=== PATIENT | male | born 1960 | race Hispanic/Latino ===

== ENCOUNTER 2016-06-22 10:35 | Inpatient (IN) | payer MEDICARE ==
[2016-06-22 11:33] LABS: Basophils % (Auto) 0.6 % (0.0-1.8); Eosinophils % (Auto) 0.4 % (0.0-4.3); Hematocrit 43.4 % (35.5-45.6); Hemoglobin 14.7 gm/dl (11.8-15.2); Mean Corpuscular HGB Conc 34 % (32-34); Mean Corpuscular Hemoglobin 31 pg (28-32); Mean Corpuscular Volume 92 fl (84-94); Platelet Count 139 K/mm3 (140-440); Red Blood Count 4.73 M/mm3 (3.65-5.03); Red Cell Distribution Width 15.2 % (13.2-15.2); White Blood Count 7.8 K/mm3 (4.5-11.0)
[2016-06-22 11:46] LABS: Anion Gap 23 mmol/L; Blood Urea Nitrogen 10 mg/dL (9-20); Calcium 8.4 mg/dL (8.4-10.2); Carbon Dioxide 18 mmol/L (22-30); Chloride 99.7 mmol/L (98-107); Glucose 215 mg/dL (75-100); Potassium 3.9 mmol/L (3.6-5.0); Sodium 137 mmol/L (137-145)
[2016-06-22] MEDS ORDERED: NITROSTAT SL PRN (21:14)
[2016-06-22] MEDS ORDERED: MORPHINE IV ONE (21:14)
[2016-06-22] MEDS ORDERED: ASPIRIN PO ONE (21:15)
--- NOTE | 2016-06-22 21:16 | Emergency Department Report ---
ED Chest Pain HPI - General Chief Complaint: Chest Pain Stated Complaint: SEIZURES Time Seen by Provider: 06/22/16 21:03 Source: patient Mode of arrival: Ambulatory Limitations: No Limitations - History of Present Illness Initial Comments: This is a pleasant 55-year-old gentleman with a 2 day history of chest pain. He described it as substernal in nature. There is some component of chest wall discomfort as well. He does indicate that it does radiate down his right arm as well. He felt the tightness has right arm throughout the day today. It does not change with exertion. He does report some back pain associated with this as well. Patient denies any specific trauma. He states that he had similar pains chronically 2 weeks ago. He was seen at a different facility at that time. He did have evaluation performed that demonstrated no specific pathology. He was given a diagnosis of alcoholic gastritis at that time period and discharged home. Patient denies ever having heart catheterization or stress testing. He states that he is an alcoholic. He does endorse history of COPD as well. He does feel subjectively improved with inhaler Severity scale (0 -10): 6 Worsens With: movement - Related Data Home Medications Medication Instructions Recorded Confirmed Last Taken Divalproex Dr [DepaKOTE DR] 500 mg PO TID 06/22/16 06/22/16 Unknown Allergies Allergy/AdvReac Type Severity Reaction Status Date / Time No Known Allergies Allergy Unverified 06/22/16 10:49 MARGIE score - Margie Score Age > 65: (0) No Aspirin use within the Past 7 Days: (0) No 3 or more CAD Risk Factors: (0) No 2 or more Angina events in past 24 hrs: (1) Yes Known CAD with more than 50% Stenosis: (0) No Elevated Cardiac Markers: (0) No ST Deviation Greater than 0.5mm: (0) No MARGIE Score: 1 ED Review of Systems ROS: Stated complaint: SEIZURES Other details as noted in HPI Comment: All other systems reviewed and negative Constitutional: denies: chills, fever Eyes: denies: eye pain, eye discharge, vision change ENT: denies: ear pain, throat pain Respiratory: denies: cough, shortness of breath, wheezing Cardiovascular: chest pain. denies: palpitations Endocrine: no symptoms reported Gastrointestinal: denies: abdominal pain, nausea, diarrhea Genitourinary: denies: urgency, dysuria Musculoskeletal: back pain. denies: joint swelling, arthralgia Skin: denies: rash, lesions Neurological: denies: headache, weakness, paresthesias Psychiatric: denies: anxiety, depression Hematological/Lymphatic: denies: easy bleeding, easy bruising ED Past Medical Hx - Past Medical History Hx Seizures: Yes Additional medical history: STOMACH - Surgical History Past Surgical History?: No Hx Coronary Stent: No Hx Open Heart Surgery: No Hx Pacemaker: No Hx Internal Defibrillator: No Hx Cholecystectomy: No Hx Appendectomy: No Hx Breast Surgery: No - Social History Smoking Status: Current Every Day Smoker Substance Use Type: Alcohol - Medications Home Medications: Home Medications Medication Instructions Recorded Confirmed Last Taken Type Divalproex Dr [DepaKOTE DR] 500 mg PO TID 06/22/16 06/22/16 Unknown History ED Physical Exam - General Limitations: No Limitations General appearance: alert, in no apparent distress, obese - Head Head exam: Present: atraumatic, normocephalic - Eye Eye exam: Present: normal appearance, EOMI. Absent: scleral icterus - ENT ENT exam: Present: normal exam, normal orophraynx, mucous membranes moist - Neck Neck exam: Present: normal inspection. Absent: meningismus, lymphadenopathy - Respiratory Respiratory exam: Present: decreased breath sounds (diffusely with scattered wheezes and occasional crackles.). Absent: respiratory distress - Cardiovascular Cardiovascular Exam: Present: regular rate, normal rhythm, normal heart sounds. Absent: systolic murmur, diastolic murmur, rubs, gallop - GI/Abdominal GI/Abdominal exam: Present: soft, tenderness (upper abdomen with area just to the right of midline with a small ventral hernia. Easily reducible.), normal bowel sounds, other (protuberant). Absent: guarding, rebound - Rectal Rectal exam: Present: deferred - Extremities Exam Extremities exam: Present: normal inspection, full ROM. Absent: tenderness, pedal edema, calf tenderness - Back Exam Back exam: Present: normal inspection, tenderness (mild in the right and left paralumbar region.). Absent: vertebral tenderness - Neurological Exam Neurological exam: Present: alert, oriented X3 - Psychiatric Psychiatric exam: Present: normal affect, normal mood - Skin Skin exam: Present: warm, dry, intact, normal color. Absent: rash ED Course Vital Signs 06/22/16 06/22/16 06/22/16 10:50 20:28 20:33 Temperature 97.9 F Pulse Rate 81 99 H 79 Respiratory 20 17 12 Rate Blood Pressure 106/77 O2 Sat by Pulse 97 Oximetry 06/22/16 06/22/16 06/22/16 20:40 20:50 21:00 Temperature Pulse Rate 79 74 71 Respiratory 19 18 25 H Rate Blood Pressure 146/90 143/91 O2 Sat by Pulse 97 94 95 Oximetry 06/22/16 06/22/16 06/22/16 21:10 21:20 21:30 Temperature Pulse Rate 82 73 71 Respiratory 19 21 21 Rate Blood Pressure 143/91 138/88 146/89 O2 Sat by Pulse 98 96 96 Oximetry 06/22/16 06/22/16 06/22/16 21:40 21:50 22:00 Temperature Pulse Rate 72 62 69 Respiratory 23 21 21 Rate Blood Pressure 146/89 143/91 143/91 O2 Sat by Pulse 96 97 94 Oximetry - Reevaluation(s) Reevaluation #1: 06/22/16 21:04 ECG at 1055 with normal sinus rhythm at 81 bpm. Left axis. Normal [place] QRS. Does have some Q waves anteriorly. Otherwise some nonspecific changes. No acute STEMI. Reevaluation #2: 06/22/16 23:20 Patient reports mild subjective relief with nitroglycerin and morphine and aspirin. There is some suspicion my mind whether this could be alcoholic gastritis. The pain is not reproducible with palpation or range of motion with the arm. I am concerned given his risk factors as well as not having had cardiac cath workup in the past. I did speak with Dr. Nunez regarding admission. She was agreeable with this. ED Medical Decision Making - Lab Data Result diagrams: 06/22/16 11:13 06/22/16 11:13 Critical care attestation.: If time is entered above; I have spent that time in minutes in the direct care of this critically ill patient, excluding procedure time. ED Disposition Clinical Impression: Chest pain Qualifiers: Chest pain type: precordial chest pain Qualified Code(s): R07.2 - Precordial pain Disposition: OP ADMITTED IP TO THIS HOSP Is pt being admited?: Yes Does the pt Need Aspirin: No Condition: Stable Instructions: Chest Pain (ED) Referrals: PRIMARY CARE, [Primary Care Provider] - 3-5 Days Time of Disposition: 23:19
[2016-06-22] MEDS ORDERED: TYLENOL PO PRN (23:56)
[2016-06-22] MEDS ORDERED: SODIUM CHLORIDE FLUSH SYRINGE 10 ML IV PRN (23:56)
[2016-06-22] MEDS ORDERED: ZOFRAN IV PRN (23:56)
[2016-06-22] MEDS ORDERED: DULCOLAX PR PRN (23:56)
[2016-06-22] MEDS ORDERED: MILK OF MAGNESIA PO PRN (23:56)
--- NOTE | 2016-06-22 23:58 | History and Physical Report ---
History of Present Illness Date of examination: 06/22/16 History of present illness: 55 -year-old man history of seizure comes emergency room, his of chest pain. Pain is in the epigastric area which he is unable to describe. Intensity 5/10, radiating to the jaw and associated with left arm tingling. The pain has been constant since friday, worse with activity, relieved with morphine. He has been drinking heavily since Friday to relieve the pain. He has not taking his Depakote since then. He admits to nausea, no vomiting, admits to shortness breath, diaphoresis Patient denies cough, abdominal pain, hematochezia, dysuria, frequency, focal weakness, dysarthria, fever chills, polydipsia polyuria, hot or cold intolerance , easy bruisability, or rash or bleeding from mucosal membrane, rhinorrhea, epistaxis, earache, tinnitus, blurry vision, eye discharge, anxiety, depression. Other review of systems negative PAST SURGICAL HISTORY: Hernia repair 7 SOCIAL HISTORY: Denies drugs, drinks heavily, smoke a pack a day FAMILY HISTORY: Hypertension Medications and Allergies Allergies Allergy/AdvReac Type Severity Reaction Status Date / Time No Known Allergies Allergy Unverified 06/22/16 10:49 Home Medications Medication Instructions Recorded Confirmed Last Taken Type Divalproex Dr [DepaKOTE ] 500 mg PO TID 06/22/16 06/22/16 Unknown History Active Meds: Active Medications Nitroglycerin (Nitrostat) 0.4 mg SL .Q5MIN PRN PRN Reason: Chest Pain Exam - Physical Exam Narrative exam: Gen. appearance: Patient lying in bed, no apparent distress HEENT: Normocephalic, atraumatic, pupils equally round and reactive to light, extraocular movement intact, and no sclericterus,. No JVD or thyromegaly or nodule,neck supple, no carotid bruit ,mucous membranes moist, no exudate or erythema Heart: S1, S2, regular rate and rhythm Lungs: Clear to auscultation bilaterally, breathing comfortable Abdomen: Positive bowel sounds, nontender, nondistended, no organomegaly Extremity: No edema, cyanosis, clubbing Skin: No rash, nodules, warm, dry Neuro: Oriented 3, cranial nerves II-12 intact, speech is fluent, motor and sensory intact - Constitutional Vitals: Temp Pulse Resp BP Pulse Ox 97.9 F 63 18 151/85 95 06/22/16 10:50 06/22/16 23:40 06/22/16 23:40 06/22/16 23:40 06/22/16 23:40 Results - Labs CBC & Chem 7: 06/22/16 11:13 06/22/16 11:13 Labs: Abnormal lab results 06/22/16 06/22/16 Range/Units 11:13 11:13 Plt Count 139 L (140-440) K/mm3 Lymph # 1.1 L (1.2-5.4) K/mm3 Seg Neutrophils % 81.2 H (40.0-70.0) % Carbon Dioxide 18 L (22-30) mmol/L Glucose 215 H (75-100) mg/dL - Imaging and Cardiology EKG: image reviewed Chest x-ray: image reviewed Assessment and Plan Chest pain, rule out ACS Seizure Admit to medicine Check cardiac enzymes, lipid profile, obtain stress test Restart Depakote, IV Ativan as needed for breakthrough seizure Start DVT prophylaxis
[2016-06-23] MEDS: MORPHINE IV PRN ×4 (00:10→19:45)
[2016-06-23] MEDS ORDERED: ATIVAN IV PRN ×3 (00:37→13:45)
[2016-06-23 04:32] LABS: Creatine Kinase MB 2.7 ng/mL (0.0-4.0)
[2016-06-23 05:34] LABS: Basophils % (Auto) 1.2 % (0.0-1.8); Hematocrit 39.4 % (35.5-45.6); Hemoglobin 13.4 gm/dl (11.8-15.2); Mean Corpuscular HGB Conc 34 % (32-34); Mean Corpuscular Hemoglobin 31 pg (28-32); Mean Corpuscular Volume 92 fl (84-94); Platelet Count 116 K/mm3 (140-440); Red Cell Distribution Width 14.5 % (13.2-15.2); White Blood Count 6.2 K/mm3 (4.5-11.0)
[2016-06-23 05:49] LABS: Blood Urea Nitrogen 14 mg/dL (9-20); Calcium 8.7 mg/dL (8.4-10.2); Carbon Dioxide 26 mmol/L (22-30); Glucose 120 mg/dL (75-100); Potassium 3.4 mmol/L (3.6-5.0); Sodium 143 mmol/L (137-145)
[2016-06-23 06:18] LABS: Anion Gap 17 mmol/L
[2016-06-23] MEDS ORDERED: LEXISCAN IV ONE ×2 (08:11→08:56)
[2016-06-23] MEDS ORDERED: K-DUR PO ONE (08:41)
--- NOTE | 2016-06-23 09:49 | XRay Report ---
ROUTINE CHEST, TWO VIEWS: HISTORY: chest pain. The trachea, heart, mediastinal contour, lung benedict and bony thorax are unremarkable. IMPRESSION: Unremarkable chest x-ray.
[2016-06-23] MEDS ORDERED: LOVENOX SUB-Q SCH (10:00)
--- NOTE | 2016-06-23 10:23 | Progress Note ---
Assessment and Plan Assessment and plan: 1. Chest pain. Continue chest pain pathway. Follow-up EKG and cardiac isoenzymes. Follow-up stress thallium. 2. Epigastric pain. Check lipase/amylase. CT scan of the abdomen and pelvis. 3. Hypokalemia. Replete potassium. 4. Seizure disorder. Continue medications. 5. ETOH abuse. [facility] protocol History Interval history: Patient still complains of epigastric pain. No nausea, vomiting or diarrhea. Patient denies any chest pain or shortness of breath currently. Hospitalist Physical - Constitutional Vitals: Temp Pulse Resp BP Pulse Ox 98.5 F 69 20 153/82 96 06/23/16 08:00 06/23/16 08:00 06/23/16 08:00 06/23/16 08:00 06/23/16 08:00 General appearance: Present: no acute distress, well-nourished - EENT Eyes: Present: PERRL, EOM intact ENT: hearing intact, clear oral mucosa, dentition normal - Neck Neck: Present: supple, normal ROM - Respiratory Respiratory effort: normal Respiratory: bilateral: CTA - Cardiovascular Rhythm: regular Heart Sounds: Present: S1 & S2. Absent: gallop, rub - Extremities Extremities: no ischemia, No edema, Full ROM - Abdominal General gastrointestinal: soft, tender, non-distended, normal bowel sounds Localized gastrointestinal: tender: epigastric periumbilical (mild) - Integumentary Integumentary: Present: clear, warm, dry - Neurologic Neurologic: CNII-XII intact, moves all extremities Results - Labs CBC & Chem 7: 06/23/16 04:48 06/23/16 04:48 Labs: Laboratory Last Values WBC 6.2 K/mm3 (4.5-11.0) 06/23/16 04:48 RBC 4.30 M/mm3 (3.65-5.03) 06/23/16 04:48 Hgb 13.4 gm/dl (11.8-15.2) 06/23/16 04:48 Hct 39.4 % (35.5-45.6) 06/23/16 04:48 MCV 92 fl (84-94) 06/23/16 04:48 MCH 31 pg (28-32) 06/23/16 04:48 MCHC 34 % (32-34) 06/23/16 04:48 RDW 14.5 % (13.2-15.2) 06/23/16 04:48 Plt Count 116 K/mm3 (140-440) L 06/23/16 04:48 Lymph % (Auto) 33.3 % (13.4-35.0) 06/23/16 04:48 [place] % (Auto) 7.7 % (0.0-7.3) H 06/23/16 04:48 Eos % (Auto) 2.0 % (0.0-4.3) 06/23/16 04:48 Baso % (Auto) 1.2 % (0.0-1.8) 06/23/16 04:48 Lymph # 2.1 K/mm3 (1.2-5.4) 06/23/16 04:48 [place] # 0.5 K/mm3 (0.0-0.8) 06/23/16 04:48 Eos # 0.1 K/mm3 (0.0-0.4) 06/23/16 04:48 Baso # 0.1 K/mm3 (0.0-0.1) 06/23/16 04:48 Seg Neutrophils % 55.8 % (40.0-70.0) 06/23/16 04:48 Seg Neutrophils # 3.5 K/mm3 (1.8-7.7) 06/23/16 04:48 Sodium 143 mmol/L (137-145) 06/23/16 04:48 Potassium 3.4 mmol/L (3.6-5.0) L 06/23/16 04:48 Chloride 103.0 mmol/L (98-107) 06/23/16 04:48 Carbon Dioxide 26 mmol/L (22-30) D 06/23/16 04:48 Anion Gap 17 mmol/L 06/23/16 04:48 BUN 14 mg/dL (9-20) 06/23/16 04:48 Creatinine 0.8 mg/dL (0.8-1.5) 06/23/16 04:48 Estimated GFR > 60 ml/min 06/23/16 04:48 BUN/Creatinine Ratio 17.50 % 06/23/16 04:48 Glucose 120 mg/dL (75-100) H 06/23/16 04:48 Calcium 8.7 mg/dL (8.4-10.2) 06/23/16 04:48 Total Creatine Kinase 270 units/L (55-170) H 06/23/16 03:20 CK-MB (CK-2) 2.7 ng/mL (0.0-4.0) 06/23/16 03:20 CK-MB (CK-2) Rel Index 1.0 (0-4) 06/23/16 03:20 Troponin T < 0.010 ng/mL (0.00-0.029) 06/23/16 Unknown Triglycerides 201 mg/dL (2-149) H 06/23/16 00:24 Cholesterol 256 mg/dL (50-199) H 06/23/16 00:24 LDL Cholesterol Direct 147 mg/dL (50-130) H 06/23/16 00:24 HDL Cholesterol 69 mg/dL (40-59) H 06/23/16 00:24 Cholesterol/HDL Ratio 3.71 % 06/23/16 00:24
[2016-06-23] MEDS ORDERED: PNEUMOVAX 23 IM ONE (12:00)
[2016-06-23] MEDS: K-DUR PO ONE ×2 (12:46→13:01)
[2016-06-23 12:56] LABS: Alanine Aminotransferase 14 units/L (7-56); Albumin 3.7 g/dL (3.9-5); Albumin/Globulin Ratio 1.2 %; Alkaline Phosphatase 97 units/L (35-129); Amylase 37 units/L (27-131); Bilirubin,Total 0.5 mg/dL (0.1-1.2); Creatine Kinase MB 2.5 ng/mL (0.0-4.0); Lipase 28 units/L (13-60); Total Protein 6.7 g/dL (6.3-8.2)
[2016-06-23 13:00] LABS: Bilirubin,Direct < 0.2 mg/dL (0-0.2); Bilirubin,Indirect 0.3 mg/dL
--- NOTE | 2016-06-23 14:35 | Treadmill Report ---
THALLIUM STRESS TEST LEFT VENTRICLE: Left ventricular chamber size is within normal. Perfusion study demonstrates homogeneous uptake of the tracer in all segments, no significant perfusion defects identified. Gated analysis demonstrates normal left ventricular systolic function, ejection fraction 69%. CONCLUSION: Normal myocardial perfusion study. JOB# [id number] CA/NTS
[2016-06-23] MEDS: ATIVAN IV PRN ×3 (14:37→21:16)
--- NOTE | 2016-06-23 16:06 | Cat Scan Report ---
FINAL REPORT EXAM: CT ABDOMEN PELVIS WO CON HISTORY: epigastric pain TECHNIQUE: CT of the abdomen and pelvis was performed without intravenous contrast. Reconstructions were included in the coronal and sagittal planes. PRIORS: None. FINDINGS: Lower thorax: The lung bases are clear. The visualized portions of the heart are normal. Liver: The liver is normal in attenuation. No intrahepatic biliary duct dilation. No focal hepatic lesions. Gallbladder/ biliary system: No cholelithiasis. The common bile duct appears nondilated. Spleen: No splenic lesions are seen. Pancreas: No pancreatic lesions are seen. No pancreatic duct dilation. Kidneys: There is a simple left parapelvic renal cyst. No hydronephrosis. No renal or ureteral calcifications. Adrenal glands: No adrenal masses. Vasculature: The abdominal aorta is nondilated. Lymph nodes: No enlarged lymph nodes are seen in the abdomen or pelvis. Bowel, mesentery, peritoneum: No bowel obstruction. No free fluid or free air. The appendix is not seen. No pericecal inflammatory change. No colonic diverticulosis. No bowel wall thickening. Urinary bladder: No filling defects are seen. Pelvis: There is a hyper attenuating area in the right aspect of the prostate gland measuring 1.3 centimeters. Abdominal wall: Small bilateral fat containing inguinal hernias are seen. Bones: Degenerative changes are seen in the spine. IMPRESSION: 1. Focal 1.3 centimeter hyper attenuating right prostatic nodule. Cannot exclude prostatic neoplasm. Correlate with PSA. 2. Simple left renal cyst. 3. Fat containing inguinal hernias.
[2016-06-24] MEDS: MORPHINE IV PRN ×2 (02:34→05:50)
[2016-06-24] MEDS: ATIVAN IV PRN ×2 (02:34→05:50)
[2016-06-24 07:01] LABS: Anion Gap 16 mmol/L; BUN/Creatinine Ratio 11.42; Blood Urea Nitrogen 8 mg/dL (9-20); Calcium 8.4 mg/dL (8.4-10.2); Carbon Dioxide 26 mmol/L (22-30); Chloride 98.5 mmol/L (98-107); Glucose 124 mg/dL (75-100); Sodium 136 mmol/L (137-145)
[2016-06-24 07:06] LABS: Basophils % (Auto) 0.7 % (0.0-1.8); Eosinophils % (Auto) 2.6 % (0.0-4.3); Hematocrit 41.1 % (35.5-45.6); Hemoglobin 13.8 gm/dl (11.8-15.2); Mean Corpuscular HGB Conc 34 % (32-34); Mean Corpuscular Hemoglobin 31 pg (28-32); Mean Corpuscular Volume 92 fl (84-94); Platelet Count 106 K/mm3 (140-440); Red Blood Count 4.49 M/mm3 (3.65-5.03); Red Cell Distribution Width 14.5 % (13.2-15.2); White Blood Count 6.4 K/mm3 (4.5-11.0)
--- NOTE | 2016-06-24 08:32 | Discharge Summary ---
Providers - Providers Date of Admission: 06/22/16 23:56 Date of discharge: 06/24/16 Attending physician: JOSH LEVI Hospitalization Reason for admission: cp, epigastric pain Condition: Stable Hospital course: 55-year-old male with past medical history of seizure disorder presented through the emergency room with complaints of chest and epigastric pain. Patient stated that the chest pain radiated to the jaw and was associated with left arm tingling. Patient states that the pain began on Friday prior to admission and has been constant and worsening with exertional activity. Patient reports drinking heavily to relieve the pain. Patient underwent evaluation with a myocardial perfusion scan which was found to be negative. With regards to the epigastric pain, patient underwent CT scan of the abdomen and pelvis which was found to be negative with the exception of a 1.3 cm prostate nodule. The epigastric pain most likely was related to gastritis/GERD associated with EtOH/binge drinking. Patient was also noted to have hypokalemia which was repleted. Patient is felt to have received maximal hospital benefit for discharge. Dedicated discharge time 32 minutes. Disposition: DISCHARGED TO HOME OR SELFCARE Time spent for discharge: 32 - Discharge Diagnoses (1) GERD (gastroesophageal reflux disease) Status: Acute Qualifiers: Esophagitis presence: E (2) Gastritis Status: Acute Qualifiers: Gastritis type: G Chronicity: C Gastritis bleeding: G (3) Chest pain Status: Acute Qualifiers: Chest pain type: precordial chest pain Qualified Code(s): R07.2 - Precordial pain Core Measure Documentation - Palliative Care Palliative Care/ Comfort Measures: Not Applicable - Core Measures Any of the following diagnoses?: none Exam - Constitutional Vitals: Temp Pulse Resp BP Pulse Ox 97.9 F 84 20 129/68 97 06/24/16 04:25 06/24/16 04:25 06/24/16 04:25 06/24/16 04:25 06/24/16 08:27 General appearance: Present: no acute distress, well-nourished - EENT Eyes: Present: PERRL ENT: hearing intact, clear oral mucosa - Neck Neck: Present: supple, normal ROM - Respiratory Respiratory effort: normal Respiratory: bilateral: CTA - Cardiovascular Heart Sounds: Present: S1 & S2. Absent: rub, click - Extremities Extremities: pulses symmetrical, No edema Peripheral Pulses: within normal limits - Abdominal General gastrointestinal: Present: soft, non-tender, non-distended, normal bowel sounds Male genitourinary: Present: normal - Integumentary Integumentary: Present: clear, warm, dry - Musculoskeletal Musculoskeletal: gait normal, strength equal bilaterally - Psychiatric Psychiatric: appropriate mood/affect, intact judgment & insight - Neurologic Neurologic: CNII-XII intact, moves all extremities Plan Activity: no restrictions Weight Bearing Status: Full Weight Bearing Diet: regular Additional Instructions: F/U with urology for prostate nodule seen on imaging Follow up with: [facility] [Provider Group] - 7 Days PRIMARY CAREMD [Referring] - 3-5 Days LAVERN HEARD MD [Staff Physician] - 7 Days Prescriptions: Divalproex [Willy Vazquez] 500 mg PO TID #90 tablet oxyCODONE /ACETAMINOPHEN [Percocet 5/325] 1 tab PO Q4HR #15 tab Pantoprazole [Protonix] 40 mg PO QDAY #30 tablet
--- NOTE | 2016-06-24 08:34 | Admit Criteria Form ---
Admission Criteria Documentation: CARDIOLOGY GRG Clinical Indications for Admission to Inpatient Care ( Place 'X' for any and all applicable criteria): Hospital admission is needed for appropriate care of the patient because of ANY ONE of the following (1): [ ] I. Hemodynamic instability as indicated by ALL of the following (1)(2)(3) (4)(5) [ ]a) Vital signs or other findings not as expected for chronic patient condition or baseline [ ]b) Instability indicated by ANY ONE of the following: [ ]i) Hypotension [ ]ii) Symptomatic Tachycardia unresponsive to treatment ( e.g., analgesia, fluids, sedation as indicated) [ ]iii) Inadequate perfusion indicated by ANY ONE of the following: [ ] 1) Lactic acidosis (> 2 mmol/L) [ ] 2) New abnormal capillary refill (> 3 seconds) [ ] 3) Reduced urine output [ ] 4) New altered mental status [ ]iv) Orthostatic vital sign changes unresponsive to treatment (e.g., fluids) [ ]v) IV inotropic or vasopressor medication required to maintain adequate blood pressure or perfusion [ ] II. Severe heart failure as indicated by ANY ONE of the following(17)(18) [ ]a) Respiratory distress [ ]b) Hypotension [ ]c) Anasarca (refractory to outpatient therapy) [ ]d) Cardiac arrhythmias of immediate concern [ ]e) Myocardial ischemia [ ] III. Cardiac arrhythmias or findings of immediate concern indicated by ANY ONE of the following (19)(20): [ ] a) Heart rhythms that are inherently dangerous or unstable indicated by ANY ONE of the following (21)(22)(23): [ ] i) Resuscitated ventricular fibrillation or cardiac arrest [ ] ii) Ventricular escape rhythm [ ] iii) Sustained ventricular tachycardia (30 seconds or more of ventricular rhythm at greater than 100 beats per minute) [ ] iv) Nonsustained ventricular tachycardia and ANY ONE of the following: [ ] 1) Suspected cardiac ischemia as cause or consequence of ventricular tachycardia [ ] 2) In setting of acute myocarditis [ ] b) Unstable cardiac conduction defects indicated by ANY ONE of the following(23)(24)(25) [ ] i) Type II second-degree atrioventricular block [ ]ii) Third-degree atrioventricular block [ ]iii) New-onset left bundle branch block with suspected myocardial ischemia [ ]c) Any heart rhythm and ANY ONE of the following (21)(22)(26)(27) (28) [ ] i) Continuous long-term ECG monitoring needed (e.g., initiation of drug requiring monitoring for more than 24 hours) [ ] ii) Patient has automatic implanted cardioverter defibrillator that is repeatedly firing, malfunctioning, or in need of immediate adjustment of settings beyond the scope of ambulatory or observation care [ ]d) Heart rhythms of concern due to ANY ONE of the following: [ ] i) Hypotension [ ] ii) Respiratory distress [ ] iii) Association with other significant symptoms (e.g., bradycardia with syncope or ongoing dizziness, supraventricular tachycardia with chest pain (14)(15)(17) [ ] IV. Monitoring for cardiac contusion beyond the scope of observation care needed [A](30)(31)(32) [ ] V. Surgical or device complication (e.g., valve replacement complication , pacemaker dysfunction) (35)(41)(44)(45)(46) [ ] . Inpatient palliative care needed. [B](49) Also use Inpatient Palliative Care Criteria [ ] VII. Nonbacterial thrombotic (marantic) endocarditis (36)(43)(47)(48) [X] VIII. Cardiology condition, symptom, or finding for which emergency and observation care has failed or are not considered appropriate. [ ] IX. Acute valvular disease requiring inpatient as indicated by ANY ONE of the following (41) [ ]a) Acute valvular regurgitation (42) [ ]b) Noninfectious valvulitis (43) [ ]c) Obstructive valve thrombosis [ ]d) Paravalvular leak [ ]e) Other significant valvular disorder remaining after emergency or observation level of care (as appropriate) [ ]X. Pericardial disease requiring inpatient treatment as indicated by ANY ONE of the following (33)(34)(35)(36)(37) [ ]a) Suspected tamponade (38)(39)(40) [ ]b) Hemopericardium [ ]c) Other significant pericardial disorder remaining after emergency or observation level of care (as appropriate) [ ] XI. Cardiac ischemia beyond scope of emergency and observation care. [ ] XII. Hypertension requiring inpatient treatment as indicated by ANY ONE of the following (6)(7)(8) [ ]a) SBP greater than 220 mm Hg or DBP greater than 120 mmHg despite treatment [ ]b) SBP greater than 140 mm Hg or DBP greater than 100 mm Hg with evidence of acute end organ damage as indicated by ANY ONE of the following [ ] i) Altered mental status [ ] ii) Acute renal failure as indicated by new onset of ANY ONE of the following (9)(10)(11)(12)(13) [ ]1) 3-fold rise in serum creatinine from baseline [ ]2) Serum creatinine greater than 4 mg/dL ( 354 micromoles/L) with acute rise greater than 0.5 mg/dL (44.2 micromoles/L) [ ]3) Reduction of more than 75% in estimated glomerular filtration rate from baseline [ ]4) Estimated glomerular filtration rate less than 35 mL/min/1.73m2 (0.59 mL/sec/1.73m2) in child up to 18 years of age [ ]5) Cessation of urine output indicated by ALL of the following [ ]A. Adequate volume status [ ]B. Inadequate urine output as indicated by ANY ONE of the following [ ]a. Urine output less than 0.3 mL/kg/hr for 24 hours [ ]b. Anuria (urine output less than 0.1 mL/kg/hr) for 12 hours [ ] iii) Aortic dissection [ ] iv) Myocardial Ischemia [ ] v) Left ventricular heart failure [ ]vi) Retinal Hemorrhage [ ]vii) Other significant finding [ ]c) Hypertension in child requiring inpatient treatment as indicated by ALL of the following(14)(15)(16) [ ] i) Outpatient treatment not effective, not available, or not appropriate [ ]ii) SBP or DBP greater than 95th percentile for age [ ]iii) Evidence of acute end organ damage as indicated by ANY ONE of the following [ ]1) Altered mental status [ ]2) Acute renal failure as indicated by new onset of ANY ONE of the following(9)(10)(11)(12)(13) [ ]A. 3-fold rise in serum creatinine from baseline [ ]B. Serum creatinine greater than 4 mg/dL (354 micromoles/L) with acute rise greater than 0.5 mg/dL (44.2 micromoles/L) [ ]C. Reduction of more than 75% in estimated glomerular filtration rate from baseline [ ]D. Estimated glomerular filtration rate less than 35 mL/min/1.73m2 (0.59 mL/sec/1.73m2) in child up to 18 years of age [ ]E. Cessation of urine output indicated by ALL of the following [ ]a. Adequate volume status [ ]b. Inadequate urine output as indicated by ANY ONE of the following [ ]i) Urine output less than 0.3 mL/kg/hr for 24 hours [ ]ii) Anuria ( urine output less than 0.1 mL/kg/hr) for 12 hours [ ]3) Severe headache [ ]4) Visual disturbance [ ]5) Retinal hemorrhage [ ]6) Other significant finding [ ]XIII. Complications of transplanted heart indicated by ANY ONE of the following(61): [ ]a) Acute graft rejection requiring inpatient management (eg, intravenous immunosuppression)(62)(63) [ ]b) Acute graft heart failure indicated by ANY ONE of the following(64): [ ]i) Hemodynamic instability [ ]ii) Cardiac arrhythmias of immediate concern [ ]iii) Pulmonary edema that is very severe (eg, mechanical ventilation needed, imminent or likely, need for 100% oxygen to keep oxygen saturation above 90%) [ ]iv) Pulmonary edema that is persistent as indicated by ALL of the following: [ ]1) New need for oxygen therapy to keep oxygen saturation above 90% (or increased FiO2 need from baseline) [ ]2) Has not improved sufficiently with emergency department or observation care IV diuretics or other heart failure treatments[E] [ ]v) Altered mental status that is severe or persistent [ ]vi) Increased creatinine (new on laboratory test) with reduction of more than 50% in estimated glomerular filtration rate from baseline [ ]vii) Progressively (ongoing) rising creatinine (known from past laboratory test) with reduction of more than 25% in estimated glomerular filtration rate from baseline [ ]viii) Acute renal failure [ ]ix) Acute peripheral ischemia (eg, examination shows pulseless, cool, mottled, or cyanotic extremity) [ ]x) Pulmonary artery catheter monitoring needed [ ]xi) Other sign or symptom of heart failure requiring inpatient treatment (ie, too severe or not responsive to outpatient and observation care treatment) [ ]c) Infection requiring inpatient management (eg, Hemodynamic instability, need for intravenous antimicrobial treatment)(66)(67)(68)(69)(70) [ ]d) Cardiac allograft vasculopathy requiring inpatient management ( eg evidence of cardiac ischemia)(71) [ ]e) Other complication of transplanted heart (eg, stroke, severe pulmonary hypertension, severe valvular dysfunction) requiring inpatient management(72) The original [facility] [employer] content created by [facility] has been revised. The portions of the content which have been revised are identified through the use of italic text or in bold, and [facility] has neither reviewed nor approved the modified material. All other unmodified content is copyright [facility]. Please see references footnoted in the original [facility] edition 2016 Admission Criteria Met: Yes
[2016-06-24 10:38] VITALS: BP 118/87
== END 2016-06-24 12:45 | disposition home or self-care (01) | DRG 392 ==
LOC: ED 10:35 → 4A 23:56
PROVIDERS: ADMIT Internal Medicine; ATTEND Hospitalist
DX: K21.9 Gastro-esophageal reflux disease without esophagitis (principal); K29.70 Gastritis, unspecified, without bleeding; F17.200 Nicotine dependence, unspecified, uncomplicated; E87.6 Hypokalemia; G40.909 Epilepsy, unspecified, not intractable, without status epilepticus; F10.10 Alcohol abuse, uncomplicated; R07.2 Precordial pain; Z82.49 Family history of ischemic heart disease and other diseases of the circulatory system
CPT/HCPCS: 36415; 71020; 74176; 78452; 80048; 80061; 80074; 82150; 82550; 82553; 83690; 84154; 84484; 85025; 90732; 93005; 93010; 93017; 94760; 96374; 99406; A9502; J2060; J2270; J2405; J2785

== ENCOUNTER 2016-09-27 13:18 | Inpatient (IN) | payer MEDICARE ==
[2016-09-27 14:44] LABS: Basophils % (Auto) 1.1 % (0.0-1.8); Eosinophils % (Auto) 3.5 % (0.0-4.3); Hematocrit 41.2 % (35.5-45.6); Mean Corpuscular HGB Conc 34 % (32-34); Mean Corpuscular Hemoglobin 33 pg (28-32); Mean Corpuscular Volume 96 fl (84-94); Platelet Count 143 K/mm3 (140-440); Red Blood Count 4.29 M/mm3 (3.65-5.03); Red Cell Distribution Width 15.2 % (13.2-15.2); White Blood Count 5.6 K/mm3 (4.5-11.0)
[2016-09-27 15:14] LABS: Alanine Aminotransferase 8 units/L (7-56); Albumin/Globulin Ratio 1.2 %; Alkaline Phosphatase 106 units/L (35-129); Anion Gap 15 mmol/L; BUN/Creatinine Ratio 11.42; Blood Urea Nitrogen 8 mg/dL (9-20); Calcium 8.5 mg/dL (8.4-10.2); Carbon Dioxide 28 mmol/L (22-30); Chloride 103.1 mmol/L (98-107); Glucose 86 mg/dL (75-100); Potassium 3.7 mmol/L (3.6-5.0); Sodium 142 mmol/L (137-145); Total Protein 7.4 g/dL (6.3-8.2)
[2016-09-27 16:20] LABS: Creatine Kinase 74 units/L (55-170)
[2016-09-27 16:38] LABS: Creatine Kinase MB < 1.0 ng/mL (0.0-4.0)
[2016-09-27] MEDS ORDERED: PEPCID IV ONE ×2 (17:50→20:27)
[2016-09-27] MEDS ORDERED: ZOFRAN IV ONE (17:50)
[2016-09-27] MEDS ORDERED: NACL 0.9% 500 ML 500 ML IV ONE (17:51)
[2016-09-27] MEDS ORDERED: CARAFATE PO ONE (17:51)
--- NOTE | 2016-09-27 17:52 | Emergency Department Report ---
<SAMI ELLISON - Last Filed: 09/27/16 20:27> ED General Adult HPI - General Chief complaint: Weakness Stated complaint: SEVERE PAIN HEAD,ARMS,BACK,LEGS Time Seen by Provider: 09/27/16 17:37 Source: patient, RN notes reviewed, old records reviewed Mode of arrival: Ambulatory Limitations: No Limitations - History of Present Illness Initial comments: This is a 55-year-old male. He is previously unknown to me. He has a past medical history of seizure. The patient presents to the ER complaining of multiple episodes of syncope, epigastric pain, chest pain, multiple episodes of hematemesis. The chest pain is central and does not radiate to the back, arms or neck. His mild frontal headache. The headache is not sudden or thunderclap in nature. It started after he fell and hit his head. There is no lower abdominal pain. There is no hematemesis. He is complaining of diffuse myalgias. There is no midline back pain. There is no midline neck pain. There is no weakness or numbness. There is no homicidality or suicidality. -: Gradual Location: chest Severity scale (0 -10): 10 Quality: aching Consistency: intermittent Improves with: none Worsens with: none Associated Symptoms: chest pain, loss of appetite, nausea/vomiting, syncope, weakness - Related Data Previous Rx's Medication Instructions Recorded Last Taken Type Divalproex Dr [Depakote Dr] 500 mg PO TID #90 tablet 06/24/16 Unknown Rx Pantoprazole [Protonix] 40 mg PO QDAY #30 tablet 06/24/16 Unknown Rx oxyCODONE /ACETAMINOPHEN [Percocet 1 tab PO Q4HR #15 tab 06/24/16 Unknown Rx 5/325] Allergies Allergy/AdvReac Type Severity Reaction Status Date / Time No Known Allergies Allergy Unverified 06/22/16 10:49 ED Review of Systems ROS: Stated complaint: SEVERE PAIN HEAD,ARMS,BACK,LEGS Other details as noted in HPI Constitutional: malaise. denies: fever Eyes: denies: vision change ENT: denies: epistaxis Cardiovascular: chest pain, syncope Gastrointestinal: abdominal pain, hematemesis. denies: hematochezia Musculoskeletal: arthralgia, myalgia Skin: denies: lesions Neurological: weakness Psychiatric: anxiety ED Past Medical Hx - Past Medical History Previous Medical History?: Yes Hx Hypertension: Yes Hx Heart Attack/AMI: No Hx Congestive Heart Failure: No Hx Diabetes: No Hx Deep Vein Thrombosis: No Hx Pulmonary Embolism: No Hx GERD: Yes Hx Sickle Cell Disease: No Hx Seizures: Yes Hx Asthma: No Hx COPD: Yes Hx Tuberculosis: No Hx Dementia: No Hx HIV: No Additional medical history: STOMACH - Surgical History Hx Coronary Stent: No Hx Open Heart Surgery: No Hx Pacemaker: No Hx Internal Defibrillator: No Hx Cholecystectomy: No Hx Appendectomy: No Hx Breast Surgery: No - Social History Smoking Status: Never Smoker Substance Use Type: None - Medications Home Medications: Home Medications Medication Instructions Recorded Confirmed Last Taken Type Divalproex Dr [Depakote Dr] 500 mg PO TID #90 tablet 06/24/16 Unknown Rx Pantoprazole [Protonix] 40 mg PO QDAY #30 tablet 06/24/16 Unknown Rx oxyCODONE /ACETAMINOPHEN [Percocet 1 tab PO Q4HR #15 tab 06/24/16 Unknown Rx 5/325] ED Physical Exam - General Limitations: No Limitations General appearance: alert, in no apparent distress - Head Head exam: Present: atraumatic, normocephalic - Eye Eye exam: Present: normal appearance, EOMI. Absent: nystagmus - ENT ENT exam: Present: normal exam, normal orophraynx, mucous membranes moist, normal external ear exam - Neck Neck exam: Present: normal inspection, full ROM. Absent: tenderness, meningismus - Respiratory Respiratory exam: Present: normal lung sounds bilaterally. Absent: respiratory distress, wheezes, rales, rhonchi, stridor, chest wall tenderness, accessory muscle use, decreased breath sounds, prolonged expiratory - Cardiovascular Cardiovascular Exam: Present: regular rate, normal rhythm, normal heart sounds. Absent: systolic murmur, diastolic murmur, rubs, gallop - GI/Abdominal GI/Abdominal exam: Present: soft, normal bowel sounds. Absent: distended, tenderness, guarding, rebound, rigid, pulsatile mass - Rectal Rectal exam: Present: normal inspection, normal rectal tone, heme (-) stool, other (during rectal examination, I am escorted by nurse Tres Chapman) - Extremities Exam Extremities exam: Present: normal inspection, full ROM, normal capillary refill. Absent: pedal edema, joint swelling, calf tenderness - Back Exam Back exam: Present: normal inspection, full ROM. Absent: tenderness, CVA tenderness (R), CVA tenderness (L), muscle spasm, paraspinal tenderness, vertebral tenderness - Neurological Exam Neurological exam: Present: alert, oriented X3, other (Extraocular movements intact. Tongue midline. No facial droop. Facial sensation intact to light touch in the V1, V2, V3 distribution bilaterally. 5 and 5 strength in 4 extremities.. Sensation is intact to light touch in 4 extremities.). Absent: motor sensory deficit - Psychiatric Psychiatric exam: Present: normal affect, normal mood - Skin Skin exam: Present: warm, dry, intact, normal color. Absent: rash ED Course Vital Signs 09/27/16 09/27/16 09/27/16 14:06 15:55 16:00 Temperature 98.5 F Pulse Rate 64 Respiratory 16 Rate Blood Pressure 123/83 117/70 122/69 Blood Pressure [Left] O2 Sat by Pulse 98 96 96 Oximetry 09/27/16 09/27/16 09/27/16 16:05 16:11 16:21 Temperature 97.9 F Pulse Rate 66 Respiratory 16 Rate Blood Pressure 122/69 127/64 Blood Pressure 117/70 [Left] O2 Sat by Pulse 95 96 97 Oximetry - Reevaluation(s) Reevaluation #1: 09/27/16 19:41 differential diagnosis: Intracranial injury, structural cardiac disease, pulmonary embolus, acute coronary syndrome, GERD, gastritis, upper GI bleed, pneumonia Assessment and plan: 55-year-old male with epigastric abdominal pain, hematemesis, chest pain, syncope, and head abrasions. He is afebrile, with reassuring vital signs, and is clinically sober at this time. Recently had a negative nuclear stress test. Guaiac negative. Hemoglobin and hematocrit stable. Patient low risk by well's criteria, therefore d-dimer has been ordered. CT scan of the head is ordered, along with nausea medicine, and Pepcid. Please note that there is a national shortage on Protonix, and given the patient's current clinical presentation, I am unable to administer this medication to him. He may have a component of Brittani-Mckeon tear or upper gastritis, I don't believe he requires an active Protonix drip at this time. Abdomen is soft and benign, with no rebound, guarding or peritoneal signs, I don 't believe he requires emergent imaging of the abdomen and pelvis, the patient also had an essentially negative CT scan of the abdomen and pelvis for acute findings June 2016. CT scan of the head is pending, d-dimer is pending, x-ray of the chest is pending, however, the patient will require admission for syncope, and reported hematemesis, and further inpatient evaluation and management. Reevaluation #2: 09/27/16 20:[address] Fernandez, who will follow up on the CT of the head, and d dimer and will contact the hospitalist to arrange admission once alll initial diagnostics have resulted ED Medical Decision Making - Lab Data Result diagrams: 09/27/16 14:22 09/27/16 14:22 Vital Signs 09/27/16 09/27/16 09/27/16 14:06 15:55 16:00 Temperature 98.5 F Pulse Rate 64 Respiratory 16 Rate Blood Pressure 123/83 117/70 122/69 Blood Pressure [Left] O2 Sat by Pulse 98 96 96 Oximetry 09/27/16 09/27/16 09/27/16 16:05 16:11 16:21 Temperature 97.9 F Pulse Rate 66 Respiratory 16 Rate Blood Pressure 122/69 127/64 Blood Pressure 117/70 [Left] O2 Sat by Pulse 95 96 97 Oximetry Lab Results 09/27/16 09/27/16 09/27/16 Range/Units 14:22 14:22 14:22 WBC 5.6 (4.5-11.0) K/mm3 RBC 4.29 (3.65-5.03) M/mm3 Hgb 14.0 (11.8-15.2) gm/dl Hct 41.2 (35.5-45.6) % MCV 96 H (84-94) fl MCH 33 H (28-32) pg MCHC 34 (32-34) % RDW 15.2 (13.2-15.2) % Plt Count 143 (140-440) K/mm3 Lymph % (Auto) 25.5 (13.4-35.0) % Real % (Auto) 5.6 (0.0-7.3) % Eos % (Auto) 3.5 (0.0-4.3) % Baso % (Auto) 1.1 (0.0-1.8) % Lymph # 1.4 (1.2-5.4) K/mm3 Real # 0.3 (0.0-0.8) K/mm3 Eos # 0.2 (0.0-0.4) K/mm3 Baso # 0.1 (0.0-0.1) K/mm3 Seg Neutrophils % 64.3 (40.0-70.0) % Seg Neutrophils # 3.6 (1.8-7.7) K/mm3 Sodium 142 (137-145) mmol/L Potassium 3.7 (3.6-5.0) mmol/L Chloride 103.1 (98-107) mmol/L Carbon Dioxide 28 (22-30) mmol/L Anion Gap 15 mmol/L BUN 8 L (9-20) mg/dL Creatinine 0.7 L (0.8-1.5) mg/dL Estimated GFR > 60 ml/min BUN/Creatinine Ratio 11.42 % Glucose 86 (75-100) mg/dL Calcium 8.5 (8.4-10.2) mg/dL Magnesium 2.10 (1.7-2.3) mg/dL Total Bilirubin 0.20 (0.1-1.2) mg/dL AST 8 (5-40) units/L ALT 8 (7-56) units/L Alkaline Phosphatase 106 (35-129) units/L Total Creatine Kinase (55-170) units/L CK-MB (CK-2) (0.0-4.0) ng/mL CK-MB (CK-2) Rel Index (0-4) Total Protein 7.4 (6.3-8.2) g/dL Albumin 4.0 (3.9-5) g/dL Albumin/Globulin Ratio 1.2 % TSH 1.020 (0.270-4.200) mlU/mL Urine Color (Yellow) Urine Turbidity (Clear) Urine pH (5.0-7.0) Ur Specific [place] (1.003-1.030) Urine Protein (Negative) mg/dL Urine Glucose (UA) (Negative) mg/dL Urine Ketones (Negative) mg/dL Urine Blood (Negative) Urine Nitrite (Negative) Urine Bilirubin (Negative) Urine Urobilinogen (<2.0) mg/dL Ur Leukocyte Esterase (Negative) Urine WBC (Auto) (0.0-6.0) /HPF Urine RBC (Auto) (0.0-6.0) /HPF U Epithel Cells (Auto) (0-13.0) /HPF Urine Mucus /HPF 09/27/16 09/27/16 09/27/16 Range/Units 14:22 17:00 18:19 WBC (4.5-11.0) K/mm3 RBC (3.65-5.03) M/mm3 Hgb (11.8-15.2) gm/dl Hct (35.5-45.6) % MCV (84-94) fl MCH (28-32) pg MCHC (32-34) % RDW (13.2-15.2) % Plt Count (140-440) K/mm3 Lymph % (Auto) (13.4-35.0) % Real % (Auto) (0.0-7.3) % Eos % (Auto) (0.0-4.3) % Baso % (Auto) (0.0-1.8) % Lymph # (1.2-5.4) K/mm3 Real # (0.0-0.8) K/mm3 Eos # (0.0-0.4) K/mm3 Baso # (0.0-0.1) K/mm3 Seg Neutrophils % (40.0-70.0) % Seg Neutrophils # (1.8-7.7) K/mm3 Sodium (137-145) mmol/L Potassium (3.6-5.0) mmol/L Chloride (98-107) mmol/L Carbon Dioxide (22-30) mmol/L Anion Gap mmol/L BUN (9-20) mg/dL Creatinine (0.8-1.5) mg/dL Estimated GFR ml/min BUN/Creatinine Ratio % Glucose (75-100) mg/dL Calcium (8.4-10.2) mg/dL Magnesium 2.00 (1.7-2.3) mg/dL Total Bilirubin (0.1-1.2) mg/dL AST (5-40) units/L ALT (7-56) units/L Alkaline Phosphatase (35-129) units/L Total Creatine Kinase 74 69 (55-170) units/L CK-MB (CK-2) < 1.0 (0.0-4.0) ng/mL CK-MB (CK-2) Rel Index 1.3 (0-4) Total Protein (6.3-8.2) g/dL Albumin (3.9-5) g/dL Albumin/Globulin Ratio % TSH (0.270-4.200) mlU/mL Urine Color Yellow (Yellow) Urine Turbidity Clear (Clear) Urine pH 7.0 (5.0-7.0) Ur Specific [place] 1.014 (1.003-1.030) Urine Protein <15 mg/dl (Negative) mg/dL Urine Glucose (UA) Neg (Negative) mg/dL Urine Ketones Neg (Negative) mg/dL Urine Blood Neg (Negative) Urine Nitrite Neg (Negative) Urine Bilirubin Neg (Negative) Urine Urobilinogen < 2.0 (<2.0) mg/dL Ur Leukocyte Esterase Neg (Negative) Urine WBC (Auto) 2.0 (0.0-6.0) /HPF Urine RBC (Auto) 1.0 (0.0-6.0) /HPF U Epithel Cells (Auto) 2.0 (0-13.0) /HPF Urine Mucus Few /HPF - EKG Data -: EKG Interpreted by Me EKG shows normal: sinus rhythm, axis, intervals, QRS complexes, ST-T waves - Radiology Data Radiology results: pending, image reviewed interpreted by me: X-ray the chest is negative for acute disease Critical care attestation.: If time is entered above; I have spent that time in minutes in the direct care of this critically ill patient, excluding procedure time. ED Disposition Clinical Impression: Chest pain, GERD (gastroesophageal reflux disease), Syncope, History of hematemesis, Gastritis Disposition: -09 OP ADMIT IP TO THIS HOSP Is pt being admited?: Yes Condition: Good Instructions: Chest Pain (ED), Syncope (ED) <YARY FERNANDEZ - Last Filed: 09/27/16 22:06> ED Medical Decision Making - Lab Data Result diagrams: 09/27/16 14:22 09/27/16 14:22 ED Disposition Is pt being admited?: Yes Time of Disposition: 22:06 (Dr. Nunez/hosp)
[2016-09-27 18:06] LABS: Bilirubin,Urine NEG (Negative); Blood,Urine NEG (Negative); Ketones,Urine NEG (Negative); Leukocyte Esterase,Urine NEG (Negative); Mucus,Urine FEW /HPF; Nitrite,Urine NEG (Negative); Protein,Urine <15 mg/dL mg/dL (Negative); Urobilinogen,Urine < 2.0 mg/dL (<2.0)
[2016-09-27] MEDS ORDERED: NACL ONE (18:53)
[2016-09-27] MEDS ORDERED: ZOFRAN ONE (20:27)
--- NOTE | 2016-09-27 21:23 | Cat Scan Report ---
FINAL REPORT EXAM: CT HEAD/BRAIN WO CON HISTORY: forte syncope TECHNIQUE: Noncontrast serial axial images from skull base to vertex. PRIORS: None. FINDINGS: There is no mass effect or midline shift. There are no abnormal intra or extra-axial fluid collections. Cortical sulci and lateral ventricles are within normal limits for size and configuration. Basilar cisterns are patent. No acute intracranial hemorrhage is identified. There is a hypodense focus in the left subinsular region. Visualized paranasal sinuses and mastoid air cells are well aerated. No acute osseous abnormality is identified. IMPRESSION: 1. No abnormal mass or acute intracranial hemorrhage is identified. 2. Asymmetric hypodense focus is noted in the left subinsular region. This is a nonspecific finding. It may be related to chronic ischemic change from small vessel disease.
[2016-09-27 21:45] LABS: INR 1.1 (0.87-1.13)
[2016-09-27] MEDS ORDERED: DULCOLAX PR PRN (23:34)
[2016-09-27] MEDS ORDERED: ZOFRAN IV PRN (23:34)
[2016-09-27] MEDS ORDERED: MILK OF MAGNESIA PO PRN (23:34)
--- NOTE | 2016-09-27 23:43 | History and Physical Report ---
History of Present Illness Date of examination: 09/27/16 History of present illness: 56-year-old man with a history of seizure comes emergency room with disease at 3 -4 episodes of syncope this week. Patient does not know how long each episode lasted for. Yesterday he had an episode of hematemesis, denies insights, aspirin use Also complaining of headache in the frontal area, intermittent in nature, unable to say how long it lasted, intensity,6/10, no radiation any cannot identify exacerbating or relieving factors complaining of hematemesis yesterday Patient denies chest pain, palpitation, shortness of breath, cough, abdominal pain, hematochezia, dysuria, frequency, focal weakness, dysarthria, fever chills , polydipsia polyuria, hot or cold intolerance, easy bruisability, or rash or bleeding from mucosal membrane, rhinorrhea, epistaxis, earache, tinnitus, b lurry vision, eye discharge, anxiety, depression. Other review of systems negative. PAST SURGICAL HISTORY: Hiatal hernia SOCIAL HISTORY: Smoked one and a half pack a day, quit alcohol, no drugs FAMILY HISTORY: Hypertension Medications and Allergies Allergies Allergy/AdvReac Type Severity Reaction Status Date / Time No Known Allergies Allergy Unverified 06/22/16 10:49 Home Medications Medication Instructions Recorded Confirmed Last Taken Type Divalproex [Willy Vazquez] 500 mg PO TID #90 tablet 06/24/16 Unknown Rx oxyCODONE /ACETAMINOPHEN [Percocet 1 tab PO Q4HR #15 tab 06/24/16 09/28/16 Unknown Rx 5/325] Phenytoin Sodium Extended 30 mg PO Q8H 09/28/16 09/28/16 Unknown History [Dilantin] Active Meds: Active Medications Acetaminophen (Tylenol) 650 mg PO Q4H PRN PRN Reason: Pain MILD(1-3)/Fever >100.5/METZ Bisacodyl (Dulcolax) 10 mg [place] QDAY PRN PRN Reason: Constipation unrelieved by MOM Famotidine (Pepcid) 10 mg IV BID ELVIA Magnesium Hydroxide (Milk Of Magnesia) 30 ml PO Q4H PRN PRN Reason: Constipation Ondansetron HCl (Zofran) 4 mg IV Q8H PRN PRN Reason: N/V unrelieved by Reglan Exam - Physical Exam Narrative exam: Gen. appearance: Patient lying in bed, no apparent distress HEENT: Normocephalic, atraumatic, pupils equally round and reactive to light, extraocular movement intact, and no sclericterus,. No JVD or thyromegaly or nodule,neck supple, no carotid bruit ,mucous membranes moist, no exudate or erythema Heart: S1, S2, regular rate and rhythm Lungs: Clear to auscultation bilaterally, breathing comfortable Abdomen: Positive bowel sounds, nontender, nondistended, no organomegaly Extremity: No edema, cyanosis, clubbing Skin: No rash, nodules, warm, dry Neuro: Oriented 3, cranial nerves II-12 intact, speech is fluent, motor and sensory intact - Constitutional Vitals: Temp Pulse Resp BP Pulse Ox 97.9 F 66 16 127/64 97 09/27/16 16:05 09/27/16 16:05 09/27/16 16:05 09/27/16 16:21 09/27/16 16:21 Results - Labs CBC & Chem 7: 09/28/16 13:12 09/28/16 13:12 Labs: Abnormal lab results 09/27/16 09/27/16 09/27/16 Range/Units 14:22 14:22 18:19 MCV 96 H (84-94) fl MCH 33 H (28-32) pg BUN 8 L (9-20) mg/dL Creatinine 0.7 L (0.8-1.5) mg/dL Valproic Acid < 2.8 L (50-100) ug/mL - Imaging and Cardiology EKG: image reviewed Chest x-ray: image reviewed CT Scan - head: report reviewed Assessment and Plan Hematemesis Chest pain Syncope Seizure Admits medicine Consult GI, check serial hemoglobin Check cardiac enzymes, d-dimer Consult cardiology, start DVT prophylaxis Stress test done recently
[2016-09-28] MEDS: TYLENOL PO PRN ×4 (02:05→22:42)
--- NOTE | 2016-09-28 09:04 | XRay Report ---
Single view chest: History: Chest pain, syncope. Findings: Normal cardiomediastinal silhouette. Trachea is midline. No consolidation, pneumothorax or pleural effusion. Impression: No acute cardiopulmonary findings.
[2016-09-28] MEDS ORDERED: PNEUMOVAX 23 IM ONE (12:00)
[2016-09-28] MEDS: PEPCID IV SCH ×2 (12:06→22:28)
[2016-09-28] MEDS: NORCO 5/325 PO PRN ×2 (12:06→18:27)
--- NOTE | 2016-09-28 12:19 | Consultation ---
History of Present Illness Consult date: 09/28/16 Consult reason: syncope History of present illness: 56 YO man with prior h/o CVA and seizure disorder who presented to hospital after multiple episodes of syncope over the last week and persistent headache. He has not had any significant chest pain or palpitations. He recalls being light headed prior to syncopal events but does not recall any other warning symptoms. He was previously hospitalized in 06/2016 and underwent MPI on 06/23/16 which revealed normal perfusion. ECG today reveals NSR and is otherwise unremarkable. Past History Past Medical History: seizures, stroke Social history: smoking Family history: denies: CAD Medications and Allergies Allergies Allergy/AdvReac Type Severity Reaction Status Date / Time No Known Allergies Allergy Unverified 06/22/16 10:49 Home Medications Medication Instructions Recorded Confirmed Last Taken Type Divalproex Dr [Depakote Dr] 500 mg PO TID #90 tablet 06/24/16 Unknown Rx oxyCODONE /ACETAMINOPHEN [Percocet 1 tab PO Q4HR #15 tab 06/24/16 09/28/16 Unknown Rx 5/325] Phenytoin Sodium Extended 30 mg PO Q8H 09/28/16 09/28/16 Unknown History [Dilantin] Active Meds: Active Medications Acetaminophen (Tylenol) 650 mg PO Q4H PRN PRN Reason: Pain MILD(1-3)/Fever >100.5/METZ Last Admin: 09/28/16 08:34 Dose: 650 mg Acetaminophen/Hydrocodone Bitart ([place] 5/325) 1 each PO Q6H PRN PRN Reason: Pain, Moderate (4-6) Last Admin: 09/28/16 12:06 Dose: 1 each Bisacodyl (Dulcolax) 10 mg [place] QDAY PRN PRN Reason: Constipation unrelieved by [facility] Famotidine (Pepcid) 10 mg IV BID ELVIA Last Admin: 09/28/16 12:06 Dose: 10 mg Magnesium Hydroxide (Milk Of Magnesia) 30 ml PO Q4H PRN PRN Reason: Constipation Ondansetron HCl (Zofran) 4 mg IV Q8H PRN PRN Reason: N/V unrelieved by Reglan Review of Systems All systems: negative (per hpi) Physical Examination Vital Signs Temp Pulse Resp BP Pulse Ox 98.5 F 64 16 123/83 98 09/27/16 14:06 09/27/16 14:06 09/27/16 14:06 09/27/16 14:06 09/27/16 14:06 General appearance: no acute distress Neck: Positive: neck supple Cardiac: Positive: Reg Rate and Rhythm. Negative: Audible Murmur Lungs: Positive: clear to auscultation Abdomen: Positive: Soft, Active Bowel Sounds Extremities: Absent: edema Results 09/27/16 14:22 09/27/16 14:22 Assessment and Plan Syncope Negative MPI in 06/2016 and ECG unremarkable. Doubt cardiac etiology. S/P CVA Seizure disorder Recommend: Check Echocardiogram Consider neurology evaluation.
--- NOTE | 2016-09-28 12:39 | Progress Note ---
Assessment and Plan Assessment and plan: Syncope. Etiology unclear. Echocardiogram ordered. Cardiology evaluation. Seizure disorder. Resume Dilantin and Depakote he was taking at home.. Implement seizure precautions. May obtain Neuroconsult depending on hospital course Hematemesis. H&H is stable. Hemoglobin 13.8 today. I discussed with Dr. Alba ASENCIO. May do EGD as outpatient or inpatient if he stays longer DVT prophylaxis with SCDs only. No anticoagulation because of hematemesis Full CODE STATUS History Interval history: Syncope episodes, hematemesis Hospitalist Physical - Physical exam Narrative exam: Gen Appearance: Not in acute distress, obese HEENT: normocephalic, atraumatic Neck: no JVD, supple Lungs: clear to auscultation bilaterally, no crackles or wheezes Heart: S1 and S2 regular, no murmurs or gallop Abdomen: Soft, non tender, non distended normal bowel sounds, Extremity: No edema, no clubbing or cyanosis Neuro : Awake,alert,oriented x 3, moves all ext Psych :normal mood - Constitutional Vitals: Temp Pulse Resp BP Pulse Ox 98.1 F 64 18 113/73 96 09/28/16 07:00 09/28/16 07:00 09/28/16 07:00 09/28/16 07:00 09/28/16 07:00 General appearance: Present: no acute distress Results - Labs CBC & Chem 7: 09/28/16 13:12 09/28/16 13:12 Labs: Laboratory Last Values WBC 5.6 K/mm3 (4.5-11.0) 09/27/16 14:22 RBC 4.29 M/mm3 (3.65-5.03) 09/27/16 14:22 Hgb 14.0 gm/dl (11.8-15.2) 09/27/16 14:22 Hct 41.2 % (35.5-45.6) 09/27/16 14:22 MCV 96 fl (84-94) H 09/27/16 14:22 MCH 33 pg (28-32) H 09/27/16 14:22 MCHC 34 % (32-34) 09/27/16 14:22 RDW 15.2 % (13.2-15.2) 09/27/16 14:22 Plt Count 143 K/mm3 (140-440) 09/27/16 14:22 Lymph % (Auto) 25.5 % (13.4-35.0) 09/27/16 14:22 [place] % (Auto) 5.6 % (0.0-7.3) 09/27/16 14:22 Eos % (Auto) 3.5 % (0.0-4.3) 09/27/16 14:22 Baso % (Auto) 1.1 % (0.0-1.8) 09/27/16 14:22 Lymph # 1.4 K/mm3 (1.2-5.4) 09/27/16 14:22 [place] # 0.3 K/mm3 (0.0-0.8) 09/27/16 14:22 Eos # 0.2 K/mm3 (0.0-0.4) 09/27/16 14:22 Baso # 0.1 K/mm3 (0.0-0.1) 09/27/16 14:22 Seg Neutrophils % 64.3 % (40.0-70.0) 09/27/16 14:22 Seg Neutrophils # 3.6 K/mm3 (1.8-7.7) 09/27/16 14:22 PT 14.1 Sec. (12.2-14.9) 09/27/16 21:18 INR 1.10 (0.87-1.13) 09/27/16 21:18 D-Dimer 142.86 ng/mlDDU (0-234) 09/27/16 21:18 Sodium 142 mmol/L (137-145) 09/27/16 14:22 Potassium 3.7 mmol/L (3.6-5.0) 09/27/16 14:22 Chloride 103.1 mmol/L (98-107) 09/27/16 14:22 Carbon Dioxide 28 mmol/L (22-30) 09/27/16 14:22 Anion Gap 15 mmol/L 09/27/16 14:22 BUN 8 mg/dL (9-20) L 09/27/16 14:22 Creatinine 0.7 mg/dL (0.8-1.5) L 09/27/16 14:22 Estimated GFR > 60 ml/min 09/27/16 14:22 BUN/Creatinine Ratio 11.42 % 09/27/16 14:22 Glucose 86 mg/dL (75-100) 09/27/16 14:22 Calcium 8.5 mg/dL (8.4-10.2) 09/27/16 14:22 Magnesium 2.00 mg/dL (1.7-2.3) 09/27/16 18:19 Total Bilirubin 0.20 mg/dL (0.1-1.2) 09/27/16 14:22 AST 8 units/L (5-40) 09/27/16 14:22 ALT 8 units/L (7-56) 09/27/16 14:22 Alkaline Phosphatase 106 units/L (35-129) 09/27/16 14:22 Total Creatine Kinase 69 units/L (55-170) 09/27/16 18:19 CK-MB (CK-2) < 1.0 ng/mL (0.0-4.0) 09/27/16 14: CK-MB (CK-2) Rel Index 1.3 (0-4) 09/27/16 14: Total Protein 7.4 g/dL (6.3-8.2) 09/27/16 14: Albumin 4.0 g/dL (3.9-5) 09/27/16 14: Albumin/Globulin Ratio 1.2 % 09/27/16 14: TSH 1.020 mlU/mL (0.270-4.200) 09/27/16 14: Urine Color Yellow (Yellow) 09/27/16 17:00 Urine Turbidity Clear (Clear) 09/27/16 17:00 Urine pH 7.0 (5.0-7.0) 09/27/16 17:00 Ur Specific [place] 1.014 (1.003-1.030) 09/27/16 17:00 Urine Protein <15 mg/dl mg/dL (Negative) 09/27/16 17:00 Urine Glucose (UA) Neg mg/dL (Negative) 09/27/16 17:00 Urine Ketones Neg mg/dL (Negative) 09/27/16 17:00 Urine Blood Neg (Negative) 09/27/16 17:00 Urine Nitrite Neg (Negative) 09/27/16 17:00 Urine Bilirubin Neg (Negative) 09/27/16 17:00 Urine Urobilinogen < 2.0 mg/dL (<2.0) 09/27/16 17:00 Ur Leukocyte Esterase Neg (Negative) 09/27/16 17:00 Urine WBC (Auto) 2.0 /HPF (0.0-6.0) 09/27/16 17:00 Urine RBC (Auto) 1.0 /HPF (0.0-6.0) 09/27/16 17:00 U Epithel Cells (Auto) 2.0 /HPF (0-13.0) 09/27/16 17:00 Urine Mucus Few /HPF 09/27/16 17:00 Valproic Acid < 2.8 ug/mL (50-100) L 09/27/16 18:19 Plasma/Serum Alcohol < 0.01 gm% (0-0.07) 09/27/16 18:19
--- NOTE | 2016-09-28 12:58 | Gastroenterology Consultation ---
History of Present Illness - Reason for Consult Consult date: 09/28/16 Minor hematemesis Requesting physician: MARTHA MELARA - History of Present Illness The patient is a 56 year old man admitted after apparent syncopal event from which he fell and hit is head. He also reported some recent and remote history of upper abdominal discomfort and has vomited coffee colored material. Stools have been normal and Hgb was 14. Bun/Cr were also normal. He gives a history of heavy ETOH use of 1.5 gallons of vodka daily until 5 months ago. He reduced his smoking from 5 packs daily to 1/3 pack daily in recent months. No known history of cirrhosis. The patient has been tolerating a regular diet today. Past History Past Medical History: seizures, stroke Past Surgical History: Other (Multiple ventral hernia repairs) Social history: smoking, alcohol abuse Family history: denies: CAD Medications and Allergies Allergies Allergy/AdvReac Type Severity Reaction Status Date / Time No Known Allergies Allergy Unverified 06/22/16 10:49 Home Medications Medication Instructions Recorded Confirmed Last Taken Type Divalproex Dr [Willy Vazquez] 500 mg PO TID #90 tablet 06/24/16 Unknown Rx oxyCODONE /ACETAMINOPHEN [Percocet 1 tab PO Q4HR #15 tab 06/24/16 09/28/16 Unknown Rx 5/325] Phenytoin Sodium Extended 30 mg PO Q8H 09/28/16 09/28/16 Unknown History [Dilantin] Active Meds: Active Medications Acetaminophen (Tylenol) 650 mg PO Q4H PRN PRN Reason: Pain MILD(1-3)/Fever >100.5/METZ Last Admin: 09/28/16 08:34 Dose: 650 mg Acetaminophen/Hydrocodone Bitart ([place] 5/325) 1 each PO Q6H PRN PRN Reason: Pain, Moderate (4-6) Last Admin: 09/28/16 12:06 Dose: 1 each Bisacodyl (Dulcolax) 10 mg [place] QDAY PRN PRN Reason: Constipation unrelieved by MOM Divalproex Sodium (Willy Vazquez) 500 mg PO TID ELVIA Famotidine (Pepcid) 10 mg IV BID ELVIA Last Admin: 09/28/16 12:06 Dose: 10 mg Magnesium Hydroxide (Milk Of Magnesia) 30 ml PO Q4H PRN PRN Reason: Constipation Ondansetron HCl (Zofran) 4 mg IV Q8H PRN PRN Reason: N/V unrelieved by Reglan Phenytoin Sodium (Dilantin) 30 mg PO Q8HR [facility] Review of Systems - Review of Systems Constitutional: no weight loss, no weight gain, no fever, no chills Ears, Nose, Throat: deferred Breasts: deferred Cardiovascular: syncope, no chest pain, no edema, no shortness of breath Respiratory: cough, shortness of breath, wheezing Gastrointestinal: abdominal pain, nausea Male Genitourinary: deferred Musculoskeletal: no gait dysfunction, no joint pain, no muscle pain Integumentary: no rash, no pruritis, no jaundice Neurological: no head injury, no paralysis, no weakness Psychiatric: no anxiety Endocrine: no cold intolerance, no heat intolerance Hematologic/Lymphatic: no easy bruising, no easy bleeding Allergic/Immunologic: no wheezing Exam - Constitutional Vital Signs: Temp Pulse Resp BP Pulse Ox 98.1 F 64 18 113/73 96 09/28/16 07:00 09/28/16 07:00 09/28/16 07:00 09/28/16 07:00 09/28/16 07:00 General appearance: no acute distress, well-nourished - EENT Eyes: PERRL ENT: hearing intact, clear oral mucosa, dentition normal - Neck Neck: supple, normal ROM, no masses or JVD - Respiratory Respiratory effort: normal Respiratory: bilateral: CTA - Breasts Breasts: deferred - Cardiovascular Rhythm: regular Heart Sounds: Present: S1 & S2. Absent: gallop, rub Extremities: pulses intact, No edema, normal color, Full ROM - Gastrointestinal General gastrointestinal: Present: soft, non-tender, non-distended, normal bowel sounds, other (Long midline scar). Absent: hepatomegaly, splenomegaly, mass Rectal Exam: deferred - Genitourinary Male Genitourinary: deferred - Integumentary Integumentary: Present: clear, warm, dry - Neurologic Neurological: alert and oriented x3 - Psychiatric Psychiatric: appropriate mood/affect, intact judgment & insight, memory intact - Labs CBC & Chem 7: 09/27/16 14:22 09/27/16 14:22 Assessment and Plan - Patient Problems (1) Chest pain Current Visit: Yes Status: Acute Qualifiers: Chest pain type: C Ischemic chest pain type: I (2) GERD (gastroesophageal reflux disease) Current Visit: Yes Status: Acute Qualifiers: Esophagitis presence: E (3) History of hematemesis Current Visit: Yes Status: Acute Plan to address problem: Minor hematemesis. Stable for outpatient work up given normal H&H, hemodynamic stability and no secondary signs of blood loss such as renal insufficiency. If he needs to stay in the hospital, will scope Friday, otherwise outpatient EGD. Thank you for asking me to see him in consultation. (4) Syncope Current Visit: Yes Status: Acute Qualifiers: Syncope type: S Encounter type: E
[2016-09-28 13:41] LABS: Basophils % (Auto) 1.1 % (0.0-1.8); Eosinophils % (Auto) 4.1 % (0.0-4.3); Hematocrit 40.8 % (35.5-45.6); Hemoglobin 13.8 gm/dl (11.8-15.2); Mean Corpuscular HGB Conc 34 % (32-34); Mean Corpuscular Hemoglobin 33 pg (28-32); Mean Corpuscular Volume 96 fl (84-94); Platelet Count 138 K/mm3 (140-440); Red Blood Count 4.24 M/mm3 (3.65-5.03); Red Cell Distribution Width 15.1 % (13.2-15.2); White Blood Count 4.9 K/mm3 (4.5-11.0)
[2016-09-28 13:54] LABS: Anion Gap 16 mmol/L; BUN/Creatinine Ratio 11.42; Blood Urea Nitrogen 8 mg/dL (9-20); Calcium 8.4 mg/dL (8.4-10.2); Carbon Dioxide 24 mmol/L (22-30); Chloride 103.5 mmol/L (98-107); Glucose 120 mg/dL (75-100); Potassium 4.2 mmol/L (3.6-5.0); Sodium 139 mmol/L (137-145)
[2016-09-28 13:56] LABS: Creatine Kinase 62 units/L (55-170)
[2016-09-28 14:11] LABS: Creatine Kinase MB < 1.0 ng/mL (0.0-4.0)
[2016-09-28] MEDS: DILANTIN PO SCH ×2 (16:28→21:42)
[2016-09-28] MEDS ORDERED: HEPARIN SUB-Q SCH (17:00)
[2016-09-29] MEDS: NORCO 5/325 PO PRN ×3 (02:22→22:03)
--- NOTE | 2016-09-29 04:03 | Admit Criteria Form ---
Admission Criteria Documentation: CHEST PAIN Clinical Indications for Admission to Inpatient Care (Place 'X' for any and all applicable criteria): Admission is indicated for chest pain and ANY ONE of the following(1)(2)(3)(4)(5 ): [ ]I. Angina with acute coronary syndrome (Also use Myocardial Infarction or Angina guideline) [ ]II. Hemodynamic instability [ ]III. Angina needing acute intervention as indicated by ALL of the following( 11)(12): [ ]a) Unstable angina is present as indicated by angina that is ANY ONE of the following: [ ]i) New onset [ ]ii) Nocturnal [ ]iii) Prolonged at rest [ ]iv) Progressive [ ]b) Angina warrants acute intervention as indicated by ANY ONE of the following: [ ]i) Recurrent angina (e.g, not responding as previously to treatment) [ ]ii) Angina at rest or with low-level activities despite initial medical therapy [ ]iii) New or presumably new ST-segment depression on ECG [ ]iv) Signs or symptoms of heart failure (eg, dyspnea, pulmonary edema) [ ]v) New or worsening mitral regurgitation [ ]vi) Hemodynamic instability [ ]vii) Dangerous arrhythmia (eg, sustained ventricular tachycardia) [ ]viii) History of percutaneous coronary intervention within 6 months [ ]ix) History of coronary artery bypass graft surgery [ ]x) MARGIE risk score of 2 or greater[A] [ ]xi) History of Diabetes(14) [ ]xii) High-risk cardiac ischemia findings on noninvasive testing (e.g, echocardiogram, treadmill testing, nuclear scan) [ ]xiii) Chronic renal insufficiency (ie, estimated GFR less than 60 mL/min/1.732m) [ ]xiv) Left ventricular ejection fraction less than 40% [ ]IV. Evidence of WI (eg, cardiac biomarkers positive, ST-segment elevation on ECG) also use Myocardial Infarction Criteria Form. [ ]V. Pulmonary edema [ ]. Respiratory distress [ ]VII. Chest pain indicative of serious diagnosis other than coronary artery disease (eg, aortic dissection) [ ]VIII. Contraindications and/or Inappropriate clinical situations for Observational Care in patients with Chest Pain, when ANY ONE of the following is required: [ ]a) Patient with risk factor for pulmonary embolism, acute coronary syndrome and myocardial infarction (18) [ ]b) Patient with Pulmonary embolism require an average LOS of 4.3 days, therefore emergency department observation management is inappropriate 18,23 [ ]c) Painful condition/s in the elderly, have the highest rate of recidivism after emergency department observation management (10.8%) 20,21,22 [ ]d) Elevated cardiac biomarker requires intensive and exhaustive care (19) [X ]IX. General contraindications and/or Inappropriate clinical situations for Observational Care in patients with Chest Pain, when ANY ONE of the following is required: [ X]a) Prediction of prolongation of LOS based on ANY ONE of the following may be considered as a contraindication for observational care 2, 3, 4, 5, 6, 7, 8, 9, 10, 11 [ ]i) Age > 65 yrs. [ ]ii) Patient arriving by ambulance [ ]iii) Patient with high acuity [ ]iv) Patient requiring vital sign monitoring [ X]v) Patient on IV medication [ ]b) Systolic blood pressures 180mmHg 3,12 [ ]c) Patient with altered mental status including delirium and other alteration of consciousness, (3) [ ]d) Patient whose discharge disposition will be to a intermediate home or rehabilitation home should not be managed in Emergency Department Observation Unit. CMS rule requires 3 days hospital stay before such placement. 3,13 [ ]e) Patient with failure to thrive due to broad array of etiologies 3,16,17 [ ]f) Inability to ambulate 3,14 Extended stay beyond goal length of stay may be needed for (1)(28): [ ]a) Specific condition diagnosed after evaluation (eg, pulmonary embolism, aortic dissection) [ ]b) Unstable angina [ ]c) Continued suspicion of acute coronary syndrome with inability to complete needed cardiac evaluation (eg, patient clinically unable to undergo stress testing) [ ]d) Myocardial infarction (Contents from ANGINA and CHEST PAIN clinical indications for admission to inpatient care have been integrated in this form) The original [employer] content created by [employer] has been revised. The portions of the content which have been revised are identified through the use of italic text or in bold, and [facility] [employer] has neither reviewed nor approved the modified material. All other unmodified content is copyright [facility]. Please see references footnoted in the original [facility] edition 2016 Admission Criteria Met: Yes
[2016-09-29] MEDS: DILANTIN PO SCH ×3 (05:50→22:02)
[2016-09-29] MEDS: PEPCID IV SCH ×2 (09:43→22:02)
--- NOTE | 2016-09-29 09:55 | Gastroenterology Progress Note ---
Assessment and Plan - Patient Problems (1) Chest pain Current Visit: Yes Status: Acute Qualifiers: Chest pain type: C Ischemic chest pain type: I (2) GERD (gastroesophageal reflux disease) Current Visit: Yes Status: Acute Qualifiers: Esophagitis presence: E (3) History of hematemesis Current Visit: Yes Status: Acute (4) Syncope Current Visit: Yes Status: Acute Qualifiers: Syncope type: S Encounter type: E (5) Abdominal pain Current Visit: Yes Status: Acute Qualifiers: Abdominal location: A Plan to address problem: Rule out PUD, pancreatitis. Recent hematemesis. Not improving. Will plan EGD tomorrow AM. Check lipase level today. Subjective Date of service: 09/29/16 Principal diagnosis: abdominal pain, history of hematemesis Interval history: The patient reports worsened epigastric pain and vomiting today. Denies hematemesis. No BMs. Unable to tolerate diet. Objective - Constitutional Vitals: Temp Pulse Resp BP Pulse Ox 98.7 F 65 20 118/72 97 09/29/16 09:14 09/29/16 09:14 09/29/16 09:14 09/29/16 09:14 09/29/16 09:14 General appearance: no acute distress - EENT ENT: hearing intact, clear oral mucosa, dentition normal - Neck Neck: supple, normal ROM - Respiratory Respiratory effort: normal Respiratory: bilateral: CTA - Cardiovascular Rhythm: regular - Gastrointestinal General gastrointestinal: Present: soft, non-tender, non-distended, normal bowel sounds, other (Long midline scar) - Neurologic Neurological: alert and oriented x3 - Labs CBC & Chem 7: 09/28/16 13:12 09/28/16 13:12 Labs: Laboratory Results - last 24 hr 09/28/16 09/28/16 09/28/16 13:12 13:12 13:12 WBC 4.9 RBC 4.24 Hgb 13.8 Hct 40.8 MCV 96 H MCH 33 H MCHC 34 RDW 15.1 Plt Count 138 L Lymph % (Auto) 26.8 [place] % (Auto) 7.1 Eos % (Auto) 4.1 Baso % (Auto) 1.1 Lymph # 1.3 [place] # 0.3 Eos # 0.2 Baso # 0.1 Seg Neutrophils % 60.9 Seg Neutrophils # 3.0 Sodium 139 Potassium 4.2 Chloride 103.5 Carbon Dioxide 24 Anion Gap 16 BUN 8 L Creatinine 0.7 L Estimated GFR > 60 BUN/Creatinine Ratio 11.42 Glucose 120 H Calcium 8.4 Total Creatine Kinase 62 CK-MB (CK-2) < 1.0 CK-MB (CK-2) Rel Index 1.6 Troponin T < 0.010
[2016-09-29] MEDS ORDERED: VALIUM PO ONE (12:09)
--- NOTE | 2016-09-29 12:27 | Progress Note ---
Assessment and Plan Syncope Negative MPI in 06/2016 and ECG unremarkable. Doubt cardiac etiology. Echocardiogram preliminarily reveals Normal LV systolic function. No significant valvular lesions. S/P CVA Seizure disorder Abdominal pain/hematemesis Recommend: GI evaluation ongoing. Consider neurology evaluation. Subjective Date of service: 09/29/16 Principal diagnosis: abdominal pain, history of hematemesis Interval history: No cardiac complaints. Continues to c/o headache. Objective Vital Signs Temp Pulse Pulse Pulse Resp BP BP 09/29/16 09:14 98.7 F 65 20 118/72 09/29/16 06:12 68 103/59 09/29/16 04:40 98.2 F 63 20 103/56 09/29/16 00:00 98.1 F 70 20 110/52 09/28/16 21:20 54 L 122/74 09/28/16 20:44 09/28/16 20:20 97.6 F 57 L 20 123/72 09/28/16 18:05 98.2 F 89 18 118/71 09/28/16 17:36 58 L 09/28/16 13:36 98.1 F 55 L 18 118/72 Pulse Ox 09/29/16 09:14 97 09/29/16 06:12 09/29/16 04:40 97 09/29/16 00:00 100 09/28/16 21:20 09/28/16 20:44 96 09/28/16 20:20 98 09/28/16 18:05 95 09/28/16 17:36 09/28/16 13:36 98 - Physical Examination Neck: Positive: neck supple Cardiac: Positive: Reg Rate and Rhythm Lungs: Positive: clear to auscultation. Negative: Rales, Wheezes Neuro: Positive: Grossly Intact Abdomen: Positive: Soft, Active Bowel Sounds Extremities: Absent: edema - Labs and Meds Cardiac Enzymes 09/28/16 Range/Units 13:12 CK-MB (CK-2) < 1.0 (0.0-4.0) ng/mL CBC 09/28/16 Range/Units 13:12 WBC 4.9 (4.5-11.0) K/mm3 RBC 4.24 (3.65-5.03) M/mm3 Hgb 13.8 (11.8-15.2) gm/dl Hct 40.8 (35.5-45.6) % Plt Count 138 L (140-440) K/mm3 Lymph # 1.3 (1.2-5.4) K/mm3 [place] # 0.3 (0.0-0.8) K/mm3 Eos # 0.2 (0.0-0.4) K/mm3 Baso # 0.1 (0.0-0.1) K/mm3 Comprehensive Metabolic Panel 09/28/16 Range/Units 13:12 Sodium 139 (137-145) mmol/L Potassium 4.2 (3.6-5.0) mmol/L Chloride 103.5 (98-107) mmol/L Carbon Dioxide 24 (22-30) mmol/L BUN 8 L (9-20) mg/dL Creatinine 0.7 L (0.8-1.5) mg/dL Glucose 120 H (75-100) mg/dL Calcium 8.4 (8.4-10.2) mg/dL - Imaging and Cardiology EKG: image reviewed
--- NOTE | 2016-09-29 13:20 | Magnetic Resonance Report ---
MRI OF THE BRAIN WITHOUT CONTRAST: HISTORY: Dizziness PROCEDURE: Multiplanar, multisequence MR imaging of the brain without IV contrast was performed. FINDINGS: The brain parenchyma signal intensity and its mckeon white interface are within normal limits on all sequences. No evidence for acute ischemia, hemorrhage or mass. No chronic infarct or extra-axial fluid collection. The midline structures are central. The basal cisterns are patent. Normal ventricular size. The orbital cavities and sella turcica demonstrate no abnormality. The visualized paranasal sinuses and mastoid air cells are well aerated. IMPRESSION: Unremarkable non-enhanced MRI of the brain. No acute intracranial process.
--- NOTE | 2016-09-29 15:49 | Consultation ---
History of Present Illness - Reason for Consult Consult date: 09/29/16 ataxia - History of Present Illness hx is of 56 yo WM that lived in personal are home and describes multipel falls a/w minor head trauma presently c/o diffuse headaches denies seizure prior w/u at [facility] " does not remember the results of w/u but was ataxic then exam is unremarkable he is oriented and appropriate CII - CXII intact Impression Cerebellar ataxia etiology to be determinded will check testing and imaging studies Thanks Past History Past Medical History: seizures, stroke Past Surgical History: Other (Multiple ventral hernia repairs) Social history: smoking, alcohol abuse Family history: denies: CAD Medications and Allergies Allergies Allergy/AdvReac Type Severity Reaction Status Date / Time No Known Allergies Allergy Unverified 06/22/16 10:49 Home Medications Medication Instructions Recorded Confirmed Last Taken Type Divalproex Dr [Willy Vazquez] 500 mg PO TID #90 tablet 06/24/16 Unknown Rx oxyCODONE /ACETAMINOPHEN [Percocet 1 tab PO Q4HR #15 tab 06/24/16 09/28/16 Unknown Rx 5/325] Phenytoin Sodium Extended 30 mg PO Q8H 09/28/16 09/28/16 Unknown History [Dilantin] Active Meds: Active Medications Acetaminophen (Tylenol) 650 mg PO Q4H PRN PRN Reason: Pain MILD(1-3)/Fever >100.5/METZ Last Admin: 09/28/16 22:42 Dose: 650 mg Acetaminophen/Hydrocodone Bitart (Patterson 5/325) 1 each PO Q4H PRN PRN Reason: Pain, Moderate (4-6) Bisacodyl (Dulcolax) 10 mg MD QDAY PRN PRN Reason: Constipation unrelieved by MOM Divalproex Sodium (Willy Vazquez) 500 mg PO TID [facility] Last Admin: 09/29/16 09:42 Dose: 500 mg Famotidine (Pepcid) 10 mg IV BID [facility] Last Admin: 09/29/16 09:43 Dose: 10 mg Magnesium Hydroxide (Milk Of Magnesia) 30 ml PO Q4H PRN PRN Reason: Constipation Ondansetron HCl (Zofran) 4 mg IV Q8H PRN PRN Reason: N/V unrelieved by Reglan Phenytoin Sodium (Dilantin) 30 mg PO Q8HR [facility] Last Admin: 09/29/16 05:50 Dose: 30 mg Exam - Constitutional Vitals: Temp Pulse Resp BP Pulse Ox 98.7 F 65 20 118/72 97 09/29/16 09:14 09/29/16 09:14 09/29/16 09:14 09/29/16 09:14 09/29/16 09:14 Results - Labs CBC & Chem 7: 09/28/16 13:12 09/28/16 13:12
--- NOTE | 2016-09-29 15:55 | Progress Note ---
Assessment and Plan Assessment and plan: 56-year-old man with a history of seizure comes emergency room with disease at 3 -4 episodes of syncope this week. Patient does not know how long each episode lasted for. Yesterday he had an episode of hematemesis, denies insights, aspirin use Also complaining of headache in the frontal area, intermittent in nature, unable to say how long it lasted, intensity,6/10, no radiation any cannot identify exacerbating or relieving factors complaining of hematemesis yesterday Patient denies chest pain, palpitation, shortness of breath, cough, abdominal pain, hematochezia, dysuria, frequency, focal weakness, dysarthria, fever chills , polydipsia polyuria, hot or cold intolerance, easy bruisability, or rash or bleeding from mucosal membrane, rhinorrhea, epistaxis, earache, tinnitus, blurry vision, eye discharge, anxiety, depression. Other review of systems negative. Diagnosis. 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 Seizure disorder Abdominal pain with Hematemsis Headache Personal group home resident- Due to inability to care for himself and his finances (Need further information about this) Plan: * supportive care, I consulted Neurology, input noted, await final review * MRI brain is unremarkable * Patient for EGD in am * Continue AED medication * Adjust pain control. * PT/OT * Monitor H/H * Discharge in am if remains stable. History Interval history: Patient seen and examined, in no acute distress. still reporting headache from the fall, also ataxic gait. He reports sensation of near syncope twice yesterday when he was trying to transfer from bed to have echocardiogram done. He states that the pain medication is being given is not working. Denies any nausea, vomiting or diarrhea but reports sensation of "room spinning." No other adverse event reported. Hospitalist Physical - Physical exam Narrative exam: VITAL SIGNS: Reviewed. GENERAL: The patient appeared well nourished and normally developed. Vital signs as documented. HEAD: No signs of head trauma. EYES: Pupils are equal. Extraocular motions intact. No nystagmus noted EARS: Hearing grossly intact. MOUTH: Oropharynx is normal. NECK: No adenopathy, no JVD. CHEST: Chest with clear breath sounds bilaterally. No wheezes, rales, or rhonchi. CARDIAC: Regular rate and rhythm. S1 and S2, without murmurs, gallops, or rubs. VASCULAR: No Edema. Peripheral pulses normal and equal in all extremities. ABDOMEN: Soft, without detectable tenderness. No sign of distention. No rebound or guarding, and no masses palpated. Bowel Sounds normal. MUSCULOSKELETAL: Good range of motion of all major joints. Extremities without clubbing, cyanosis or edema. NEUROLOGIC EXAM: Alert and oriented x 3. No focal sensory or strength deficits. Speech normal. Follows commands. PSYCHIATRIC: Mood normal. SKIN: No rash or lesions. - Constitutional Vitals: Temp Pulse Resp BP Pulse Ox 98.7 F 65 20 118/72 97 09/29/16 09:14 09/29/16 09:14 09/29/16 09:14 09/29/16 09:14 09/29/16 09:14 General appearance: Present: no acute distress Results - Labs CBC & Chem 7: 09/28/16 13:12 09/28/16 13:12 Labs: Laboratory Last Values WBC 4.9 K/mm3 (4.5-11.0) 09/28/16 13:12 RBC 4.24 M/mm3 (3.65-5.03) 09/28/16 13:12 Hgb 13.8 gm/dl (11.8-15.2) 09/28/16 13:12 Hct 40.8 % (35.5-45.6) 09/28/16 13:12 MCV 96 fl (84-94) H 09/28/16 13:12 MCH 33 pg (28-32) H 09/28/16 13:12 MCHC 34 % (32-34) 09/28/16 13:12 RDW 15.1 % (13.2-15.2) 09/28/16 13:12 Plt Count 138 K/mm3 (140-440) L 09/28/16 13:12 Lymph % (Auto) 26.8 % (13.4-35.0) 09/28/16 13:12 Seneca % (Auto) 7.1 % (0.0-7.3) 09/28/16 13:12 Eos % (Auto) 4.1 % (0.0-4.3) 09/28/16 13:12 Baso % (Auto) 1.1 % (0.0-1.8) 09/28/16 13:12 Lymph # 1.3 K/mm3 (1.2-5.4) 09/28/16 13:12 Seneca # 0.3 K/mm3 (0.0-0.8) 09/28/16 13:12 Eos # 0.2 K/mm3 (0.0-0.4) 09/28/16 13:12 Baso # 0.1 K/mm3 (0.0-0.1) 09/28/16 13:12 Seg Neutrophils % 60.9 % (40.0-70.0) 09/28/16 13:12 Seg Neutrophils # 3.0 K/mm3 (1.8-7.7) 09/28/16 13:12 PT 14.1 Sec. (12.2-14.9) 09/27/16 21:18 INR 1.10 (0.87-1.13) 09/27/16 21:18 D-Dimer 142.86 ng/mlDDU (0-234) 09/27/16 21:18 Sodium 139 mmol/L (137-145) 09/28/16 13:12 Potassium 4.2 mmol/L (3.6-5.0) 09/28/16 13:12 Chloride 103.5 mmol/L (98-107) 09/28/16 13:12 Carbon Dioxide 24 mmol/L (22-30) 09/28/16 13:12 Anion Gap 16 mmol/L 09/28/16 13:12 BUN 8 mg/dL (9-20) L 09/28/16 13:12 Creatinine 0.7 mg/dL (0.8-1.5) L 09/28/16 13:12 Estimated GFR > 60 ml/min 09/28/16 13:12 BUN/Creatinine Ratio 11.42 % 09/28/16 13:12 Glucose 120 mg/dL (75-100) H 09/28/16 13:12 Calcium 8.4 mg/dL (8.4-10.2) 09/28/16 13:12 Magnesium 2.00 mg/dL (1.7-2.3) 09/27/16 18:19 Total Bilirubin 0.20 mg/dL (0.1-1.2) 09/27/16 14:22 AST 8 units/L (5-40) 09/27/16 14:22 ALT 8 units/L (7-56) 09/27/16 14:22 Alkaline Phosphatase 106 units/L (35-129) 09/27/16 14:22 Total Creatine Kinase 62 units/L (55-170) 09/28/16 13:12 CK-MB (CK-2) < 1.0 ng/mL (0.0-4.0) 09/28/16 13:12 CK-MB (CK-2) Rel Index 1.6 (0-4) 09/28/16 13:12 Troponin T < 0.010 ng/mL (0.00-0.029) 09/28/16 13:12 Total Protein 7.4 g/dL (6.3-8.2) 09/27/16 14:22 Albumin 4.0 g/dL (3.9-5) 09/27/16 14:22 Albumin/Globulin Ratio 1.2 % 09/27/16 14:22 Lipase 24 units/L (13-60) 09/29/16 11:26 TSH 1.020 mlU/mL (0.270-4.200) 09/27/16 14:22 Urine Color Yellow (Yellow) 09/27/16 17:00 Urine Turbidity Clear (Clear) 09/27/16 17:00 Urine pH 7.0 (5.0-7.0) 09/27/16 17:00 Ur Specific Holladay 1.014 (1.003-1.030) 09/27/16 17:00 Urine Protein <15 mg/dl mg/dL (Negative) 09/27/16 17:00 Urine Glucose (UA) Neg mg/dL (Negative) 09/27/16 17:00 Urine Ketones Neg mg/dL (Negative) 09/27/16 17:00 Urine Blood Neg (Negative) 09/27/16 17:00 Urine Nitrite Neg (Negative) 09/27/16 17:00 Urine Bilirubin Neg (Negative) 09/27/16 17:00 Urine Urobilinogen < 2.0 mg/dL (<2.0) 09/27/16 17:00 Ur Leukocyte Esterase Neg (Negative) 09/27/16 17:00 Urine WBC (Auto) 2.0 /HPF (0.0-6.0) 09/27/16 17:00 Urine RBC (Auto) 1.0 /HPF (0.0-6.0) 09/27/16 17:00 U Epithel Cells (Auto) 2.0 /HPF (0-13.0) 09/27/16 17:00 Urine Mucus Few /HPF 09/27/16 17:00 Valproic Acid < 2.8 ug/mL (50-100) L 09/27/16 18:19 Plasma/Serum Alcohol < 0.01 gm% (0-0.07) 09/27/16 18:19 - Imaging and Cardiology MRI - head: image reviewed (unremarkable)
[2016-09-30] MEDS: DILANTIN PO SCH ×3 (06:28→13:02)
[2016-09-30] MEDS: NORCO 5/325 PO PRN ×2 (06:46→12:12)
[2016-09-30] MEDS ORDERED: DIPRIVAN 10 MG/ML IV ONE (09:55)
--- NOTE | 2016-09-30 09:56 | Anesthesia Consultation ---
Anesthesia Consult and Med Hx Date of service: 09/30/16 - Airway Anesthetic Teeth Evaluation: Poor ROM Head & Neck: Adequate Mental/Hyoid Distance: Adequate Mallampati Class: Class III Intubation Access Assessment: Possibly Difficult - Pulmonary Exam CTA: Yes - Cardiac Exam Cardiac Exam: RRR - Pre-Operative Health Status ASA Pre-Surgery Classification: ASA3 Proposed Anesthetic Plan: MAC - Pulmonary Hx Smoking: Yes (1/2 ppd x 10yrs) Hx Asthma: No COPD: Yes Hx Pneumonia: No Hx Sleep Apnea: No - Cardiovascular System Hx Hypertension: Yes Hx Coronary Artery Disease: No Hx Heart Attack/AMI: No Hx Angina: Yes (Echo EF 55-60 on 09/28/16) - Central Nervous System Hx Seizures: Yes CVA: Yes (1 yrs ago, rt side weakness) Hx Psychiatric Problems: Yes - Gastrointestinal Hx Ulcer: No - Endocrine Hx End Stage Renal Disease: No Hx Cirrhosis: No Hx Non-Insulin Dependent Diabetes: No - Hematic Hx Anemia: No Hx Sickle Cell Disease: No - Other Systems Hx Alcohol Use: Yes (vodka 1 gallon/day for 10 years, quit 5 month ago) Hx Cancer: No Hx Obesity: No - Additional Comments Anesthesia Medical History Comments: NAC
--- NOTE | 2016-09-30 09:56 | Anesthesia Day of Surgery ---
Anesthesia Day of Surgery - Day of Surgery Patient Examined: Yes Patient H&P Reviewed: Yes Patient is NPO: Yes
[2016-09-30] MEDS ORDERED: NACL 0.9% 1000 ML 1,000 ML IV SCH (10:00)
--- NOTE | 2016-09-30 10:07 | Discharge Summary ---
Providers - Providers Date of Admission: 09/27/16 23:34 Date of discharge: 09/30/16 Attending physician: PREM VILLANUEVA MD 09/29/16 11:05 Consult to Physician [CONS] Routine Consulting Provider: ALEXANDER BENNETT Reason For Exam: HEADACHE WITH DIZZINESS Place consult to:: Dr. 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 Patient does not know how long each episode lasted for. Yesterday he had an episode of hematemesis, denies insights, aspirin use Also complaining of headache in the frontal area, intermittent in nature, unable to say how long it lasted, intensity,6/10, no radiation any cannot identify exacerbating or relieving factors complaining of hematemesis yesterday Patient denies chest pain, palpitation, shortness of breath, cough, abdominal pain, hematochezia, dysuria, frequency, focal weakness, dysarthria, fever chills , polydipsia polyuria, hot or cold intolerance, easy bruisability, or rash or bleeding from mucosal membrane, rhinorrhea, epistaxis, earache, tinnitus, blurry vision, eye discharge, anxiety, depression. Other review of systems negative. 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 Neurology on examination of the patient's did not find any new active pathology. Patient has cerebellar ataxia for some time now currently reside in a [facility] has had workup at [facility] and does not remember the results. His symptoms did improve while in the hospital. He did have an episode of hematemesis and proceeded to have an endoscopy which showed still esophagitis. The patient was started on H2 blockers. Pulses are pending and the patient will follow outpatient for those biopsy results. MRI was unremarkable. The patient was continued on his anti-AED medications. He is clinically stable to return to the personal penitentiary although he refuses to go there and would like to go home Diagnosis. 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 GENERAL: The patient appeared well nourished and normally developed. Vital signs as documented. HEAD: No signs of head trauma. EYES: Pupils are equal. Extraocular motions intact. No nystagmus noted EARS: Hearing grossly intact. MOUTH: Oropharynx is normal. NECK: No adenopathy, no JVD. CHEST: Chest with clear breath sounds bilaterally. No wheezes, rales, or rhonchi. CARDIAC: Regular rate and rhythm. S1 and S2, without murmurs, gallops, or rubs. VASCULAR: No Edema. Peripheral pulses normal and equal in all extremities. ABDOMEN: Soft, without detectable tenderness. No sign of distention. No rebound or guarding, and no masses palpated. Bowel Sounds normal. MUSCULOSKELETAL: Good range of motion of all major joints. Extremities without clubbing, cyanosis or edema. NEUROLOGIC EXAM: Alert and oriented x 3. No focal sensory or strength deficits. Speech normal. Follows commands. PSYCHIATRIC: Mood normal. SKIN: No rash or lesions. - Constitutional Vitals: Temp Pulse Resp BP Pulse Ox 97.8 F 60 15 119/79 98 09/30/16 09:35 09/30/16 09:35 09/30/16 09:35 09/30/16 09:35 09/30/16 09:35 Plan Activity: advance as tolerated, fall precautions Diet: low fat Special Instructions: record daily BP diary, physical therapy, occupational therapy Follow up with: RIVERA DAMON MD [Primary Care Provider] - 7 Days ALEXANDER BENNETT MD [Staff Physician] - 7 Days GERBER SAHA MD [Staff Physician] - 7 Days Prescriptions: Famotidine [Pepcid] 20 mg PO BID #30 tablet oxyCODONE /ACETAMINOPHEN [Percocet 5/325 mg] 1 tab PO Q4HR #12 tab
--- NOTE | 2016-09-30 10:49 | Operative Report ---
Operative Report Operative Report: Date of procedure: 09/20/2016 Procedure: Esophagogastroduodenoscopy with biopsies of the distal esophagus at the EG junction. Preprocedure diagnosis: Severe abdominal pain, gastroesophageal reflux Post procedure diagnosis: Normal-appearing stomach except for suspected fundoplication deformity. Normal duodenum. Mild distal esophagitis with an irregular Z line. Endoscopist: Dr. Willis Anesthesia: Monitored anesthesia care per anesthesia department Medications: Propofol per anesthesia Estimated blood loss: [0] After careful discussion of the nature and purpose of the procedure as well as details the technique risks benefits and alternatives consent was obtained. The patient was placed in the left lateral decubitus position and medicated per anesthesia. The tip of the [email or web address] EQ 570 video scope was passed per orum under direct vision into the esophagus and advanced into the stomach and descending duodenum. The descending duodenum the duodenal bulb and pylorus were symmetrical and normal. The scope was withdrawn into the stomach and the stomach then gently insufflated with air. The antrum was normal. The stomach was further insufflated and the scope was then retroflexed and partially withdrawn. The cardia revealed changes suggestive of a fundoplication on the retroflex view. The fundus, and body of the stomach were within normal limits and easily distensible otherwise.The scope was then withdrawn in the forward position. The esophagogastric junction was at [37 cm]. Z line was somewhat irregular and there was erythematous suggesting gastroesophageal reflux and possibly short segment Haas's. Biopsies of the distal esophagus near the EG junction were taken. The esophageal body was normal throughout with no varices. The procedure was was well tolerated and the patient was observed in recovery. Impressions: [Distal esophagitis with an irregular Z line suggestive of possible short segment Haas's. Suspected fundoplication changes in the cardia. Normal stomach otherwise. Normal duodenum.] Plan: A new acid suppression therapy. Await biopsies. Office follow-up. Advance diet. Stable to go home GI myao. Electronically signed: Omid Willis MD
[2016-09-30 11:13] VITALS: BP 109/70
--- NOTE | 2016-09-30 11:23 | Post Anesthesia Evaluation ---
- Post Anesthesia Evaluation Patient Participated: Yes Airway Patent: Yes Stable Respiratory Function: Yes Temp > 96.8F: Yes Pain Manageable: Yes Adequeate Hydration: Yes Anesthesia Complications: No Block Receding Appropriately: Not Applicable
[2016-09-30] MEDS: PEPCID IV SCH (13:04)
--- NOTE | 2016-09-30 14:00 | Progress Note ---
Assessment and Plan - Patient Problems (1) Syncope Current Visit: Yes Status: Acute Qualifiers: Syncope type: S Encounter type: E Plan to address problem: Cardiac workup of near syncope is negative. Serial ECGs and cardiac enzymes are negative. A myocardial perfusion scan done June 2016 was normal, and current echocardiogram shows normal left ventricular systolic function, ejection fraction 55-60%. Cardiac status is stable, no further cardiac workup indicated. Because of his current history of seizure disorder and old CVA, we have recommended neurological assessment for neurosyncope. Subjective Date of service: 09/30/16 Principal diagnosis: abdominal pain, history of hematemesis Interval history: Patient looks and feels better, comfortable, no cardiac complaints. Objective Vital Signs Temp Pulse Pulse Resp Resp BP BP 09/30/16 11:08 58 L 14 109/70 09/30/16 10:53 56 L 16 99/61 09/30/16 10:37 68 14 95/50 09/30/16 09:35 97.8 F 60 15 119/79 09/30/16 09:31 97.8 F 60 15 119/79 09/30/16 07:00 97.6 F 51 L 19 106/67 09/30/16 06:46 18 09/29/16 23:03 18 09/29/16 23:00 97.8 F 54 L 18 94/51 09/29/16 22:03 18 09/29/16 22:00 18 09/29/16 17:35 98.4 F 62 20 125/83 Pulse Ox 09/30/16 11:08 97 09/30/16 10:53 96 09/30/16 10:37 96 09/30/16 09:35 98 09/30/16 09:31 98 09/30/16 07:00 98 09/30/16 06:46 09/29/16 23:03 09/29/16 23:00 97 09/29/16 22:03 09/29/16 22:00 09/29/16 17:35 98 - Physical Examination General: Appears Well, No Apparent Distress HEENT: Positive: PERRL Neck: Positive: neck supple Cardiac: Positive: Reg Rate and Rhythm Lungs: Positive: Decreased Breath Sounds Neuro: Positive: Grossly Intact Abdomen: Positive: Soft, Active Bowel Sounds Skin: Positive: Clear Extremities: Absent: edema - Imaging and Cardiology EKG: image reviewed
== END 2016-09-30 17:33 | disposition home health service (06) | DRG 381 ==
LOC: ED 13:18 → 4A 23:34 → 3A 09-29 21:10
PROVIDERS: ADMIT Internal Medicine; ATTEND Internal Medicine
PROC: 3E0234Z Introduction of Serum, Toxoid and Vaccine into Muscle, Percutaneous Approach (ICD-10-PCS; 2016-09-28)
PROC: 0DB38ZX Excision of Lower Esophagus, Via Natural or Artificial Opening Endoscopic, Diagnostic (ICD-10-PCS; principal; 2016-09-30)
DX: K22.70 Barrett's esophagus without dysplasia (principal); G11.9 Hereditary ataxia, unspecified; K21.0 Gastro-esophageal reflux disease with esophagitis; K92.0 Hematemesis; R55 Syncope and collapse; G40.909 Epilepsy, unspecified, not intractable, without status epilepticus; F41.9 Anxiety disorder, unspecified; I10 Essential (primary) hypertension; J44.9 Chronic obstructive pulmonary disease, unspecified; K29.70 Gastritis, unspecified, without bleeding; F17.200 Nicotine dependence, unspecified, uncomplicated; Z23 Encounter for immunization; Z82.49 Family history of ischemic heart disease and other diseases of the circulatory system; Z86.73 Personal history of transient ischemic attack (TIA), and cerebral infarction without residual deficits
CPT/HCPCS: 36415; 70450; 70551; 71010; 80048; 80053; 80164; 80320; 81001; 82271; 82550; 82553; 83690; 83735; 84443; 84484; 85025; 85379; 85610; 88305; 88342; 90732; 93005; 93010; 93306; 96374; 96375; 99406; G0480; G8978-GP; G8979-GP; G8980-GP; J2405; J2704; J7040

== ENCOUNTER 2017-05-07 10:48 | Emergency (ER) | payer MEDICARE ==
[2017-05-07 11:23] LABS: Eosinophils # (Auto) 0.1 K/mm3 (0.0-0.4); Eosinophils % (Auto) 2.1 % (0.0-4.3); Hematocrit 42.6 % (35.5-45.6); Hemoglobin 14.2 gm/dl (11.8-15.2); Lymphocytes # (Auto) 1.2 K/mm3 (1.2-5.4); Lymphocytes % (Auto) 25.7 % (13.4-35.0); Mean Corpuscular HGB Conc 33 % (32-34); Mean Corpuscular Hemoglobin 31 pg (28-32); Mean Corpuscular Volume 93 fl (84-94); Monocytes # (Auto) 0.3 K/mm3 (0.0-0.8); Monocytes % (Auto) 6.2 % (0.0-7.3); Platelet Count 140 K/mm3 (140-440); Red Blood Count 4.56 M/mm3 (3.65-5.03); Red Cell Distribution Width 15.9 % (13.2-15.2)
[2017-05-07 11:42] LABS: BUN/Creatinine Ratio 11; Blood Urea Nitrogen 9 mg/dL (9-20); Calcium 8.8 mg/dL (8.4-10.2); Hemolysis Index 5
[2017-05-07 11:57] LABS: Bilirubin,Urine NEG (Negative); Blood,Urine NEG (Negative); Color,Urine Yellow (Yellow); Mucus,Urine FEW /HPF; Nitrite,Urine NEG (Negative); Protein,Urine <15 mg/dL mg/dL (Negative); WBC,Urine < 1.0 /HPF (0.0-6.0)
[2017-05-07 12:13] LABS: Amphetamine Screen,Urine PRESUMPTIVE NEGATIVE; Cannabinoid Screen,Urine PRESUMPTIVE NEGATIVE; Cocaine Screen,Urine PRESUMPTIVE NEGATIVE; Methadone Screen,Urine PRESUMPTIVE NEGATIVE
[2017-05-07 12:37] LABS: Benzodiazepines Screen,Urine PRESUMPTIVE POSITIVE; Opiate Screen,Urine PRESUMPTIVE POSITIVE
--- NOTE | 2017-05-07 15:18 | Emergency Department Report ---
ED Psych HPI - General Chief Complaint: Psych Stated Complaint: MENTAL HEALTH EVAL, BACK, STOMACH, C/P Time Seen by Provider: 05/07/17 14:49 Source: patient Mode of arrival: Ambulatory - History of Present Illness Initial Comments: Patient is 56 years old male history of schizophrenia presented to the ER stating that he is being hearing voices commanding him to kill himself. Patient does not have a specific plan. Patient stated he is being having visual hallucinations too. Patient denied any homicidal ideation. Patient has similar episode 4 years ago. MD Complaint: suicidal ideation, feels depressed Associated Psychiatric Symptoms: depression, suicidal ideation, racing thoughts , auditory hallucinations, visual hallucinations History of same: Yes Context: recent alcohol abuse Treatments Prior to Arrival: none If Self Harm: admits thoughts of - Related Data Home Medications Medication Instructions Recorded Confirmed Last Taken Phenytoin Sodium Extended 30 mg PO Q8H 09/28/16 09/28/16 Unknown [Dilantin] Previous Rx's Medication Instructions Recorded Last Taken Type Divalproex Dr [Depakote Dr] 500 mg PO TID #90 tablet 06/24/16 Unknown Rx Famotidine [Pepcid] 20 mg PO BID #30 tablet 09/30/16 Unknown Rx oxyCODONE /ACETAMINOPHEN [Percocet 1 tab PO Q4HR #12 tab 09/30/16 Unknown Rx 5/325 mg] Allergies Allergy/AdvReac Type Severity Reaction Status Date / Time No Known Allergies Allergy Unverified 06/22/16 10:49 ED Review of Systems ROS: Stated complaint: MENTAL HEALTH EVAL, BACK, STOMACH, C/P Other details as noted in HPI Comment: All other systems reviewed and negative Constitutional: denies: chills, fever Respiratory: wheezing. denies: cough, orthopnea, shortness of breath, SOB with exertion, SOB at rest Cardiovascular: denies: chest pain, palpitations, dyspnea on exertion Gastrointestinal: denies: abdominal pain, nausea, vomiting, diarrhea, constipation, hematemesis Genitourinary: denies: urgency, frequency, hematuria Neurological: denies: headache ED Past Medical Hx - Past Medical History Previous Medical History?: Yes Hx Hypertension: Yes Hx Heart Attack/AMI: No Hx Congestive Heart Failure: No Hx Diabetes: No Hx Deep Vein Thrombosis: No Hx Pulmonary Embolism: No Hx GERD: Yes Hx Sickle Cell Disease: No Hx Seizures: Yes Hx Psychiatric Treatment: Yes Hx Asthma: Yes Hx COPD: Yes Hx Tuberculosis: No Hx Dementia: No Hx HIV: No Additional medical history: STOMACH - Surgical History Past Surgical History?: Yes Hx Coronary Stent: No Hx Open Heart Surgery: No Hx Pacemaker: No Hx Internal Defibrillator: No Hx Cholecystectomy: No Hx Appendectomy: No Hx Breast Surgery: No - Social History Smoking Status: Never Smoker Substance Use Type: Alcohol, Prescribed - Medications Home Medications: Home Medications Medication Instructions Recorded Confirmed Last Taken Type Divalproex Dr [Depakote Dr] 500 mg PO TID #90 tablet 06/24/16 Unknown Rx Phenytoin Sodium Extended 30 mg PO Q8H 09/28/16 09/28/16 Unknown History [Dilantin] Famotidine [Pepcid] 20 mg PO BID #30 tablet 09/30/16 Unknown Rx oxyCODONE /ACETAMINOPHEN [Percocet 1 tab PO Q4HR #12 tab 09/30/16 Unknown Rx 5/325 mg] ED Physical Exam - General Limitations: No Limitations General appearance: alert, in no apparent distress - Head Head exam: Present: atraumatic, normocephalic - Eye Eye exam: Present: normal appearance, PERRL - ENT ENT exam: Present: normal exam, normal orophraynx, mucous membranes moist, TM's normal bilaterally - Neck Neck exam: Present: normal inspection, full ROM. Absent: tenderness, meningismus, lymphadenopathy - Respiratory Respiratory exam: Present: wheezes. Absent: respiratory distress, rales, rhonchi, stridor, chest wall tenderness, accessory muscle use, decreased breath sounds, prolonged expiratory - Cardiovascular Cardiovascular Exam: Present: regular rate, normal rhythm, normal heart sounds - GI/Abdominal GI/Abdominal exam: Present: soft, normal bowel sounds. Absent: distended, tenderness, guarding, rebound, rigid, organomegaly, mass, bruit, pulsatile mass , hernia - Extremities Exam Extremities exam: Present: normal inspection, full ROM, normal capillary refill - Back Exam Back exam: Present: normal inspection. Absent: tenderness, CVA tenderness (R), CVA tenderness (L), muscle spasm, paraspinal tenderness - Neurological Exam Neurological exam: Present: alert, oriented X3, CN II-XII intact, normal gait - Psychiatric Psychiatric exam: Present: depressed, suicidal ideation. Absent: flat affect, manic, homicidal ideation - Skin Skin exam: Present: warm, intact, normal color. Absent: cyanosis, diaphoretic, erythema ED Course Vital Signs 05/07/17 05/07/17 05/07/17 11:02 15:37 16:13 Temperature 97.9 F Pulse Rate 73 Pulse Rate [ 59 L Anterior Bilateral Throughout] Respiratory 20 16 Rate Respiratory 20 Rate [Anterior Bilateral Throughout] Blood Pressure 141/78 Blood Pressure [Right] O2 Sat by Pulse 96 98 Oximetry 05/07/17 05/07/17 16:19 17:44 Temperature 98.0 F Pulse Rate 83 Pulse Rate [ 69 Anterior Bilateral Throughout] Respiratory 16 Rate Respiratory 24 Rate [Anterior Bilateral Throughout] Blood Pressure Blood Pressure 127/72 [Right] O2 Sat by Pulse 98 Oximetry ED Medical Decision Making - Lab Data Result diagrams: 05/07/17 11:09 05/07/17 11:09 Critical care attestation.: If time is entered above; I have spent that time in minutes in the direct care of this critically ill patient, excluding procedure time. ED Disposition Clinical Impression: Acute psychosis, Suicidal ideation Disposition: DC/TX-65 PSY HOSP/PSY UNIT Is pt being admited?: No Condition: Stable Referrals: PRIMARY CARE, [Primary Care Provider] - 3-5 Days
[2017-05-07] MEDS ORDERED: ATROVENT IH ONE (15:33)
[2017-05-07] MEDS ORDERED: PROVENTIL IH ONE (15:33)
[2017-05-07] MEDS ORDERED: PROVENTIL IH PRN (16:15)
[2017-05-07 20:19] VITALS: BP 132/77
== END 2017-05-07 20:48 ==
LOC: ED 10:48
DX: F23 Brief psychotic disorder (principal); R45.851 Suicidal ideations; R06.2 Wheezing; I10 Essential (primary) hypertension; J45.909 Unspecified asthma, uncomplicated; J44.9 Chronic obstructive pulmonary disease, unspecified; K21.9 Gastro-esophageal reflux disease without esophagitis; R56.9 Unspecified convulsions
CPT/HCPCS: 36415; 80048; 80307; 81001; 85025; 94640; 99285; G0480; 80320

== ENCOUNTER 2017-05-08 07:00 | Emergency (ER) | payer MEDICARE ==
[2017-05-08 08:03] LABS: Eosinophils # (Auto) 0.1 K/mm3 (0.0-0.4); Eosinophils % (Auto) 2.6 % (0.0-4.3); Hematocrit 39.6 % (35.5-45.6); Hemoglobin 13.6 gm/dl (11.8-15.2); Lymphocytes # (Auto) 1.1 K/mm3 (1.2-5.4); Lymphocytes % (Auto) 23.3 % (13.4-35.0); Mean Corpuscular HGB Conc 34 % (32-34); Mean Corpuscular Hemoglobin 32 pg (28-32); Mean Corpuscular Volume 93 fl (84-94); Monocytes # (Auto) 0.3 K/mm3 (0.0-0.8); Monocytes % (Auto) 7.2 % (0.0-7.3); Platelet Count 112 K/mm3 (140-440); Red Blood Count 4.24 M/mm3 (3.65-5.03); Red Cell Distribution Width 16.4 % (13.2-15.2)
[2017-05-08 08:06] LABS: Bilirubin,Urine NEG (Negative); Blood,Urine NEG (Negative); Color,Urine Yellow (Yellow); Mucus,Urine 3+ /HPF; Protein,Urine <15 mg/dL mg/dL (Negative)
[2017-05-08 08:12] LABS: Alanine Aminotransferase 11 units/L (7-56); BUN/Creatinine Ratio 13; Blood Urea Nitrogen 10 mg/dL (9-20); Calcium 8.3 mg/dL (8.4-10.2); Hemolysis Index 10
--- NOTE | 2017-05-08 12:52 | Emergency Department Report ---
HPI - General Chief Complaint: Medical Clearance Time Seen by Provider: 05/08/17 12:49 - HPI HPI: Patient is here for medical clearance from psychiatric facility. He has a history of seizure and has been without his Dilantin. No recent seizures. Patient denies any nausea, vomiting, shortness of breath, chest pain. ED Past Medical Hx - Past Medical History Previous Medical History?: Yes Hx Hypertension: Yes Hx Heart Attack/AMI: No Hx Congestive Heart Failure: No Hx Diabetes: No Hx Deep Vein Thrombosis: No Hx Pulmonary Embolism: No Hx GERD: Yes Hx of Cancer: Yes Hx Sickle Cell Disease: No Hx Seizures: Yes Hx Psychiatric Treatment: Yes Hx Asthma: Yes Hx COPD: Yes Hx Tuberculosis: No Hx Dementia: No Hx HIV: No Additional medical history: STOMACH - Surgical History Past Surgical History?: Yes Hx Coronary Stent: No Hx Open Heart Surgery: No Hx Pacemaker: No Hx Internal Defibrillator: No Hx Cholecystectomy: No Hx Appendectomy: No Hx Breast Surgery: No Additional Surgical History: cancerous hital hernia removed - Social History Smoking Status: Current Every Day Smoker Substance Use Type: Alcohol - Medications Home Medications: Home Medications Medication Instructions Recorded Confirmed Last Taken Type Divalproex Dr [Depakote Dr] 500 mg PO TID #90 tablet 06/24/16 Unknown Rx Famotidine [Pepcid] 20 mg PO BID #30 tablet 09/30/16 Unknown Rx oxyCODONE /ACETAMINOPHEN [Percocet 1 tab PO Q4HR #12 tab 09/30/16 Unknown Rx 5/325 mg] Phenytoin Sodium Extended 30 mg PO Q8H #90 capsule 05/08/17 Unknown Rx [Dilantin] ED Review of Systems ROS: Stated complaint: EVAL Other details as noted in HPI Comment: All other systems reviewed and negative Endocrine: no symptoms reported Gastrointestinal: denies: diarrhea, constipation Genitourinary: as per HPI Skin: as per HPI Neurological: as per HPI Physical Exam - Physical Exam Vital Signs: Vital Signs 05/08/17 07:28 Temperature 98.0 F Pulse Rate 62 Respiratory 16 Rate Blood Pressure 112/76 O2 Sat by Pulse 95 Oximetry Physical Exam: Gen. alert and oriented 3 in no distress Head atraumatic normocephalic Eyes PERR LA EOMI Chest regular rate and rhythm normal S1-S2 lungs clear bilaterally Abdomen soft nondistended Back no point tenderness paravertebral tenderness Neuro no focal deficit. Psych normal mood. ED Course Vital Signs 05/08/17 07:28 Temperature 98.0 F Pulse Rate 62 Respiratory 16 Rate Blood Pressure 112/76 O2 Sat by Pulse 95 Oximetry ED Medical Decision Making - Lab Data Result diagrams: 05/08/17 07:43 05/08/17 07:38 Critical care attestation.: If time is entered above; I have spent that time in minutes in the direct care of this critically ill patient, excluding procedure time. ED Disposition Clinical Impression: Seizure disorder Disposition: DC-01 TO HOME OR SELFCARE Is pt being admited?: No Does the pt Need Aspirin: No Condition: Stable Instructions: Recurrent Seizures Adult (ED) Prescriptions: Phenytoin Sodium Extended [Dilantin] 30 mg PO Q8H #90 capsule Referrals: PRIMARY CARE, [Primary Care Provider] - 3-5 Days
[2017-05-08] MEDS ORDERED: DILANTIN 1,000 MG in NACL 0.9% 250ML 250 ML IV ONE (14:00)
[2017-05-08 19:41] VITALS: BP 110/63
== END 2017-05-08 19:41 | disposition home or self-care (01) ==
LOC: ED 07:00
DX: G40.909 Epilepsy, unspecified, not intractable, without status epilepticus (principal); I10 Essential (primary) hypertension; J44.9 Chronic obstructive pulmonary disease, unspecified; K21.9 Gastro-esophageal reflux disease without esophagitis; F17.200 Nicotine dependence, unspecified, uncomplicated
CPT/HCPCS: 36415; 80053; 80185; 81001; 85025; 96365; 99284; J1165; J7050

== ENCOUNTER 2017-06-24 19:59 | Emergency (ER) | payer MEDICARE ==
[2017-06-24 21:07] LABS: Basophils % (Auto) 0.8 % (0.0-1.8); Eosinophils # (Auto) 0.1 K/mm3 (0.0-0.4); Eosinophils % (Auto) 1.1 % (0.0-4.3); Hematocrit 38.6 % (35.5-45.6); Hemoglobin 13.5 gm/dl (11.8-15.2); Lymphocytes # (Auto) 1.3 K/mm3 (1.2-5.4); Lymphocytes % (Auto) 22.5 % (13.4-35.0); Mean Corpuscular HGB Conc 35 % (32-34); Mean Corpuscular Hemoglobin 31 pg (28-32); Mean Corpuscular Volume 90 fl (84-94); Monocytes # (Auto) 0.3 K/mm3 (0.0-0.8); Monocytes % (Auto) 5.6 % (0.0-7.3); Platelet Count 183 K/mm3 (140-440); Red Blood Count 4.31 M/mm3 (3.65-5.03)
[2017-06-24 21:17] LABS: BUN/Creatinine Ratio 15; Blood Urea Nitrogen 9 mg/dL (9-20); Calcium 8.5 mg/dL (8.4-10.2); Hemolysis Index 28
[2017-06-24 21:19] LABS: Bilirubin,Urine NEG (Negative); Blood,Urine NEG (Negative); Color,Urine Yellow (Yellow); Mucus,Urine FEW /HPF; Protein,Urine <15 mg/dL mg/dL (Negative); Urobilinogen,Urine < 2.0 mg/dL (<2.0); WBC,Urine < 1.0 /HPF (0.0-6.0)
[2017-06-24 21:31] LABS: Amphetamine Screen,Urine PRESUMPTIVE NEGATIVE; Cannabinoid Screen,Urine PRESUMPTIVE NEGATIVE; Cocaine Screen,Urine PRESUMPTIVE NEGATIVE; Methadone Screen,Urine PRESUMPTIVE NEGATIVE; Opiate Screen,Urine PRESUMPTIVE NEGATIVE
[2017-06-24 21:43] LABS: Benzodiazepines Screen,Urine PRESUMPTIVE POSITIVE
[2017-06-24] MEDS ORDERED: PROVENTIL IH PRN (22:56)
[2017-06-24] MEDS ORDERED: ATIVAN PO ONE (22:56)
[2017-06-24] MEDS ORDERED: DUONEB *Not for PRN Use IH ONE (22:57)
[2017-06-24] MEDS ORDERED: ZANAFLEX PO PRN (23:00)
[2017-06-24] MEDS ORDERED: TYLENOL PO PRN (23:00)
--- NOTE | 2017-06-24 23:03 | Emergency Department Report ---
ED Psych HPI - General Chief Complaint: Psych Stated Complaint: MH Time Seen by Provider: 06/24/17 21:23 Source: patient Mode of arrival: Ambulatory Limitations: No Limitations - History of Present Illness Initial Comments: 56-year-old male with past medical history of asthma, COPD, diabetes, GERD, dementia, psychosis, alcohol abuse, and major depressive disorder presents to the hospital complaints of suicidal ideation. Patient states he was recently admitted to [facility] and then discharged into halfway. He was discharged from the halfway one week ago and since then has not been able to take his medications. He has been drinking alcohol daily since his release and now is here voices telling him to kill himself. Initially stated to triage that he didn't have a plan but then patient states he cut his wrists with a razor. History of suicidal ideation with attempt in the past. Patient complains a chronic ongoing knee pain (moderate) and chronic shortness of breath with wheezing. Patient has been recommended for knee replacement. - Related Data Home Medications Medication Instructions Recorded Confirmed Last Taken ALPRAZolam [Xanax] 2 mg PO BID 06/24/17 06/24/17 Unknown Acetaminophen 325 mg PO Q6H 06/24/17 06/24/17 Unknown Calcium Carbonate [[id number]] 500 mg PO DAILY 06/24/17 06/24/17 Unknown Divalproex ER [DepaKOTE ER] 500 mg PO QDAY 06/24/17 06/24/17 Unknown Docusate Sodium [Stool Softener] 100 mg PO DAILY 06/24/17 06/24/17 Unknown Finasteride [Proscar] 5 mg PO DAILY 06/24/17 06/24/17 Unknown Insulin Aspart [NovoLOG Flexpen] 4 units SQ TID 06/24/17 06/24/17 Unknown Ipratropium [Atrovent] 0.5 mg IH Q4HR 06/24/17 06/24/17 Unknown Lisinopril [Zestril TAB] 2.5 mg PO QDAY 06/24/17 06/24/17 Unknown Mirtazapine [Remeron] 45 mg PO QHS 06/24/17 06/24/17 Unknown Nicotine [Nicoderm Cq] 21 mg TD DAILY 06/24/17 06/24/17 Unknown Polyethylene Glycol 3350 [Miralax 17 gm PO QDAY 06/24/17 06/24/17 Unknown 3350] Sennosides/Docusate Sodium [Dok 1 each PO DAILY 06/24/17 06/24/17 Unknown Plus Tablet] Tamsulosin [Flomax] 0.4 mg PO QDAY 06/24/17 06/24/17 Unknown oxyCODONE ER [OxyCONTIN ER TAB] 20 mg PO Q4H 06/24/17 06/24/17 Unknown tiZANidine [Zanaflex] 4 mg PO Q6H 06/24/17 06/24/17 Unknown Previous Rx's Medication Instructions Recorded Last Taken Type Divalproex Dr [Willy Vazquez] 500 mg PO TID #90 tablet 06/24/16 Unknown Rx Famotidine [Pepcid] 20 mg PO BID #30 tablet 09/30/16 Unknown Rx oxyCODONE /ACETAMINOPHEN [Percocet 1 tab PO Q4HR #12 tab 09/30/16 Unknown Rx 5/325 mg] Phenytoin Sodium Extended 30 mg PO Q8H #90 capsule 05/08/17 Unknown Rx [Dilantin] Allergies Allergy/AdvReac Type Severity Reaction Status Date / Time No Known Allergies Allergy Unverified 06/22/16 10:49 ED Review of Systems ROS: Stated complaint: MH Other details as noted in HPI Comment: All other systems reviewed and negative ED Past Medical Hx - Past Medical History Hx Hypertension: Yes Hx Heart Attack/AMI: No Hx Congestive Heart Failure: No Hx Diabetes: Yes Hx Deep Vein Thrombosis: No Hx Pulmonary Embolism: No Hx GERD: Yes Hx Sickle Cell Disease: No Hx Seizures: Yes Hx Psychiatric Treatment: Yes (SI recurrent/psychosis,major depression,alcohol abuse) Hx Asthma: Yes Hx COPD: Yes Hx Tuberculosis: No Hx Dementia: No Hx HIV: No Additional medical history: STOMACH, poor coping skills - Surgical History Hx Coronary Stent: No Hx Open Heart Surgery: No Hx Pacemaker: No Hx Internal Defibrillator: No Hx Cholecystectomy: No Hx Appendectomy: No Hx Breast Surgery: No Additional Surgical History: cancerous hital hernia removed of abd-multiple times - Social History Smoking Status: Current Every Day Smoker Substance Use Type: Alcohol - Medications Home Medications: Home Medications Medication Instructions Recorded Confirmed Last Taken Type Divalproex Dr [Willy Vazquez] 500 mg PO TID #90 tablet 06/24/16 06/24/17 Unknown Rx Famotidine [Pepcid] 20 mg PO BID #30 tablet 09/30/16 06/24/17 Unknown Rx oxyCODONE /ACETAMINOPHEN [Percocet 1 tab PO Q4HR #12 tab 09/30/16 06/24/17 Unknown Rx 5/325 mg] Phenytoin Sodium Extended 30 mg PO Q8H #90 capsule 05/08/17 06/24/17 Unknown Rx [Dilantin] ALPRAZolam [Xanax] 2 mg PO BID 06/24/17 06/24/17 Unknown History Acetaminophen 325 mg PO Q6H 06/24/17 06/24/17 Unknown History Calcium Carbonate [[id number]] 500 mg PO DAILY 06/24/17 06/24/17 Unknown History Divalproex ER [DepaKOTE ER] 500 mg PO QDAY 06/24/17 06/24/17 Unknown History Docusate Sodium [Stool Softener] 100 mg PO DAILY 06/24/17 06/24/17 Unknown History Finasteride [Proscar] 5 mg PO DAILY 06/24/17 06/24/17 Unknown History Insulin Aspart [NovoLOG Flexpen] 4 units SQ TID 06/24/17 06/24/17 Unknown History Ipratropium [Atrovent] 0.5 mg IH Q4HR 06/24/17 06/24/17 Unknown History Lisinopril [Zestril TAB] 2.5 mg PO QDAY 06/24/17 06/24/17 Unknown History Mirtazapine [Remeron] 45 mg PO QHS 06/24/17 06/24/17 Unknown History Nicotine [Nicoderm Cq] 21 mg TD DAILY 06/24/17 06/24/17 Unknown History Polyethylene Glycol 3350 [Miralax 17 gm PO QDAY 06/24/17 06/24/17 Unknown History 3350] Sennosides/Docusate Sodium [Dok 1 each PO DAILY 06/24/17 06/24/17 Unknown History Plus Tablet] Tamsulosin [Flomax] 0.4 mg PO QDAY 06/24/17 06/24/17 Unknown History oxyCODONE ER [OxyCONTIN ER TAB] 20 mg PO Q4H 06/24/17 06/24/17 Unknown History tiZANidine [Zanaflex] 4 mg PO Q6H 06/24/17 06/24/17 Unknown History ED Physical Exam - General Limitations: No Limitations - Other Other exam information: General: No limitations, patient is alert in no acute distress Head exam: Atraumatic, normocephalic Eyes exam: Normal appearance ENT: Moist mucous membrane, normal oropharynx Neck exam: Normal inspection, full range of motion, no meningismus nontender Respiratory exam: Bilateral wheezing, no accessory muscle use or tachypnea Cardiovascular: Normal rate and rhythm, normal heart sounds Abdomen: Soft, nondistended, and nontender, with normal bowel sounds, no rebound, or guarding Extremity: Full range of motion Back: Normal Inspection, full range of motion, no tenderness Neurologic: Alert, oriented x3, cranial nerves intact, no motor or sensory deficit Psychiatric: normal affect, normal mood Skin: Warm, dry, intact ED Course Vital Signs 06/24/17 06/24/17 20:28 23:26 Temperature 98.6 F Pulse Rate 85 Pulse Rate [ 86 Right Lower Lobe] Respiratory 20 Rate Respiratory 18 Rate [Right Lower Lobe] Blood Pressure 136/83 O2 Sat by Pulse 97 Oximetry - Reevaluation(s) Reevaluation #1: 06/24/17 23:02 Nebulized treatment ordered for wheezing. Patient's current medications will be continued with the exception of the 2 mg of Xanax twice a day (1 mg 3 times a day ordered) and his listed narcotics were not continued 06/25/17 01:05 wheezing improved with banner ED Medical Decision Making - Lab Data Result diagrams: 06/24/17 20:43 06/24/17 20:43 Lab Results 06/24/17 06/24/17 06/24/17 Range/Units 20:43 20:43 20:43 WBC (4.5-11.0) K/mm3 RBC (3.65-5.03) M/mm3 Hgb (11.8-15.2) gm/dl Hct (35.5-45.6) % MCV (84-94) fl MCH (28-32) pg MCHC (32-34) % RDW (13.2-15.2) % Plt Count (140-440) K/mm3 Lymph % (Auto) (13.4-35.0) % [place] % (Auto) (0.0-7.3) % Eos % (Auto) (0.0-4.3) % Baso % (Auto) (0.0-1.8) % Lymph # (1.2-5.4) K/mm3 [place] # (0.0-0.8) K/mm3 Eos # (0.0-0.4) K/mm3 Baso # (0.0-0.1) K/mm3 Seg Neutrophils % (40.0-70.0) % Seg Neutrophils # (1.8-7.7) K/mm3 Sodium 140 (137-145) mmol/L Potassium 3.8 (3.6-5.0) mmol/L Chloride 100.5 (98-107) mmol/L Carbon Dioxide 19 L (22-30) mmol/L Anion Gap 24 mmol/L BUN 9 (9-20) mg/dL Creatinine 0.6 L (0.8-1.5) mg/dL Estimated GFR > 60 ml/min BUN/Creatinine Ratio 15 % Glucose 129 H (75-100) mg/dL Calcium 8.5 (8.4-10.2) mg/dL Urine Color (Yellow) Urine Turbidity (Clear) Urine pH (5.0-7.0) Ur Specific [place] (1.003-1.030) Urine Protein (Negative) mg/dL Urine Glucose (UA) (Negative) mg/dL Urine Ketones (Negative) mg/dL Urine Blood (Negative) Urine Nitrite (Negative) Urine Bilirubin (Negative) Urine Urobilinogen (<2.0) mg/dL Ur Leukocyte Esterase (Negative) Urine WBC (Auto) (0.0-6.0) /HPF Urine RBC (Auto) (0.0-6.0) /HPF U Epithel Cells (Auto) (0-13.0) /HPF Urine Mucus /HPF Salicylates < 0.3 L (2.8-20.0) mg/dL Urine Opiates Screen Urine Methadone Screen Acetaminophen < 5.0 L (10.0-30.0) ug/mL Ur Barbiturates Screen Phenytoin (10.0-20.0) ug/mL Valproic Acid (50-100) ug/mL Ur Phencyclidine Scrn Ur Amphetamines Screen U Benzodiazepines Scrn Urine Cocaine Screen U Marijuana (THC) Screen Drugs of Abuse Note Plasma/Serum Alcohol (0-0.07) % 06/24/17 06/24/17 06/24/17 Range/Units 20:43 20:43 21:01 WBC 5.7 (4.5-11.0) K/mm3 RBC 4.31 (3.65-5.03) M/mm3 Hgb 13.5 (11.8-15.2) gm/dl Hct 38.6 (35.5-45.6) % MCV 90 (84-94) fl MCH 31 (28-32) pg MCHC 35 H (32-34) % RDW 14.0 (13.2-15.2) % Plt Count 183 (140-440) K/mm3 Lymph % (Auto) 22.5 (13.4-35.0) % [place] % (Auto) 5.6 (0.0-7.3) % Eos % (Auto) 1.1 (0.0-4.3) % Baso % (Auto) 0.8 (0.0-1.8) % Lymph # 1.3 (1.2-5.4) K/mm3 [place] # 0.3 (0.0-0.8) K/mm3 Eos # 0.1 (0.0-0.4) K/mm3 Baso # 0.0 (0.0-0.1) K/mm3 Seg Neutrophils % 70.0 (40.0-70.0) % Seg Neutrophils # 4.0 (1.8-7.7) K/mm3 Sodium (137-145) mmol/L Potassium (3.6-5.0) mmol/L Chloride (98-107) mmol/L Carbon Dioxide (22-30) mmol/L Anion Gap mmol/L BUN (9-20) mg/dL Creatinine (0.8-1.5) mg/dL Estimated GFR ml/min BUN/Creatinine Ratio % Glucose (75-100) mg/dL Calcium (8.4-10.2) mg/dL Urine Color Yellow (Yellow) Urine Turbidity Clear (Clear) Urine pH 6.0 (5.0-7.0) Ur Specific [place] 1.013 (1.003-1.030) Urine Protein <15 mg/dl (Negative) mg/dL Urine Glucose (UA) Neg (Negative) mg/dL Urine Ketones Tr (Negative) mg/dL Urine Blood Neg (Negative) Urine Nitrite Neg (Negative) Urine Bilirubin Neg (Negative) Urine Urobilinogen < 2.0 (<2.0) mg/dL Ur Leukocyte Esterase Neg (Negative) Urine WBC (Auto) < 1.0 (0.0-6.0) /HPF Urine RBC (Auto) 1.0 (0.0-6.0) /HPF U Epithel Cells (Auto) < 1.0 (0-13.0) /HPF Urine Mucus Few /HPF Salicylates (2.8-20.0) mg/dL Urine Opiates Screen Urine Methadone Screen Acetaminophen (10.0-30.0) ug/mL Ur Barbiturates Screen Phenytoin (10.0-20.0) ug/mL Valproic Acid (50-100) ug/mL Ur Phencyclidine Scrn Ur Amphetamines Screen U Benzodiazepines Scrn Urine Cocaine Screen U Marijuana (THC) Screen Drugs of Abuse Note Plasma/Serum Alcohol 0.05 (0-0.07) % 06/24/17 06/24/17 06/24/17 Range/Units 21:01 22:40 22:40 WBC (4.5-11.0) K/mm3 RBC (3.65-5.03) M/mm3 Hgb (11.8-15.2) gm/dl Hct (35.5-45.6) % MCV (84-94) fl MCH (28-32) pg MCHC (32-34) % RDW (13.2-15.2) % Plt Count (140-440) K/mm3 Lymph % (Auto) (13.4-35.0) % [place] % (Auto) (0.0-7.3) % Eos % (Auto) (0.0-4.3) % Baso % (Auto) (0.0-1.8) % Lymph # (1.2-5.4) K/mm3 [place] # (0.0-0.8) K/mm3 Eos # (0.0-0.4) K/mm3 Baso # (0.0-0.1) K/mm3 Seg Neutrophils % (40.0-70.0) % Seg Neutrophils # (1.8-7.7) K/mm3 Sodium (137-145) mmol/L Potassium (3.6-5.0) mmol/L Chloride (98-107) mmol/L Carbon Dioxide (22-30) mmol/L Anion Gap mmol/L BUN (9-20) mg/dL Creatinine (0.8-1.5) mg/dL Estimated GFR ml/min BUN/Creatinine Ratio % Glucose (75-100) mg/dL Calcium (8.4-10.2) mg/dL Urine Color (Yellow) Urine Turbidity (Clear) Urine pH (5.0-7.0) Ur Specific [place] (1.003-1.030) Urine Protein (Negative) mg/dL Urine Glucose (UA) (Negative) mg/dL Urine Ketones (Negative) mg/dL Urine Blood (Negative) Urine Nitrite (Negative) Urine Bilirubin (Negative) Urine Urobilinogen (<2.0) mg/dL Ur Leukocyte Esterase (Negative) Urine WBC (Auto) (0.0-6.0) /HPF Urine RBC (Auto) (0.0-6.0) /HPF U Epithel Cells (Auto) (0-13.0) /HPF Urine Mucus /HPF Salicylates (2.8-20.0) mg/dL Urine Opiates Screen Presumptive negative Urine Methadone Screen Presumptive negative Acetaminophen (10.0-30.0) ug/mL Ur Barbiturates Screen Presumptive negative Phenytoin 1.1 L (10.0-20.0) ug/mL Valproic Acid < 2.8 L (50-100) ug/mL Ur Phencyclidine Scrn Presumptive negative Ur Amphetamines Screen Presumptive negative U Benzodiazepines Scrn Presumptive positive Urine Cocaine Screen Presumptive negative U Marijuana (THC) Screen Presumptive negative Drugs of Abuse Note Disclamer Plasma/Serum Alcohol (0-0.07) % - Medical Decision Making pt current med will be continued 1010 and transfer form signed pt is medically cleared for psych admission - Differential Diagnosis suicidal, alcohol abuse, psychosis Critical Care Time: No Critical care attestation.: If time is entered above; I have spent that time in minutes in the direct care of this critically ill patient, excluding procedure time. ED Disposition Clinical Impression: Suicidal ideation, Alcohol abuse, HTN (hypertension), Diabetes, Seizure disorder, COPD (chronic obstructive pulmonary disease), Medical clearance for psychiatric admission Disposition: DC/TX-65 PSY HOSP/PSY UNIT Is pt being admited?: No Does the pt Need Aspirin: No Condition: Stable Time of Disposition: 01:04 (awaiting acceptance)
[2017-06-25] MEDS: ATROVENT IH SCH ×2 (00:42→04:03)
[2017-06-25] MEDS ORDERED: DILANTIN ONE (01:05)
[2017-06-25] MEDS: DILANTIN PO SCH ×2 (01:19→09:45)
[2017-06-25] MEDS ORDERED: HumaLOG SUB-Q SCH (07:30)
[2017-06-25] MEDS ORDERED: NON-FORMULARY (Insulin Aspart [Novolog Flexpen] 4 UNITS) SQ SCH (08:00)
[2017-06-25] MEDS ORDERED: HABITROL TD SCH (10:00)
[2017-06-25] MEDS ORDERED: PROSCAR PO SCH (10:00)
[2017-06-25] MEDS ORDERED: FLOMAX PO SCH (10:00)
[2017-06-25] MEDS ORDERED: MIRALAX 3350 PO SCH (10:00)
[2017-06-25] MEDS ORDERED: PEPCID PO SCH (10:00)
[2017-06-25] MEDS ORDERED: ZESTRIL PO SCH (10:00)
[2017-06-25] MEDS ORDERED: COLACE PO SCH (10:00)
[2017-06-25] MEDS ORDERED: OSCAL PO SCH (10:00)
[2017-06-25 13:09] VITALS: BP 108/65
[2017-06-25] MEDS ORDERED: REMERON PO SCH (22:00)
== END 2017-06-25 11:30 ==
LOC: EEVIPCON 19:59 → ED 19:59
DX: F32.9 Major depressive disorder, single episode, unspecified (principal); F10.10 Alcohol abuse, uncomplicated; E11.9 Type 2 diabetes mellitus without complications; G40.909 Epilepsy, unspecified, not intractable, without status epilepticus; J44.9 Chronic obstructive pulmonary disease, unspecified; F17.200 Nicotine dependence, unspecified, uncomplicated; K21.9 Gastro-esophageal reflux disease without esophagitis
CPT/HCPCS: 36415; 80048; 80164; 80185; 80307; 81001; 82962; 85025; 99285; G0480; 80320

== ENCOUNTER 2017-08-19 14:27 | Emergency (ER) | payer MEDICARE ==
[2017-08-19 15:17] LABS: BUN/Creatinine Ratio 15; Blood Urea Nitrogen 12 mg/dL (9-20); Hemolysis Index 35
[2017-08-19 15:18] LABS: Hematocrit 47.4 % (35.5-45.6); Hemoglobin 16.2 gm/dl (11.8-15.2); Mean Corpuscular HGB Conc 34 % (32-34); Mean Corpuscular Hemoglobin 31 pg (28-32); Mean Corpuscular Volume 91 fl (84-94); Platelet Count 167 K/mm3 (140-440); Red Blood Count 5.19 M/mm3 (3.65-5.03); Red Cell Distribution Width 14.3 % (13.2-15.2)
[2017-08-19 15:31] LABS: Bacteria,Urine 1+ /HPF (Negative); Bilirubin,Urine NEG (Negative); Blood,Urine NEG (Negative); Color,Urine Yellow (Yellow); Mucus,Urine FEW /HPF; Urobilinogen,Urine < 2.0 mg/dL (<2.0)
[2017-08-19 15:37] LABS: Amphetamine Screen,Urine PRESUMPTIVE NEGATIVE; Benzodiazepines Screen,Urine PRESUMPTIVE NEGATIVE; Cannabinoid Screen,Urine PRESUMPTIVE NEGATIVE; Cocaine Screen,Urine PRESUMPTIVE NEGATIVE; Methadone Screen,Urine PRESUMPTIVE NEGATIVE; Opiate Screen,Urine PRESUMPTIVE NEGATIVE
--- NOTE | 2017-08-19 22:27 | Emergency Department Report ---
ED Psych HPI - General Chief Complaint: Psych Stated Complaint: SUICIDAL THOUGHTS Time Seen by Provider: 08/19/17 22:12 Source: patient Mode of arrival: Ambulatory - History of Present Illness Initial Comments: Patient is 56 years old male history of bipolar disorder, diabetes and seizure. Patient presented to the ER complaining of hearing voices commanding him to kill himself by hanging himself. Patient denied any homicidal ideation. Patient is also complaining off rash mainly around the neck area and sun exposed area of the skin. He has stated that he is out of his Dilantin for the last 2-3 days. But no seizure activity. Patient denied any fever, nausea or vomiting. MD Complaint: suicidal ideation - Related Data Home Medications Medication Instructions Recorded Confirmed Last Taken ALPRAZolam [Xanax] 2 mg PO BID 06/24/17 06/24/17 Unknown Acetaminophen 325 mg PO Q6H 06/24/17 06/24/17 Unknown Calcium Carbonate [[id number]] 500 mg PO DAILY 06/24/17 06/24/17 Unknown Divalproex ER [DepaKOTE ER] 500 mg PO QDAY 06/24/17 06/24/17 Unknown Docusate Sodium [Stool Softener] 100 mg PO DAILY 06/24/17 06/24/17 Unknown Finasteride [Proscar] 5 mg PO DAILY 06/24/17 06/24/17 Unknown Insulin Aspart [NovoLOG Flexpen] 4 units SQ TID 06/24/17 06/24/17 Unknown Ipratropium [Atrovent] 0.5 mg IH Q4HR 06/24/17 06/24/17 Unknown Lisinopril [Zestril TAB] 2.5 mg PO QDAY 06/24/17 06/24/17 Unknown Mirtazapine [Remeron] 45 mg PO QHS 06/24/17 06/24/17 Unknown Nicotine [Nicoderm Cq] 21 mg TD DAILY 06/24/17 06/24/17 Unknown Polyethylene Glycol 3350 [Miralax 17 gm PO QDAY 06/24/17 06/24/17 Unknown 3350] Sennosides/Docusate Sodium [Dok 1 each PO DAILY 06/24/17 06/24/17 Unknown Plus Tablet] Tamsulosin [Flomax] 0.4 mg PO QDAY 06/24/17 06/24/17 Unknown oxyCODONE ER [OxyCONTIN ER TAB] 20 mg PO Q4H 06/24/17 06/24/17 Unknown tiZANidine [Zanaflex] 4 mg PO Q6H 06/24/17 06/24/17 Unknown Previous Rx's Medication Instructions Recorded Last Taken Type Divalproex Dr [Depakote Dr] 500 mg PO TID #90 tablet 06/24/16 Unknown Rx Famotidine [Pepcid] 20 mg PO BID #30 tablet 09/30/16 Unknown Rx oxyCODONE /ACETAMINOPHEN [Percocet 1 tab PO Q4HR #12 tab 09/30/16 Unknown Rx 5/325 mg] Phenytoin Sodium Extended 30 mg PO Q8H #90 capsule 05/08/17 Unknown Rx [Dilantin] Allergies Allergy/AdvReac Type Severity Reaction Status Date / Time No Known Allergies Allergy Unverified 06/22/16 10:49 ED Review of Systems ROS: Stated complaint: SUICIDAL THOUGHTS Other details as noted in HPI Comment: All other systems reviewed and negative Constitutional: denies: chills, fever Respiratory: denies: shortness of breath, SOB with exertion Cardiovascular: denies: chest pain, palpitations, dyspnea on exertion Gastrointestinal: denies: abdominal pain, nausea, vomiting, diarrhea, constipation, hematemesis, melena, hematochezia Genitourinary: denies: urgency, dysuria, frequency, hematuria, discharge Skin: rash Neurological: denies: headache, weakness, numbness, paresthesias, confusion, abnormal gait ED Past Medical Hx - Past Medical History Hx Hypertension: Yes Hx Heart Attack/AMI: No Hx Congestive Heart Failure: No Hx Diabetes: Yes Hx Deep Vein Thrombosis: No Hx Pulmonary Embolism: No Hx GERD: Yes Hx Sickle Cell Disease: No Hx Seizures: Yes Hx Psychiatric Treatment: Yes (SI recurrent/psychosis,major depression,alcohol abuse) Hx Asthma: Yes Hx COPD: Yes Hx Tuberculosis: No Hx Dementia: No Hx HIV: No Additional medical history: STOMACH, poor coping skills - Surgical History Hx Coronary Stent: No Hx Open Heart Surgery: No Hx Pacemaker: No Hx Internal Defibrillator: No Hx Cholecystectomy: No Hx Appendectomy: No Hx Breast Surgery: No Additional Surgical History: cancerous hital hernia removed of abd-multiple times - Social History Smoking Status: Current Every Day Smoker Substance Use Type: None - Medications Home Medications: Home Medications Medication Instructions Recorded Confirmed Last Taken Type Divalproex Dr [Depakote Dr] 500 mg PO TID #90 tablet 06/24/16 06/24/17 Unknown Rx Famotidine [Pepcid] 20 mg PO BID #30 tablet 09/30/16 06/24/17 Unknown Rx oxyCODONE /ACETAMINOPHEN [Percocet 1 tab PO Q4HR #12 tab 09/30/16 06/24/17 Unknown Rx 5/325 mg] Phenytoin Sodium Extended 30 mg PO Q8H #90 capsule 05/08/17 06/24/17 Unknown Rx [Dilantin] ALPRAZolam [Xanax] 2 mg PO BID 06/24/17 06/24/17 Unknown History Acetaminophen 325 mg PO Q6H 06/24/17 06/24/17 Unknown History Calcium Carbonate [[id number]] 500 mg PO DAILY 06/24/17 06/24/17 Unknown History Divalproex ER [DepaKOTE ER] 500 mg PO QDAY 06/24/17 06/24/17 Unknown History Docusate Sodium [Stool Softener] 100 mg PO DAILY 06/24/17 06/24/17 Unknown History Finasteride [Proscar] 5 mg PO DAILY 06/24/17 06/24/17 Unknown History Insulin Aspart [NovoLOG Flexpen] 4 units SQ TID 06/24/17 06/24/17 Unknown History Ipratropium [Atrovent] 0.5 mg IH Q4HR 06/24/17 06/24/17 Unknown History Lisinopril [Zestril TAB] 2.5 mg PO QDAY 06/24/17 06/24/17 Unknown History Mirtazapine [Remeron] 45 mg PO QHS 06/24/17 06/24/17 Unknown History Nicotine [Nicoderm Cq] 21 mg TD DAILY 06/24/17 06/24/17 Unknown History Polyethylene Glycol 3350 [Miralax 17 gm PO QDAY 06/24/17 06/24/17 Unknown History 3350] Sennosides/Docusate Sodium [Dok 1 each PO DAILY 06/24/17 06/24/17 Unknown History Plus Tablet] Tamsulosin [Flomax] 0.4 mg PO QDAY 06/24/17 06/24/17 Unknown History oxyCODONE ER [OxyCONTIN ER TAB] 20 mg PO Q4H 06/24/17 06/24/17 Unknown History tiZANidine [Zanaflex] 4 mg PO Q6H 06/24/17 06/24/17 Unknown History ED Physical Exam - General Limitations: No Limitations General appearance: alert, in no apparent distress - Head Head exam: Present: atraumatic, normocephalic, normal inspection - Eye Eye exam: Present: normal appearance, PERRL - ENT ENT exam: Present: normal exam, normal orophraynx, mucous membranes moist - Neck Neck exam: Present: normal inspection, full ROM. Absent: tenderness, meningismus, lymphadenopathy, thyromegaly - Respiratory Respiratory exam: Present: normal lung sounds bilaterally. Absent: respiratory distress, wheezes, rales, rhonchi, stridor, accessory muscle use, decreased breath sounds, prolonged expiratory - Cardiovascular Cardiovascular Exam: Present: regular rate, normal rhythm, normal heart sounds - GI/Abdominal GI/Abdominal exam: Present: soft, normal bowel sounds. Absent: distended, tenderness, guarding, rebound, rigid, organomegaly, mass, bruit, pulsatile mass - Extremities Exam Extremities exam: Present: normal inspection, full ROM, normal capillary refill - Back Exam Back exam: Present: normal inspection, full ROM. Absent: tenderness, CVA tenderness (R), CVA tenderness (L), muscle spasm, paraspinal tenderness, vertebral tenderness - Neurological Exam Neurological exam: Present: alert, oriented X3, CN II-XII intact, normal gait, reflexes normal. Absent: abnormal gait, motor sensory deficit - Psychiatric Psychiatric exam: Present: normal mood, suicidal ideation. Absent: depressed, agitated, manic, homicidal ideation - Skin Skin exam: Present: warm, rash (rashes in sun exposed area consistent with first degree sun burn.) ED Course Vital Signs 08/19/17 14:35 Temperature 98.4 F Pulse Rate 85 Respiratory 18 Rate Blood Pressure 159/96 O2 Sat by Pulse 96 Oximetry ED Medical Decision Making - Lab Data Result diagrams: 08/19/17 14:52 08/19/17 14:52 Critical care attestation.: If time is entered above; I have spent that time in minutes in the direct care of this critically ill patient, excluding procedure time. ED Disposition Clinical Impression: Acute psychosis, Suicidal ideation, Burn from the sun Disposition: [id number]/TX-65 PSY HOSP/PSY UNIT Is pt being admited?: No Condition: Stable Referrals: YOLANDA CADENA NP [Primary Care Provider] - 3-5 Days
[2017-08-19] MEDS ORDERED: DILANTIN PO SCH (23:00)
[2017-08-20 09:56] VITALS: BP 109/57
== END 2017-08-20 12:25 ==
LOC: ED 14:27
DX: F23 Brief psychotic disorder (principal); R45.851 Suicidal ideations; L55.9 Sunburn, unspecified; I10 Essential (primary) hypertension; E11.9 Type 2 diabetes mellitus without complications; K21.9 Gastro-esophageal reflux disease without esophagitis; J45.909 Unspecified asthma, uncomplicated; F32.9 Major depressive disorder, single episode, unspecified; F17.200 Nicotine dependence, unspecified, uncomplicated; Z79.4 Long term (current) use of insulin
CPT/HCPCS: 36415; 80048; 80307; 81001; 82962; 85025; 99285; G0480; 80320

== ENCOUNTER 2018-04-30 06:57 | Emergency (ER) | payer MEDICARE ==
--- NOTE | 2018-04-30 08:09 | Emergency Department Report ---
ED Male HPI - General Chief complaint: Abdominal Pain Stated complaint: CATHETER BLEEDING Time Seen by Provider: 04/30/18 07:21 Source: patient, old records reviewed Mode of arrival: Ambulatory Limitations: No Limitations - History of Present Illness Initial comments: 57-year-old male with a past medical history of prostate cancer with urinary retention, chronic thrombocytopenia, seizure disorder, type 2 diabetes, hypertension, GERD, bleeding secondary to internal hemorrhoids presents to the hospital with complaints of suprapubic pain and decreased Patel output. Patient has noticed decreased urine output was yesterday and worsening suprapubic abdominal pain. Patient has visited to multiple hospitals including [facility], [facility], and [place] with urinary complaints. Apparently he was diagnosed with prostate cancer at [facility] when Patel was placed and is to follow- up with a urologist. He expresses frustration because hospitals keep sending him home, he is not initiated outpatient follow-up any urologist. Patient denies fever or vomiting. Previous medical records are reviewed and patient was just admitted here April 08 to the 2018 for rectal bleeding and hematuria. Colonoscopy revealed internal hemorrhoids, Patel catheter placed and outpatient follow-up advised. - Related Data Home Medications Medication Instructions Recorded Confirmed Last Taken RX: Acetaminophen 325 mg PO Q6H 06/24/17 04/08/18 Unknown RX: Calcium Carbonate 500 mg PO DAILY 06/24/17 04/08/18 Unknown [[id number]] RX: Docusate Sodium [Stool 100 mg PO DAILY 06/24/17 04/08/18 Unknown Softener] RX: Finasteride [Proscar] 5 mg PO DAILY 06/24/17 04/08/18 Unknown RX: Insulin Aspart [NovoLOG 4 units SQ TID 06/24/17 04/08/18 Unknown Flexpen] RX: Ipratropium [Atrovent NEB] 0.5 mg IH Q4HR 06/24/17 04/08/18 Unknown RX: Lisinopril [Zestril TAB] 2.5 mg PO QDAY 06/24/17 04/08/18 Unknown RX: Nicotine [Nicoderm Cq] 21 mg TD DAILY 06/24/17 04/08/18 Unknown RX: Polyethylene Glycol 3350 17 gm PO QDAY 06/24/17 04/08/18 Unknown [Miralax 3350] RX: Sennosides/Docusate Sodium 1 each PO DAILY 06/24/17 04/08/18 Unknown [Dok Plus Tablet] RX: Tamsulosin [Flomax] 0.4 mg PO QDAY 06/24/17 04/08/18 Unknown Previous Rx's Medication Instructions Recorded Last Taken Type RX: Divalproex Dr [Depakote Dr] 500 mg PO TID #90 tablet 06/24/16 Unknown Rx RX: Famotidine [Pepcid] 20 mg PO BID #30 tablet 09/30/16 Unknown Rx RX: Phenytoin Sodium Extended (Nf) 30 mg PO Q8H #90 capsule 05/08/17 Unknown Rx [Dilantin (Nf)] RX: ALPRAZolam [Xanax] 1 mg PO BID PRN #20 tablet 04/10/18 Unknown Rx RX: Nicotine [Habitrol] 14 mg TD QDAY #30 patch 04/10/18 Unknown Rx RX: oxyCODONE /ACETAMINOPHEN 1 tab PO Q6H PRN #20 tablet 04/10/18 Unknown Rx [Percocet 5/325 mg] RX: tiZANidine [Zanaflex] 4 mg PO Q6H #20 tablet 04/10/18 Unknown Rx Ibuprofen [Motrin] 800 mg PO Q8HR PRN #30 tablet 04/30/18 Unknown Rx cephALEXin [Keflex] 500 mg PO Q6HR 10 Days capsule 04/30/18 Unknown Rx Allergies Allergy/AdvReac Type Severity Reaction Status Date / Time No Known Allergies Allergy Verified 04/09/18 11:23 ED Review of Systems ROS: Stated complaint: CATHETER BLEEDING Other details as noted in HPI Comment: All other systems reviewed and negative ED Past Medical Hx - Past Medical History Hx Hypertension: Yes Hx Heart Attack/AMI: No Hx Congestive Heart Failure: No Hx Diabetes: Yes Hx Deep Vein Thrombosis: No Hx Pulmonary Embolism: No Hx GERD: Yes Hx of Cancer: Yes (prostate) Hx Sickle Cell Disease: No Hx Seizures: Yes Hx Psychiatric Treatment: Yes (SI recurrent/psychosis,major depression,alcohol abuse) Hx Asthma: Yes Hx COPD: Yes Hx Tuberculosis: No Hx Dementia: No Hx HIV: No Additional medical history: STOMACH, poor coping skills. Rectal bleeding due to internal hemorrhoid. Chronic thrombocytopenia - Surgical History Hx Coronary Stent: No Hx Open Heart Surgery: No Hx Pacemaker: No Hx Internal Defibrillator: No Hx Cholecystectomy: No Hx Appendectomy: No Hx Breast Surgery: No Additional Surgical History: cancerous hital hernia removed of abd-multiple t imes - Social History Smoking Status: Current Every Day Smoker Substance Use Type: None - Medications Home Medications: Home Medications Medication Instructions Recorded Confirmed Last Taken Type RX: Divalproex Dr [Depakote Dr] 500 mg PO TID #90 tablet 06/24/16 04/08/18 Unknown Rx RX: Famotidine [Pepcid] 20 mg PO BID #30 tablet 09/30/16 04/08/18 Unknown Rx RX: Phenytoin Sodium Extended (Nf) 30 mg PO Q8H #90 capsule 05/08/17 04/08/18 Unknown Rx [Dilantin (Nf)] RX: Acetaminophen 325 mg PO Q6H 06/24/17 04/08/18 Unknown History RX: Calcium Carbonate 500 mg PO DAILY 06/24/17 04/08/18 Unknown History [[id number]] RX: Docusate Sodium [Stool 100 mg PO DAILY 06/24/17 04/08/18 Unknown History Softener] RX: Finasteride [Proscar] 5 mg PO DAILY 06/24/17 04/08/18 Unknown History RX: Insulin Aspart [NovoLOG 4 units SQ TID 06/24/17 04/08/18 Unknown History Flexpen] RX: Ipratropium [Atrovent NEB] 0.5 mg IH Q4HR 06/24/17 04/08/18 Unknown History RX: Lisinopril [Zestril TAB] 2.5 mg PO QDAY 06/24/17 04/08/18 Unknown History RX: Nicotine [Nicoderm Cq] 21 mg TD DAILY 06/24/17 04/08/18 Unknown History RX: Polyethylene Glycol 3350 17 gm PO QDAY 06/24/17 04/08/18 Unknown History [Miralax 3350] RX: Sennosides/Docusate Sodium 1 each PO DAILY 06/24/17 04/08/18 Unknown History [Dok Plus Tablet] RX: Tamsulosin [Flomax] 0.4 mg PO QDAY 06/24/17 04/08/18 Unknown History RX: ALPRAZolam [Xanax] 1 mg PO BID PRN #20 tablet 04/10/18 Unknown Rx RX: Nicotine [Habitrol] 14 mg TD QDAY #30 patch 04/10/18 Unknown Rx RX: oxyCODONE /ACETAMINOPHEN 1 tab PO Q6H PRN #20 tablet 04/10/18 Unknown Rx [Percocet 5/325 mg] RX: tiZANidine [Zanaflex] 4 mg PO Q6H #20 tablet 04/10/18 Unknown Rx Ibuprofen [Motrin] 800 mg PO Q8HR PRN #30 tablet 04/30/18 Unknown Rx cephALEXin [Keflex] 500 mg PO Q6HR 10 Days capsule 04/30/18 Unknown Rx ED Physical Exam - General Limitations: No Limitations - Other Other exam information: General: No limitations, patient is alert in no acute distress Head exam: Atraumatic, normocephalic Eyes exam: Normal appearance ENT: Moist mucous membrane, normal oropharynx Neck exam: Normal inspection, full range of motion, no meningismus nontender Respiratory exam: Clear to auscultation bilateral, no wheezes, rales, crackles Cardiovascular: Normal rate and rhythm, normal heart sounds Abdomen: Soft, nondistended, suprapubic tenderness, with normal bowel sounds, no rebound, or guarding : Patel in place with drainage noted in the tube Extremity: Full range of motion normal inspection no deformity Back: Normal Inspection, full range of motion, no tenderness Neurologic: Alert, oriented x3, cranial nerves intact, no motor or sensory deficit Psychiatric: normal affect, normal mood Skin: Warm, dry, intact ED Course Vital Signs 04/30/18 04/30/18 04/30/18 07:08 11:49 13:41 Temperature 97.8 F Pulse Rate 92 H 68 Respiratory 20 16 16 Rate Blood Pressure 144/97 Blood Pressure 145/86 [Right] O2 Sat by Pulse 98 98 Oximetry ED Medical Decision Making - Lab Data Result diagrams: 04/30/18 08:00 04/30/18 08:00 - Radiology Data Radiology results: report reviewed CT ABDOMEN PELVIS WITHOUT CONTRAST: HISTORY: Suprapubic abdominal pain. COMPARISON: 04/08/18. TECHNIQUE: Helical CT in 1.25mm intervals without IV contrast. Sagittal and coronal reconstructions. FINDINGS: Lung bases: Normal. Liver: Normal. Biliary system: Within normal limits. There is vicarious excretion of contrast agent to the gallbladder consistent with recent contrast administration. Pancreas: Normal. Spleen: Normal. Kidneys/ureters/bladder: Within normal limits. There is residual IV contrast within the renal collecting systems and bladder. Adrenal glands: Normal. Aorta: Normal. Intestines: Normal. Appendix: Not identified. Pelvic viscera: Normal. Ascites: None. Adenopathy: None. Musculoskeletal: Intact. Mild lumbar spondylosis is noted. IMPRESSION: Unremarkable CT scan of the abdomen and pelvis without contrast. - Medical Decision Making Contrast noticed on CT and and pelvis today. Today a noncontrast CT abdomen and pelvis were performed. Patient apparently had a contrast CT performed last week at another hospital. Patel catheter was removed by RN since it was not actively draining and appeared obstructed. The patient refused to allow for Patel to be replaced. Normal saline initiated and noted to have patient uri maynor. Patient was able to urinate in the ED and UA reveals an infection. IV Rocephin provided in the ED. Patient also received by mouth potassium. Mild hypokalemia. Patient does not have any signs of sepsis at this time and will be treated as an outpatient for UTI. Culture has been sent and pending given patient's multiple hospital visits and recent antibiotic treatments for UTI. - Differential Diagnosis urinary retention, UTI Critical Care Time: No Critical care attestation.: If time is entered above; I have spent that time in minutes in the direct care of this critically ill patient, excluding procedure time. ED Disposition Clinical Impression: UTI (urinary tract infection), History of urinary retention, History of prostate cancer, Hypokalemia Disposition: DC- TO HOME OR SELFCARE Is pt being admited?: No Does the pt Need Aspirin: No Condition: Stable Instructions: Urinary Tract Infection in Men (ED), Hypokalemia (ED) Additional Instructions: Take the medication as prescribed. Follow up with your doctor or the clinic/doctor provided. Return if symptoms worsen as indicated by your discharge instructions Prescriptions: cephALEXin [Keflex] 500 mg PO Q6HR 10 Days capsule Ibuprofen [Motrin] 800 mg PO Q8HR PRN #30 tablet PRN Reason: Pain , Severe (7-10) Referrals: PRIMARY CARE, [Primary Care Provider] - 3-5 Days LAVERN HEARD MD [Staff Physician] - 3-5 Days Time of Disposition: 12:43
[2018-04-30 08:16] LABS: Basophils % (Auto) 0.6 % (0.0-1.8); Eosinophils % (Auto) 0.5 % (0.0-4.3); Hematocrit 35.9 % (35.5-45.6); Hemoglobin 12.2 gm/dl (11.8-15.2); Lymphocytes # (Auto) 1.3 K/mm3 (1.2-5.4); Lymphocytes % (Auto) 19.2 % (13.4-35.0); Mean Corpuscular HGB Conc 34 % (32-34); Mean Corpuscular Volume 91 fl (84-94); Monocytes # (Auto) 0.3 K/mm3 (0.0-0.8); Monocytes % (Auto) 4.1 % (0.0-7.3); Platelet Count 158 K/mm3 (140-440); Red Blood Count 3.95 M/mm3 (3.65-5.03); Red Cell Distribution Width 14.5 % (13.2-15.2)
[2018-04-30 08:28] LABS: BUN/Creatinine Ratio 14; Blood Urea Nitrogen 10 mg/dL (9-20); Calcium 8.4 mg/dL (8.4-10.2); Hemolysis Index 11
[2018-04-30] MEDS ORDERED: K-DUR PO ONE (08:35)
--- NOTE | 2018-04-30 08:52 | Cat Scan Report ---
CT ABDOMEN PELVIS WITHOUT CONTRAST: HISTORY: Suprapubic abdominal pain. COMPARISON: 04/08/18. TECHNIQUE: Helical CT in 1.25mm intervals without IV contrast. Sagittal and coronal reconstructions. FINDINGS: Lung bases: Normal. Liver: Normal. Biliary system: Within normal limits. There is vicarious excretion of contrast agent to the gallbladder consistent with recent contrast administration. Pancreas: Normal. Spleen: Normal. Kidneys/ureters/bladder: Within normal limits. There is residual IV contrast within the renal collecting systems and bladder. Adrenal glands: Normal. Aorta: Normal. Intestines: Normal. Appendix: Not identified. Pelvic viscera: Normal. Ascites: None. Adenopathy: None. Musculoskeletal: Intact. Mild lumbar spondylosis is noted. IMPRESSION: Unremarkable CT scan of the abdomen and pelvis without contrast.
[2018-04-30] MEDS ORDERED: NACL 0.9% 1000 ML 1,000 ML IV ONE (08:57)
[2018-04-30] MEDS ORDERED: POTASSIUM CHLORIDE PO ONE (09:30)
[2018-04-30 11:40] LABS: Bilirubin,Urine NEG (Negative); Blood,Urine LG (Negative); Color,Urine Yellow (Yellow); Mucus,Urine FEW /HPF; Urobilinogen,Urine < 2.0 mg/dL (<2.0)
[2018-04-30 11:58] LABS: WBC,Urine > 182.0 /HPF (0.0-6.0)
[2018-04-30] MEDS ORDERED: ROCEPHIN/NS 1 GM/50 ML 1 GM/50 ML BAG IV ONE (12:02)
[2018-04-30 13:41] VITALS: BP 145/86
== END 2018-04-30 13:42 | disposition home or self-care (01) ==
LOC: ED 06:57
DX: N39.0 Urinary tract infection, site not specified (principal); E87.6 Hypokalemia; I10 Essential (primary) hypertension; E11.9 Type 2 diabetes mellitus without complications; K21.9 Gastro-esophageal reflux disease without esophagitis; J44.9 Chronic obstructive pulmonary disease, unspecified; F17.200 Nicotine dependence, unspecified, uncomplicated; G40.909 Epilepsy, unspecified, not intractable, without status epilepticus; Z79.4 Long term (current) use of insulin; Z85.46 Personal history of malignant neoplasm of prostate
CPT/HCPCS: 36415; 74176; 80048; 81001; 85025; 87086; 96365; 99284; J0696; J7030; 96361

== ENCOUNTER 2018-07-24 20:31 | Emergency (ER) | payer MEDICARE ==
--- NOTE | 2018-07-24 22:23 | Emergency Department Report ---
Blank Doc - Documentation Documentation: 57 y/o male comes in for abd pain times 3 days N/V last vomited 6 hours ago. Hx/o sz, prostate CA, liver DZ and DM. Alcohol dependences.
[2018-07-24 23:10] LABS: Basophils # (Auto) 0.1 K/mm3 (0.0-0.1); Basophils % (Auto) 1.4 % (0.0-1.8); Eosinophils # (Auto) 0.7 K/mm3 (0.0-0.4); Hemoglobin 15.5 gm/dl (11.8-15.2); Lymphocytes % (Auto) 29.9 % (13.4-35.0); Mean Corpuscular HGB Conc 35 % (32-34); Mean Corpuscular Volume 90 fl (84-94); Monocytes # (Auto) 0.4 K/mm3 (0.0-0.8); Monocytes % (Auto) 5.9 % (0.0-7.3); Platelet Count 185 K/mm3 (140-440); Red Blood Count 4.88 M/mm3 (3.65-5.03); Red Cell Distribution Width 15.7 % (13.2-15.2)
[2018-07-24 23:25] LABS: Alanine Aminotransferase 30 units/L (7-56); Albumin 4.1 g/dL (3.9-5); BUN/Creatinine Ratio 19; Blood Urea Nitrogen 15 mg/dL (9-20); Calcium 9.4 mg/dL (8.4-10.2); Hemolysis Index 9
[2018-07-25 00:45] LABS: Bilirubin,Urine NEG (Negative); Blood,Urine NEG (Negative); Color,Urine Yellow (Yellow); Mucus,Urine FEW /HPF; Protein,Urine <15 mg/dL mg/dL (Negative); Urobilinogen,Urine < 2.0 mg/dL (<2.0)
[2018-07-25] MEDS ORDERED: SOLU-Medrol IV ONE (00:47)
[2018-07-25] MEDS ORDERED: PROVENTIL IH ONE (00:47)
[2018-07-25] MEDS ORDERED: PEPCID IV ONE (00:47)
[2018-07-25] MEDS ORDERED: ATROVENT IH ONE (00:47)
[2018-07-25] MEDS ORDERED: NACL 0.9% 250ML 250 ML IV ONE (00:48)
[2018-07-25 01:04] LABS: Amphetamine Screen,Urine PRESUMPTIVE NEGATIVE; Benzodiazepines Screen,Urine PRESUMPTIVE NEGATIVE; Cannabinoid Screen,Urine PRESUMPTIVE NEGATIVE; Cocaine Screen,Urine PRESUMPTIVE NEGATIVE; Methadone Screen,Urine PRESUMPTIVE NEGATIVE; Opiate Screen,Urine PRESUMPTIVE NEGATIVE
--- NOTE | 2018-07-25 01:36 | XRay Report ---
PROCEDURE: XR CHEST ROUTINE 2V TECHNIQUE: PA and lateral chest radiographs were obtained. HISTORY: cp sob COMPARISONS: None. FINDINGS: Heart: Normal. Mediastinum/Vessels: Normal. Lungs/Pleural space: Normal. Bony thorax: No acute osseous abnormality. IMPRESSION: Normal examination. This document is electronically signed by Sonia Arndt DO., Jul 25 2018 01:34:04 AM ET
[2018-07-25 01:42] LABS: INR 0.82 (0.87-1.13)
--- NOTE | 2018-07-25 01:42 | Emergency Department Report ---
ED General Adult HPI - General Chief complaint: Psych Stated complaint: MEDICAL CLEARANCE Time Seen by Provider: 07/25/18 00:35 Source: patient, EMS (ems notes not available at time of chart dictation), RN notes reviewed, old records reviewed Mode of arrival: Ambulatory Limitations: No Limitations - History of Present Illness Initial comments: This is a 57-year-old gentleman. The patient has a past history of alcohol abuse, dependency, question possible cirrhosis, COPD, diabetes, hypertension, prostate cancer, seizure disorder The patient presents to the emergency room today with multiple complaints. The patient reports that yesterday, he developed left-sided burning chest pain, which radiates to the middle of his stomach and down to his stable. He also describes shortness of breath, cough, wheezing, abdominal pain, abdominal distention, discomfort with urination. He also feels like his belly is full of fluid. Apparently, he recently came off of an alcohol binge, and family brought him to a local psychiatric facility for evaluation for detox. At the detox facility, he was sent to this emergency room for medical clearance. The patient is evasive regarding questions of feeling suicidal. Being closed in documentation from the psychiatric facility indicates that the patient is suicidal and hearing voices, and has considered hanging himself with a belt around his neck. The patient is a very poor historian. He states that he is nauseous and hungry, but he is simultaneously drinking apple juice, and eating crackers. The patient is not able to describe exacerbating or relieving factors. The patient is unaccompanied by any friends or family. -: Gradual, hour(s) Location: chest, abdomen Severity scale (0 -10): 10 Quality: other Consistency: other Improves with: other Worsens with: other - Related Data Home Medications Medication Instructions Recorded Confirmed Last Taken Calcium Carbonate [[id number]] 500 mg PO DAILY 06/24/17 07/25/18 07/24/18 Docusate Sodium [Stool Softener] 100 mg PO DAILY 06/24/17 07/25/18 07/24/18 Finasteride [Proscar] 5 mg PO DAILY 06/24/17 07/25/18 07/24/18 Insulin Aspart [NovoLOG Flexpen] 4 units SQ TID 06/24/17 07/25/18 07/24/18 Ipratropium [Atrovent NEB] 0.5 mg IH Q4HR 06/24/17 07/25/18 07/24/18 Lisinopril [Zestril TAB] 2.5 mg PO QDAY 06/24/17 07/25/18 07/24/18 Nicotine [Nicoderm Cq] 21 mg TD DAILY 06/24/17 07/25/18 07/24/18 Polyethylene Glycol 3350 [Miralax 17 gm PO QDAY 06/24/17 07/25/18 07/24/18 3350] Sennosides/Docusate Sodium [Dok 1 each PO DAILY 06/24/17 07/25/18 07/24/18 Plus Tablet] Tamsulosin [Flomax] 0.4 mg PO QDAY 06/24/17 07/25/18 07/24/18 ALPRAZolam [Xanax] 2 mg PO BID PRN 07/25/18 07/25/18 07/24/18 Omeprazole Magnesium [PriLOSEC Otc] 20 mg PO BID 07/25/18 07/25/18 07/24/18 QUEtiapine [SEROquel] 100 mg PO DAILY 07/25/18 07/25/18 07/24/18 Quetiapine Fumarate [SEROquel] 400 mg PO QHS 07/25/18 07/25/18 07/24/18 hydrOXYzine PAMOATE [Vistaril] 50 mg PO BID 07/25/18 07/25/18 07/24/18 Previous Rx's Medication Instructions Recorded Last Taken Type Divalproex [Willy Vazquez] 500 mg PO TID #90 tablet 06/24/16 07/24/18 Rx Phenytoin Sodium Extended (Nf) 30 mg PO Q8H #90 capsule 05/08/17 07/24/18 Rx [Dilantin (Nf)] oxyCODONE /ACETAMINOPHEN [Percocet 1 tab PO Q6H PRN #20 tablet 04/10/18 07/24/18 Rx 5/325 mg] tiZANidine [Zanaflex] 4 mg PO Q6H #20 tablet 04/10/18 07/24/18 Rx Ibuprofen [Motrin] 800 mg PO Q8HR PRN #30 tablet 04/30/18 07/24/18 Rx cephALEXin [Keflex] 500 mg PO Q6HR 10 Days capsule 04/30/18 07/24/18 Rx Allergies Allergy/AdvReac Type Severity Reaction Status Date / Time No Known Allergies Allergy Verified 04/09/18 11:23 ED Review of Systems ROS: Stated complaint: MEDICAL CLEARANCE Other details as noted in HPI Comment: Unobtainable due to pts medical conditions Constitutional: malaise, weakness ENT: congestion Respiratory: cough, shortness of breath, SOB with exertion, wheezing Cardiovascular: chest pain Gastrointestinal: abdominal pain, nausea Genitourinary: urgency. denies: testicular pain Musculoskeletal: arthralgia, myalgia Skin: denies: lesions Neurological: weakness Psychiatric: suicidal thoughts ED Past Medical Hx - Past Medical History Previous Medical History?: Yes Hx Hypertension: Yes Hx Heart Attack/AMI: No Hx Congestive Heart Failure: No Hx Diabetes: Yes Hx Deep Vein Thrombosis: No Hx Pulmonary Embolism: No Hx GERD: Yes Hx of Cancer: Yes (prostate) Hx Sickle Cell Disease: No Hx Seizures: Yes Hx Psychiatric Treatment: Yes (SI recurrent/psychosis,major depression,alcohol abuse) Hx Asthma: Yes Hx COPD: Yes Hx Tuberculosis: No Hx Dementia: No Hx HIV: No Additional medical history: STOMACH, poor coping skills. Rectal bleeding due to internal hemorrhoid. Chronic thrombocytopenia - Surgical History Past Surgical History?: Yes Hx Coronary Stent: No Hx Open Heart Surgery: No Hx Pacemaker: No Hx Internal Defibrillator: No Hx Cholecystectomy: No Hx Appendectomy: No Hx Breast Surgery: No Additional Surgical History: cancerous hital hernia removed of abd-multiple times - Social History Smoking Status: Current Every Day Smoker Substance Use Type: Alcohol - Medications Home Medications: Home Medications Medication Instructions Recorded Confirmed Last Taken Type Divalproex Dr [Depakote Dr] 500 mg PO TID #90 tablet 06/24/16 07/25/18 07/24/18 Rx Phenytoin Sodium Extended (Nf) 30 mg PO Q8H #90 capsule 05/08/17 07/25/18 07/24/18 Rx [Dilantin (Nf)] Calcium Carbonate [[id number]] 500 mg PO DAILY 06/24/17 07/25/18 07/24/18 History Docusate Sodium [Stool Softener] 100 mg PO DAILY 06/24/17 07/25/18 07/24/18 History Finasteride [Proscar] 5 mg PO DAILY 06/24/17 07/25/18 07/24/18 History Insulin Aspart [NovoLOG Flexpen] 4 units SQ TID 06/24/17 07/25/18 07/24/18 History Ipratropium [Atrovent NEB] 0.5 mg IH Q4HR 06/24/17 07/25/18 07/24/18 History Lisinopril [Zestril TAB] 2.5 mg PO QDAY 06/24/17 07/25/18 07/24/18 History Nicotine [Nicoderm Cq] 21 mg TD DAILY 06/24/17 07/25/18 07/24/18 History Polyethylene Glycol 3350 [Miralax 17 gm PO QDAY 06/24/17 07/25/18 07/24/18 History 3350] Sennosides/Docusate Sodium [Dok 1 each PO DAILY 06/24/17 07/25/18 07/24/18 History Plus Tablet] Tamsulosin [Flomax] 0.4 mg PO QDAY 06/24/17 07/25/18 07/24/18 History oxyCODONE /ACETAMINOPHEN [Percocet 1 tab PO Q6H PRN #20 tablet 04/10/18 07/25/18 07/24/18 Rx 5/325 mg] tiZANidine [Zanaflex] 4 mg PO Q6H #20 tablet 04/10/18 07/25/18 07/24/18 Rx Ibuprofen [Motrin] 800 mg PO Q8HR PRN #30 tablet 04/30/18 07/25/18 07/24/18 Rx cephALEXin [Keflex] 500 mg PO Q6HR 10 Days capsule 04/30/18 07/25/18 07/24/18 Rx ALPRAZolam [Xanax] 2 mg PO BID PRN 07/25/18 07/25/18 07/24/18 History Omeprazole Magnesium [PriLOSEC Otc] 20 mg PO BID 07/25/18 07/25/18 07/24/18 History QUEtiapine [SEROquel] 100 mg PO DAILY 07/25/18 07/25/18 07/24/18 History Quetiapine Fumarate [SEROquel] 400 mg PO QHS 07/25/18 07/25/18 07/24/18 History hydrOXYzine PAMOATE [Vistaril] 50 mg PO BID 07/25/18 07/25/18 07/24/18 History ED Physical Exam - General Limitations: Other (the patient is a poor historian) General appearance: alert, in no apparent distress - Head Head exam: Present: atraumatic, normocephalic - Eye Eye exam: Present: normal appearance, PERRL, EOMI, other (visual acuity intact to finger counting, color perception, reading at a close distance). Absent: nystagmus - ENT ENT exam: Present: normal exam, normal orophraynx, mucous membranes moist, normal external ear exam - Neck Neck exam: Present: normal inspection, full ROM. Absent: tenderness, meningismus - Respiratory Respiratory exam: Present: wheezes, rhonchi. Absent: respiratory distress - Cardiovascular Cardiovascular Exam: Present: regular rate, normal rhythm, normal heart sounds. Absent: bradycardia, tachycardia, irregular rhythm, systolic murmur, diastolic murmur, rubs, gallop - GI/Abdominal GI/Abdominal exam: Present: soft, distended, tenderness. Absent: guarding, rebound, rigid, pulsatile mass - Rectal Rectal exam: Present: deferred - Extremities Exam Extremities exam: Present: normal inspection, full ROM, pedal edema, other (2+ pulses noted in the bilateral upper, lower extremities. Compartments soft. No long bony tenderness. The pelvis is stable.). Absent: calf tenderness - Back Exam Back exam: Present: normal inspection, full ROM. Absent: tenderness, CVA tenderness (R), paraspinal tenderness, vertebral tenderness - Neurological Exam Neurological exam: Present: alert, oriented X3, normal gait, other (Extraocular movements intact. Tongue midline. No facial droop. Facial sensation intact to light touch in the V1, V2, V3 distribution bilaterally. 5 and 5 strength in 4 extremities.. Sensation is intact to light touch in 4 extremities.). Absent: motor sensory deficit - Psychiatric Psychiatric exam: Present: anxious - Skin Skin exam: Present: warm, dry, intact, normal color. Absent: rash ED Course Vital Signs 07/24/18 07/25/18 07/25/18 21:38 00:54 02:18 Temperature 98.4 F 97.9 F Pulse Rate 85 87 Pulse Rate [ 80 Anterior Bilateral] Respiratory 18 18 Rate Respiratory 20 Rate [Anterior Bilateral] Blood Pressure 137/103 Blood Pressure 153/101 [Left] O2 Sat by Pulse 95 97 Oximetry 07/25/18 03:00 Temperature Pulse Rate 80 Pulse Rate [ Anterior Bilateral] Respiratory 22 Rate Respiratory Rate [Anterior Bilateral] Blood Pressure 129/78 Blood Pressure [Left] O2 Sat by Pulse 96 Oximetry - Reevaluation(s) Reevaluation #1: 07/25/18 02:14 Differential diagnosis, including but not limited to: COPD exacerbation, acute coronary syndrome, pneumonia, pulmonary embolus, cirrhosis, ascites, suicidality, urinary tract infection Alcohol dependence, medical clearance Assessment and plan: 57-year-old gentleman sent to the emergency room for medical clearance. On my initial assessment the patient is afebrile, somewhat disorganized, but alert and oriented 3, walking with a steady gait, and sober clinically. The patient is a poor historian and difficult to redirect. He is initially drinking apple juice and eating crackers without difficulty. On review of systems, he endorses multiple complaints, including abdominal pain, Stensen, urinary discomfort, cough, wheezing, chest pain, and discomfort. The patient's EKG is morphologically abnormal, but unchanged from prior. He will be treated for presumed COPD exacerbation. CT scan of the abdomen and pelvis is pending at this time. Has evidence of mild to moderate ascites, but without a fever. He is afebrile with otherwise reassuring vital signs. Clinically doubt bacterial peritonitis at this time. D-dimer elevated, nuclear medicine study is ordered. 07/25/18 05:03 Reevaluation #2: 07/25/18 05:03 Troponin is negative 2. EKG is unchanged 2. CT scan of the abdomen and pelvis is negative for acute significant disease. No evidence of large volume ascites noted. Wheezing improved. Patient sleeping comfortable, and in no acute distress. The patient's medical history, including diabetes and hypertension are reviewed and appreciated. However, given his multiple complaints, clinical improvement, the fact that he is sleeping comfortably without any acute distress, the fact that he is able to eat and drink without difficulty, and the fact that his main medical complaint is request for medical clearance for alcohol detox and suicidality, I do not believe the patient requires admission to the hospital for a cardiac risk stratification. I think it is unlikely the patient will exp erience a major adverse cardiac event. The patient at this point in time appears to be medically stable for psychiatric placement, evaluation, and consultation. - EJ/Peripheral Line Other Time Out Performed: Yes Indications: nurses unable to establis Skin Cleansed in Sterile Fashion: Yes Size: 20 Dressing Placed: Tegaderm Patient Tolerated Procedure: well Additional Comments: The left anterior abdominal wall is prepped with chlorhexidine with a typical aseptic technique. A 20-gauge IV catheter is inserted by myself with 1 attempt, with no difficulty. The patient tolerated this procedure well. ED Medical Decision Making - Lab Data Result diagrams: 07/24/18 22:57 07/24/18 22:57 Vital Signs 07/24/18 07/25/18 21:38 00:54 Temperature 98.4 F 97.9 F Pulse Rate 85 87 Respiratory 18 18 Rate Blood Pressure 137/103 Blood Pressure 153/101 [Left] O2 Sat by Pulse 95 97 Oximetry Lab Results 07/24/18 07/24/18 07/24/18 Range/Units 00:00 00:00 00:00 WBC (4.5-11.0) K/mm3 RBC (3.65-5.03) M/mm3 Hgb (11.8-15.2) gm/dl Hct (35.5-45.6) % MCV (84-94) fl MCH (28-32) pg MCHC (32-34) % RDW (13.2-15.2) % Plt Count (140-440) K/mm3 Lymph % (Auto) (13.4-35.0) % [place] % (Auto) (0.0-7.3) % Eos % (Auto) (0.0-4.3) % Baso % (Auto) (0.0-1.8) % Lymph # (1.2-5.4) K/mm3 [place] # (0.0-0.8) K/mm3 Eos # (0.0-0.4) K/mm3 Baso # (0.0-0.1) K/mm3 Seg Neutrophils % (40.0-70.0) % Seg Neutrophils # (1.8-7.7) K/mm3 PT (12.2-14.9) Sec. INR (0.87-1.13) D-Dimer (0-234) ng/mlDDU Sodium (137-145) mmol/L Potassium (3.6-5.0) mmol/L Chloride (98-107) mmol/L Carbon Dioxide (22-30) mmol/L Anion Gap mmol/L BUN (9-20) mg/dL Creatinine (0.8-1.5) mg/dL Estimated GFR ml/min BUN/Creatinine Ratio % Glucose (75-100) mg/dL Calcium (8.4-10.2) mg/dL Magnesium 1.80 (1.7-2.3) mg/dL Total Bilirubin (0.1-1.2) mg/dL AST (5-40) units/L ALT (7-56) units/L Alkaline Phosphatase (35-129) units/L Total Creatine Kinase 78 (55-170) units/L Troponin T (0.00-0.029) ng/mL Total Protein (6.3-8.2) g/dL Albumin (3.9-5) g/dL Albumin/Globulin Ratio % Lipase (13-60) units/L Urine Color (Yellow) Urine Turbidity (Clear) Urine pH (5.0-7.0) Ur Specific [place] (1.003-1.030) Urine Protein (Negative) mg/dL Urine Glucose (UA) (Negative) mg/dL Urine Ketones (Negative) mg/dL Urine Blood (Negative) Urine Nitrite (Negative) Urine Bilirubin (Negative) Urine Urobilinogen (<2.0) mg/dL Ur Leukocyte Esterase (Negative) Urine WBC (Auto) (0.0-6.0) /HPF Urine RBC (Auto) (0.0-6.0) /HPF U Epithel Cells (Auto) (0-13.0) /HPF Urine Mucus /HPF Salicylates < 0.3 L (2.8-20.0) mg/dL Urine Opiates Screen Urine Methadone Screen Acetaminophen < 5.0 L (10.0-30.0) ug/mL Ur Barbiturates Screen Phenytoin 1.3 L (10.0-20.0) ug/mL Valproic Acid (50-100) ug/mL Ur Phencyclidine Scrn Ur Amphetamines Screen U Benzodiazepines Scrn Urine Cocaine Screen U Marijuana (THC) Screen Drugs of Abuse Note Plasma/Serum Alcohol (0-0.07) % 07/24/18 07/24/18 07/24/18 Range/Units 22:57 22:57 22:57 WBC 6.8 (4.5-11.0) K/mm3 RBC 4.88 (3.65-5.03) M/mm3 Hgb 15.5 H (11.8-15.2) gm/dl Hct 44.0 (35.5-45.6) % MCV 90 (84-94) fl MCH 32 (28-32) pg MCHC 35 H (32-34) % RDW 15.7 H (13.2-15.2) % Plt Count 185 (140-440) K/mm3 Lymph % (Auto) 29.9 (13.4-35.0) % [place] % (Auto) 5.9 (0.0-7.3) % Eos % (Auto) 10.0 H (0.0-4.3) % Baso % (Auto) 1.4 (0.0-1.8) % Lymph # 2.0 (1.2-5.4) K/mm3 [place] # 0.4 (0.0-0.8) K/mm3 Eos # 0.7 H (0.0-0.4) K/mm3 Baso # 0.1 (0.0-0.1) K/mm3 Seg Neutrophils % 52.8 (40.0-70.0) % Seg Neutrophils # 3.6 (1.8-7.7) K/mm3 PT (12.2-14.9) Sec. INR (0.87-1.13) D-Dimer (0-234) ng/mlDDU Sodium 138 (137-145) mmol/L Potassium 3.9 (3.6-5.0) mmol/L Chloride 101.2 (98-107) mmol/L Carbon Dioxide 23 (22-30) mmol/L Anion Gap 18 mmol/L BUN 15 (9-20) mg/dL Creatinine 0.8 (0.8-1.5) mg/dL Estimated GFR > 60 ml/min BUN/Creatinine Ratio 19 % Glucose 146 H (75-100) mg/dL Calcium 9.4 (8.4-10.2) mg/dL Magnesium (1.7-2.3) mg/dL Total Bilirubin 0.40 (0.1-1.2) mg/dL AST 24 (5-40) units/L ALT 30 (7-56) units/L Alkaline Phosphatase 144 H (35-129) units/L Total Creatine Kinase (55-170) units/L Troponin T (0.00-0.029) ng/mL Total Protein 7.6 (6.3-8.2) g/dL Albumin 4.1 (3.9-5) g/dL Albumin/Globulin Ratio 1.2 % Lipase (13-60) units/L Urine Color (Yellow) Urine Turbidity (Clear) Urine pH (5.0-7.0) Ur Specific [place] (1.003-1.030) Urine Protein (Negative) mg/dL Urine Glucose (UA) (Negative) mg/dL Urine Ketones (Negative) mg/dL Urine Blood (Negative) Urine Nitrite (Negative) Urine Bilirubin (Negative) Urine Urobilinogen (<2.0) mg/dL Ur Leukocyte Esterase (Negative) Urine WBC (Auto) (0.0-6.0) /HPF Urine RBC (Auto) (0.0-6.0) /HPF U Epithel Cells (Auto) (0-13.0) /HPF Urine Mucus /HPF Salicylates (2.8-20.0) mg/dL Urine Opiates Screen Urine Methadone Screen Acetaminophen (10.0-30.0) ug/mL Ur Barbiturates Screen Phenytoin (10.0-20.0) ug/mL Valproic Acid (50-100) ug/mL Ur Phencyclidine Scrn Ur Amphetamines Screen U Benzodiazepines Scrn Urine Cocaine Screen U Marijuana (THC) Screen Drugs of Abuse Note Plasma/Serum Alcohol < 0.01 (0-0.07) % 07/24/18 07/24/18 07/24/18 Range/Units 22:57 Unknown Unknown WBC (4.5-11.0) K/mm3 RBC (3.65-5.03) M/mm3 Hgb (11.8-15.2) gm/dl Hct (35.5-45.6) % MCV (84-94) fl MCH (28-32) pg MCHC (32-34) % RDW (13.2-15.2) % Plt Count (140-440) K/mm3 Lymph % (Auto) (13.4-35.0) % [place] % (Auto) (0.0-7.3) % Eos % (Auto) (0.0-4.3) % Baso % (Auto) (0.0-1.8) % Lymph # (1.2-5.4) K/mm3 [place] # (0.0-0.8) K/mm3 Eos # (0.0-0.4) K/mm3 Baso # (0.0-0.1) K/mm3 Seg Neutrophils % (40.0-70.0) % Seg Neutrophils # (1.8-7.7) K/mm3 PT (12.2-14.9) Sec. INR (0.87-1.13) D-Dimer (0-234) ng/mlDDU Sodium (137-145) mmol/L Potassium (3.6-5.0) mmol/L Chloride (98-107) mmol/L Carbon Dioxide (22-30) mmol/L Anion Gap mmol/L BUN (9-20) mg/dL Creatinine (0.8-1.5) mg/dL Estimated GFR ml/min BUN/Creatinine Ratio % Glucose (75-100) mg/dL Calcium (8.4-10.2) mg/dL Magnesium (1.7-2.3) mg/dL Total Bilirubin (0.1-1.2) mg/dL AST (5-40) units/L ALT (7-56) units/L Alkaline Phosphatase (35-129) units/L Total Creatine Kinase (55-170) units/L Troponin T (0.00-0.029) ng/mL Total Protein (6.3-8.2) g/dL Albumin (3.9-5) g/dL Albumin/Globulin Ratio % Lipase 27 (13-60) units/L Urine Color Yellow (Yellow) Urine Turbidity Clear (Clear) Urine pH 5.0 (5.0-7.0) Ur Specific [place] 1.018 (1.003-1.030) Urine Protein <15 mg/dl (Negative) mg/dL Urine Glucose (UA) Neg (Negative) mg/dL Urine Ketones Neg (Negative) mg/dL Urine Blood Neg (Negative) Urine Nitrite Neg (Negative) Urine Bilirubin Neg (Negative) Urine Urobilinogen < 2.0 (<2.0) mg/dL Ur Leukocyte Esterase Neg (Negative) Urine WBC (Auto) 2.0 (0.0-6.0) /HPF Urine RBC (Auto) 2.0 (0.0-6.0) /HPF U Epithel Cells (Auto) < 1.0 (0-13.0) /HPF Urine Mucus Few /HPF Salicylates (2.8-20.0) mg/dL Urine Opiates Screen Presumptive negative Urine Methadone Screen Presumptive negative Acetaminophen (10.0-30.0) ug/mL Ur Barbiturates Screen Presumptive negative Phenytoin (10.0-20.0) ug/mL Valproic Acid (50-100) ug/mL Ur Phencyclidine Scrn Presumptive negative Ur Amphetamines Screen Presumptive negative U Benzodiazepines Scrn Presumptive negative Urine Cocaine Screen Presumptive negative U Marijuana (THC) Screen Presumptive negative Drugs of Abuse Note Disclamer Plasma/Serum Alcohol (0-0.07) % 07/25/18 07/25/18 07/25/18 Range/Units 00:52 00:52 00:59 WBC (4.5-11.0) K/mm3 RBC (3.65-5.03) M/mm3 Hgb (11.8-15.2) gm/dl Hct (35.5-45.6) % MCV (84-94) fl MCH (28-32) pg MCHC (32-34) % RDW (13.2-15.2) % Plt Count (140-440) K/mm3 Lymph % (Auto) (13.4-35.0) % [place] % (Auto) (0.0-7.3) % Eos % (Auto) (0.0-4.3) % Baso % (Auto) (0.0-1.8) % Lymph # (1.2-5.4) K/mm3 [place] # (0.0-0.8) K/mm3 Eos # (0.0-0.4) K/mm3 Baso # (0.0-0.1) K/mm3 Seg Neutrophils % (40.0-70.0) % Seg Neutrophils # (1.8-7.7) K/mm3 PT 11.8 L (12.2-14.9) Sec. INR 0.82 L (0.87-1.13) D-Dimer 245.81 H (0-234) ng/mlDDU Sodium (137-145) mmol/L Potassium (3.6-5.0) mmol/L Chloride (98-107) mmol/L Carbon Dioxide (22-30) mmol/L Anion Gap mmol/L BUN (9-20) mg/dL Creatinine (0.8-1.5) mg/dL Estimated GFR ml/min BUN/Creatinine Ratio % Glucose (75-100) mg/dL Calcium (8.4-10.2) mg/dL Magnesium (1.7-2.3) mg/dL Total Bilirubin (0.1-1.2) mg/dL AST (5-40) units/L ALT (7-56) units/L Alkaline Phosphatase (35-129) units/L Total Creatine Kinase (55-170) units/L Troponin T < 0.010 (0.00-0.029) ng/mL Total Protein (6.3-8.2) g/dL Albumin (3.9-5) g/dL Albumin/Globulin Ratio % Lipase (13-60) units/L Urine Color (Yellow) Urine Turbidity (Clear) Urine pH (5.0-7.0) Ur Specific [place] (1.003-1.030) Urine Protein (Negative) mg/dL Urine Glucose (UA) (Negative) mg/dL Urine Ketones (Negative) mg/dL Urine Blood (Negative) Urine Nitrite (Negative) Urine Bilirubin (Negative) Urine Urobilinogen (<2.0) mg/dL Ur Leukocyte Esterase (Negative) Urine WBC (Auto) (0.0-6.0) /HPF Urine RBC (Auto) (0.0-6.0) /HPF U Epithel Cells (Auto) (0-13.0) /HPF Urine Mucus /HPF Salicylates (2.8-20.0) mg/dL Urine Opiates Screen Urine Methadone Screen Acetaminophen (10.0-30.0) ug/mL Ur Barbiturates Screen Phenytoin (10.0-20.0) ug/mL Valproic Acid < 2.8 L (50-100) ug/mL Ur Phencyclidine Scrn Ur Amphetamines Screen U Benzodiazepines Scrn Urine Cocaine Screen U Marijuana (THC) Screen Drugs of Abuse Note Plasma/Serum Alcohol (0-0.07) % - EKG Data -: EKG Interpreted by Co EKG shows normal: sinus rhythm Rate: normal - EKG Data When compared to previous EKG there are: previous EKG unavailable 07/25/18 02:18 This is a normal sinus rhythm, 83 bpm, left axis deviation, borderline left anterior fascicular block, QTC within normal limits, abnormal EKG, not consistent with ST elevation myocardial infarction, unchanged from prior EKG from 06/23/2016. - Radiology Data Radiology results: report reviewed, image reviewed X-ray of the chest is negative for acute disease. Print Report Referring Physician: SAMI ELLISON Patient Name: FRANCOISE FELIX Date of : 1960 Sex: Male Report Date: 2018-07-25 Report Status: Finalized Findings [facility] [address] [place] [address] Cat Scan Report Signed Patient: FRANCOISE FELIX MR#: [id number] : 1960 Acct:[id number] Age/Sex: 57 / M ADM Date: 07/24/18 Loc: ED Attending Dr: Ordering Physician: SAMI ELLISON MD Date of Service: 07/25/18 Procedure(s): CT abdomen pelvis wo con Accession Number(s): [id number] cc: SAMI ELLISON MD PROCEDURE: CT ABDOMEN PELVIS WO CON TECHNIQUE: Computerized axial tomography of the abdomen and pelvis was performed without intravenous contrast. This study is performed without intravascular contrast material and its sensitivity for abdominal and pelvic pathology, including neoplasms, inflammation, abscess, free fluid, thrombosis, arterial dissection and infarction, is reduced compared with a contrast enhanced study. CT DOSE LENGTH PRODUCT: 1498.8 mGycm HISTORY: abd pain cirrhosis COMPARISONS: None . FINDINGS: Visualized lower thorax: No significant abnormality. Liver: Normal size and attenuation. Spleen: Normal size and attenuation. Gallbladder and biliary system: Normal. Pancreas: Normal. Adrenals: Normal. Kidneys: Normal. GI tract: No obstruction. No ileus or enteritis. The cecum, appendix and colon are normal. . Lymph nodes and mesentery: Normal. Vasculature: Normal.. Bladder: Normal. Reproductive organs: Normal. Peritoneum: No free fluid. Musculoskeletal structures: No significant abnormality. Other: None. IMPRESSION: There is no evidence of intestinal or urinary tract obstruction. No ileus or enteritis. . This document is electronically signed by Sonia Arndt DO., Jul 25 2018 02:45:37 AM ET Transcribed By: [facility] Dictated By: SONIA ARNDT MD Electronically Authenticated By: SONIA ARNDT MD Signed Date/Time: 07/25/18 3921 Critical care attestation.: If time is entered above; I have spent that time in minutes in the direct care of this critically ill patient, excluding procedure time. ED Disposition Clinical Impression: Medical clearance for psychiatric admission, Chest pain, Abdominal pain, COPD (chronic obstructive pulmonary disease) Disposition: [id number]/TX-65 PSY HOSP/PSY UNIT Is pt being admited?: No Does the pt Need Aspirin: No Condition: Stable Instructions: Chest Pain (ED), Chronic Obstructive Pulmonary Disease (ED) Referrals: GARCÍA KESSLER MD [Primary Care Provider] - 3-5 Days
--- NOTE | 2018-07-25 02:47 | Cat Scan Report ---
PROCEDURE: CT ABDOMEN PELVIS WO CON TECHNIQUE: Computerized axial tomography of the abdomen and pelvis was performed without intravenous contrast. This study is performed without intravascular contrast material and its sensitivity for ab dominal and pelvic pathology, including neoplasms, inflammation, abscess, free fluid, thrombosis, art erial dissection and infarction, is reduced compared with a contrast enhanced study. CT DOSE LENGTH PRODUCT: 1498.8 mGycm HISTORY: abd pain cirrhosis COMPARISONS: None . FINDINGS: Visualized lower thorax: No significant abnormality. Liver: Normal size and attenuation. Spleen: Normal size and attenuation. Gallbladder and biliary system: Normal. Pancreas: Normal. Adrenals: Normal. Kidneys: Normal. GI tract: No obstruction. No ileus or enteritis. The cecum, appendix and colon are normal. . Lymph nodes and mesentery: Normal. Vasculature: Normal.. Bladder: Normal. Reproductive organs: Normal. Peritoneum: No free fluid. Musculoskeletal structures: No significant abnormality. Other: None. IMPRESSION: There is no evidence of intestinal or urinary tract obstruction. No ileus or enteritis. . This document is electronically signed by Sonia Arndt DO., Jul 25 2018 02:45:37 AM ET
--- NOTE | 2018-07-25 04:10 | Nuclear Medicine Report ---
PROCEDURE: NM LUNG SCAN PERF/VENT TECHNIQUE: 3.9 mCi Tc-99m MAA was injected IV for pulmonary perfusion imaging in multiple projection s. 13.4 mCi xenon-133 was inhaled for pulmonary ventilation imaging in multiple projections. Injectio n site: RIGHT antecubital fossa. HISTORY: cp dyspnea COMPARISONS: None . FINDINGS: Perfusion: No defects . Ventilation: No defects . IMPRESSION: Normal Examination . This document is electronically signed by Sonia Arndt DO., Jul 25 2018 04:08:33 AM ET
[2018-07-25] MEDS ORDERED: XANAX PO PRN (05:05)
[2018-07-25] MEDS ORDERED: PHENYTOIN SODIUM 30 MG PO SCH (05:15)
[2018-07-25] MEDS: DILANTIN PO SCH ×3 (06:12→22:05)
[2018-07-25] MEDS ORDERED: NON-FORMULARY (Insulin Aspart [Novolog Flexpen] 4 UNITS) SQ SCH (08:00)
[2018-07-25] MEDS: HumaLOG SUB-Q SCH ×3 (09:23→18:15)
[2018-07-25] MEDS ORDERED: PROSCAR PO SCH (10:00)
[2018-07-25] MEDS ORDERED: OSCAL PO SCH (10:00)
[2018-07-25] MEDS ORDERED: DELTASONE PO SCH (10:00)
[2018-07-25] MEDS ORDERED: COLACE PO SCH (10:00)
[2018-07-25] MEDS ORDERED: HABITROL TD SCH (10:00)
[2018-07-25] MEDS ORDERED: NON-FORMULARY (Omeprazole Magnesium [Prilosec Otc] 20 MG) PO SCH (10:00)
[2018-07-25] MEDS ORDERED: ZESTRIL PO SCH (10:00)
[2018-07-25] MEDS ORDERED: NON-FORMULARY (Lisinopril [Zestril Tab] 2.5 MG) PO SCH (10:00)
[2018-07-25] MEDS ORDERED: FLOMAX PO SCH (10:00)
--- NOTE | 2018-07-25 12:35 | Consultation ---
History of Present Illness - Reason for Consult Consult date: 07/25/18 Reason for consult: psychiatric evaluation - Chief Complaint Chief complaint: "got caught up" - History of Present Psychiatric Illness 57yo SWM who presents to [facility] ED via EMS from [facility] for medical clearance. He was discharged from [facility] a couple of weeks ago and was at [place] inpatient for 27 days immediately prior the lodge. Pt reports SI with plan to hang or drink self to . 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 [He reports hx of attempts via OD x3 months ago and recent gesture 3-4 days ago by putting belt around his neck. He reports feeling hopeless, helpless, and worthless. He is unable to identify reasons for living. Pt reports experiencing command AH that are derogatory in nature telling him to kill himself. He reports an increase in frequency, duration, and severity x2 weeks. Pt states he has hx of acting on commands. Pt also reports to VH in the form of "flashes, smoky shadows, and silhouettes" x2 weeks. He endorses severe paranoia. He denies HI/hx of HI. There is no evidence of delusional thinking. Pt admits to ETOH abuse. He first used ETOH at age 15. He consumes 12pk of beer or fifth of liquor daily x10 years with last drink being 1.5 day ago. He reports current withdrawals consisting of tremors and diaphoresis. He reports hx of DT's, seizures, tremors, diaphoresis, and N/V. Pt does not appear to be exhibiting any s/s of withdrawal at time of assessment. ] Medications and Allergies Allergies Allergy/AdvReac Type Severity Reaction Status Date / Time No Known Allergies Allergy Verified 04/09/18 11:23 Home Medications Medication Instructions Recorded Confirmed Last Taken Type Divalproex Dr [Depakote Dr] 500 mg PO TID #90 tablet 06/24/16 07/25/18 07/24/18 Rx Phenytoin Sodium Extended (Nf) 30 mg PO Q8H #90 capsule 05/08/17 07/25/18 07/24/18 Rx [Dilantin (Nf)] Calcium Carbonate [[id number]] 500 mg PO DAILY 06/24/17 07/25/18 07/24/18 History Docusate Sodium [Stool Softener] 100 mg PO DAILY 06/24/17 07/25/18 07/24/18 History Finasteride [Proscar] 5 mg PO DAILY 06/24/17 07/25/18 07/24/18 History Insulin Aspart [NovoLOG Flexpen] 4 units SQ TID 06/24/17 07/25/18 07/24/18 History Ipratropium [Atrovent NEB] 0.5 mg IH Q4HR 06/24/17 07/25/18 07/24/18 History Lisinopril [Zestril TAB] 2.5 mg PO QDAY 06/24/17 07/25/18 07/24/18 History Nicotine [Nicoderm Cq] 21 mg TD DAILY 06/24/17 07/25/18 07/24/18 History Polyethylene Glycol 3350 [Miralax 17 gm PO QDAY 06/24/17 07/25/18 07/24/18 History 3350] Sennosides/Docusate Sodium [Dok 1 each PO DAILY 06/24/17 07/25/18 07/24/18 History Plus Tablet] Tamsulosin [Flomax] 0.4 mg PO QDAY 06/24/17 07/25/18 07/24/18 History oxyCODONE /ACETAMINOPHEN [Percocet 1 tab PO Q6H PRN #20 tablet 04/10/18 07/25/18 07/24/18 Rx 5/325 mg] tiZANidine [Zanaflex] 4 mg PO Q6H #20 tablet 04/10/18 07/25/18 07/24/18 Rx Ibuprofen [Motrin] 800 mg PO Q8HR PRN #30 tablet 04/30/18 07/25/18 07/24/18 Rx cephALEXin [Keflex] 500 mg PO Q6HR 10 Days capsule 04/30/18 07/25/18 07/24/18 Rx ALPRAZolam [Xanax] 2 mg PO BID PRN 07/25/18 07/25/18 07/24/18 History Omeprazole Magnesium [PriLOSEC Otc] 20 mg PO BID 07/25/18 07/25/18 07/24/18 History QUEtiapine [SEROquel] 100 mg PO DAILY 07/25/18 07/25/18 07/24/18 History Quetiapine Fumarate [SEROquel] 400 mg PO QHS 07/25/18 07/25/18 07/24/18 History hydrOXYzine PAMOATE [Vistaril] 50 mg PO BID 07/25/18 07/25/18 07/24/18 History Active Meds: Active Medications Alprazolam (Xanax) 2 mg PO BID PRN PRN Reason: Anxiety Calcium Carbonate/Glycine (Oscal) 500 mg PO DAILY [facility] Divalproex Sodium (Depakote Dr) 500 mg PO TID [facility] Last Admin: 07/25/18 09:23 Dose: 500 mg Documented by: Docusate Sodium (Colace) 100 mg PO DAILY [facility] Finasteride (Proscar) 5 mg PO DAILY [facility] Hydroxyzine Pamoate (Vistaril) 50 mg PO BID [facility] Insulin Human Lispro (Humalog) 4 unit SUB-Q TIDAC [facility] Last Admin: 07/25/18 09:23 Dose: 4 unit Documented by: Ipratropium Verbena (Atrovent) 0.5 mg IH Q4HRT [facility] Lisinopril (Zestril) 2.5 mg PO QDAY [facility] Nicotine (Habitrol) 21 mg TD DAILY [facility] Pantoprazole Sodium (Protonix) 20 mg PO BID [facility] Phenytoin (Dilantin) 30 mg PO Q8HR [facility] Last Admin: 07/25/18 06:12 Dose: 30 mg Documented by: Prednisone (Deltasone) 40 mg PO QDAY [facility] Stop: 07/28/18 10:01 Tamsulosin HCl (Flomax) 0.4 mg PO QDAY [facility] Past psychiatric history - Past Medical History Past Medical History: other (prostate cancer) - past Psychiatric treatment and history Psych: Anxiety, Addictions, Depression - Social History Social history: alcohol abuse, other (homeless) Mental Status Exam - Vital signs Last Vital Signs Temp 97.9 F 07/25/18 00:54 Pulse 78 07/25/18 05:00 Resp 18 07/25/18 05:00 BP 125/83 07/25/18 05:00 Pulse Ox 97 07/25/18 05:00 - Exam Orientation: time, place, person Affect: depressed Mood: congruent with affect Thought content: other (SI with plan) Thought Process: Intact Perceptions: auditory, command, hallucinations Speech: normal rate and pattern Concentration: focused Motor activity: normal Level of consciousness: alert Memory: Intact Sleep Symptoms: Difficulty Falling Asleep Appetite: decreased Interaction: cooperative Mini mental status exam(if necessary): 24-30 Results Result Diagrams: 07/24/18 22:57 07/24/18 22:57 Abnormal lab results 07/24/18 07/24/18 07/24/18 Range/Units 00:00 00:00 22:57 Hgb 15.5 H (11.8-15.2) gm/dl MCHC 35 H (32-34) % RDW 15.7 H (13.2-15.2) % Eos % (Auto) 10.0 H (0.0-4.3) % Eos # 0.7 H (0.0-0.4) K/mm3 PT (12.2-14.9) Sec. INR (0.87-1.13) D-Dimer (0-234) ng/mlDDU Glucose (75-100) mg/dL POC Glucose (70-105) Alkaline Phosphatase (35-129) units/L Salicylates < 0.3 L (2.8-20.0) mg/dL Acetaminophen < 5.0 L (10.0-30.0) ug/mL Phenytoin 1.3 L (10.0-20.0) ug/mL Valproic Acid (50-100) ug/mL 07/24/18 07/25/18 07/25/18 Range/Units 22:57 00:52 00:59 Hgb (11.8-15.2) gm/dl MCHC (32-34) % RDW (13.2-15.2) % Eos % (Auto) (0.0-4.3) % Eos # (0.0-0.4) K/mm3 PT 11.8 L (12.2-14.9) Sec. INR 0.82 L (0.87-1.13) D-Dimer 245.81 H (0-234) ng/mlDDU Glucose 146 H (75-100) mg/dL POC Glucose (70-105) Alkaline Phosphatase 144 H (35-129) units/L Salicylates (2.8-20.0) mg/dL Acetaminophen (10.0-30.0) ug/mL Phenytoin (10.0-20.0) ug/mL Valproic Acid < 2.8 L (50-100) ug/mL 07/25/18 Range/Units 06:59 Hgb (11.8-15.2) gm/dl MCHC (32-34) % RDW (13.2-15.2) % Eos % (Auto) (0.0-4.3) % Eos # (0.0-0.4) K/mm3 PT (12.2-14.9) Sec. INR (0.87-1.13) D-Dimer (0-234) ng/mlDDU Glucose (75-100) mg/dL POC Glucose 239 H (70-105) Alkaline Phosphatase (35-129) units/L Salicylates (2.8-20.0) mg/dL Acetaminophen (10.0-30.0) ug/mL Phenytoin (10.0-20.0) ug/mL Valproic Acid (50-100) ug/mL All other labs normal. Assessment and Plan Assessment and plan: Impression: alcohol use disorder, no current withdrawal bipolar disorder, current episode depressed with psychotic features Suicidal ideation with a plan Recommendation: restart home med of seroquel 100mg bid and 400mg hs. risks/benefits discussed, including risk of eps/nms/metabolic effects dispo: 1013 continued and transfer to inpatient psychiatric facility will staff with Dr. Angulo.
[2018-07-25] MEDS: VISTARIL PO SCH ×2 (12:43→22:05)
[2018-07-25] MEDS ORDERED: PROTONIX PO ONE (12:50)
[2018-07-25] MEDS: ATROVENT IH SCH ×3 (12:53→17:46)
[2018-07-25] MEDS: PROTONIX PO SCH ×2 (12:53→22:05)
[2018-07-25] MEDS ORDERED: TYLENOL PO ONE (18:07)
[2018-07-25 22:09] VITALS: BP 144/72
== END 2018-07-25 22:18 ==
LOC: ED 20:31
DX: J44.9 Chronic obstructive pulmonary disease, unspecified (principal); R07.89 Other chest pain; E11.9 Type 2 diabetes mellitus without complications; I10 Essential (primary) hypertension; G40.909 Epilepsy, unspecified, not intractable, without status epilepticus; D69.6 Thrombocytopenia, unspecified; F17.200 Nicotine dependence, unspecified, uncomplicated; K21.9 Gastro-esophageal reflux disease without esophagitis; Z79.4 Long term (current) use of insulin
CPT/HCPCS: 36415; 36569; 71046; 74176; 78582; 80053; 80164; 80185; 80307; 81001; 82550; 82962; 83690; 83735; 84484; 85025; 85379; 85610; 93005; 93010; 94640; 96372; 96374; 96375; 99285; A9540; A9558; G0480; J2930; J7050; J7512; 80320; J1815; Q0177

== ENCOUNTER 2018-09-11 10:29 | Inpatient (IN) | payer MEDICARE ==
[2018-09-11] MEDS ORDERED: SUBLIMAZE IV ONE (12:13)
[2018-09-11] MEDS ORDERED: ASPIRIN PO ONE (12:13)
[2018-09-11] MEDS ORDERED: ZOFRAN IV ONE (12:13)
[2018-09-11 12:16] LABS: Basophils # (Auto) 0.1 K/mm3 (0.0-0.1); Eosinophils % (Auto) 0.1 % (0.0-4.3); Monocytes # (Auto) 0.6 K/mm3 (0.0-0.8); Monocytes % (Auto) 8.4 % (0.0-7.3)
--- NOTE | 2018-09-11 12:19 | Emergency Department Report ---
HPI - General Chief Complaint: Psych Time Seen by Provider: 09/11/18 12:06 - HPI HPI: Room 8 \\ The patient is a 57-year-old male presenting with a chief complaint of suicidal ideation. The patient states he felt suicidal for "a couple of days." The pat ient states he attempted to kill himself last night by drinking 2.5 gallons of vodka. The patient states today he developed left-sided chest pain described as a constant dull pressure associated with shortness of breath nausea vomiting and numbness of the left upper extremity. The patient states his last cardiac catheterization occurred over 5 years ago. Location: [See above] Duration: [See above] Quality: [See above] Severity: [See above] Modifying factors: [see above] Context: [see above] Mode of transportation: [not driving] ED Past Medical Hx - Past Medical History Hx Hypertension: Yes Hx Diabetes: Yes Hx GERD: Yes Hx Seizures: Yes Hx Psychiatric Treatment: Yes (SI recurrent/psychosis,major depression,alcohol abuse) Hx Asthma: Yes Hx COPD: Yes Additional medical history: STOMACH, poor coping skills. Rectal bleeding due to internal hemorrhoid. Chronic thrombocytopenia - Surgical History Past Surgical History?: Yes Additional Surgical History: cancerous hital hernia removed of abd-multiple times - Family History Family history: no significant - Social History Smoking Status: Heavy Tobacco Smoker (2 packs per day) Substance Use Type: None (denies illicit drug use), Alcohol - Medications Home Medications: Home Medications Medication Instructions Recorded Confirmed Last Taken Type Divalproex Dr [Depakote Dr] 500 mg PO TID #90 tablet 06/24/16 07/25/18 07/24/18 Rx Phenytoin Sodium Extended (Nf) 30 mg PO Q8H #90 capsule 05/08/17 07/25/18 07/24/18 Rx [Dilantin (Nf)] Calcium Carbonate [[id number]-198] 500 mg PO DAILY 06/24/17 07/25/18 07/24/18 History Docusate Sodium [Stool Softener] 100 mg PO DAILY 06/24/17 07/25/18 07/24/18 History Finasteride [Proscar] 5 mg PO DAILY 06/24/17 07/25/18 07/24/18 History Insulin Aspart [NovoLOG Flexpen] 4 units SQ TID 04/01/0107/25/18 07/24/18 History Ipratropium [Atrovent NEB] 0.5 mg IH Q4HR 06/24/17 07/25/18 07/24/18 History Lisinopril [Zestril TAB] 2.5 mg PO QDAY 06/24/17 07/25/18 07/24/18 History Nicotine [Nicoderm Cq] 21 mg TD DAILY 06/24/17 07/25/18 07/24/18 History Polyethylene Glycol 3350 [Miralax 17 gm PO QDAY 06/24/17 07/25/18 07/24/18 History 3350] Sennosides/Docusate Sodium [Dok 1 each PO DAILY 06/24/17 07/25/18 07/24/18 History Plus Tablet] Tamsulosin [Flomax] 0.4 mg PO QDAY 06/24/17 07/25/18 07/24/18 History oxyCODONE /ACETAMINOPHEN [Percocet 1 tab PO Q6H PRN #20 tablet 04/10/18 07/25/18 07/24/18 Rx 5/325 mg] tiZANidine [Zanaflex 4mg TAB] 4 mg PO Q6H #20 tablet 04/10/18 07/25/18 07/24/18 Rx Ibuprofen [Motrin] 800 mg PO Q8HR PRN #30 tablet 04/30/18 07/25/18 07/24/18 Rx cephALEXin [Keflex] 500 mg PO Q6HR 10 Days capsule 04/30/18 07/25/18 07/24/18 Rx ALPRAZolam [Xanax] 2 mg PO BID PRN 07/25/18 07/25/18 07/24/18 History Omeprazole Magnesium [PriLOSEC Otc] 20 mg PO BID 07/25/18 07/25/18 07/24/18 History QUEtiapine [SEROquel] 100 mg PO DAILY 07/25/18 07/25/18 07/24/18 History Quetiapine Fumarate [SEROquel] 400 mg PO QHS 07/25/18 07/25/18 07/24/18 History hydrOXYzine PAMOATE [Vistaril] 50 mg PO BID 07/25/18 07/25/18 07/24/18 History ED Review of Systems ROS: Stated complaint: SI Other details as noted in HPI Constitutional: no symptoms reported Eyes: denies: eye pain ENT: denies: throat pain Respiratory: shortness of breath Cardiovascular: chest pain Endocrine: no symptoms reported Gastrointestinal: nausea, vomiting Genitourinary: denies: dysuria Musculoskeletal: denies: back pain Neurological: denies: headache Psychiatric: suicidal thoughts Physical Exam - Physical Exam Vital Signs: Vital Signs 09/11/18 11:07 Temperature 98.1 F Pulse Rate 101 H Respiratory 20 Rate Blood Pressure 137/69 O2 Sat by Pulse 98 Oximetry Physical Exam: GENERAL: The patient is well-developed well-nourished male lying on stretcher and appearing to be in acute distress. [] HEENT: Normocephalic. Atraumatic. Extraocular motions are intact. Patient has moist mucous membranes. NECK: Supple. Trachea midline CHEST/LUNGS: Clear to auscultation. There is no respiratory distress noted. HEART/CARDIOVASCULAR: Regular. There is no tachycardia. There is no gallop rub or murmur. ABDOMEN: Abdomen is soft, nontender. Patient has normal bowel sounds. There is no abdominal distention. SKIN: There is no rash. There is no edema. There is no diaphoresis. NEURO: The patient is awake, alert, and oriented. The patient is cooperative. The patient has no focal neurologic deficits. The patient has normal speech MUSCULOSKELETAL: There is no evidence of acute injury. ED Course Vital Signs 09/11/18 11:07 Temperature 98.1 F Pulse Rate 101 H Respiratory 20 Rate Blood Pressure 137/69 O2 Sat by Pulse 98 Oximetry ED Medical Decision Making - Lab Data Result diagrams: 09/11/18 11:51 09/11/18 11:51 Laboratory Tests 09/11/18 09/11/18 09/11/18 11:43 11:43 11:51 WBC RBC Hgb Hct MCV MCH MCHC RDW Plt Count Lymph % (Auto) [place] % (Auto) Eos % (Auto) Baso % (Auto) Lymph # [place] # Eos # Baso # Seg Neutrophils % Seg Neutrophils # Sodium Potassium Chloride Carbon Dioxide Anion Gap BUN Creatinine Estimated GFR BUN/Creatinine Ratio Glucose Calcium Magnesium Total Bilirubin Direct Bilirubin Indirect Bilirubin AST ALT Alkaline Phosphatase Troponin T Total Protein Albumin Albumin/Globulin Ratio Lipase Urine Color Yellow Urine Turbidity Clear Urine pH 6.0 Ur Specific [place] 1.023 Urine Protein 100 mg/dl Urine Glucose (UA) Neg Urine Ketones 80 Urine Blood Sm Urine Nitrite Neg Urine Bilirubin Neg Urine Urobilinogen < 2.0 Ur Leukocyte Esterase Neg Urine WBC (Auto) < 1.0 Urine RBC (Auto) < 1.0 U Epithel Cells (Auto) 1.0 Urine Mucus Few Salicylates < 0.3 L Urine Opiates Screen Presumptive negative Urine Methadone Screen Presumptive negative Acetaminophen Ur Barbiturates Screen Presumptive negative Phenytoin 2.6 L Valproic Acid < 2.8 L Ur Phencyclidine Scrn Presumptive negative Ur Amphetamines Screen Presumptive negative U Benzodiazepines Scrn Presumptive negative Urine Cocaine Screen Presumptive negative U Marijuana (THC) Screen Presumptive negative Drugs of Abuse Note Disclamer Plasma/Serum Alcohol 09/11/18 09/11/18 09/11/18 11:51 11:51 11:51 WBC RBC Hgb Hct MCV MCH MCHC RDW Plt Count Lymph % (Auto) [place] % (Auto) Eos % (Auto) Baso % (Auto) Lymph # [place] # Eos # Baso # Seg Neutrophils % Seg Neutrophils # Sodium 133 L Potassium 4.3 Chloride 92.1 L Carbon Dioxide 11 L Anion Gap 34 BUN 22 H Creatinine 0.7 L Estimated GFR > 60 BUN/Creatinine Ratio 31 Glucose 129 H Calcium 7.9 L Magnesium Total Bilirubin Direct Bilirubin Indirect Bilirubin AST ALT Alkaline Phosphatase Troponin T Total Protein Albumin Albumin/Globulin Ratio Lipase Urine Color Urine Turbidity Urine pH Ur Specific [place] Urine Protein Urine Glucose (UA) Urine Ketones Urine Blood Urine Nitrite Urine Bilirubin Urine Urobilinogen Ur Leukocyte Esterase Urine WBC (Auto) Urine RBC (Auto) U Epithel Cells (Auto) Urine Mucus Salicylates Urine Opiates Screen Urine Methadone Screen Acetaminophen < 5.0 L Ur Barbiturates Screen Phenytoin Valproic Acid Ur Phencyclidine Scrn Ur Amphetamines Screen U Benzodiazepines Scrn Urine Cocaine Screen U Marijuana (THC) Screen Drugs of Abuse Note Plasma/Serum Alcohol 0.06 09/11/18 09/11/18 11:51 11:51 WBC 7.2 RBC 4.40 Hgb 13.9 Hct 38.9 MCV 88 MCH 32 MCHC 36 H RDW 13.8 Plt Count 221 Lymph % (Auto) 30.3 [place] % (Auto) 8.4 H Eos % (Auto) 0.1 Baso % (Auto) 2.2 H Lymph # 2.2 [place] # 0.6 Eos # 0.0 Baso # 0.1 Seg Neutrophils % 59.1 Seg Neutrophils # 4.3 Sodium Potassium Chloride Carbon Dioxide Anion Gap BUN Creatinine Estimated GFR BUN/Creatinine Ratio Glucose Calcium Magnesium 1.90 Total Bilirubin 0.20 Direct Bilirubin 0.4 H Indirect Bilirubin -0.2 AST 23 ALT 31 Alkaline Phosphatase 177 H Troponin T < 0.010 Total Protein 7.1 Albumin 3.9 Albumin/Globulin Ratio 1.2 Lipase 22 Urine Color Urine Turbidity Urine pH Ur Specific [place] Urine Protein Urine Glucose (UA) Urine Ketones Urine Blood Urine Nitrite Urine Bilirubin Urine Urobilinogen Ur Leukocyte Esterase Urine WBC (Auto) Urine RBC (Auto) U Epithel Cells (Auto) Urine Mucus Salicylates Urine Opiates Screen Urine Methadone Screen Acetaminophen Ur Barbiturates Screen Phenytoin Valproic Acid Ur Phencyclidine Scrn Ur Amphetamines Screen U Benzodiazepines Scrn Urine Cocaine Screen U Marijuana (THC) Screen Drugs of Abuse Note Plasma/Serum Alcohol - Differential Diagnosis ACS, pericarditis, suicidal ideation Critical care attestation.: If time is entered above; I have spent that time in minutes in the direct care of this critically ill patient, excluding procedure time. ED Disposition Clinical Impression: Chest pain, Suicidal ideation Disposition: OP ADMIT IP TO THIS HOSP Is pt being admited?: Yes Does the pt Need Aspirin: Yes Condition: Fair Instructions: Chest Pain (ED) Referrals: ZORAIDA LION MD [Primary Care Provider] - 3-5 Days Time of Disposition: 13:21 (hospitalist notified ( Dr. Stark))
[2018-09-11 12:28] LABS: Basophils % (Auto) 2.2 % (0.0-1.8); Hematocrit 38.9 % (35.5-45.6); Hemoglobin 13.9 gm/dl (11.8-15.2); Lymphocytes # (Auto) 2.2 K/mm3 (1.2-5.4); Lymphocytes % (Auto) 30.3 % (13.4-35.0); Mean Corpuscular HGB Conc 36 % (32-34); Mean Corpuscular Volume 88 fl (84-94); Platelet Count 221 K/mm3 (140-440); Red Cell Distribution Width 13.8 % (13.2-15.2)
[2018-09-11 12:30] LABS: Bilirubin,Urine NEG (Negative); Blood,Urine SM (Negative); Color,Urine Yellow (Yellow); Mucus,Urine FEW /HPF; RBC,Urine < 1.0 /HPF (0.0-6.0); Urobilinogen,Urine < 2.0 mg/dL (<2.0); WBC,Urine < 1.0 /HPF (0.0-6.0)
[2018-09-11 12:43] LABS: Amphetamine Screen,Urine PRESUMPTIVE NEGATIVE; Benzodiazepines Screen,Urine PRESUMPTIVE NEGATIVE; Cannabinoid Screen,Urine PRESUMPTIVE NEGATIVE; Cocaine Screen,Urine PRESUMPTIVE NEGATIVE; Methadone Screen,Urine PRESUMPTIVE NEGATIVE; Opiate Screen,Urine PRESUMPTIVE NEGATIVE
[2018-09-11 12:54] LABS: Alanine Aminotransferase 31 units/L (7-56); Albumin 3.9 g/dL (3.9-5); BUN/Creatinine Ratio 31; Bilirubin,Direct 0.4 mg/dL (0-0.2); Blood Urea Nitrogen 22 mg/dL (9-20); Calcium 7.9 mg/dL (8.4-10.2); Hemolysis Index 31
--- NOTE | 2018-09-11 13:06 | XRay Report ---
CHEST ONE VIEW INDICATION: Chest pain. COMPARISON: 07/25/2018. FINDINGS: Portable, single, frontal chest radiograph again demonstrates normal cardiomediastinal silhouette. Clear lungs. Unremarkable bones. Extrinsic EKG leads. CONCLUSION: No acute disease in the chest, stable. Thank you for the opportunity to participate in this patient's care.
--- NOTE | 2018-09-11 13:27 | History and Physical Report ---
History of Present Illness Chief complaint: My chest hurts, and I tried to kill myself, I aint gonna lie History of present illness: 57 YO Male with HTN, DM, ETOH Dependence, Depression, Psychosis, CaP, Asthma, COPD, Nicotine Dependence presents to ED for evaluation. Pt states that he has experienced pain in his chest over the past 1 day with worsening symptoms over the same time frame. EMS notified, and upon arrival the patient found to be in distress and transported to [facility]. Pt seen and evaluated in ED. Pt states that pain is 7/10, Substernal, nonradiating, not worsened with exertion, not relieved with rest. Pt acknowledges decreased exercise tolerance, shortness of breath, and diaphoresis. Pt also reports abdominal discomfort, as well as a lump on his skin in the right epigastric region. Pt also reports drinking 2.5 gallons of vodka over the past 2 days in an effort to end his life. Pt acknowledges feeling helpless, and hopeless, and feel like he cannot go on living. Pt seen and evaluated in ED and found to have symptoms consistent with Angina as well as Diastolic CHF, and ETOH Withdrawl. Pt admitted to telemetry and treated with supportive care. Pt initiated on CIWA protocol for ETOH Dependence with ETOH withdrawl. Mental health consulted and patient placed on 1013 and placed on 1:1 sitter. Pt denies fever, chills, palpitations, NVD, Trauma, BRBPR, Productive cough, skin rash, recent ill contacts. Past History Past Medical History: cancer, COPD, diabetes, hypertension, other (etoh dependence) Past Surgical History: hernia repair, Other (prostate surgery) Social history: single, smoking Family history: hypertension Medications and Allergies Allergies Allergy/AdvReac Type Severity Reaction Status Date / Time No Known Allergies Allergy Verified 04/09/18 11:23 Home Medications Medication Instructions Recorded Confirmed Last Taken Type Divalproex Dr [Willy Vazquez] 500 mg PO TID #90 tablet 06/24/16 09/11/18 07/24/18 Rx Phenytoin Sodium Extended (Nf) 30 mg PO Q8H #90 capsule 05/08/17 09/11/18 07/24/18 Rx [Dilantin (Nf)] Calcium Carbonate [[id number]] 500 mg PO DAILY 06/24/17 09/11/18 07/24/18 History Ipratropium [Atrovent NEB] 0.5 mg IH Q4HR 06/24/17 09/11/18 07/24/18 History Lisinopril [Zestril TAB] 2.5 mg PO QDAY 06/24/17 09/11/18 07/24/18 History Polyethylene Glycol 3350 [Miralax 17 gm PO QDAY 06/24/17 09/11/18 07/24/18 History 3350] Sennosides/Docusate Sodium [Dok 1 each PO DAILY 06/24/17 09/11/18 07/24/18 History Plus Tablet] Tamsulosin [Flomax] 0.4 mg PO QDAY 06/24/17 09/11/18 07/24/18 History oxyCODONE /ACETAMINOPHEN [Percocet 1 tab PO Q6H PRN #20 tablet 04/10/18 09/11/18 07/24/18 Rx 5/325 mg] tiZANidine [Zanaflex 4mg TAB] 4 mg PO Q6H #20 tablet 04/10/18 09/11/18 07/24/18 Rx ALPRAZolam [Xanax] 2 mg PO BID PRN 07/25/18 09/11/18 07/24/18 History Omeprazole Magnesium [PriLOSEC Otc] 20 mg PO BID 07/25/18 09/11/18 07/24/18 History QUEtiapine [SEROquel] 100 mg PO DAILY 07/25/18 09/11/18 07/24/18 History Quetiapine Fumarate [SEROquel] 400 mg PO QHS 07/25/18 09/11/18 07/24/18 History hydrOXYzine PAMOATE [Vistaril] 50 mg PO BID 07/25/18 09/11/18 07/24/18 History Review of Systems Constitutional: no weight loss, no weight gain, no fever, no chills Ears, nose, mouth and throat: no ear pain, no ear discharge, no tinnitis, no nose pain, no nasal congestion, no nasal discharge Cardiovascular: chest pain, shortness of breath, high blood pressure, decreased exercise tolerance, no palpitations, no rapid/irregular heart beat Respiratory: no cough, no cough with sputum, no excessive sputum, no hemoptysis Gastrointestinal: abdominal pain, no nausea, no diarrhea, no constipation, no hematemesis, no BRBPR, no melena, no hematochezia Genitourinary Male: no hematuria, no flank pain, no urinary frequency, no urinary hesitancy, no nocturia, no incontinence Rectal: no pain, no incontinence, no bleeding Musculoskeletal: no neck stiffness, no neck pain, no arm numbness/tingling, no low back pain, no shooting leg pain Integumentary: no rash, no pruritis, no redness, no sores, no jaundice Neurological: no transient paralysis, no paralysis, no weakness, no parathesias, no numbness, no tingling Psychiatric: no anxiety, no memory loss, no change in sleep habits, no sleep disturbances, no insomnia, no hypersomnia Endocrine: no cold intolerance, no heat intolerance, no polyphagia, no polydipsia, no polyuria Hematologic/Lymphatic: no easy bruising, no easy bleeding, no lymphadenopathy, no lymphedema Allergic/Immunologic: no wheezing, no persistent infections, no angioedema Exam - Constitutional Vitals: Temp Pulse Resp BP Pulse Ox 98.1 F 99 H 21 137/68 96 09/11/18 11:07 09/11/18 13:15 09/11/18 13:15 09/11/18 13:15 09/11/18 13:15 General appearance: Present: mild distress, obese - EENT Eyes: Present: PERRL ENT: hearing intact, clear oral mucosa - Neck Neck: Present: supple, normal ROM - Respiratory Respiratory effort: normal Respiratory: bilateral: CTA - Cardiovascular Heart Sounds: Present: S1 & S2. Absent: rub, click - Extremities Extremities: pulses symmetrical, No edema Peripheral Pulses: within normal limits - Abdominal General gastrointestinal: Present: soft, non-tender, non-distended, normal bowel sounds Male genitourinary: Present: normal - Integumentary Integumentary: Present: clear, warm, dry - Musculoskeletal Musculoskeletal: gait normal, strength equal bilaterally - Psychiatric Psychiatric: appropriate mood/affect, intact judgment & insight - Neurologic Neurologic: CNII-XII intact, moves all extremities Results - Labs CBC & Chem 7: 09/11/18 11:51 09/11/18 11:51 Labs: Abnormal lab results 09/11/18 09/11/18 09/11/18 Range/Units 11:51 11:51 11:51 MCHC (32-34) % [place] % (Auto) (0.0-7.3) % Baso % (Auto) (0.0-1.8) % Sodium 133 L (137-145) mmol/L Chloride 92.1 L (98-107) mmol/L Carbon Dioxide 11 L (22-30) mmol/L BUN 22 H (9-20) mg/dL Creatinine 0.7 L (0.8-1.5) mg/dL Glucose 129 H (75-100) mg/dL Calcium 7.9 L (8.4-10.2) mg/dL Direct Bilirubin (0-0.2) mg/dL Alkaline Phosphatase (35-129) units/L Salicylates < 0.3 L (2.8-20.0) mg/dL Acetaminophen < 5.0 L (10.0-30.0) ug/mL Phenytoin 2.6 L (10.0-20.0) ug/mL Valproic Acid < 2.8 L (50-100) ug/mL 09/11/18 09/11/18 Range/Units 11:51 11:51 MCHC 36 H (32-34) % [place] % (Auto) 8.4 H (0.0-7.3) % Baso % (Auto) 2.2 H (0.0-1.8) % Sodium (137-145) mmol/L Chloride (98-107) mmol/L Carbon Dioxide (22-30) mmol/L BUN (9-20) mg/dL Creatinine (0.8-1.5) mg/dL Glucose (75-100) mg/dL Calcium (8.4-10.2) mg/dL Direct Bilirubin 0.4 H (0-0.2) mg/dL Alkaline Phosphatase 177 H (35-129) units/L Salicylates (2.8-20.0) mg/dL Acetaminophen (10.0-30.0) ug/mL Phenytoin (10.0-20.0) ug/mL Valproic Acid (50-100) ug/mL Assessment and Plan - Patient Problems (1) Diastolic CHF Current Visit: Yes Status: Suspected Qualifiers: Heart failure chronicity: acute Qualified Code(s): I50.31 - Acute diastolic (congestive) heart failure Plan to address problem: Admit to telemetry, echo, cardiology consulted, strict I/O, daily weight, bnp, supplemental oxygen, afterload reduction, supplemental oxygen, chest x ray. (2) HTN (hypertension) Current Visit: Yes Status: Acute Qualifiers: Hypertension type: essential hypertension Qualified Code(s): I10 - Essential (primary) hypertension Plan to address problem: monitor bp q shift, continue medical management (3) Suicidal ideation Current Visit: Yes Status: Acute Plan to address problem: Mental health consult, 1:1 sitter. (4) Angina at rest Current Visit: Yes Status: Acute Plan to address problem: Admit to telemetry, serial cardiac enzymes, ekg, stress test, morphine, sup plemental oxygen,nitro, aspirin, (5) Nicotine dependence unspecified, with withdrawal Current Visit: Yes Status: Acute Qualifiers: Nicotine product type: cigarettes Qualified Code(s): F17.213 - Nicotine dependence, cigarettes, with withdrawal Plan to address problem: Smoking cessation counselinminutes, supportive care (6) Obesity (BMI 30-39.9) Current Visit: Yes Status: Acute Plan to address problem: Balanced diet, increased physical activity at discharge, dietary counselinminutes (7) Diabetes Current Visit: Yes Status: Acute Plan to address problem: ADA diet, insulin, accu check, hypoglycemia protocol. (8) Prostate cancer Current Visit: Yes Status: Acute Plan to address problem: Present on Admission. S/P surgical intervention. (9) COPD (chronic obstructive pulmonary disease) Current Visit: Yes Status: Acute Qualifiers: Chronic bronchitis type: mixed simple and mucopurulent Plan to address problem: Supplemental oxygen, nebulizer therapy, NIPPV as clinically indicated, smoking cessation, chest x ray (10) Acidosis Current Visit: Yes Status: Acute Plan to address problem: IVF resuscitation therapy, repeat bmp, (11) Alcohol withdrawal Current Visit: Yes Status: Acute Qualifiers: Complication of substance-induced condition: with unspecified complication Qualified Code(s): F10.239 - Alcohol dependence with withdrawal, unspecified Plan to address problem: CIWA protocol, Thiamine, folic acid, multivitamin, supportive are, ETOH cessation counseling 15min (12) DVT prophylaxis Current Visit: Yes Status: Acute Plan to address problem: SCD to BLE while in bed, prophylactic lovenox
[2018-09-11] MEDS ORDERED: TYLENOL PO PRN (13:31)
[2018-09-11] MEDS ORDERED: NITROSTAT SL PRN (13:31)
[2018-09-11] MEDS ORDERED: SODIUM CHLORIDE FLUSH SYRINGE 10 ML IV PRN (13:31)
[2018-09-11] MEDS ORDERED: PERCOCET 5/325 PO PRN (13:31)
[2018-09-11] MEDS ORDERED: IBUPROFEN PO PRN (13:36)
[2018-09-11] MEDS ORDERED: XANAX PO PRN (13:36)
[2018-09-11] MEDS ORDERED: BABY ASPIRIN PO STA (13:39)
[2018-09-11] MEDS ORDERED: PHENYTOIN SODIUM 30 MG PO SCH (13:45)
[2018-09-11] MEDS ORDERED: NON-FORMULARY (Insulin Aspart [Novolog Flexpen] 4 UNITS) SQ SCH (14:00)
[2018-09-11] MEDS ORDERED: CARAFATE PO ONE (14:12)
[2018-09-11] MEDS ORDERED: THERAGRAN Tab PO ONE ×2 (14:13→17:00)
[2018-09-11] MEDS ORDERED: VITAMIN B-1 100 MG, FOLVITE 1 MG, INFUVITE 10 ML in NACL 0.9% 1000 ML 1,000 ML IV ONE (14:13)
[2018-09-11] MEDS ORDERED: VITAMIN B-1 PO ONE (14:13)
[2018-09-11 15:01] LABS: Chol/HDL Ratio 16.58 %
[2018-09-11] MEDS ORDERED: D50W (25GM) Syringe IV PRN (15:01)
--- NOTE | 2018-09-11 16:03 | Consultation ---
History of Present Illness - Reason for Consult Consult date: 09/11/18 Reason for consult: Mental Health Evaluation Requesting physician: BISI MINAYA - Chief Complaint Chief complaint: "I have no reason to live at this time" - History of Present Psychiatric Illness 57 y.o. white female who presented to the ER for suicide attempt by consuming a large quantity of Vodka per the patient. Today the patient was calm during the assessment. He stated that he is "tired" of his l fay because of life stressors (unemployments and medical issues). He stated that he does not have a reason to live and want it to all be over. He stated that he has a hx of depression and took Zoloft in the past that was effective. He stated that he haven't been complaint with medications in months. He stated that his alcohol consumption (etoh) has increased recently. He rate his depression 6/10, with 10 being the worse. He denies HI's and AVH's. He denies erratic sleep and a poor appetite. He denies recreational drug use. Medications and Allergies Allergies Allergy/AdvReac Type Severity Reaction Status Date / Time No Known Allergies Allergy Verified 04/09/18 11:23 Home Medications Medication Instructions Recorded Confirmed Last Taken Type Divalproex [Willy Vazquez] 500 mg PO TID #90 tablet 06/24/16 09/11/18 07/24/18 Rx Phenytoin Sodium Extended (Nf) 30 mg PO Q8H #90 capsule 05/08/17 09/11/18 07/24/18 Rx [Dilantin (Nf)] Calcium Carbonate [[id number]] 500 mg PO DAILY 06/24/17 09/11/18 07/24/18 History Ipratropium [Atrovent NEB] 0.5 mg IH Q4HR 06/24/17 09/11/18 07/24/18 History Lisinopril [Zestril TAB] 2.5 mg PO QDAY 06/24/17 09/11/18 07/24/18 History Polyethylene Glycol 3350 [Miralax 17 gm PO QDAY 06/24/17 09/11/18 07/24/18 History 3350] Sennosides/Docusate Sodium [Dok 1 each PO DAILY 06/24/17 09/11/18 07/24/18 History Plus Tablet] Tamsulosin [Flomax] 0.4 mg PO QDAY 06/24/17 09/11/18 07/24/18 History oxyCODONE /ACETAMINOPHEN [Percocet 1 tab PO Q6H PRN #20 tablet 04/10/18 09/11/18 07/24/18 Rx 5/325 mg] tiZANidine [Zanaflex 4mg TAB] 4 mg PO Q6H #20 tablet 04/10/18 09/11/18 07/24/18 Rx ALPRAZolam [Xanax] 2 mg PO BID PRN 07/25/18 09/11/18 07/24/18 History Omeprazole Magnesium [PriLOSEC Otc] 20 mg PO BID 07/25/18 09/11/18 07/24/18 History QUEtiapine [SEROquel] 100 mg PO DAILY 07/25/18 09/11/18 07/24/18 History Quetiapine Fumarate [SEROquel] 400 mg PO QHS 07/25/18 09/11/18 07/24/18 History hydrOXYzine PAMOATE [Vistaril] 50 mg PO BID 07/25/18 09/11/18 07/24/18 History Active Meds: Active Medications Acetaminophen (Tylenol) 650 mg PO Q4H PRN PRN Reason: Pain MILD(1-3)/Fever >100.5/METZ Atorvastatin Calcium (Lipitor) 40 mg PO QHS [facility] Calcium Carbonate/Glycine (Oscal) 1,250 mg PO DAILY [facility] Dextrose (D50w (25gm) Syringe) 50 ml IV PRN PRN PRN Reason: Hypoglycemia Divalproex Sodium (Depakote Dr) 500 mg PO TID [facility] Docusate Sodium (Colace) 100 mg PO DAILY [facility] Enoxaparin Sodium (Lovenox) 40 mg SUB-Q QDAY@2200 [facility] Famotidine (Pepcid) 10 mg PO BID [facility] Finasteride (Proscar) 5 mg PO DAILY [facility] Folic Acid (Folvite) 1 mg PO QDAY [facility] Sodium Chloride (Nacl 0.9% 1000 Ml) 1,000 mls @ 75 mls/hr IV DIRECT [facility] Thiamine HCl 100 mg/ Folic Acid 1 mg/ Multivitamins/Minerals 10 ml/ Sodium Chloride 1,011.2 mls @ 250 mls/hr IV ONCE ONE Stop: 09/11/18 18:15 Last Admin: 09/11/18 15:45 Dose: 250 mls/hr Documented by: Ibuprofen (Ibuprofen) 800 mg PO Q8HR PRN PRN Reason: Pain , Severe (7-10) Insulin Human Lispro (Humalog) 0 unit SUB-Q ACHS [facility]; Protocol Ipratropium [place] (Atrovent) 0.5 mg IH Q4HR [facility] Lisinopril (Zestril) 2.5 mg PO QDAY [facility] Nicotine (Habitrol) 21 mg TD DAILY [facility] Nitroglycerin (Nitrostat) 0.4 mg SL Q5M PRN PRN Reason: Chest Pain Ondansetron HCl (Zofran) 4 mg IV Q8H PRN PRN Reason: Nausea And Vomiting Oxycodone/Acetaminophen (Percocet 5/325) 1 tab PO Q6H PRN PRN Reason: Pain, Moderate (4-6) Oxycodone/Acetaminophen (Percocet 5/325) 1 tab PO Q6H PRN PRN Reason: Pain, Moderate (4-6) Pantoprazole Sodium (Protonix) 20 mg PO BID [facility] Polyethylene Glycol (Miralax 3350) 17 gm PO QDAY [facility] Senna/Docusate Sodium (Senokot S) 1 tab PO DAILY [facility] Sodium Chloride (Sodium Chloride Flush Syringe 10 Ml) 10 ml IV BID [facility] Sodium Chloride (Sodium Chloride Flush Syringe 10 Ml) 10 ml IV PRN PRN PRN Reason: LINE FLUSH Sodium Chloride (Sodium Chloride Flush Syringe 10 Ml) 10 ml IV PRN PRN PRN Reason: LINE FLUSH Tamsulosin HCl (Flomax) 0.4 mg PO QDAY [facility] Tizanidine HCl (Zanaflex) 4 mg PO Q6HR [facility] Past psychiatric history - Past Medical History Past Medical History: diabetes, hypertension, seizures Past Surgical History: Other (Yes) - past Psychiatric treatment and history psychiatric treatment history: Hx of depression and alcoholism. Fam hx of mood do's and alcoholism> - Social History Social history: lives with family Mental Status Exam - Vital signs Last Vital Signs Temp 98.1 F 09/11/18 11:07 Pulse 96 H 09/11/18 15:31 Resp 26 H 09/11/18 15:31 BP 131/79 09/11/18 15:31 Pulse Ox 98 09/11/18 15:31 - Exam Narrative exam: MSE: Appearance: calm Behavior: regular eye contact Speech: regular rate and tone Mood: "depressed" Affect: flat Thought Process: circumstantial Thought Content: denies HI's and AVH's Motor Activity: ambulatory Cognition: A/O x3 Insight: variable Judgment: poor Results Result Diagrams: 09/11/18 11:51 09/11/18 11:51 Abnormal lab results 09/11/18 09/11/18 09/11/18 Range/Units 11:51 11:51 11:51 MCHC (32-34) % [place] % (Auto) (0.0-7.3) % Baso % (Auto) (0.0-1.8) % Sodium 133 L (137-145) mmol/L Chloride 92.1 L (98-107) mmol/L Carbon Dioxide 11 L (22-30) mmol/L BUN 22 H (9-20) mg/dL Creatinine 0.7 L (0.8-1.5) mg/dL Glucose 129 H (75-100) mg/dL Calcium 7.9 L (8.4-10.2) mg/dL Direct Bilirubin (0-0.2) mg/dL Alkaline Phosphatase (35-129) units/L Triglycerides (2-149) mg/dL Cholesterol (50-199) mg/dL HDL Cholesterol (40-59) mg/dL Salicylates < 0.3 L (2.8-20.0) mg/dL Acetaminophen < 5.0 L (10.0-30.0) ug/mL Phenytoin 2.6 L (10.0-20.0) ug/mL Valproic Acid < 2.8 L (50-100) ug/mL 09/11/18 09/11/18 09/11/18 Range/Units 11:51 11:51 11:51 MCHC 36 H (32-34) % [place] % (Auto) 8.4 H (0.0-7.3) % Baso % (Auto) 2.2 H (0.0-1.8) % Sodium (137-145) mmol/L Chloride (98-107) mmol/L Carbon Dioxide (22-30) mmol/L BUN (9-20) mg/dL Creatinine (0.8-1.5) mg/dL Glucose (75-100) mg/dL Calcium (8.4-10.2) mg/dL Direct Bilirubin 0.4 H (0-0.2) mg/dL Alkaline Phosphatase 177 H (35-129) units/L Triglycerides 1018 H (2-149) mg/dL Cholesterol 398 H (50-199) mg/dL HDL Cholesterol 24 L (40-59) mg/dL Salicylates (2.8-20.0) mg/dL Acetaminophen (10.0-30.0) ug/mL Phenytoin (10.0-20.0) ug/mL Valproic Acid (50-100) ug/mL All other labs normal. Assessment and Plan Assessment and plan: Impression: MDD, Severe type. Alcohol Use DO. Today the patient was calm during the assessment. The patient endorsed SI's. DDx: Alcohol Induced Mood DO Recommendation/Plan: Continue 1013 and start Zoloft 50 mg PO daily for depression. Discussed possible suicidality/medication induced pravin with the patient reference Zoloft, he verbalized understanding. Monitor patient for alcohol withdrawals. Dispo: Proper dispo will be determined once the patient is medically clear. Staffed with Dr. Babatunde Angulo.
[2018-09-11] MEDS: HumaLOG SUB-Q SCH ×2 (16:30→21:42)
[2018-09-11] MEDS ORDERED: CARAFATE ONE (17:00)
[2018-09-11] MEDS ORDERED: BABY ASPIRIN ONE (17:00)
[2018-09-11] MEDS ORDERED: ZANAFLEX ONE (17:01)
[2018-09-11] MEDS: ZANAFLEX PO SCH ×2 (17:03→19:36)
[2018-09-11] MEDS ORDERED: VITAMIN B-1 ONE (17:08)
--- NOTE | 2018-09-11 18:46 | Cat Scan Report ---
PROCEDURE: CT abdomen and pelvis without contrast. TECHNIQUE: Computerized axial tomography of the abdomen and pelvis was performed without intravenous contrast. This study is performed without intravascular contrast material and its sensitivity for ab dominal and pelvic pathology, including neoplasms, inflammation, abscess, free fluid, thrombosis, art erial dissection and infarction, is reduced compared with a contrast enhanced study. CT DOSE LENGTH PRODUCT: 1695.4 mGycm HISTORY: Abdominal pain. COMPARISONS: CT abdomen and pelvis 07/24/2018. FINDINGS: The lung bases are clear. There are no pleural effusions. The heart size is normal. The liver, pancre as and spleen are grossly normal. The gallbladder is present. There is no biliary dilatation. The adr enal glands are not enlarged. Both kidneys appear normal in size and configuration. There are no garrett l calcifications. There is no hydronephrosis. The abdominal aorta has a normal caliber. There is no r etroperitoneal adenopathy. The gastrointestinal tract is unremarkable. The appendix is not visualized . The bladder, seminal vesicles and prostate appear normal. There are small bilateral inguinal canal hernias containing fat. There is a subacute fracture involving the posterior portion of the left eigh th rib. There is callus formation, but this fracture is not completely healed. IMPRESSION: Subacute fracture of the left eighth rib. No evidence of acute disease in the abdomen or pelvis. This document is electronically signed by Jarvis Rodríguez MD., September 11 2018 06:44:13 PM ET
[2018-09-11] MEDS: ZOLOFT PO SCH (19:10)
[2018-09-11] MEDS: PERCOCET 5/325 PO PRN (19:10)
[2018-09-11] MEDS: ZOFRAN IV PRN (19:11)
[2018-09-11] MEDS: ATROVENT IH SCH (19:55)
[2018-09-11] MEDS ORDERED: HumaLOG SUB-Q SCH (20:00)
[2018-09-11] MEDS: PROTONIX PO SCH (21:07)
[2018-09-11] MEDS: LOVENOX SUB-Q SCH (21:07)
[2018-09-11] MEDS: SODIUM CHLORIDE FLUSH SYRINGE 10 ML IV SCH (21:12)
[2018-09-11] MEDS ORDERED: ATIVAN IV PRN (21:26)
[2018-09-11] MEDS: NACL 0.9% 1000 ML 1,000 ML IV SCH (21:28)
[2018-09-11] MEDS: ATIVAN IV PRN (21:41)
[2018-09-11] MEDS ORDERED: NON-FORMULARY (Omeprazole Magnesium [Prilosec Otc] 20 MG) PO SCH (22:00)
[2018-09-11] MEDS ORDERED: VISTARIL PO SCH (22:00)
[2018-09-11] MEDS ORDERED: NON-FORMULARY (Quetiapine Fumarate [Seroquel] 400 MG) PO SCH (22:00)
[2018-09-11] MEDS ORDERED: PEPCID PO SCH (22:00)
[2018-09-12] MEDS: ATROVENT IH SCH ×7 (01:31→20:37)
[2018-09-12 05:34] LABS: Eosinophils # (Auto) 0.1 K/mm3 (0.0-0.4); Eosinophils % (Auto) 1.3 % (0.0-4.3); Hematocrit 33.3 % (35.5-45.6); Lymphocytes # (Auto) 1.1 K/mm3 (1.2-5.4); Lymphocytes % (Auto) 26.2 % (13.4-35.0); Mean Corpuscular HGB Conc 36 % (32-34); Mean Corpuscular Volume 89 fl (84-94); Monocytes # (Auto) 0.5 K/mm3 (0.0-0.8); Monocytes % (Auto) 10.5 % (0.0-7.3); Platelet Count 130 K/mm3 (140-440); Red Blood Count 3.75 M/mm3 (3.65-5.03); Red Cell Distribution Width 13.8 % (13.2-15.2)
[2018-09-12 05:59] LABS: Alanine Aminotransferase 34 units/L (7-56); Albumin 3.4 g/dL (3.9-5); BUN/Creatinine Ratio 23; Blood Urea Nitrogen 14 mg/dL (9-20); Calcium 7.3 mg/dL (8.4-10.2); Hemolysis Index 26
[2018-09-12] MEDS: ZANAFLEX PO SCH ×4 (06:00→17:28)
[2018-09-12] MEDS: ATIVAN IV PRN ×2 (06:11→21:02)
[2018-09-12] MEDS ORDERED: LEXISCAN IV ONE (08:22)
--- NOTE | 2018-09-12 09:24 | Consultation ---
History of Present Illness Consult reason: chest pain History of present illness: Patient is presenting with atypical chest pain and chest wall tenderness of the left. A CT chets is pertinent for subacute left rib fracture. A stress test was ordered for further evaluation. Past History Past Medical History: diabetes, hypertension, seizures Past Surgical History: Other (Yes) Social history: lives with family Family history: hypertension Medications and Allergies Allergies Allergy/AdvReac Type Severity Reaction Status Date / Time No Known Allergies Allergy Verified 04/09/18 11:23 Home Medications Medication Instructions Recorded Confirmed Last Taken Type Divalproex Dr [Depakote Dr] 500 mg PO TID #90 tablet 06/24/16 09/11/18 07/24/18 Rx Phenytoin Sodium Extended (Nf) 30 mg PO Q8H #90 capsule 05/08/17 09/11/18 07/24/18 Rx [Dilantin (Nf)] Calcium Carbonate [[id number]] 500 mg PO DAILY 06/24/17 09/11/18 07/24/18 History Ipratropium [Atrovent NEB] 0.5 mg IH Q4HR 06/24/17 09/11/18 07/24/18 History Lisinopril [Zestril TAB] 2.5 mg PO QDAY 06/24/17 09/11/18 07/24/18 History Polyethylene Glycol 3350 [Miralax 17 gm PO QDAY 06/24/17 09/11/18 07/24/18 History 3350] Sennosides/Docusate Sodium [Dok 1 each PO DAILY 06/24/17 09/11/18 07/24/18 History Plus Tablet] Tamsulosin [Flomax] 0.4 mg PO QDAY 06/24/17 09/11/18 07/24/18 History oxyCODONE /ACETAMINOPHEN [Percocet 1 tab PO Q6H PRN #20 tablet 04/10/18 09/11/18 07/24/18 Rx 5/325 mg] tiZANidine [Zanaflex 4mg TAB] 4 mg PO Q6H #20 tablet 04/10/18 09/11/18 07/24/18 Rx ALPRAZolam [Xanax] 2 mg PO BID PRN 07/25/18 09/11/18 07/24/18 History Omeprazole Magnesium [PriLOSEC Otc] 20 mg PO BID 07/25/18 09/11/18 07/24/18 H istory QUEtiapine [SEROquel] 100 mg PO DAILY 07/25/18 09/11/18 07/24/18 History Quetiapine Fumarate [SEROquel] 400 mg PO QHS 07/25/18 09/11/18 07/24/18 History hydrOXYzine PAMOATE [Vistaril] 50 mg PO BID 07/25/18 09/11/18 07/24/18 History Active Meds: Active Medications Acetaminophen (Tylenol) 650 mg PO Q4H PRN PRN Reason: Pain MILD(1-3)/Fever >100.5/METZ Atorvastatin Calcium (Lipitor) 40 mg PO QHS [facility] Last Admin: 09/11/18 21:07 Dose: 40 mg Documented by: Calcium Carbonate/Glycine (Oscal) 1,250 mg PO DAILY [facility] Dextrose (D50w (25gm) Syringe) 50 ml IV PRN PRN PRN Reason: Hypoglycemia Divalproex Sodium (Depakote Dr) 500 mg PO TID [facility] Last Admin: 09/11/18 19:10 Dose: 500 mg Documented by: Docusate Sodium (Colace) 100 mg PO DAILY [facility] Enoxaparin Sodium (Lovenox) 40 mg SUB-Q QDAY@2200 [facility] Last Admin: 09/11/18 21:07 Dose: 40 mg Documented by: Famotidine (Pepcid) 10 mg PO BID [facility] Last Admin: 09/11/18 21:07 Dose: 10 mg Documented by: Finasteride (Proscar) 5 mg PO DAILY [facility] Folic Acid (Folvite) 1 mg PO QDAY [facility] Sodium Chloride (Nacl 0.9% 1000 Ml) 1,000 mls @ 75 mls/hr IV DIRECT [facility] Last Admin: 09/11/18 21:28 Dose: 75 mls/hr Documented by: Ibuprofen (Ibuprofen) 800 mg PO Q8HR PRN PRN Reason: Pain , Severe (7-10) Insulin Human Lispro (Humalog) 0 unit SUB-Q ACHS [facility]; Protocol Last Admin: 09/11/18 21:42 Dose: 3 unit Documented by: Ipratropium [place] (Atrovent) 0.5 mg IH Q4HR [facility] Last Admin: 09/12/18 05:45 Dose: 0.5 mg Documented by: Lisinopril (Zestril) 2.5 mg PO QDAY [facility] Lorazepam (Ativan) 2 mg IV Q1HR PRN PRN Reason: CIWA-Ar 8-15 Last Admin: 09/12/18 06:11 Dose: 2 mg Documented by: Lorazepam (Ativan) 4 mg IV Q1HR PRN PRN Reason: CIWA-Ar 16-25 Nicotine (Habitrol) 21 mg TD DAILY [facility] Nitroglycerin (Nitrostat) 0.4 mg SL Q5M PRN PRN Reason: Chest Pain Ondansetron HCl (Zofran) 4 mg IV Q8H PRN PRN Reason: Nausea And Vomiting Last Admin: 09/11/18 19:11 Dose: 4 mg Documented by: Oxycodone/Acetaminophen (Percocet 5/325) 1 tab PO Q6H PRN PRN Reason: Pain, Moderate (4-6) Last Admin: 09/11/18 19:10 Dose: 1 tab Documented by: Pantoprazole Sodium (Protonix) 20 mg PO BID [facility] Last Admin: 09/11/18 21:07 Dose: 20 mg Documented by: Polyethylene Glycol (Miralax 3350) 17 gm PO QDAY [facility] Senna/Docusate Sodium (Senokot S) 1 tab PO DAILY [facility] Sertraline HCl (Zoloft) 50 mg PO QDAY [facility] Last Admin: 09/11/18 19:10 Dose: 50 mg Documented by: Sodium Chloride (Sodium Chloride Flush Syringe 10 Ml) 10 ml IV BID [facility] Last Admin: 09/11/18 21:12 Dose: 10 ml Documented by: Sodium Chloride (Sodium Chloride Flush Syringe 10 Ml) 10 ml IV PRN PRN PRN Reason: LINE FLUSH Sodium Chloride (Sodium Chloride Flush Syringe 10 Ml) 10 ml IV PRN PRN PRN Reason: LINE FLUSH Tamsulosin HCl (Flomax) 0.4 mg PO QDAY [facility] Tizanidine HCl (Zanaflex) 4 mg PO Q6HR [facility] Last Admin: 09/12/18 06:00 Dose: Not Given Documented by: Review of Systems All systems: negative Physical Examination Vital Signs Temp Pulse Resp BP Pulse Ox 98.1 F 101 H 20 137/69 98 09/11/18 11:07 09/11/18 11:07 09/11/18 11:07 09/11/18 11:07 09/11/18 11:07 General appearance: no acute distress HEENT: Positive: PERRL Neck: Positive: neck supple Cardiac: Positive: Reg Rate and Rhythm Lungs: Positive: Normal Exam Abdomen: Positive: Soft Extremities: Absent: edema Results 09/12/18 04:43 09/12/18 04:43 Cardiac Enzymes 09/11/18 09/11/18 09/11/18 Range/Units 11:43 11:43 11:51 WBC (4.5-11.0) K/mm3 RBC (3.65-5.03) M/mm3 Hgb (11.8-15.2) gm/dl Hct (35.5-45.6) % MCV (84-94) fl MCH (28-32) pg MCHC (32-34) % RDW (13.2-15.2) % Plt Count (140-440) K/mm3 Lymph % (Auto) (13.4-35.0) % Walker % (Auto) (0.0-7.3) % Eos % (Auto) (0.0-4.3) % Baso % (Auto) (0.0-1.8) % Lymph # (1.2-5.4) K/mm3 Walker # (0.0-0.8) K/mm3 Eos # (0.0-0.4) K/mm3 Baso # (0.0-0.1) K/mm3 Seg Neutrophils % (40.0-70.0) % Seg Neutrophils # (1.8-7.7) K/mm3 D-Dimer (0-234) ng/mlDDU Sodium (137-145) mmol/L Potassium (3.6-5.0) mmol/L Chloride (98-107) mmol/L Carbon Dioxide (22-30) mmol/L Anion Gap mmol/L BUN (9-20) mg/dL Creatinine (0.8-1.5) mg/dL Estimated GFR ml/min BUN/Creatinine Ratio % Glucose (75-100) mg/dL POC Glucose (70-105) Calcium (8.4-10.2) mg/dL Magnesium (1.7-2.3) mg/dL Total Bilirubin (0.1-1.2) mg/dL Direct Bilirubin (0-0.2) mg/dL Indirect Bilirubin mg/dL AST (5-40) units/L ALT (7-56) units/L Alkaline Phosphatase (35-129) units/L Troponin T (0.00-0.029) ng/mL Total Protein (6.3-8.2) g/dL Albumin (3.9-5) g/dL Albumin/Globulin Ratio % Triglycerides (2-149) mg/dL Cholesterol (50-199) mg/dL LDL Cholesterol Direct (50-130) mg/dL HDL Cholesterol (40-59) mg/dL Cholesterol/HDL Ratio % Lipase (13-60) units/L Urine Color Yellow (Yellow) Urine Turbidity Clear (Clear) Urine pH 6.0 (5.0-7.0) Ur Specific [place] 1.023 (1.003-1.030) Urine Protein 100 mg/dl (Negative) mg/dL Urine Glucose (UA) Neg (Negative) mg/dL Urine Ketones 80 (Negative) mg/dL Urine Blood Sm (Negative) Urine Nitrite Neg (Negative) Urine Bilirubin Neg (Negative) Urine Urobilinogen < 2.0 (<2.0) mg/dL Ur Leukocyte Esterase Neg (Negative) Urine WBC (Auto) < 1.0 (0.0-6.0) /HPF Urine RBC (Auto) < 1.0 (0.0-6.0) /HPF U Epithel Cells (Auto) 1.0 (0-13.0) /HPF Urine Mucus Few /HPF Salicylates < 0.3 L (2.8-20.0) mg/dL Urine Opiates Screen Presumptive negative Urine Methadone Screen Presumptive negative Acetaminophen (10.0-30.0) ug/mL Ur Barbiturates Screen Presumptive negative Phenytoin 2.6 L (10.0-20.0) ug/mL Valproic Acid < 2.8 L (50-100) ug/mL Ur Phencyclidine Scrn Presumptive negative Ur Amphetamines Screen Presumptive negative U Benzodiazepines Scrn Presumptive negative Urine Cocaine Screen Presumptive negative U Marijuana (THC) Screen Presumptive negative Drugs of Abuse Note Disclamer Plasma/Serum Alcohol (0-0.07) % 09/11/18 09/11/18 09/11/18 Range/Units 11:51 11:51 11:51 WBC (4.5-11.0) K/mm3 RBC (3.65-5.03) M/mm3 Hgb (11.8-15.2) gm/dl Hct (35.5-45.6) % MCV (84-94) fl MCH (28-32) pg MCHC (32-34) % RDW (13.2-15.2) % Plt Count (140-440) K/mm3 Lymph % (Auto) (13.4-35.0) % Walker % (Auto) (0.0-7.3) % Eos % (Auto) (0.0-4.3) % Baso % (Auto) (0.0-1.8) % Lymph # (1.2-5.4) K/mm3 Walker # (0.0-0.8) K/mm3 Eos # (0.0-0.4) K/mm3 Baso # (0.0-0.1) K/mm3 Seg Neutrophils % (40.0-70.0) % Seg Neutrophils # (1.8-7.7) K/mm3 D-Dimer (0-234) ng/mlDDU Sodium 133 L (137-145) mmol/L Potassium 4.3 (3.6-5.0) mmol/L Chloride 92.1 L (98-107) mmol/L Carbon Dioxide 11 L (22-30) mmol/L Anion Gap 34 mmol/L BUN 22 H (9-20) mg/dL Creatinine 0.7 L (0.8-1.5) mg/dL Estimated GFR > 60 ml/min BUN/Creatinine Ratio 31 % Glucose 129 H (75-100) mg/dL POC Glucose (70-105) Calcium 7.9 L (8.4-10.2) mg/dL Magnesium (1.7-2.3) mg/dL Total Bilirubin (0.1-1.2) mg/dL Direct Bilirubin (0-0.2) mg/dL Indirect Bilirubin mg/dL AST (5-40) units/L ALT (7-56) units/L Alkaline Phosphatase (35-129) units/L Troponin T (0.00-0.029) ng/mL Total Protein (6.3-8.2) g/dL Albumin (3.9-5) g/dL Albumin/Globulin Ratio % Triglycerides (2-149) mg/dL Cholesterol (50-199) mg/dL LDL Cholesterol Direct (50-130) mg/dL HDL Cholesterol (40-59) mg/dL Cholesterol/HDL Ratio % Lipase (13-60) units/L Urine Color (Yellow) Urine Turbidity (Clear) Urine pH (5.0-7.0) Ur Specific [place] (1.003-1.030) Urine Protein (Negative) mg/dL Urine Glucose (UA) (Negative) mg/dL Urine Ketones (Negative) mg/dL Urine Blood (Negative) Urine Nitrite (Negative) Urine Bilirubin (Negative) Urine Urobilinogen (<2.0) mg/dL Ur Leukocyte Esterase (Negative) Urine WBC (Auto) (0.0-6.0) /HPF Urine RBC (Auto) (0.0-6.0) /HPF U Epithel Cells (Auto) (0-13.0) /HPF Urine Mucus /HPF Salicylates (2.8-20.0) mg/dL Urine Opiates Screen Urine Methadone Screen Acetaminophen < 5.0 L (10.0-30.0) ug/mL Ur Barbiturates Screen Phenytoin (10.0-20.0) ug/mL Valproic Acid (50-100) ug/mL Ur Phencyclidine Scrn Ur Amphetamines Screen U Benzodiazepines Scrn Urine Cocaine Screen U Marijuana (THC) Screen Drugs of Abuse Note Plasma/Serum Alcohol 0.06 (0-0.07) % 09/11/18 09/11/18 09/11/18 Range/Units 11:51 11:51 11:51 WBC 7.2 (4.5-11.0) K/mm3 RBC 4.40 (3.65-5.03) M/mm3 Hgb 13.9 (11.8-15.2) gm/dl Hct 38.9 (35.5-45.6) % MCV 88 (84-94) fl MCH 32 (28-32) pg MCHC 36 H (32-34) % RDW 13.8 (13.2-15.2) % Plt Count 221 (140-440) K/mm3 Lymph % (Auto) 30.3 (13.4-35.0) % Walker % (Auto) 8.4 H (0.0-7.3) % Eos % (Auto) 0.1 (0.0-4.3) % Baso % (Auto) 2.2 H (0.0-1.8) % Lymph # 2.2 (1.2-5.4) K/mm3 Walker # 0.6 (0.0-0.8) K/mm3 Eos # 0.0 (0.0-0.4) K/mm3 Baso # 0.1 (0.0-0.1) K/mm3 Seg Neutrophils % 59.1 (40.0-70.0) % Seg Neutrophils # 4.3 (1.8-7.7) K/mm3 D-Dimer (0-234) ng/mlDDU Sodium (137-145) mmol/L Potassium (3.6-5.0) mmol/L Chloride (98-107) mmol/L Carbon Dioxide (22-30) mmol/L Anion Gap mmol/L BUN (9-20) mg/dL Creatinine (0.8-1.5) mg/dL Estimated GFR ml/min BUN/Creatinine Ratio % Glucose (75-100) mg/dL POC Glucose (70-105) Calcium (8.4-10.2) mg/dL Magnesium 1.90 (1.7-2.3) mg/dL Total Bilirubin 0.20 (0.1-1.2) mg/dL Direct Bilirubin 0.4 H (0-0.2) mg/dL Indirect Bilirubin -0.2 mg/dL AST 23 (5-40) units/L ALT 31 (7-56) units/L Alkaline Phosphatase 177 H (35-129) units/L Troponin T < 0.010 (0.00-0.029) ng/mL Total Protein 7.1 (6.3-8.2) g/dL Albumin 3.9 (3.9-5) g/dL Albumin/Globulin Ratio 1.2 % Triglycerides 1018 H (2-149) mg/dL Cholesterol 398 H (50-199) mg/dL LDL Cholesterol Direct 70 (50-130) mg/dL HDL Cholesterol 24 L (40-59) mg/dL Cholesterol/HDL Ratio 16.58 % Lipase 22 (13-60) units/L Urine Color (Yellow) Urine Turbidity (Clear) Urine pH (5.0-7.0) Ur Specific [place] (1.003-1.030) Urine Protein (Negative) mg/dL Urine Glucose (UA) (Negative) mg/dL Urine Ketones (Negative) mg/dL Urine Blood (Negative) Urine Nitrite (Negative) Urine Bilirubin (Negative) Urine Urobilinogen (<2.0) mg/dL Ur Leukocyte Esterase (Negative) Urine WBC (Auto) (0.0-6.0) /HPF Urine RBC (Auto) (0.0-6.0) /HPF U Epithel Cells (Auto) (0-13.0) /HPF Urine Mucus /HPF Salicylates (2.8-20.0) mg/dL Urine Opiates Screen Urine Methadone Screen Acetaminophen (10.0-30.0) ug/mL Ur Barbiturates Screen Phenytoin (10.0-20.0) ug/mL Valproic Acid (50-100) ug/mL Ur Phencyclidine Scrn Ur Amphetamines Screen U Benzodiazepines Scrn Urine Cocaine Screen U Marijuana (THC) Screen Drugs of Abuse Note Plasma/Serum Alcohol (0-0.07) % 09/11/18 09/11/18 09/11/18 Range/Units 14:51 14:51 19:45 WBC (4.5-11.0) K/mm3 RBC (3.65-5.03) M/mm3 Hgb (11.8-15.2) gm/dl Hct (35.5-45.6) % MCV (84-94) fl MCH (28-32) pg MCHC (32-34) % RDW (13.2-15.2) % Plt Count (140-440) K/mm3 Lymph % (Auto) (13.4-35.0) % Walker % (Auto) (0.0-7.3) % Eos % (Auto) (0.0-4.3) % Baso % (Auto) (0.0-1.8) % Lymph # (1.2-5.4) K/mm3 Walker # (0.0-0.8) K/mm3 Eos # (0.0-0.4) K/mm3 Baso # (0.0-0.1) K/mm3 Seg Neutrophils % (40.0-70.0) % Seg Neutrophils # (1.8-7.7) K/mm3 D-Dimer 196.97 (0-234) ng/mlDDU Sodium (137-145) mmol/L Potassium (3.6-5.0) mmol/L Chloride (98-107) mmol/L Carbon Dioxide (22-30) mmol/L Anion Gap mmol/L BUN (9-20) mg/dL Creatinine (0.8-1.5) mg/dL Estimated GFR ml/min BUN/Creatinine Ratio % Glucose (75-100) mg/dL POC Glucose (70-105) Calcium (8.4-10.2) mg/dL Magnesium (1.7-2.3) mg/dL Total Bilirubin (0.1-1.2) mg/dL Direct Bilirubin (0-0.2) mg/dL Indirect Bilirubin mg/dL AST (5-40) units/L ALT (7-56) units/L Alkaline Phosphatase (35-129) units/L Troponin T < 0.010 < 0.010 (0.00-0.029) ng/mL Total Protein (6.3-8.2) g/dL Albumin (3.9-5) g/dL Albumin/Globulin Ratio % Triglycerides (2-149) mg/dL Cholesterol (50-199) mg/dL LDL Cholesterol Direct (50-130) mg/dL HDL Cholesterol (40-59) mg/dL Cholesterol/HDL Ratio % Lipase (13-60) units/L Urine Color (Yellow) Urine Turbidity (Clear) Urine pH (5.0-7.0) Ur Specific [place] (1.003-1.030) Urine Protein (Negative) mg/dL Urine Glucose (UA) (Negative) mg/dL Urine Ketones (Negative) mg/dL Urine Blood (Negative) Urine Nitrite (Negative) Urine Bilirubin (Negative) Urine Urobilinogen (<2.0) mg/dL Ur Leukocyte Esterase (Negative) Urine WBC (Auto) (0.0-6.0) /HPF Urine RBC (Auto) (0.0-6.0) /HPF U Epithel Cells (Auto) (0-13.0) /HPF Urine Mucus /HPF Salicylates (2.8-20.0) mg/dL Urine Opiates Screen Urine Methadone Screen Acetaminophen (10.0-30.0) ug/mL Ur Barbiturates Screen Phenytoin (10.0-20.0) ug/mL Valproic Acid (50-100) ug/mL Ur Phencyclidine Scrn Ur Amphetamines Screen U Benzodiazepines Scrn Urine Cocaine Screen U Marijuana (THC) Screen Drugs of Abuse Note Plasma/Serum Alcohol (0-0.07) % 09/11/18 09/12/18 09/12/18 Range/Units 21:07 04:43 04:43 WBC 4.3 L (4.5-11.0) K/mm3 RBC 3.75 (3.65-5.03) M/mm3 Hgb 12.0 (11.8-15.2) gm/dl Hct 33.3 L (35.5-45.6) % MCV 89 (84-94) fl MCH 32 (28-32) pg MCHC 36 H (32-34) % RDW 13.8 (13.2-15.2) % Plt Count 130 L (140-440) K/mm3 Lymph % (Auto) 26.2 (13.4-35.0) % Walker % (Auto) 10.5 H (0.0-7.3) % Eos % (Auto) 1.3 (0.0-4.3) % Baso % (Auto) 1.0 (0.0-1.8) % Lymph # 1.1 L (1.2-5.4) K/mm3 Walker # 0.5 (0.0-0.8) K/mm3 Eos # 0.1 (0.0-0.4) K/mm3 Baso # 0.0 (0.0-0.1) K/mm3 Seg Neutrophils % 61.0 (40.0-70.0) % Seg Neutrophils # 2.6 (1.8-7.7) K/mm3 D-Dimer (0-234) ng/mlDDU Sodium 134 L (137-145) mmol/L Potassium 3.6 (3.6-5.0) mmol/L Chloride 99.1 (98-107) mmol/L Carbon Dioxide 24 D (22-30) mmol/L Anion Gap 15 mmol/L BUN 14 (9-20) mg/dL Creatinine 0.6 L (0.8-1.5) mg/dL Estimated GFR > 60 ml/min BUN/Creatinine Ratio 23 % Glucose 164 H (75-100) mg/dL POC Glucose 244 H (70-105) Calcium 7.3 L (8.4-10.2) mg/dL Magnesium (1.7-2.3) mg/dL Total Bilirubin 0.30 (0.1-1.2) mg/dL Direct Bilirubin (0-0.2) mg/dL Indirect Bilirubin mg/dL AST 25 (5-40) units/L ALT 34 (7-56) units/L Alkaline Phosphatase 145 H (35-129) units/L Troponin T (0.00-0.029) ng/mL Total Protein 6.1 L (6.3-8.2) g/dL Albumin 3.4 L (3.9-5) g/dL Albumin/Globulin Ratio 1.3 % Triglycerides (2-149) mg/dL Cholesterol (50-199) mg/dL LDL Cholesterol Direct (50-130) mg/dL HDL Cholesterol (40-59) mg/dL Cholesterol/HDL Ratio % Lipase (13-60) units/L Urine Color (Yellow) Urine Turbidity (Clear) Urine pH (5.0-7.0) Ur Specific [place] (1.003-1.030) Urine Protein (Negative) mg/dL Urine Glucose (UA) (Negative) mg/dL Urine Ketones (Negative) mg/dL Urine Blood (Negative) Urine Nitrite (Negative) Urine Bilirubin (Negative) Urine Urobilinogen (<2.0) mg/dL Ur Leukocyte Esterase (Negative) Urine WBC (Auto) (0.0-6.0) /HPF Urine RBC (Auto) (0.0-6.0) /HPF U Epithel Cells (Auto) (0-13.0) /HPF Urine Mucus /HPF Salicylates (2.8-20.0) mg/dL Urine Opiates Screen Urine Methadone Screen Acetaminophen (10.0-30.0) ug/mL Ur Barbiturates Screen Phenytoin (10.0-20.0) ug/mL Valproic Acid (50-100) ug/mL Ur Phencyclidine Scrn Ur Amphetamines Screen U Benzodiazepines Scrn Urine Cocaine Screen U Marijuana (THC) Screen Drugs of Abuse Note Plasma/Serum Alcohol (0-0.07) % 09/12/18 Range/Units 07:30 WBC (4.5-11.0) K/mm3 RBC (3.65-5.03) M/mm3 Hgb (11.8-15.2) gm/dl Hct (35.5-45.6) % MCV (84-94) fl MCH (28-32) pg MCHC (32-34) % RDW (13.2-15.2) % Plt Count (140-440) K/mm3 Lymph % (Auto) (13.4-35.0) % Walker % (Auto) (0.0-7.3) % Eos % (Auto) (0.0-4.3) % Baso % (Auto) (0.0-1.8) % Lymph # (1.2-5.4) K/mm3 Walker # (0.0-0.8) K/mm3 Eos # (0.0-0.4) K/mm3 Baso # (0.0-0.1) K/mm3 Seg Neutrophils % (40.0-70.0) % Seg Neutrophils # (1.8-7.7) K/mm3 D-Dimer (0-234) ng/mlDDU Sodium (137-145) mmol/L Potassium (3.6-5.0) mmol/L Chloride (98-107) mmol/L Carbon Dioxide (22-30) mmol/L Anion Gap mmol/L BUN (9-20) mg/dL Creatinine (0.8-1.5) mg/dL Estimated GFR ml/min BUN/Creatinine Ratio % Glucose (75-100) mg/dL POC Glucose 163 H (70-105) Calcium (8.4-10.2) mg/dL Magnesium (1.7-2.3) mg/dL Total Bilirubin (0.1-1.2) mg/dL Direct Bilirubin (0-0.2) mg/dL Indirect Bilirubin mg/dL AST (5-40) units/L ALT (7-56) units/L Alkaline Phosphatase (35-129) units/L Troponin T (0.00-0.029) ng/mL Total Protein (6.3-8.2) g/dL Albumin (3.9-5) g/dL Albumin/Globulin Ratio % Triglycerides (2-149) mg/dL Cholesterol (50-199) mg/dL LDL Cholesterol Direct (50-130) mg/dL HDL Cholesterol (40-59) mg/dL Cholesterol/HDL Ratio % Lipase (13-60) units/L Urine Color (Yellow) Urine Turbidity (Clear) Urine pH (5.0-7.0) Ur Specific [place] (1.003-1.030) Urine Protein (Negative) mg/dL Urine Glucose (UA) (Negative) mg/dL Urine Ketones (Negative) mg/dL Urine Blood (Negative) Urine Nitrite (Negative) Urine Bilirubin (Negative) Urine Urobilinogen (<2.0) mg/dL Ur Leukocyte Esterase (Negative) Urine WBC (Auto) (0.0-6.0) /HPF Urine RBC (Auto) (0.0-6.0) /HPF U Epithel Cells (Auto) (0-13.0) /HPF Urine Mucus /HPF Salicylates (2.8-20.0) mg/dL Urine Opiates Screen Urine Methadone Screen Acetaminophen (10.0-30.0) ug/mL Ur Barbiturates Screen Phenytoin (10.0-20.0) ug/mL Valproic Acid (50-100) ug/mL Ur Phencyclidine Scrn Ur Amphetamines Screen U Benzodiazepines Scrn Urine Cocaine Screen U Marijuana (THC) Screen Drugs of Abuse Note Plasma/Serum Alcohol (0-0.07) % Lipids 09/11/18 Range/Units 11:51 Triglycerides 1018 H (2-149) mg/dL Cholesterol 398 H (50-199) mg/dL HDL Cholesterol 24 L (40-59) mg/dL Cholesterol/HDL Ratio 16.58 % CBC 09/11/18 09/12/18 Range/Units 11:51 04:43 WBC 7.2 4.3 L (4.5-11.0) K/mm3 RBC 4.40 3.75 (3.65-5.03) M/mm3 Hgb 13.9 12.0 (11.8-15.2) gm/dl Hct 38.9 33.3 L (35.5-45.6) % Plt Count 221 130 L (140-440) K/mm3 Lymph # 2.2 1.1 L (1.2-5.4) K/mm3 Walker # 0.6 0.5 (0.0-0.8) K/mm3 Eos # 0.0 0.1 (0.0-0.4) K/mm3 Baso # 0.1 0.0 (0.0-0.1) K/mm3 Comprehensive Metabolic Panel 09/11/18 09/11/1819 Range/Units 11:51 11:51 04:43 Sodium 133 L 134 L (137-145) mmol/L Potassium 4.3 3.6 (3.6-5.0) mmol/L Chloride 92.1 L 99.1 (98-107) mmol/L Carbon Dioxide 11 L 24 D (22-30) mmol/L BUN 22 H 14 (9-20) mg/dL Creatinine 0.7 L 0.6 L (0.8-1.5) mg/dL Glucose 129 H 164 H (75-100) mg/dL Calcium 7.9 L 7.3 L (8.4-10.2) mg/dL Direct Bilirubin 0.4 H (0-0.2) mg/dL Indirect Bilirubin -0.2 mg/dL AST 23 25 (5-40) units/L ALT 31 34 (7-56) units/L Alkaline Phosphatase 177 H 145 H (35-129) units/L Total Protein 7.1 6.1 L (6.3-8.2) g/dL Albumin 3.9 3.4 L (3.9-5) g/dL - EKG Interpretation EKG: sinus rhythm EKG interpretations - Telemetry EKG Rhythm: Sinus Rhythm Assessment and Plan Atypical chest pain CT chest showing subacute rib fracture on the left side (right where patient is having chest pain) No ischemic ECG changes Negative troponin Normal LVEF this admission Negative stress test 2016 History of CVA History of seizure disorder History of GI bleeding Mar 2018 EGD showing mild duodenitis Colonoscopy showing internal hemorrhoids and poor prep Type II DM Major depressive disoder Alcohol abuse Nicotine dependence Recommendations: Follow-up on lexiscan findings
[2018-09-12] MEDS ORDERED: NON-FORMULARY (Lisinopril [Zestril Tab] 2.5 MG) PO SCH (10:00)
[2018-09-12] MEDS: SODIUM CHLORIDE FLUSH SYRINGE 10 ML IV SCH ×2 (10:00→21:03)
--- NOTE | 2018-09-12 10:49 | Discharge Summary ---
Providers - Providers Date of Admission: 09/11/18 13:31 Attending physician: PREM VILLANUEVA MD 09/11/18 Consult to Cardiac Rehabilitation [CONS] Routine Reason For Exam: Phase I 09/11/18 13:31 Consult to Cardiology [CONS] Routine Consulting Provider: CALLIE PERES Reason For Exam: CHF 09/11/18 13:40 Consult to Mental Health [CONS] Routine Reason For Exam: suicide ideation Place consult to:: psych Notified:: - Comment:: mental health is aware of consultation Primary care physician: ZORAIDA LION Hospitalization Condition: Fair Hospital course: Atypical chest pain CT chest showing subacute rib fracture on the left side (right where patient is having chest pain) No ischemic ECG changes Negative troponin Normal LVEF this admission Negative stress test 2017 History of CVA History of seizure disorder History of GI bleeding Mar 2018 EGD showing mild duodenitis Colonoscopy showing internal hemorrhoids and poor prep Type II DM Major depressive disoder Alcohol abuse Nicotine dependence Recommendations: Follow-up on lexiscan findings Disposition: [id number]/[id number] PSY HOSP/PSY UNIT Exam - Constitutional Vitals: Temp Pulse Resp BP Pulse Ox 97.9 F 72 16 151/78 97 09/12/18 04:36 09/12/18 09:00 09/12/18 09:00 09/12/18 08:47 09/12/18 10:44 Plan Activity: advance as tolerated, fall precautions Diet: low fat Special Instructions: record daily weights, record daily BP diary Follow up with: ZORAIDA LION MD [Primary Care Provider] - 3-5 Days RASHMI FRANCISCO MD [Staff Physician] - 7 Days Prescriptions: Folic Acid [Folvite] 1 mg PO QDAY #30 tablet oxyCODONE /ACETAMINOPHEN [Percocet 5/325 mg] 1 tab PO Q6H PRN #10 tablet PRN Reason: Pain, Moderate (4-6) Sertraline [Zoloft] 50 mg PO QDAY #14 tablet
--- NOTE | 2018-09-12 10:50 | Progress Note ---
Assessment and Plan Assessment and plan: 57 YO Male with HTN, DM, ETOH Dependence, Depression, Psychosis, CaP, Asthma, COPD, Nicotine Dependence presents to ED for evaluation. Pt states that he has experienced pain in his chest over the past 1 day with worsening symptoms over the same time frame. EMS notified, and upon arrival the patient found to be in distress and transported to [facility]. Pt seen and evaluated in ED. Pt states that pain is 7/10, Substernal, nonradiating, not worsened with exertion, not relieved with rest. Pt acknowledges decreased exercise tolerance, shortness of breath, and diaphoresis. Pt also reports abdominal discomfort, as well as a lump on his skin in the right epigastric region. Pt also reports drinking 2.5 gallons of vodka over the past 2 days in an effort to end his life. Pt acknowledges feeling helpless, and hopeless, and feel like he cannot go on living. Pt seen and evaluated in ED and found to have symptoms consistent with Angina as well as Diastolic CHF, and ETOH Withdrawl. Pt admitted to telemetry and treated with supportive care. Pt initiated on CIWA protocol for ETOH Dependence with ETOH withdrawl. Mental health consulted and patient placed on 1013 and placed on 1:1 sitter. Pt denies fever, chills, palpitations, NVD, Trauma, BRBPR, Productive cough, skin rash, recent ill contacts. - Patient Problems (1) Diastolic CHF Current Visit: Yes Status: Suspected Qualifiers: Heart failure chronicity: acute Qualified Code(s): I50.31 - Acute diastolic (congestive) heart failure Plan to address problem: Continue telemetry, echo, cardiology consulted, strict I/O, daily weight, bnp, supplemental oxygen, afterload reduction, supplemental oxygen, chest x ray. (2) HTN (hypertension) Current Visit: Yes Status: Acute Qualifiers: Hypertension type: essential hypertension Qualified Code(s): I10 - Essential (primary) hypertension Plan to address problem: monitor bp q shift, continue medical management (3) Suicidal ideation Current Visit: Yes Status: Acute Plan to address problem: Mental health consult, 1:1 sitter. (4) Angina at rest Current Visit: Yes Status: Acute Plan to address problem: serial cardiac enzymes, morphine, supplemental oxygen,nitro, aspirin, stress test negative (5) Nicotine dependence unspecified, with withdrawal Current Visit: Yes Status: Acute Qualifiers: Nicotine product type: cigarettes Qualified Code(s): F17.213 - Nicotine dependence, cigarettes, with withdrawal Plan to address problem: Smoking cessation counselinminutes, supportive care (6) Obesity (BMI 30-39.9) Current Visit: Yes Status: Acute Plan to address problem: Balanced diet, increased physical activity at discharge, dietary counselinminutes (7) Diabetes Current Visit: Yes Status: Acute Plan to address problem: ADA diet, insulin, accu check, hypoglycemia protocol. (8) Prostate cancer Current Visit: Yes Status: Acute Plan to address problem: Present on Admission. S/P surgical intervention. (9) COPD (chronic obstructive pulmonary disease) Current Visit: Yes Status: Acute Qualifiers: Chronic bronchitis type: mixed simple and mucopurulent Plan to address problem: Supplemental oxygen, nebulizer therapy, NIPPV as clinically indicated, smoking cessation, chest x ray (10) Acidosis Current Visit: Yes Status: Acute Plan to address problem: IVF resuscitation therapy, repeat bmp, (11) Alcohol withdrawal Current Visit: Yes Status: Acute Qualifiers: Complication of substance-induced condition: with unspecified complication Qualified Code(s): F10.239 - Alcohol dependence with withdrawal, unspecified Plan to address problem: CIWA protocol, Thiamine, folic acid, multivitamin, supportive are, ETOH cessation counseling 15min (12) Rib fracture- chronic SPLINT RECOMMNEDING (13)DVT prophylaxis Current Visit: Yes Status: Acute Plan to address problem: SCD to BLE while in bed, prophylactic lovenox MEDICALLY STABLE FOR DISCHARGE History Interval history: Patient seen and examined, reports persistent chest dyscomfort with movement, left sided, 5/10 in intensity. He went for stress test today with no new complaints. Hospitalist Physical - Constitutional Vitals: Temp Pulse Resp BP Pulse Ox 97.9 F 72 16 151/78 97 09/12/18 04:36 09/12/18 10:49 09/12/18 10:49 09/12/18 08:47 09/12/18 10:44 General appearance: Present: mild distress, obese - EENT Eyes: Present: PERRL, EOM intact ENT: hearing intact, clear oral mucosa - Neck Neck: Present: supple, normal ROM - Respiratory Respiratory effort: normal Respiratory: bilateral: CTA - Cardiovascular Rhythm: regular Heart Sounds: Present: S1 & S2. Absent: systolic murmur Details: Reproducible chest wall tenderness across left chest area - Extremities Extremities: no ischemia, pulses intact, pulses symmetrical, No edema, normal temperature, normal color, Full ROM Peripheral Pulses: within normal limits - Abdominal General gastrointestinal: soft, non-tender, non-distended, normal bowel sounds - Integumentary Integumentary: Present: clear, warm, erythema - Psychiatric Psychiatric: appropriate mood/affect, intact judgment & insight, cooperative - Neurologic Neurologic: CNII-XII intact, moves all extremities - Allied Health Allied health notes reviewed: nursing Results - Labs CBC & Chem 7: 09/12/18 04:43 09/12/18 04:43 Labs: Laboratory Last Values WBC 4.3 K/mm3 (4.5-11.0) L 09/12/18 04:43 RBC 3.75 M/mm3 (3.65-5.03) 09/12/18 04:43 Hgb 12.0 gm/dl (11.8-15.2) 09/12/18 04:43 Hct 33.3 % (35.5-45.6) L 09/12/18 04:43 MCV 89 fl (84-94) 09/12/18 04:43 MCH 32 pg (28-32) 09/12/18 04:43 MCHC 36 % (32-34) H 09/12/18 04:43 RDW 13.8 % (13.2-15.2) 09/12/18 04:43 Plt Count 130 K/mm3 (140-440) L 09/12/18 04:43 Lymph % (Auto) 26.2 % (13.4-35.0) 09/12/18 04:43 Mower % (Auto) 10.5 % (0.0-7.3) H 09/12/18 04:43 Eos % (Auto) 1.3 % (0.0-4.3) 09/12/18 04:43 Baso % (Auto) 1.0 % (0.0-1.8) 09/12/18 04:43 Lymph # 1.1 K/mm3 (1.2-5.4) L 09/12/18 04:43 Mower # 0.5 K/mm3 (0.0-0.8) 09/12/18 04:43 Eos # 0.1 K/mm3 (0.0-0.4) 09/12/18 04:43 Baso # 0.0 K/mm3 (0.0-0.1) 09/12/18 04:43 Seg Neutrophils % 61.0 % (40.0-70.0) 09/12/18 04:43 Seg Neutrophils # 2.6 K/mm3 (1.8-7.7) 09/12/18 04:43 196.97 ng/mlDDU (0-234) 09/11/18 14:51 Sodium 134 mmol/L (137-145) L 09/12/18 04:43 Potassium 3.6 mmol/L (3.6-5.0) 09/12/18 04:43 Chloride 99.1 mmol/L (98-107) 09/12/18 04:43 Carbon Dioxide 24 mmol/L (22-30) D 09/12/18 04:43 15 mmol/L 09/12/18 04:43 BUN 14 mg/dL (9-20) 09/12/18 04:43 0.6 mg/dL (0.8-1.5) L 09/12/18 04:43 Estimated GFR > 60 ml/min 09/12/18 04:43 23 % 09/12/18 04:43 Glucose 164 mg/dL (75-100) H 09/12/18 04:43 POC Glucose 163 (70-105) H 09/12/18 07:30 Calcium 7.3 mg/dL (8.4-10.2) L 09/12/18 04:43 Magnesium 1.90 mg/dL (1.7-2.3) 09/11/18 11:51 0.30 mg/dL (0.1-1.2) 09/12/18 04:43 0.4 mg/dL (0-0.2) H 09/11/18 11:51 -0.2 mg/dL 09/11/18 11:51 AST 25 units/L (5-40) 09/12/18 04:43 ALT 34 units/L (7-56) 09/12/18 04:43 145 units/L (35-129) H 09/12/18 04:43 < 0.010 ng/mL (0.00-0.029) 09/11/18 19:45 6.1 g/dL (6.3-8.2) L 09/12/18 04:43 3.4 g/dL (3.9-5) L 09/12/18 04:43 1.3 % 09/12/18 04:43 Triglycerides 1018 mg/dL (2-149) H 09/11/18 11:51 Cholesterol 398 mg/dL (50-199) H 09/11/18 11:51 70 mg/dL (50-130) 09/11/18 11:51 24 mg/dL (40-59) L 09/11/18 11:51 16.58 % 09/11/18 11:51 22 units/L (13-60) 09/11/18 11:51 Yellow (Yellow) 09/11/18 11:43 Clear (Clear) 09/11/18 11:43 6.0 (5.0-7.0) 09/11/18 11:43 Ur Specific [place] 1.023 (1.003-1.030) 09/11/18 11:43 100 mg/dl mg/dL (Negative) 09/11/18 11:43 Neg mg/dL (Negative) 09/11/18 11:43 80 mg/dL (Negative) 09/11/18 11:43 Sm (Negative) 09/11/18 11:43 Neg (Negative) 09/11/18 11:43 Neg (Negative) 09/11/18 11:43 < 2.0 mg/dL (<2.0) 09/11/18 11:43 Ur Leukocyte Esterase Neg (Negative) 09/11/18 11:43 < 1.0 /HPF (0.0-6.0) 09/11/18 11:43 < 1.0 /HPF (0.0-6.0) 09/11/18 11:43 U Epithel Cells (Auto) 1.0 /HPF (0-13.0) 09/11/18 11:43 Few /HPF 09/11/18 11:43 Salicylates < 0.3 mg/dL (2.8-20.0) L 09/11/18 11:51 Presumptive negative 09/11/18 11:43 Presumptive negative 09/11/18 11:43 Acetaminophen < 5.0 ug/mL (10.0-30.0) L 09/11/18 11:51 Ur Barbiturates Screen Presumptive negative 09/11/18 11:43 Phenytoin 2.6 ug/mL (10.0-20.0) L 09/11/18 11:51 Valproic Acid < 2.8 ug/mL (50-100) L 09/11/18 11:51 Ur Phencyclidine Scrn Presumptive negative 09/11/18 11:43 Ur Amphetamines Screen Presumptive negative 09/11/18 11:43 U Benzodiazepines Scrn Presumptive negative 09/11/18 11:43 Presumptive negative 09/11/18 11:43 U Marijuana (THC) Screen Presumptive negative 09/11/18 11:43 Disclamer 09/11/18 11:43 Plasma/Serum Alcohol 0.06 % (0-0.07) 09/11/18 11:51 Active Medications - Current Medications Current Medications: Generic Name Dose Route Start Last Admin Trade Name Freq PRN Reason Stop Dose Admin Acetaminophen 650 mg 09/11/18 13:31 Tylenol PO Q4H PRN Pain MILD(1-3)/Fever >100.5/METZ Atorvastatin Calcium 40 mg 09/11/18 22:00 09/11/18 21:07 Lipitor PO 40 mg QHS ELVIA Administration Calcium Carbonate/Glycine 1,250 mg 09/12/18 10:00 Oscal PO DAILY [facility] Dextrose 50 ml 09/11/18 15:01 D50w (25gm) Syringe IV PRN PRN Hypoglycemia Divalproex Sodium 500 mg 09/11/18 14:00 09/11/18 19:[address] PO 500 mg TID ELVIA Administration Docusate Sodium 100 mg 09/12/18 10:00 Colace PO DAILY ELVIA Enoxaparin Sodium 40 mg 09/11/18 22:00 09/11/18 21:07 Lovenox SUB-Q 40 mg QDAY@2200 ELVIA Administration Famotidine 10 mg 09/11/18 22:00 09/11/18 21:07 Pepcid PO 10 mg BID ELVIA Administration Finasteride 5 mg 09/12/18 10:00 Proscar PO DAILY ELVIA Folic Acid 1 mg 09/12/18 10:00 Folvite PO QDAY ELVIA Sodium Chloride 1,000 mls @ 75 mls/hr 09/11/18 14:00 09/11/18 21:28 Nacl 0.9% 1000 Ml IV 75 mls/hr DIRECT ELVIA Administration Ibuprofen 800 mg 09/11/18 13:36 Ibuprofen PO Q8HR PRN Pain , Severe (7-10) Insulin Human Lispro 0 unit 09/11/18 16:30 09/11/18 21:42 Humalog SUB-Q 3 unit ACHS ELVIA Administration Protocol Ipratropium [place] 0.5 mg 09/11/18 14:00 09/12/18 10:40 Atrovent IH 0.5 mg Q4HR ELVIA Administration Lisinopril 2.5 mg 09/12/18 10:00 Zestril PO QDAY ELVIA Lorazepam 2 mg 09/11/18 21:26 09/12/18 06:11 Ativan IV 2 mg Q1HR PRN Administration CIWA-Ar 8-15 Lorazepam 4 mg 09/11/18 21:26 Ativan IV Q1HR PRN CIWA-Ar 16-25 Nicotine 21 mg 09/12/18 10:00 Habitrol TD DAILY ELVIA Nitroglycerin 0.4 mg 09/11/18 13:31 Nitrostat SL Q5M PRN Chest Pain Ondansetron HCl 4 mg 09/11/18 13:31 09/11/18 19:11 Zofran IV 4 mg Q8H PRN Administration Nausea And Vomiting Oxycodone/Acetaminophen 1 tab 09/11/18 13:36 09/11/18 19:10 Percocet 5/325 PO 1 tab Q6H PRN Administration Pain, Moderate (4-6) Pantoprazole Sodium 20 mg 09/11/18 22:00 09/11/18 21:07 Protonix PO 20 mg BID ELVIA Administration Polyethylene Glycol 17 gm 09/12/18 10:00 Miralax 3350 PO QDAY ELVIA Senna/Docusate Sodium 1 tab 09/12/18 10:00 Senokot S PO DAILY ELVIA Sertraline HCl 50 mg 09/11/18 18:00 09/11/18 19:10 Zoloft PO 50 mg QDAY ELVIA Administration Sodium Chloride 10 ml 09/11/18 22:00 09/11/18 21:12 Sodium Chloride Flush Syringe 10 Ml IV 10 ml BID ELVIA Administration Sodium Chloride 10 ml 09/11/18 13:31 Sodium Chloride Flush Syringe 10 Ml IV PRN PRN LINE FLUSH Sodium Chloride 10 ml 09/11/18 13:31 Sodium Chloride Flush Syringe 10 Ml IV PRN PRN LINE FLUSH Tamsulosin HCl 0.4 mg 09/12/18 10:00 Flomax PO QDAY ELVIA Tizanidine HCl 4 mg 09/11/18 15:00 09/12/18 06:00 Zanaflex PO Not Given Q6HR ELVIA
--- NOTE | 2018-09-12 11:12 | Progress Note ---
Subjective - Reason for Consult Consult date: 09/12/18 Reason for consult: Psychiatry Follow-up - Chief Complaint Chief complaint: "It's hard for me"" 57 y.o. white female who presented to the ER for suicide attempt by consuming a large quantity of Vodka per the patient. Today the patient was calm and cooperative during the assessment. He stated that he is having issues with starting and staying sleep. He continue to endorse SI's when asked. He denies HI's and AVh's. He denies any side effects of his medication. Mental Status Exam - Vital signs Last Vital Signs Temp 97.9 F 09/12/18 04:36 Pulse 72 09/12/18 10:49 Resp 16 09/12/18 10:49 BP 151/78 09/12/18 08:47 Pulse Ox 97 09/12/18 10:44 - Exam Narrative exam: MSE: Appearance: calm, cooperative Behavior: regular eye contact Speech: regular rate and tone Mood: withdrawn Affect: flat Thought Process: circumstantial Thought Content: denies HI's and AVH's Motor Activity: ambulatory Cognition: A/O x3 Insight: variable Judgment: poor Assessment and Plan Impression: MDD, Severe type. Alcohol Use DO. Insomnia. Today the patient was calm during the assessment. The patient endorsed SI's. DDx: Alcohol Induced Mood DO Recommendation/Plan: Continue 1013 and Zoloft 50 mg PO daily for depression and start Melatonin 5 mg PO HS for sleep. Discussed possible suicidality/medication induced pravin with the patient reference Zoloft, he verbalized understanding. Monitor patient for alcohol withdrawals. Dispo: The patient will be referred to inpatient psy services. Will staff with Dr. Babatunde Angulo.
[2018-09-12] MEDS: FLOMAX PO SCH (11:18)
[2018-09-12] MEDS: FOLVITE PO SCH (11:19)
[2018-09-12] MEDS: PROSCAR PO SCH (11:19)
[2018-09-12] MEDS: OSCAL PO SCH (11:19)
[2018-09-12] MEDS: IMODIUM PO PRN ×2 (11:19→17:06)
[2018-09-12] MEDS: ZESTRIL PO SCH (11:20)
[2018-09-12] MEDS: NACL 0.9% 1000 ML 1,000 ML IV SCH (11:31)
[2018-09-12] MEDS: ZOLOFT PO SCH (11:31)
[2018-09-12] MEDS: HumaLOG SUB-Q SCH ×4 (11:32→22:29)
[2018-09-12] MEDS: COLACE PO SCH (11:32)
[2018-09-12] MEDS: MIRALAX 3350 PO SCH (11:32)
[2018-09-12] MEDS: HABITROL TD SCH (11:35)
[2018-09-12] MEDS: PROTONIX PO SCH ×2 (11:35→21:03)
[2018-09-12] MEDS: SENOKOT S PO SCH (12:54)
[2018-09-12] MEDS: PERCOCET 5/325 PO PRN (17:06)
[2018-09-12] MEDS: ZOFRAN IV PRN ×2 (17:27→21:00)
--- NOTE | 2018-09-12 20:18 | Treadmill Report ---
INDICATION: Chest pain. ORDERING PHYSICIAN: Blossom Walter MD FINDINGS: There is evidence of a small fixed apical inferior wall defect. There is no scintigraphic evidence of myocardial ischemia. The left ventricle is normal in size. The left ventricular ejection fraction is measured at 64% with normal wall motion and wall thickening. There is evidence of diaphragmatic attenuation noted on plantar imaging. CONCLUSION: 1. No scintigraphic evidence of myocardial ischemia. 2. There is a small fixed apical inferior wall defect due to overlying diaphragmatic attenuation noted on planar imaging. 3. Normal left ventricular size and systolic function with an ejection fraction measured at 64%. 4. This is a low risk myocardial perfusion scan associated with a 1-year cardiovascular event rate of less than 1%. [facility]# [id number] CHAVEZ/MONIKA
[2018-09-12] MEDS: LOVENOX SUB-Q SCH (21:02)
[2018-09-12] MEDS: MELATONIN PO SCH (21:03)
[2018-09-13] MEDS: ATROVENT IH SCH ×8 (00:50→20:38)
[2018-09-13] MEDS: ZANAFLEX PO SCH ×4 (02:01→19:28)
[2018-09-13] MEDS: ZOFRAN ODT PO PRN ×2 (02:03→09:07)
[2018-09-13] MEDS: HumaLOG SUB-Q SCH ×4 (09:05→22:54)
--- NOTE | 2018-09-13 09:25 | Progress Note ---
Assessment and Plan Assessment and plan: 57 YO Male with HTN, DM, ETOH Dependence, Depression, Psychosis, CaP, Asthma, COPD, Nicotine Dependence presents to ED for evaluation. Pt states that he has experienced pain in his chest over the past 1 day with worsening symptoms over the same time frame. EMS notified, and upon arrival the patient found to be in distress and transported to [facility]. Pt seen and evaluated in ED. Pt states that pain is 7/10, Substernal, nonradiating, not worsened with exertion, not relieved with rest. Pt acknowledges decreased exercise tolerance, shortness of breath, and diaphoresis. Pt also reports abdominal discomfort, as well as a lump on his skin in the right epigastric region. Pt also reports drinking 2.5 gallons of vodka over the past 2 days in an effort to end his life. Pt acknowledges feeling helpless, and hopeless, and feel like he cannot go on living. Pt seen and evaluated in ED and found to have symptoms consistent with Angina as well as Diastolic CHF, and ETOH Withdrawl. Pt admitted to telemetry and treated with supportive care. Pt initiated on CIWA protocol for ETOH Dependence with ETOH withdrawl. Mental health consulted and patient placed on 1013 and placed on 1:1 sitter. Pt denies fever, chills, palpitations, NVD, Trauma, BRBPR, Productive cough, skin rash, recent ill contacts. Impression: MDD, Severe type. Alcohol Use DO. Insomnia. Today the patient was calm during the assessment. The patient endorsed SI's. DDx: Alcohol Induced Mood DO Recommendation/Plan: Continue 1013 and Zoloft 50 mg PO daily for depression and start Melatonin 5 mg PO HS for sleep. Discussed possible suicidality/medication induced pravin with the patient reference Zoloft, he verbalized understanding. Monitor patient for alcohol withdrawals. Dispo: The patient will be referred to inpatient psy services. - Patient Problems (1) Diastolic CHF Current Visit: Yes Status: Suspected Qualifiers: Heart failure chronicity: acute Qualified Code(s): I50.31 - Acute diastolic (congestive) heart failure Plan to address problem: Continue telemetry, echo, cardiology consulted, strict I/O, daily weight, bnp, supplemental oxygen, afterload reduction, supplemental oxygen, chest x ray. (2) Intractable Nausea and vomiting Per patient unable to keep food down, although he did not tell me this yesterday, nursing documentation shows need for zofran and changed to subliqual Patient has extensive NSAID use Will obtain GI eval Continue protonix SMALL BOWEL SERIES ORDERED BUT WILL BE DONE TOMORROW DUE TO NO RADIOLOGIST ON STAFF ON THE WEEKENDS. (3) Suicidal ideation Current Visit: Yes Status: Acute Plan to address problem: Mental health consult, 1:1 sitter. (4) Angina at rest Current Visit: Yes Status: Acute Plan to address problem: serial cardiac enzymes, morphine, supplemental oxygen,nitro, aspirin, stress test negative (5) Nicotine dependence unspecified, with withdrawal Current Visit: Yes Status: Acute Qualifiers: Nicotine product type: cigarettes Qualified Code(s): F17.213 - Nicotine dependence, cigarettes, with withdrawal Plan to address problem: Smoking cessation counselinminutes, supportive care (6) Obesity (BMI 30-39.9) Current Visit: Yes Status: Acute Plan to address problem: Balanced diet, increased physical activity at discharge, dietary counselinminutes (7) Diabetes Current Visit: Yes Status: Acute Plan to address problem: ADA diet, insulin, accu check, hypoglycemia protocol. (8) Prostate cancer Current Visit: Yes Status: Acute Plan to address problem: Present on Admission. S/P surgical intervention. (9) COPD (chronic obstructive pulmonary disease) Current Visit: Yes Status: Acute Qualifiers: Chronic bronchitis type: mixed simple and mucopurulent Plan to address problem: Supplemental oxygen, nebulizer therapy, NIPPV as clinically indicated, smoking cessation, chest x ray (10) Acidosis Current Visit: Yes Status: Acute Plan to address problem: IVF resuscitation therapy, repeat bmp, (11) Alcohol withdrawal Current Visit: Yes Status: Acute Qualifiers: Complication of substance-induced condition: with unspecified complication Qualified Code(s): F10.239 - Alcohol dependence with withdrawal, unspecified Plan to address problem: CIWA protocol, Thiamine, folic acid, multivitamin, supportive are, ETOH cessation counseling 15min (12) Rib fracture- chronic SPLINT RECOMMENDED (13) HTN (hypertension) Current Visit: Yes Status: Acute Qualifiers: Hypertension type: essential hypertension Qualified Code(s): I10 - Essential (primary) hypertension Plan to address problem: monitor bp q shift, continue medical management (14)DVT prophylaxis Current Visit: Yes Status: Acute Plan to address problem: SCD to BLE while in bed, prophylactic lovenox MEDICALLY STABLE FOR DISCHARGE History Interval history: Patient seen and examined, reports persistent chest dyscomfort with movement, left sided, STILL 5/10 in intensity. He now complaints of Nausea with vomiting and inability to hold food down. Hospitalist Physical - Constitutional Vitals: Temp Pulse Resp BP Pulse Ox 97.5 F L 66 18 93/45 93 09/13/18 04:00 09/13/18 04:00 09/13/18 04:00 09/13/18 04:00 09/13/18 04:00 General appearance: Present: mild distress, obese - EENT Eyes: Present: PERRL ENT: hearing intact, clear oral mucosa - Neck Neck: Present: supple, normal ROM - Respiratory Respiratory effort: normal Respiratory: bilateral: diminished - Cardiovascular Rhythm: regular Heart Sounds: Present: S1 & S2, systolic murmur - Extremities Extremities: no ischemia, pulses intact, No edema, Full ROM Peripheral Pulses: within normal limits - Abdominal General gastrointestinal: soft, non-tender, distended, normal bowel sounds - Integumentary Integumentary: Present: clear, warm, dry - Psychiatric Psychiatric: appropriate mood/affect, intact judgment & insight - Neurologic Neurologic: CNII-XII intact, moves all extremities - Allied Health Allied health notes reviewed: nursing Results - Labs CBC & Chem 7: 09/12/18 04:43 09/12/18 04:43 Labs: Laboratory Last Values WBC 4.3 K/mm3 (4.5-11.0) L 09/12/18 04:43 RBC 3.75 M/mm3 (3.65-5.03) 09/12/18 04:43 Hgb 12.0 gm/dl (11.8-15.2) 09/12/18 04:43 Hct 33.3 % (35.5-45.6) L 09/12/18 04:43 MCV 89 fl (84-94) 09/12/18 04:43 MCH 32 pg (28-32) 09/12/18 04:43 MCHC 36 % (32-34) H 09/12/18 04:43 RDW 13.8 % (13.2-15.2) 09/12/18 04:43 Plt Count 130 K/mm3 (140-440) L 09/12/18 04:43 Lymph % (Auto) 26.2 % (13.4-35.0) 09/12/18 04:43 Burt % (Auto) 10.5 % (0.0-7.3) H 09/12/18 04:43 Eos % (Auto) 1.3 % (0.0-4.3) 09/12/18 04:43 Baso % (Auto) 1.0 % (0.0-1.8) 09/12/18 04:43 Lymph # 1.1 K/mm3 (1.2-5.4) L 09/12/18 04:43 Burt # 0.5 K/mm3 (0.0-0.8) 09/12/18 04:43 Eos # 0.1 K/mm3 (0.0-0.4) 09/12/18 04:43 Baso # 0.0 K/mm3 (0.0-0.1) 09/12/18 04:43 Seg Neutrophils % 61.0 % (40.0-70.0) 09/12/18 04:43 Seg Neutrophils # 2.6 K/mm3 (1.8-7.7) 09/12/18 04:43 196.97 ng/mlDDU (0-234) 09/11/18 14:51 Sodium 134 mmol/L (137-145) L 09/12/18 04:43 Potassium 3.6 mmol/L (3.6-5.0) 09/12/18 04:43 Chloride 99.1 mmol/L (98-107) 09/12/18 04:43 Carbon Dioxide 24 mmol/L (22-30) D 09/12/18 04:43 15 mmol/L 09/12/18 04:43 BUN 14 mg/dL (9-20) 09/12/18 04:43 0.6 mg/dL (0.8-1.5) L 09/12/18 04:43 Estimated GFR > 60 ml/min 09/12/18 04:43 23 % 09/12/18 04:43 Glucose 164 mg/dL (75-100) H 09/12/18 04:43 POC Glucose 124 (70-105) H 09/12/18 21:33 Calcium 7.3 mg/dL (8.4-10.2) L 09/12/18 04:43 Magnesium 1.90 mg/dL (1.7-2.3) 09/11/18 11:51 0.30 mg/dL (0.1-1.2) 09/12/18 04:43 0.4 mg/dL (0-0.2) H 09/11/18 11:51 -0.2 mg/dL 09/11/18 11:51 AST 25 units/L (5-40) 09/12/18 04:43 ALT 34 units/L (7-56) 09/12/18 04:43 145 units/L (35-129) H 09/12/18 04:43 < 0.010 ng/mL (0.00-0.029) 09/11/18 19:45 6.1 g/dL (6.3-8.2) L 09/12/18 04:43 3.4 g/dL (3.9-5) L 09/12/18 04:43 1.3 % 09/12/18 04:43 Triglycerides 1018 mg/dL (2-149) H 09/11/18 11:51 Cholesterol 398 mg/dL (50-199) H 09/11/18 11:51 70 mg/dL (50-130) 09/11/18 11:51 24 mg/dL (40-59) L 09/11/18 11:51 16.58 % 09/11/18 11:51 22 units/L (13-60) 09/11/18 11:51 Yellow (Yellow) 09/11/18 11:43 Clear (Clear) 09/11/18 11:43 6.0 (5.0-7.0) 09/11/18 11:43 Ur Specific [place] 1.023 (1.003-1.030) 09/11/18 11:43 100 mg/dl mg/dL (Negative) 09/11/18 11:43 Neg mg/dL (Negative) 09/11/18 11:43 80 mg/dL (Negative) 09/11/18 11:43 Sm (Negative) 09/11/18 11:43 Neg (Negative) 09/11/18 11:43 Neg (Negative) 09/11/18 11:43 < 2.0 mg/dL (<2.0) 09/11/18 11:43 Ur Leukocyte Esterase Neg (Negative) 09/11/18 11:43 < 1.0 /HPF (0.0-6.0) 09/11/18 11:43 < 1.0 /HPF (0.0-6.0) 09/11/18 11:43 U Epithel Cells (Auto) 1.0 /HPF (0-13.0) 09/11/18 11:43 Few /HPF 09/11/18 11:43 Salicylates < 0.3 mg/dL (2.8-20.0) L 09/11/18 11:51 Presumptive negative 09/11/18 11:43 Presumptive negative 09/11/18 11:43 Acetaminophen < 5.0 ug/mL (10.0-30.0) L 09/11/18 11:51 Ur Barbiturates Screen Presumptive negative 09/11/18 11:43 Phenytoin 2.6 ug/mL (10.0-20.0) L 09/11/18 11:51 Valproic Acid < 2.8 ug/mL (50-100) L 09/11/18 11:51 Ur Phencyclidine Scrn Presumptive negative 09/11/18 11:43 Ur Amphetamines Screen Presumptive negative 09/11/18 11:43 U Benzodiazepines Scrn Presumptive negative 09/11/18 11:43 Presumptive negative 09/11/18 11:43 U Marijuana (THC) Screen Presumptive negative 09/11/18 11:43 Disclamer 09/11/18 11:43 Plasma/Serum Alcohol 0.06 % (0-0.07) 09/11/18 11:51 Active Medications - Current Medications Current Medications: Generic Name Dose Route Start Last Admin Trade Name Freq PRN Reason Stop Dose Admin Acetaminophen 650 mg 09/11/18 13:31 Tylenol PO Q4H PRN Pain MILD(1-3)/Fever >100.5/METZ Atorvastatin Calcium 40 mg 09/11/18 22:00 09/12/18 21:03 Lipitor PO 40 mg QHS ELVIA Administration Calcium Carbonate/Glycine 1,250 mg 09/12/18 10:00 09/12/18 11:19 Oscal PO 1,250 mg DAILY ELVIA Administration Dextrose 50 ml 09/11/18 15:01 D50w (25gm) Syringe IV PRN PRN Hypoglycemia Divalproex Sodium 500 mg 09/11/18 14:00 09/13/18 09:[address] PO 500 mg TID ELVIA Administration Docusate Sodium 100 mg 09/12/18 10:00 09/12/18 11:32 Colace PO Not Given DAILY [facility] Enoxaparin Sodium 40 mg 09/11/18 22:00 09/12/18 21:02 Lovenox SUB-Q 40 mg QDAY@2200 ELVIA Administration Finasteride 5 mg 09/12/18 10:00 09/12/18 11:19 Proscar PO 5 mg DAILY ELVIA Administration Folic Acid 1 mg 09/12/18 10:00 09/12/18 11:19 Folvite PO 1 mg QDAY ELVIA Administration Sodium Chloride 1,000 mls @ 75 mls/hr 09/11/18 14:00 09/12/18 11:31 Nacl 0.9% 1000 Ml IV 75 mls/hr DIRECT ELVIA Administration Insulin Human Lispro 0 unit 09/11/18 16:30 09/13/18 09:05 Humalog SUB-Q 2 unit ACHS ELVIA Administration Protocol Ipratropium [place] 0.5 mg 09/11/18 14:00 09/13/18 05:00 Atrovent IH Not Given Q4HR [facility] Lisinopril 2.5 mg 09/12/18 10:00 09/12/18 11:20 Zestril PO 2.5 mg QDAY ELVIA Administration Loperamide HCl 2 mg 09/12/18 11:00 09/12/18 17:06 Imodium PO 2 mg Q2H PRN Administration Diarrhea Lorazepam 2 mg 09/11/18 21:26 09/12/18 21:02 Ativan IV 2 mg Q1HR PRN Administration CIWA-Ar 8-15 Lorazepam 4 mg 09/11/18 21:26 Ativan IV Q1HR PRN CIWA-Ar 16-25 Melatonin 5 mg 09/12/18 22:00 09/12/18 21:03 Melatonin PO 5 mg QHS ELVIA Administration Nicotine 21 mg 09/12/18 10:00 09/12/18 11:35 Habitrol TD 21 mg DAILY ELVIA Administration Nitroglycerin 0.4 mg 09/11/18 13:31 Nitrostat SL Q5M PRN Chest Pain Ondansetron HCl 4 mg 09/11/18 13:31 09/12/18 21:00 Zofran IV 4 mg Q8H PRN Administration Nausea And Vomiting Ondansetron HCl 4 mg 09/13/18 01:51 09/13/18 09:07 Zofran Odt PO 4 mg Q8H PRN Administration Nausea And Vomiting Oxycodone/Acetaminophen 1 tab 09/11/18 13:36 09/12/18 17:06 Percocet 5/325 PO 1 tab Q6H PRN Administration Pain, Moderate (4-6) Pantoprazole Sodium 20 mg 09/11/18 22:00 09/12/18 21:03 Protonix PO 20 mg BID ELVIA Administration Polyethylene Glycol 17 gm 09/12/18 10:00 09/12/18 11:32 Miralax 3350 PO Not Given QDAY ELVIA Senna/Docusate Sodium 1 tab 09/12/18 10:00 09/12/18 12:54 Senokot S PO Not Given DAILY EL[facility]IA Sertraline HCl 50 mg 09/11/18 18:00 09/12/18 11:31 Zoloft PO 50 mg QDAY ELVIA Administration Sodium Chloride 10 ml 09/11/18 22:00 09/12/18 21:03 Sodium Chloride Flush Syringe 10 Ml IV 10 ml BID ELVIA Administration Sodium Chloride 10 ml 09/11/18 13:31 09/12/18 21:00 Sodium Chloride Flush Syringe 10 Ml IV 10 ml PRN PRN Administration LINE FLUSH Sodium Chloride 10 ml 09/11/18 13:31 Sodium Chloride Flush Syringe 10 Ml IV PRN PRN LINE FLUSH Tamsulosin HCl 0.4 mg 09/12/18 10:00 09/12/18 11:18 Flomax PO 0.4 mg QDAY ELVIA Administration Tizanidine HCl 4 mg 09/11/18 15:00 09/13/18 06:44 Zanaflex PO 4 mg Q6HR ELVIA Administration
[2018-09-13] MEDS: MIRALAX 3350 PO SCH (10:11)
[2018-09-13] MEDS: COLACE PO SCH (10:11)
[2018-09-13] MEDS: SENOKOT S PO SCH (10:11)
[2018-09-13] MEDS: FOLVITE PO SCH (10:12)
[2018-09-13] MEDS: HABITROL TD SCH (10:12)
[2018-09-13] MEDS: PROTONIX IV SCH (10:12)
[2018-09-13] MEDS: OSCAL PO SCH (10:12)
[2018-09-13] MEDS: ZOLOFT PO SCH (10:13)
[2018-09-13] MEDS: IMODIUM PO PRN (10:13)
[2018-09-13] MEDS: PROSCAR PO SCH (10:13)
[2018-09-13] MEDS: PERCOCET 5/325 PO PRN ×2 (10:14→19:28)
[2018-09-13] MEDS: FLOMAX PO SCH (10:14)
[2018-09-13] MEDS: ZESTRIL PO SCH (10:15)
[2018-09-13] MEDS: SODIUM CHLORIDE FLUSH SYRINGE 10 ML IV SCH ×2 (10:16→22:57)
[2018-09-13] MEDS: ATIVAN IV PRN ×3 (10:34→23:07)
--- NOTE | 2018-09-13 10:51 | Gastroenterology Consultation ---
History of Present Illness - Reason for Consult Consult date: 09/13/18 nausea/vomiting Requesting physician: PREM VILLANUEVA - History of Present Illness This is a 57 yo male with pmh of HTN, DM, alcohol dependence, depression, psychosis, COPD, and diastolic heart failure admitted for chest pain and abdominal pain. Patient underwent work up for chest pain with negative stress test. GI consulted for intractable nausea/vomiting. He states he had binge drinking with 2.5 gallons of vodka 2 days prior to admission and had diffuse abdominal pain worse in the epigastric region and nausea/vomiting. He had CT abdomen/pelvis, which rib fracture but normal GI tract. He has been on zofran prn for nausea/vomiting with minimal relief. Reports having hiatal hernia surgery years ago requiring multiple surgeries. States it was "cancer". He also reports having EGD and colonoscopy 4 years ago and had polyps removed at [place]. Past History Past Medical History: diabetes, hypertension, seizures Past Surgical History: Other (Yes) Social history: lives with family Family history: hypertension Medications and Allergies Allergies Allergy/AdvReac Type Severity Reaction Status Date / Time No Known Allergies Allergy Verified 04/09/18 11:23 Home Medications Medication Instructions Recorded Confirmed Last Taken Type Divalproex Dr [Depakote Dr] 500 mg PO TID #90 tablet 06/24/16 09/11/18 07/24/18 Rx Phenytoin Sodium Extended (Nf) 30 mg PO Q8H #90 capsule 05/08/17 09/11/18 07/24/18 Rx [Dilantin (Nf)] Calcium Carbonate [[id number]] 500 mg PO DAILY 06/24/17 09/11/18 07/24/18 History Ipratropium [Atrovent NEB] 0.5 mg IH Q4HR 06/24/17 09/11/18 07/24/18 History Lisinopril [Zestril TAB] 2.5 mg PO QDAY 06/24/17 09/11/18 07/24/18 History Polyethylene Glycol 3350 [Miralax 17 gm PO QDAY 06/24/17 09/11/18 07/24/18 History 3350] Sennosides/Docusate Sodium [Dok 1 each PO DAILY 06/24/17 09/11/18 07/24/18 History Plus Tablet] Tamsulosin [Flomax] 0.4 mg PO QDAY 06/24/17 09/11/18 07/24/18 History tiZANidine [Zanaflex 4mg TAB] 4 mg PO Q6H #20 tablet 04/10/18 09/11/18 07/24/18 Rx ALPRAZolam [Xanax] 2 mg PO BID PRN 07/25/18 09/11/18 07/24/18 History Omeprazole Magnesium [PriLOSEC Otc] 20 mg PO BID 07/25/18 09/11/18 07/24/18 History QUEtiapine [SEROquel] 100 mg PO DAILY 07/25/18 09/11/18 07/24/18 History Quetiapine Fumarate [SEROquel] 400 mg PO QHS 07/25/18 09/11/18 07/24/18 History hydrOXYzine PAMOATE [Vistaril] 50 mg PO BID 07/25/18 09/11/18 07/24/18 History Docusate Sodium [Colace CAP] 100 mg PO DAILY capsule 09/12/18 Unknown Rx Finasteride [Proscar] 5 mg PO DAILY tablet 09/12/18 Unknown Rx Folic Acid [Folvite] 1 mg PO QDAY #30 tablet 09/12/18 Unknown Rx Ibuprofen [Motrin 800 MG tab] 800 mg PO Q8HR PRN tablet 09/12/18 Unknown Rx Nicotine [Habitrol] 21 mg TD DAILY patch 09/12/18 Unknown Rx Sertraline [Zoloft] 50 mg PO QDAY #14 tablet 09/12/18 Unknown Rx oxyCODONE /ACETAMINOPHEN [Percocet 1 tab PO Q6H PRN #10 tablet 09/12/18 Unknown Rx 5/325 mg] Active Meds: Active Medications Acetaminophen (Tylenol) 650 mg PO Q4H PRN PRN Reason: Pain MILD(1-3)/Fever >100.5/METZ Atorvastatin Calcium (Lipitor) 40 mg PO QHS [facility] Last Admin: 09/12/18 21:03 Dose: 40 mg Documented by: Calcium Carbonate/Glycine (Oscal) 1,250 mg PO DAILY [facility] Last Admin: 09/13/18 10:12 Dose: 1,250 mg Documented by: Dextrose (D50w (25gm) Syringe) 50 ml IV PRN PRN PRN Reason: Hypoglycemia Divalproex Sodium (Depakote Dr) 500 mg PO TID [facility] Last Admin: 09/13/18 09:06 Dose: 500 mg Documented by: Docusate Sodium (Colace) 100 mg PO DAILY [facility] Last Admin: 09/13/18 10:11 Dose: Not Given Documented by: Enoxaparin Sodium (Lovenox) 40 mg SUB-Q QDAY@2200 [facility] Last Admin: 09/12/18 21:02 Dose: 40 mg Documented by: Finasteride (Proscar) 5 mg PO DAILY [facility] Last Admin: 09/13/18 10:13 Dose: 5 mg Documented by: Folic Acid (Folvite) 1 mg PO QDAY [facility] Last Admin: 09/13/18 10:12 Dose: 1 mg Documented by: Sodium Chloride (Nacl 0.9% 1000 Ml) 1,000 mls @ 75 mls/hr IV DIRECT [facility] Last Admin: 09/12/18 11:31 Dose: 75 mls/hr Documented by: Insulin Human Lispro (Humalog) 0 unit SUB-Q ACHS [facility]; Protocol Last Admin: 09/13/18 09:05 Dose: 2 unit Documented by: Ipratropium [place] (Atrovent) 0.5 mg IH Q4HR [facility] Last Admin: 09/13/18 09:48 Dose: 0.5 mg Documented by: Lisinopril (Zestril) 2.5 mg PO QDAY [facility] Last Admin: 09/13/18 10:15 Dose: 2.5 mg Documented by: Loperamide HCl (Imodium) 2 mg PO Q2H PRN PRN Reason: Diarrhea Last Admin: 09/13/18 10:13 Dose: 2 mg Documented by: Lorazepam (Ativan) 2 mg IV Q1HR PRN PRN Reason: CIWA-Ar 8-15 Last Admin: 09/13/18 10:34 Dose: 2 mg Documented by: Lorazepam (Ativan) 4 mg IV Q1HR PRN PRN Reason: CIWA-Ar 16-25 Melatonin (Melatonin) 5 mg PO QHS [facility] Last Admin: 09/12/18 21:03 Dose: 5 mg Documented by: Nicotine (Habitrol) 21 mg TD DAILY [facility] Last Admin: 09/13/18 10:12 Dose: 21 mg Documented by: Nitroglycerin (Nitrostat) 0.4 mg SL Q5M PRN PRN Reason: Chest Pain Ondansetron HCl (Zofran) 4 mg IV Q8H PRN PRN Reason: Nausea And Vomiting Last Admin: 09/12/18 21:00 Dose: 4 mg Documented by: Ondansetron HCl (Zofran Odt) 4 mg PO Q8H PRN PRN Reason: Nausea And Vomiting Last Admin: 09/13/18 09:07 Dose: 4 mg Documented by: Oxycodone/Acetaminophen (Percocet 5/325) 1 tab PO Q6H PRN PRN Reason: Pain, Moderate (4-6) Last Admin: 09/13/18 10:14 Dose: 1 tab Documented by: Pantoprazole Sodium (Protonix) 40 mg IV QDAY [facility] Last Admin: 09/13/18 10:12 Dose: 40 mg Documented by: Polyethylene Glycol (Miralax 3350) 17 gm PO QDAY [facility] Last Admin: 09/13/18 10:11 Dose: Not Given Documented by: Senna/Docusate Sodium (Senokot S) 1 tab PO DAILY [facility] Last Admin: 09/13/18 10:11 Dose: Not Given Documented by: Sertraline HCl (Zoloft) 50 mg PO QDAY [facility] Last Admin: 09/13/18 10:13 Dose: 50 mg Documented by: Sodium Chloride (Sodium Chloride Flush Syringe 10 Ml) 10 ml IV BID [facility] Last Admin: 09/13/18 10:16 Dose: 10 ml Documented by: Sodium Chloride (Sodium Chloride Flush Syringe 10 Ml) 10 ml IV PRN PRN PRN Reason: LINE FLUSH Last Admin: 09/12/18 21:00 Dose: 10 ml Documented by: Sodium Chloride (Sodium Chloride Flush Syringe 10 Ml) 10 ml IV PRN PRN PRN Reason: LINE FLUSH Tamsulosin HCl (Flomax) 0.4 mg PO QDAY [facility] Last Admin: 09/13/18 10:14 Dose: 0.4 mg Documented by: Tizanidine HCl (Zanaflex) 4 mg PO Q6HR [facility] Last Admin: 09/13/18 06:44 Dose: 4 mg Documented by: Medication list reviewed and updated Review of Systems - Review of Systems All systems: negative Constitutional: no weight loss, no weight gain Cardiovascular: chest pain Gastrointestinal: abdominal pain, nausea, vomiting, no diarrhea, no constipation Rectal: no pain Psychiatric: anxiety Exam - Constitutional Vital Signs: Temp Pulse Resp BP Pulse Ox 98.1 F 71 20 113/72 98 09/13/18 08:41 09/13/18 10:15 09/13/18 10:14 09/13/18 10:15 09/13/18 08:41 - EENT Eyes: EOM intact ENT: hearing intact, clear oral mucosa - Neck Neck: supple - Respiratory Respiratory effort: normal Respiratory: bilateral: CTA - Cardiovascular Rhythm: regular Heart Sounds: Present: S1 & S2 - Gastrointestinal General gastrointestinal: Present: soft, tender, non-distended - Integumentary Integumentary: Present: clear, warm - Neurologic Neurological: alert and oriented x3 - Psychiatric Psychiatric: appropriate mood/affect - Labs CBC & Chem 7: 09/12/18 04:43 09/12/18 04:43 Lab Results: Laboratory Results - last 24 hr 09/12/18 09/12/18 09/13/18 12:57 21:33 08:54 POC Glucose 199 H 124 H 167 H - Imaging CT Scan: report reviewed Assessment and Plan # Nausea/vomiting. - unclear etiology. - CT abdomen/pelvis unremarkable. - ddx including alcohol related gastritis, gastroparesis, PUD. Rec: - continue with PPI. - clear liquid diet. - antiemetics with zofran. - recommend small bowel follow through to rule out obstruction. - will follow.
--- NOTE | 2018-09-13 11:17 | Progress Note ---
Subjective - Reason for Consult Consult date: 09/13/18 Reason for consult: Psychiatry Follow-up - Chief Complaint Chief complaint: "I can't keep anything down" 57 y.o. white female who presented to the ER for suicide attempt by consuming a large quantity of Vodka per the patient. Today the patient was cooperative during the assessment. He stated that he cannot keep anything down referencing his "stomach." He stated that he "threw up" last night. He continues to endorse SI's when asked. He denies HI's and AVH's. Mental Status Exam - Vital signs Last Vital Signs Temp 98.1 F 09/13/18 08:41 Pulse 71 09/13/18 10:15 Resp 20 09/13/18 10:14 BP 113/72 09/13/18 10:15 Pulse Ox 98 09/13/18 08:41 - Exam Narrative exam: MSE: Appearance: cooperative Behavior: regular eye contact Speech: regular rate and tone Mood: "depressed" Affect: flat Thought Process: circumstantial Thought Content: denies HI's and AVH's Motor Activity: ambulatory Cognition: A/O x3 Insight: variable Judgment: poor Assessment and Plan Impression: MDD, Severe type. Alcohol Use DO. Insomnia. Today the patient was cooperative during the assessment. The patient endorsed SI's. The patient is experiencing N/V and GI was consulted by the hospitalist. DDx: Alcohol Induced Mood DO Recommendation/Plan: Continue 1013, Zoloft 50 mg PO daily for depression, and Melatonin 5 mg PO HS for sleep. Discussed possible suicidality/medication induced pravin with the patient reference Zoloft, he verbalized understanding. Monitor patient for alcohol withdrawals. Dispo: The patient will be referred to inpatient psy services once medically clear. Will staff with Dr. Babatunde Angulo.
[2018-09-13] MEDS: ZOFRAN IV PRN (15:43)
[2018-09-13] MEDS: NACL 0.9% 1000 ML 1,000 ML IV SCH (16:58)
[2018-09-13] MEDS: MORPHINE IV PRN (22:27)
[2018-09-13] MEDS: LOVENOX SUB-Q SCH (22:28)
[2018-09-14] MEDS: ATROVENT IH SCH ×4 (00:27→15:12)
[2018-09-14] MEDS: MELATONIN PO SCH ×2 (00:51→21:43)
[2018-09-14] MEDS: ZANAFLEX PO SCH ×4 (00:54→16:59)
[2018-09-14] MEDS: ZOFRAN IV PRN ×2 (03:26→20:16)
[2018-09-14] MEDS: MORPHINE IV PRN ×4 (03:27→21:43)
[2018-09-14] MEDS: HumaLOG SUB-Q SCH ×4 (08:08→21:51)
--- NOTE | 2018-09-14 09:29 | Progress Note ---
Subjective - Reason for Consult Consult date: 09/14/18 Reason for consult: Psychiatry Follow-up - Chief Complaint Chief complaint: "I feel terrible" 57 y.o. white female who presented to the ER for suicide attempt by consuming a large quantity of Vodka per the patient. Today the patient was vague during the assessment. He is adamant that his life is "worthless." He didn't answer many of the questions asked of him reference his mental health. He continue to endorse SI's. The patient isn't taking his PO medications per the MAR (NPO). Mental Status Exam - Vital signs Last Vital Signs Temp 98.2 F 09/14/18 06:10 Pulse 85 09/14/18 07:45 Resp 19 09/14/18 07:45 BP 137/87 09/14/18 06:10 Pulse Ox 94 09/14/18 09:10 - Exam Narrative exam: MSE: Appearance: cooperative Behavior: regular eye contact Speech: regular rate and tone Mood: "depressed" Affect: flat Thought Process: circumstantial Thought Content: denies HI's and AVH's Motor Activity: ambulatory Cognition: A/O x3 Insight: variable Judgment: poor Assessment and Plan Impression: MDD, Severe type. Alcohol Use DO. Insomnia. Today the patient was vague during the assessment. The patient endorsed SI's. The patient is experiencing N/V and GI was consulted by the hospitalist. DDx: Alcohol Induced Mood DO Recommendation/Plan: Continue 1013, Zoloft 50 mg PO daily for depression, and Melatonin 5 mg PO HS for sleep. Discussed possible suicidality/medication induced pravin with the patient reference Zoloft, he verbalized understanding. Monitor patient for alcohol withdrawals. Dispo: The patient will be referred to inpatient psy services once medically cl ear. Will staff with Dr. Babatunde Angulo.
[2018-09-14] MEDS ORDERED: ZOFRAN IV NR (11:03)
--- NOTE | 2018-09-14 11:17 | Gastroenterology Progress Note ---
Assessment and Plan # Nausea/vomiting. - unclear etiology. - CT abdomen/pelvis unremarkable. - ddx including alcohol related gastritis, gastroparesis, PUD. Rec: - continue with PPI. - antiemetics with zofran. - recommend small bowel follow through to rule out obstruction to be done this AM. - will follow. Subjective Date of service: 09/14/18 Interval history: Patient continues to have nausea and vomiting. Reports abdominal pain. Objective - Constitutional Vitals: Temp Pulse Resp BP Pulse Ox 98.2 F 85 19 137/87 94 09/14/18 06:10 09/14/18 07:45 09/14/18 07:45 09/14/18 06:10 09/14/18 09:10 - EENT ENT: hearing intact, clear oral mucosa - Neck Neck: supple, normal ROM - Respiratory Respiratory effort: normal Respiratory: bilateral: CTA - Cardiovascular Rhythm: regular - Extremities Extremities: pulses intact, No edema, normal color, Full ROM - Gastrointestinal General gastrointestinal: Present: soft, non-tender, non-distended, normal bowel sounds - Integumentary Integumentary: Present: clear, warm, dry - Neurologic Neurological: alert and oriented x3 - Labs CBC & Chem 7: 09/12/18 04:43 09/12/18 04:43 Labs: Laboratory Results - last 24 hr 09/13/18 09/13/18 09/13/18 12:23 16:44 21:59 POC Glucose 123 H 131 H 158 H 09/14/18 07:51 POC Glucose 142 H
[2018-09-14] MEDS: FOLVITE PO SCH (12:01)
[2018-09-14] MEDS: PROSCAR PO SCH (12:01)
[2018-09-14] MEDS: FLOMAX PO SCH (12:01)
[2018-09-14] MEDS: MIRALAX 3350 PO SCH (12:01)
[2018-09-14] MEDS: OSCAL PO SCH (12:01)
[2018-09-14] MEDS: COLACE PO SCH (12:01)
[2018-09-14] MEDS: ZESTRIL PO SCH ×2 (12:02→16:57)
[2018-09-14] MEDS: ZOLOFT PO SCH (12:02)
[2018-09-14] MEDS: SENOKOT S PO SCH (12:02)
[2018-09-14] MEDS: SODIUM CHLORIDE FLUSH SYRINGE 10 ML IV SCH ×2 (12:02→21:52)
[2018-09-14] MEDS: HABITROL TD SCH (12:03)
[2018-09-14] MEDS: PROTONIX IV SCH (12:04)
--- NOTE | 2018-09-14 15:04 | Progress Note ---
Assessment and Plan Assessment and plan: 57 YO Male with HTN, DM, ETOH Dependence, Depression, Psychosis, CaP, Asthma, COPD, Nicotine Dependence presents to ED for evaluation. Pt states that he has experienced pain in his chest over the past 1 day with worsening symptoms over the same time frame. EMS notified, and upon arrival the patient found to be in distress and transported to [facility]. Pt seen and evaluated in ED. Pt states that pain is 7/10, Substernal, nonradiating, not worsened with exertion, not relieved with rest. Pt acknowledges decreased exercise tolerance, shortness of breath, and diaphoresis. Pt also reports abdominal discomfort, as well as a lump on his skin in the right epigastric region. Pt also reports drinking 2.5 gallons of vodka over the past 2 days in an effort to end his life. Pt acknowledges feeling helpless, and hopeless, and feel like he cannot go on living. Pt seen and evaluated in ED and found to have symptoms consistent with Angina as well as Diastolic CHF, and ETOH Withdrawl. Pt admitted to telemetry and treated with supportive care. Pt initiated on CIWA protocol for ETOH Dependence with ETOH withdrawl. Mental health consulted and patient placed on 1013 and placed on 1:1 sitter. Pt denies fever, chills, palpitations, NVD, Trauma, BRBPR, Productive cough, skin rash, recent ill contacts. * Stress test No risk * Small bowel series pending * Remains 1013 * Previous residing facility said no to patient returning due to ETOH Dependance Intractacable nausea and Vomiting:Continue Zofran, Await SBS, GI following Acute on chronic Diastolic CHF MDD-Severe with Suicidal ideation ETOH USE/DEPENDANCE Hyponatremia Atypical chest pain secondary to Costochondiritis NSAID abuse Suicidal Ideation Nicotine Dependance Obesity Diabetes Mellitus HX OF Prostate Cancer Acute Toxic Metabolic Encephalopathy Rib Fracture-Chronic Insomnia HTN Alcohol Withdrawal Plan Continue supportive care Pending SBS, GI input patient can be cleared for discharge Per Psych Continue 1013 and Zoloft 50 mg PO daily for depression and start Melatonin 5 mg PO HS for sleep. Discussed possible suicidality/medication induced pravin with the patient reference Zoloft, he verbalized understanding. Monitor patient for alcohol withdrawals. Advised to avoid NSAIDS Continue Insulin therapy GI/DVT Prophy Plan discussed with the patient. History Interval history: Patient seen and examined, No new complaints. Still complaints of inabilty to keep food down although no vomiting noted today Hospitalist Physical - Physical exam Narrative exam: General appearance: Present: mild distress, obese,non toxic appearing - EENT Eyes: Present: PERRL ENT: hearing intact, clear oral mucosa - Neck Neck: Present: supple, normal ROM - Respiratory Respiratory effort: normal Respiratory: bilateral: diminished - Cardiovascular Rhythm: regular Heart Sounds: Present: S1 & S2, systolic murmur - Extremities Extremities: no ischemia, pulses intact, No edema, Full ROM Peripheral Pulses: within normal limits - Abdominal General gastrointestinal: soft, non-tender, distended, normal bowel sounds - Integumentary Integumentary: Present: clear, warm, dry - Psychiatric Psychiatric: appropriate mood/affect, intact judgment & insight - Neurologic Neurologic: CNII-XII intact, moves all extremities - Allied Health Allied health notes reviewed: nursing - Constitutional Vitals: Temp Pulse Resp BP Pulse Ox 97.7 F 71 20 146/86 96 09/14/18 14:07 09/14/18 14:07 09/14/18 14:07 09/14/18 14:07 09/14/18 14:07 General appearance: Present: mild distress, obese Results - Labs CBC & Chem 7: 09/12/18 04:43 09/12/18 04:43 Labs: Laboratory Last Values WBC 4.3 K/mm3 (4.5-11.0) L 09/12/18 04:43 RBC 3.75 M/mm3 (3.65-5.03) 09/12/18 04:43 Hgb 12.0 gm/dl (11.8-15.2) 09/12/18 04:43 Hct 33.3 % (35.5-45.6) L 09/12/18 04:43 MCV 89 fl (84-94) 09/12/18 04:43 MCH 32 pg (28-32) 09/12/18 04:43 MCHC 36 % (32-34) H 09/12/18 04:43 RDW 13.8 % (13.2-15.2) 09/12/18 04:43 Plt Count 130 K/mm3 (140-440) L 09/12/18 04:43 Lymph % (Auto) 26.2 % (13.4-35.0) 09/12/18 04:43 [place] % (Auto) 10.5 % (0.0-7.3) H 09/12/18 04:43 Eos % (Auto) 1.3 % (0.0-4.3) 09/12/18 04:43 Baso % (Auto) 1.0 % (0.0-1.8) 09/12/18 04:43 Lymph # 1.1 K/mm3 (1.2-5.4) L 09/12/18 04:43 [place] # 0.5 K/mm3 (0.0-0.8) 09/12/18 04:43 Eos # 0.1 K/mm3 (0.0-0.4) 09/12/18 04:43 Baso # 0.0 K/mm3 (0.0-0.1) 09/12/18 04:43 Seg Neutrophils % 61.0 % (40.0-70.0) 09/12/18 04:43 Seg Neutrophils # 2.6 K/mm3 (1.8-7.7) 09/12/18 04:43 196.97 ng/mlDDU (0-234) 09/11/18 14:51 Sodium 134 mmol/L (137-145) L 09/12/18 04:43 Potassium 3.6 mmol/L (3.6-5.0) 09/12/18 04:43 Chloride 99.1 mmol/L (98-107) 09/12/18 04:43 Carbon Dioxide 24 mmol/L (22-30) D 09/12/18 04:43 15 mmol/L 09/12/18 04:43 BUN 14 mg/dL (9-20) 09/12/18 04:43 0.6 mg/dL (0.8-1.5) L 09/12/18 04:43 Estimated GFR > 60 ml/min 09/12/18 04:43 23 % 09/12/18 04:43 Glucose 164 mg/dL (75-100) H 09/12/18 04:43 POC Glucose 142 (70-105) H 09/14/18 07:51 Calcium 7.3 mg/dL (8.4-10.2) L 09/12/18 04:43 Magnesium 1.90 mg/dL (1.7-2.3) 09/11/18 11:51 0.30 mg/dL (0.1-1.2) 09/12/18 04:43 0.4 mg/dL (0-0.2) H 09/11/18 11:51 -0.2 mg/dL 09/11/18 11:51 AST 25 units/L (5-40) 09/12/18 04:43 ALT 34 units/L (7-56) 09/12/18 04:43 145 units/L (35-129) H 09/12/18 04:43 < 0.010 ng/mL (0.00-0.029) 09/11/18 19:45 6.1 g/dL (6.3-8.2) L 09/12/18 04:43 3.4 g/dL (3.9-5) L 09/12/18 04:43 1.3 % 09/12/18 04:43 Triglycerides 1018 mg/dL (2-149) H 09/11/18 11:51 Cholesterol 398 mg/dL (50-199) H 09/11/18 11:51 70 mg/dL (50-130) 09/11/18 11:51 24 mg/dL (40-59) L 09/11/18 11:51 16.58 % 09/11/18 11:51 22 units/L (13-60) 09/11/18 11:51 Yellow (Yellow) 09/11/18 11:43 Clear (Clear) 09/11/18 11:43 6.0 (5.0-7.0) 09/11/18 11:43 Ur Specific [place] 1.023 (1.003-1.030) 09/11/18 11:43 100 mg/dl mg/dL (Negative) 09/11/18 11:43 Neg mg/dL (Negative) 09/11/18 11:43 80 mg/dL (Negative) 09/11/18 11:43 Sm (Negative) 09/11/18 11:43 Neg (Negative) 09/11/18 11:43 Neg (Negative) 09/11/18 11:43 < 2.0 mg/dL (<2.0) 09/11/18 11:43 Ur Leukocyte Esterase Neg (Negative) 09/11/18 11:43 < 1.0 /HPF (0.0-6.0) 09/11/18 11:43 < 1.0 /HPF (0.0-6.0) 09/11/18 11:43 U Epithel Cells (Auto) 1.0 /HPF (0-13.0) 09/11/18 11:43 Few /HPF 09/11/18 11:43 Salicylates < 0.3 mg/dL (2.8-20.0) L 09/11/18 11:51 Presumptive negative 09/11/18 11:43 Presumptive negative 09/11/18 11:43 Acetaminophen < 5.0 ug/mL (10.0-30.0) L 09/11/18 11:51 Ur Barbiturates Screen Presumptive negative 09/11/18 11:43 Phenytoin 2.6 ug/mL (10.0-20.0) L 09/11/18 11:51 Valproic Acid < 2.8 ug/mL (50-100) L 09/11/18 11:51 Ur Phencyclidine Scrn Presumptive negative 09/11/18 11:43 Ur Amphetamines Screen Presumptive negative 09/11/18 11:43 U Benzodiazepines Scrn Presumptive negative 09/11/18 11:43 Presumptive negative 09/11/18 11:43 U Marijuana (THC) Screen Presumptive negative 09/11/18 11:43 Disclamer 09/11/18 11:43 Plasma/Serum Alcohol 0.06 % (0-0.07) 09/11/18 11:51 Active Medications - Current Medications Current Medications: Generic Name Dose Route Start Last Admin Trade Name Freq PRN Reason Stop Dose Admin Acetaminophen 650 mg 09/11/18 13:31 Tylenol PO Q4H PRN Pain MILD(1-3)/Fever >100.5/METZ Atorvastatin Calcium 40 mg 09/11/18 22:00 09/13/18 22:28 Lipitor PO 40 mg QHS ELVIA Administration Calcium Carbonate/Glycine 1,250 mg 09/12/18 10:00 09/14/18 12:01 Oscal PO Not Given DAILY ELVIA Dextrose 50 ml 09/11/18 15:01 D50w (25gm) Syringe IV PRN PRN Hypoglycemia Divalproex Sodium 500 mg 09/11/18 14:00 09/14/18 08:[address] PO Not Given TID ELVIA Docusate Sodium 100 mg 09/12/18 10:00 09/14/18 12:01 Colace PO Not Given DAILY [facility] Enoxaparin Sodium 40 mg 09/11/18 22:00 09/13/18 22:28 Lovenox SUB-Q 40 mg QDAY@2200 ELVIA Administration Finasteride 5 mg 09/12/18 10:00 09/14/18 12:01 Proscar PO Not Given DAILY [facility] Folic Acid 1 mg 09/12/18 10:00 09/14/18 12:01 Folvite PO Not Given QDAY [facility] Sodium Chloride 1,000 mls @ 75 mls/hr 09/11/18 14:00 09/13/18 16:58 Nacl 0.9% 1000 Ml IV 75 mls/hr DIRECT [facility] Administration Insulin Human Lispro 0 unit 09/11/18 16:30 09/14/18 12:02 [facility]og [facility]Q [facility] Protocol Ipratropium [place] 0.5 mg 09/14/18 00:00 09/14/18 12:22 Atrovent IH Not Given Q4HRT [facility] Lisinopril 2.5 mg 09/12/18 10:00 09/14/18 12:02 Zestril PO Not Given QDAY [facility] Loperamide HCl 2 mg 09/12/18 11:00 09/13/18 10:13 Imodium PO 2 mg Q2H PRN Administration Diarrhea Lorazepam 2 mg 09/11/18 21:26 09/13/18 23:07 Ativan IV 2 mg Q1HR PRN Administration CIWA-Ar 8-15 Lorazepam 4 mg 09/11/18 21:26 Ativan IV Q1HR PRN CIWA-Ar 16-25 Melatonin 5 mg 09/12/18 22:00 09/14/18 00:51 Melatonin PO Not Given QHS [facility] Morphine Sulfate 2 mg 09/13/18 21:45 09/14/18 08:17 Morphine IV 2 mg Q4H PRN Administration Pain, Moderate (4-6) Nicotine 21 mg 09/12/18 10:00 09/14/18 12:03 Habitrol TD Not Given DAILY [facility] Nitroglycerin 0.4 mg 09/11/18 13:31 Nitrostat SL Q5M PRN Chest Pain Ondansetron HCl 4 mg 09/11/18 13:31 09/14/18 03:26 Zofran IV 4 mg Q8H PRN Administration Nausea And Vomiting Ondansetron HCl 4 mg 09/13/18 01:51 09/13/18 09:07 Zofran Odt PO 4 mg Q8H PRN Administration Nausea And Vomiting Pantoprazole Sodium 40 mg 09/13/18 10:00 09/14/18 12:04 Protonix IV Not Given QDAY [facility] Polyethylene Glycol 17 gm 09/12/18 10:00 09/14/18 12:01 Miralax 3350 PO Not Given QDAY [facility] Senna/Docusate Sodium 1 tab 09/12/18 10:00 09/14/18 12:02 Senokot S PO Not Given DAILY [facility] Sertraline HCl 50 mg 09/11/18 18:00 09/14/18 12:02 Zoloft PO Not Given QDAY [facility] Sodium Chloride 10 ml 09/11/18 22:00 09/14/18 12:02 Sodium Chloride Flush Syringe 10 Ml IV Not Given BID [facility] Sodium Chloride 10 ml 09/11/18 13:31 09/12/18 21:00 Sodium Chloride Flush Syringe 10 Ml IV 10 ml PRN PRN Administration LINE FLUSH Sodium Chloride 10 ml 09/11/18 13:31 Sodium Chloride Flush Syringe 10 Ml IV PRN PRN LINE FLUSH Tamsulosin HCl 0.4 mg 09/12/18 10:00 09/14/18 12:01 Flomax PO Not Given QDAY [facility] Tizanidine HCl 4 mg 09/11/18 15:00 09/14/18 12:03 Zanaflex PO Not Given Q6HR [facility]
--- NOTE | 2018-09-14 15:59 | Fluoroscopy Report ---
Small bowel follow-through HISTORY: nausea/vomiting. Technique: Single contrast barium technique utilized to evaluate the small bowel. Findings: Small bowel transit time was 45 minutes which is normal. No fold thickening, mass, mass e ffect, stenosis, or obstruction. The terminal ileum is normal in appearance. Impression: Unremarkable exam. Fluoroscopic time: 1.2 minutes Number of fluoroscopic images: 2 Signer Name: Curry Camacho MD Signed: 09/14/2018 3:55 PM Workstation Name: [id number]
[2018-09-14] MEDS ORDERED: PROVENTIL IH PRN (16:31)
[2018-09-14] MEDS: PULMICORT IH SCH (20:36)
[2018-09-14] MEDS: DUONEB *Not for PRN Use IH SCH (20:36)
[2018-09-14] MEDS: BROVANA NEBU IH SCH (20:36)
[2018-09-14] MEDS: LOVENOX SUB-Q SCH (21:43)
[2018-09-15] MEDS: DUONEB *Not for PRN Use IH SCH ×4 (01:22→20:19)
[2018-09-15] MEDS: ZANAFLEX PO SCH ×4 (01:46→19:41)
[2018-09-15] MEDS: ZOFRAN IV PRN ×2 (03:55→21:43)
[2018-09-15] MEDS: MORPHINE IV PRN ×3 (03:55→20:18)
[2018-09-15] MEDS: HumaLOG SUB-Q SCH ×4 (07:30→22:52)
--- NOTE | 2018-09-15 08:04 | Progress Note ---
Subjective - Reason for Consult Consult date: 09/15/18 Reason for consult: Psychiatry Follow-up - Chief Complaint Chief complaint: "I feel weak" 57 y.o. white female who presented to the ER for suicide attempt by consuming a large quantity of Vodka per the patient. Today the patient was calm and cooperative during the assessment. He stated that his SI's have "decreased." He stated that he want to feel better "physically." He denies HI's and AVH's. The patient isn't taking his PO medications per the MAR (NPO). Mental Status Exam - Vital signs Last Vital Signs Temp 97.8 F 09/15/18 05:26 Pulse 62 09/15/18 05:28 Resp 20 09/15/18 05:26 BP 109/70 09/15/18 05:26 Pulse Ox 96 09/14/18 21:44 - Exam Narrative exam: MSE: Appearance: calm, cooperative Behavior: regular eye contact Speech: regular rate and tone Mood: "weak" Affect: appropriate Thought Process: linear Thought Content: denies HI's and AVH's Motor Activity: ambulatory Cognition: A/O x3 Insight: fair Judgment: variable Assessment and Plan Impression: MDD, Severe type. Alcohol Use DO. Insomnia. Today the patient was calm and cooperative during the assessment. GI is following. DDx: Alcohol Induced Mood DO Recommendation/Plan: Continue 1013, Zoloft 50 mg PO daily for depression, and Melatonin 5 mg PO HS for sleep. Discussed possible suicidality/medication induced pravin with the patient reference Zoloft, he verbalized understanding. Monitor patient for alcohol withdrawals. Dispo: The patient will be referred to inpatient psy services once medically clear. Staffed with Dr. Babatunde Angulo.
[2018-09-15] MEDS: BROVANA NEBU IH SCH ×2 (08:25→20:19)
[2018-09-15] MEDS: PULMICORT IH SCH ×2 (08:25→20:19)
[2018-09-15] MEDS: HABITROL TD SCH (09:15)
[2018-09-15] MEDS: MIRALAX 3350 PO SCH (09:15)
[2018-09-15] MEDS: SENOKOT S PO SCH (09:15)
[2018-09-15] MEDS: ZOLOFT PO SCH (09:15)
[2018-09-15] MEDS: FLOMAX PO SCH (09:15)
[2018-09-15] MEDS: PROSCAR PO SCH (09:15)
[2018-09-15] MEDS: COLACE PO SCH (09:15)
[2018-09-15] MEDS: PROTONIX IV SCH (09:16)
[2018-09-15] MEDS: OSCAL PO SCH (09:16)
[2018-09-15] MEDS: SODIUM CHLORIDE FLUSH SYRINGE 10 ML IV SCH ×2 (09:16→21:37)
[2018-09-15] MEDS: FOLVITE PO SCH (09:16)
[2018-09-15] MEDS: ZESTRIL PO SCH (09:17)
--- NOTE | 2018-09-15 14:34 | Gastroenterology Progress Note ---
Assessment and Plan 1.N/V - unclear etiology- ddx including alcohol related gastritis, gastroparesis, PUD - CT abdomen/pelvis unremarkable - SBFT unremarkable - currently tolerating clears with no episodes of vomiting so far today per pt/nursing - no plan for scope at this time, will consider based on progress - start on trial of soft diet - continue PPI, antiemtics, and supportive care - will follow Subjective Date of service: 09/15/18 Principal diagnosis: intractable N/V Interval history: No acute distress. No vomiting so far today per pt/nursing. Tolerating clears. Objective - Constitutional Vitals: Temp Pulse Resp BP Pulse Ox 97.8 F 60 20 120/73 97 09/15/18 05:26 09/15/18 14:30 09/15/18 14:30 09/15/18 09:17 09/15/18 09:33 General appearance: no acute distress - Respiratory Respiratory effort: normal - Cardiovascular Rhythm: regular - Gastrointestinal General gastrointestinal: Present: soft, non-tender, non-distended, normal bowel sounds - Labs CBC & Chem 7: 09/12/18 04:43 09/12/18 04:43 Labs: Laboratory Results - last 24 hr 09/14/18 09/14/18 09/15/18 14:11 21:26 07:49 POC Glucose 127 H 110 H 148 H 09/15/18 11:34 POC Glucose 157 H
--- NOTE | 2018-09-15 14:59 | Progress Note ---
Assessment and Plan Assessment and plan: Patient is a 57 yo man with a history of HTN, DM, ETOH Dependence, Depression, Psychosis, Prostate Cancer, Asthma, COPD and tobacco Dependence who presented to [facility] ED with chest pains, sob, abdominal pains and Suicidal attempt by drinking 2.5 gallons of vodka over the past 2 days in an effort to end his life. He was placed on a 1013. He was diagnosis with atypical chest pain as well as Diastolic CHF, and ETOH Withdrawal. Pt admitted to telemetry and treated with supportive care. Pt initiated on CIWA protocol for ETOH Dependence with ETOH withdrawal. Mental health consulted and patient placed on 1013 and placed on 1:1 sitter. He developed intractable nausea and vomiting; therefore, he was evaluated by GI. Small bowel follow through was unremarkable as well as Exercise Stress test. Intractable nausea and Vomiting: advance diet, Continue Zofran, GI following Acute on chronic Diastolic CHF, resolved, not on diuretics MDD-Severe with Suicidal ideation and attempt: psych is following, on 1013 ETOH USE/DEPENDANCE with Alcohol Withdrawal: treated with CIWA protocol Hyponatremia, hypovolemia: monitor closely Atypical chest pain secondary to Costochondiritis and GERD related syndrome: treat with PPI NSAID abuse: stop and counseling done Nicotine Dependance: nicotine patch Obesity: counseled on lifestyle modifications Diabetes Mellitus: ssi, ada diet HX OF Prostate Cancer Acute Toxic Metabolic Encephalopathy, poa Rib Fracture-Chronic Insomnia HTN: low salt diet Medical cleared for Inpatient psych History Interval history: Patient was seen and examined. Follow-up on current diagnosis N/V. No overnight events reported to me. Patient denies any chest pain, shortness breath, nausea/vomiting or severe headaches. Imaging, nursing note, chart, labs and old chart reviewed. Discussed with patient. Hospitalist Physical - Physical exam Narrative exam: Gen: WDWN, NAD, Awake, Alert, Orientated HEENT: NCAT, EOMI, PERRL, OP Clear Neck: supple, no adenopathy, no thyromegaly, no JVD CVS/Heart: RRR, normal S1S2, pulses present bilaterally Chest/Lungs: CTA B, Symmetrical chest expansion, good air entry bilaterally GI/Abdomen: soft, NTND, good bowel sounds, no guarding or rebound /Bladder: no suprapubic tenderness, no CVA or paraspinal tenderness Extermity/Skin: no c/c/e, no obvious rash MSK: FROM x 4 Neuro: CN 2-12 grossly intact, no new focal deficits Psych: calm - Constitutional Vitals: Temp Pulse Resp BP Pulse Ox 97.8 F 63 20 120/73 97 09/15/18 05:26 09/15/18 14:37 09/15/18 14:37 09/15/18 09:17 09/15/18 09:33 General appearance: Present: obese. Absent: mild distress Results - Labs CBC & Chem 7: 09/12/18 04:43 09/12/18 04:43 Labs: Laboratory Last Values WBC 4.3 K/mm3 (4.5-11.0) L 09/12/18 04:43 RBC 3.75 M/mm3 (3.65-5.03) 09/12/18 04:43 Hgb 12.0 gm/dl (11.8-15.2) 09/12/18 04:43 Hct 33.3 % (35.5-45.6) L 09/12/18 04:43 MCV 89 fl (84-94) 09/12/18 04:43 MCH 32 pg (28-32) 09/12/18 04:43 MCHC 36 % (32-34) H 09/12/18 04:43 RDW 13.8 % (13.2-15.2) 09/12/18 04:43 Plt Count 130 K/mm3 (140-440) L 09/12/18 04:43 Lymph % (Auto) 26.2 % (13.4-35.0) 09/12/18 04:43 [place] % (Auto) 10.5 % (0.0-7.3) H 09/12/18 04:43 Eos % (Auto) 1.3 % (0.0-4.3) 09/12/18 04:43 Baso % (Auto) 1.0 % (0.0-1.8) 09/12/18 04:43 Lymph # 1.1 K/mm3 (1.2-5.4) L 09/12/18 04:43 [place] # 0.5 K/mm3 (0.0-0.8) 09/12/18 04:43 Eos # 0.1 K/mm3 (0.0-0.4) 09/12/18 04:43 Baso # 0.0 K/mm3 (0.0-0.1) 09/12/18 04:43 Seg Neutrophils % 61.0 % (40.0-70.0) 09/12/18 04:43 Seg Neutrophils # 2.6 K/mm3 (1.8-7.7) 09/12/18 04:43 196.97 ng/mlDDU (0-234) 09/11/18 14:51 Sodium 134 mmol/L (137-145) L 09/12/18 04:43 Potassium 3.6 mmol/L (3.6-5.0) 09/12/18 04:43 Chloride 99.1 mmol/L (98-107) 09/12/18 04:43 Carbon Dioxide 24 mmol/L (22-30) D 09/12/18 04:43 15 mmol/L 09/12/18 04:43 BUN 14 mg/dL (9-20) 09/12/18 04:43 0.6 mg/dL (0.8-1.5) L 09/12/18 04:43 Estimated GFR > 60 ml/min 09/12/18 04:43 23 % 09/12/18 04:43 Glucose 164 mg/dL (75-100) H 09/12/18 04:43 POC Glucose 157 (70-105) H 09/15/18 11:34 Calcium 7.3 mg/dL (8.4-10.2) L 09/12/18 04:43 Magnesium 1.90 mg/dL (1.7-2.3) 09/11/18 11:51 0.30 mg/dL (0.1-1.2) 09/12/18 04:43 0.4 mg/dL (0-0.2) H 09/11/18 11:51 -0.2 mg/dL 09/11/18 11:51 AST 25 units/L (5-40) 09/12/18 04:43 ALT 34 units/L (7-56) 09/12/18 04:43 145 units/L (35-129) H 09/12/18 04:43 < 0.010 ng/mL (0.00-0.029) 09/11/18 19:45 6.1 g/dL (6.3-8.2) L 09/12/18 04:43 3.4 g/dL (3.9-5) L 09/12/18 04:43 1.3 % 09/12/18 04:43 Triglycerides 1018 mg/dL (2-149) H 09/11/18 11:51 Cholesterol 398 mg/dL (50-199) H 09/11/18 11:51 70 mg/dL (50-130) 09/11/18 11:51 24 mg/dL (40-59) L 09/11/18 11:51 16.58 % 09/11/18 11:51 22 units/L (13-60) 09/11/18 11:51 Yellow (Yellow) 09/11/18 11:43 Clear (Clear) 09/11/18 11:43 6.0 (5.0-7.0) 09/11/18 11:43 Ur Specific [place] 1.023 (1.003-1.030) 09/11/18 11:43 100 mg/dl mg/dL (Negative) 09/11/18 11:43 Neg mg/dL (Negative) 09/11/18 11:43 80 mg/dL (Negative) 09/11/18 11:43 Sm (Negative) 09/11/18 11:43 Neg (Negative) 09/11/18 11:43 Neg (Negative) 09/11/18 11:43 < 2.0 mg/dL (<2.0) 09/11/18 11:43 Ur Leukocyte Esterase Neg (Negative) 09/11/18 11:43 < 1.0 /HPF (0.0-6.0) 09/11/18 11:43 < 1.0 /HPF (0.0-6.0) 09/11/18 11:43 U Epithel Cells (Auto) 1.0 /HPF (0-13.0) 09/11/18 11:43 Few /HPF 09/11/18 11:43 Salicylates < 0.3 mg/dL (2.8-20.0) L 09/11/18 11:51 Presumptive negative 09/11/18 11:43 Presumptive negative 09/11/18 11:43 Acetaminophen < 5.0 ug/mL (10.0-30.0) L 09/11/18 11:51 Ur Barbiturates Screen Presumptive negative 09/11/18 11:43 Phenytoin 2.6 ug/mL (10.0-20.0) L 09/11/18 11:51 Valproic Acid < 2.8 ug/mL (50-100) L 09/11/18 11:51 Ur Phencyclidine Scrn Presumptive negative 09/11/18 11:43 Ur Amphetamines Screen Presumptive negative 09/11/18 11:43 U Benzodiazepines Scrn Presumptive negative 09/11/18 11:43 Presumptive negative 09/11/18 11:43 U Marijuana (THC) Screen Presumptive negative 09/11/18 11:43 Disclamer 09/11/18 11:43 Plasma/Serum Alcohol 0.06 % (0-0.07) 09/11/18 11:51 Active Medications - Current Medications Current Medications: Generic Name Dose Route Start Last Admin Trade Name Freq PRN Reason Stop Dose Admin Acetaminophen 650 mg 09/11/18 13:31 Tylenol PO Q4H PRN Pain MILD(1-3)/Fever >100.5/METZ Albuterol 2.5 mg 09/14/18 16:31 Proventil IH Q4HRT PRN Shortness Of Breath Albuterol/Ipratropium 1 ampul 09/14/18 20:00 09/15/18 14:29 Duoneb *Not For Prn Use* IH 1 ampul Q6HRT ELVIA Administration Arformoterol Tartrate 15 mcg 09/14/18 20:00 09/15/18 08:25 Brovana Nebu IH 15 mcg Q12HRT ELVIA Administration Atorvastatin Calcium 40 mg 09/11/18 22:00 09/14/18 21:43 Lipitor PO 40 mg QHS ELVIA Administration Budesonide 0.5 mg 09/14/18 20:00 09/15/18 08:25 Pulmicort IH 0.5 mg Q12HRT ELVIA Administration Calcium Carbonate/Glycine 1,250 mg 09/12/18 10:00 09/15/18 09:16 Oscal PO 1,250 mg DAILY ELVIA Administration Dextrose 50 ml 09/11/18 15:01 D50w (25gm) Syringe IV PRN PRN Hypoglycemia Divalproex Sodium 500 mg 09/11/18 14:00 09/15/18 13:[address] PO 500 mg TID ELVIA Administration Docusate Sodium 100 mg 09/12/18 10:00 09/15/18 09:15 Colace PO 100 mg DAILY ELIVA Administration Enoxaparin Sodium 40 mg 09/11/18 22:00 09/14/18 21:43 Lovenox SUB-Q 40 mg QDAY@2200 ELVIA Administration Finasteride 5 mg 09/12/18 10:00 09/15/18 09:15 Proscar PO 5 mg DAILY ELVIA Administration Folic Acid 1 mg 09/12/18 10:00 09/15/18 09:16 Folvite PO 1 mg QDAY ELVIA Administration Insulin Human Lispro 0 unit 09/11/18 16:30 09/15/18 13:02 Humalog SUB-Q 2 unit ACHS ELVIA Administration Protocol Lisinopril 2.5 mg 09/12/18 10:00 09/15/18 09:17 Zestril PO 2.5 mg QDAY ELVIA Administration Loperamide HCl 2 mg 09/12/18 11:00 09/13/18 10:13 Imodium PO 2 mg Q2H PRN Administration Diarrhea Lorazepam 2 mg 09/11/18 21:26 09/13/18 23:07 Ativan IV 2 mg Q1HR PRN Administration CIWA-Ar 8-15 Lorazepam 4 mg 09/11/18 21:26 Ativan IV Q1HR PRN CIWA-Ar 16-25 Melatonin 5 mg 09/12/18 22:00 09/14/18 21:43 Melatonin PO 5 mg QHS ELVIA Administration Morphine Sulfate 2 mg 09/13/18 21:45 09/15/18 13:00 Morphine IV 2 mg Q4H PRN Administration Pain, Moderate (4-6) Nicotine 21 mg 09/12/18 10:00 09/15/18 09:15 Habitrol TD 21 mg DAILY ELVIA Administration Nitroglycerin 0.4 mg 09/11/18 13:31 Nitrostat SL Q5M PRN Chest Pain Ondansetron HCl 4 mg 09/11/18 13:31 09/15/18 03:55 Zofran IV 4 mg Q8H PRN Administration Nausea And Vomiting Ondansetron HCl 4 mg 09/13/18 01:51 09/13/18 09:07 Zofran Odt PO 4 mg Q8H PRN Administration Nausea And Vomiting Pantoprazole Sodium 40 mg 09/13/18 10:00 09/15/18 09:16 Protonix IV 40 mg QDAY ELVIA Administration Polyethylene Glycol 17 gm 09/12/18 10:00 09/15/18 09:15 Miralax 3350 PO 17 gm QDAY ELVIA Administration Senna/Docusate Sodium 1 tab 09/12/18 10:00 09/15/18 09:15 Senokot S PO 1 tab DAILY ELVIA Administration Sertraline HCl 50 mg 09/11/18 18:00 09/15/18 09:15 Zoloft PO 50 mg QDAY ELVIA Administration Sodium Chloride 10 ml 09/11/18 22:00 09/15/18 09:16 Sodium Chloride Flush Syringe 10 Ml IV 10 ml BID ELVIA Administration Sodium Chloride 10 ml 09/11/18 13:31 09/12/18 21:00 Sodium Chloride Flush Syringe 10 Ml IV 10 ml PRN PRN Administration LINE FLUSH Sodium Chloride 10 ml 09/11/18 13:31 Sodium Chloride Flush Syringe 10 Ml IV PRN PRN LINE FLUSH Tamsulosin HCl 0.4 mg 09/12/18 10:00 09/15/18 09:15 Flomax PO 0.4 mg QDAY ELVIA Administration Tizanidine HCl 4 mg 09/11/18 15:00 09/15/18 13:02 Zanaflex PO 4 mg Q6HR ELVIA Administration
[2018-09-15] MEDS: LOVENOX SUB-Q SCH (21:37)
[2018-09-15] MEDS: MELATONIN PO SCH (21:37)
[2018-09-16] MEDS: ZANAFLEX PO SCH ×4 (00:48→19:41)
[2018-09-16] MEDS: DUONEB *Not for PRN Use IH SCH ×4 (03:20→20:37)
[2018-09-16] MEDS: MORPHINE IV PRN ×3 (06:58→19:42)
[2018-09-16] MEDS: HumaLOG SUB-Q SCH ×4 (08:00→22:50)
[2018-09-16] MEDS: BROVANA NEBU IH SCH ×2 (08:27→20:37)
[2018-09-16] MEDS: PULMICORT IH SCH ×2 (08:27→20:37)
[2018-09-16] MEDS: PROTONIX IV SCH (11:09)
[2018-09-16] MEDS: HABITROL TD SCH (11:09)
[2018-09-16] MEDS: FLOMAX PO SCH (11:10)
[2018-09-16] MEDS: FOLVITE PO SCH (11:10)
[2018-09-16] MEDS: OSCAL PO SCH (11:10)
[2018-09-16] MEDS: ZESTRIL PO SCH (11:10)
[2018-09-16] MEDS: SENOKOT S PO SCH ×2 (11:10→15:14)
[2018-09-16] MEDS: ZOLOFT PO SCH (11:10)
[2018-09-16] MEDS: PROSCAR PO SCH (11:16)
[2018-09-16] MEDS: IMODIUM PO PRN (11:26)
--- NOTE | 2018-09-16 11:37 | Gastroenterology Progress Note ---
Assessment and Plan 1.N/V - unclear etiology- ddx including alcohol related gastritis, gastroparesis, PUD - CT abdomen/pelvis unremarkable - SBFT unremarkable - currently tolerating soft diet - no plan for scope at this time - continue PPI, antiemtics, and supportive care - patient okay to be d/c per GI stanpoint with f/u in clinic for further management if symptoms persists -will sign off, please call if needed Subjective Date of service: 09/16/18 Principal diagnosis: intractable N/V Interval history: No acute distress. Tolerated eating eggs and grits this am for breakfast w/o vomiting. Objective - Constitutional Vitals: Temp Pulse Resp BP Pulse Ox 98.6 F 71 20 118/73 94 09/16/18 11:05 09/16/18 11:10 09/16/18 11:05 09/16/18 11:10 09/16/18 11:05 General appearance: no acute distress - Respiratory Respiratory effort: normal - Cardiovascular Rhythm: regular - Gastrointestinal General gastrointestinal: Present: soft, non-distended, normal bowel sounds - Labs CBC & Chem 7: 09/12/18 04:43 09/12/18 04:43 Labs: Laboratory Results - last 24 hr 09/15/18 09/15/18 09/15/18 07:49 11:34 16:29 POC Glucose 148 H 157 H 131 H 09/15/18 09/16/18 09/16/18 22:15 07:59 11:35 POC Glucose 199 H 146 H 167 H
--- NOTE | 2018-09-16 12:38 | Progress Note ---
Subjective - Reason for Consult Consult date: 09/16/18 Reason for consult: Psychiatric Follow-up Evaluation - Chief Complaint Chief complaint: "I feel like shit" Patient is a 57 y.o. male who presented to the ER for suicide attempt by consuming a large quantity of Vodka per the patient. Patient is known to provider. Today the patient is calm and cooperative during the assessment. He stated that his SI's have "decreased." He stated that he wants to feel better "physically." He denies HI's and AVH's. He continues to have depressed mood and anxiety. He rates depression 10/10, with 10 being the worse. The patient is no longer NPO. Mental Status Exam - Vital signs Last Vital Signs Temp 98.6 F 09/16/18 11:05 Pulse 71 09/16/18 11:10 Resp 20 09/16/18 11:05 BP 118/73 09/16/18 11:10 Pulse Ox 94 09/16/18 11:05 - Exam Narrative exam: Mental Status Exam: Appearance: calm, cooperative Behavior: regular eye contact Speech: regular rate and tone Mood: "I feel like shit"; depressed, anxious Affect: appropriate Thought Process: linear Thought Content: denies HI's, A/VH's, and delusions; SI's with plan to drink ( alcohol) self to . Motor Activity: ambulatory Cognition: A/O x 3 Insight: fair Judgment: variable Assessment and Plan Impression: MDD, Severe type. Alcohol Use DO. Insomnia. Today the patient is calm and cooperative during the assessment. GI is following. DDx: Alcohol Induced Mood DO Recommendation/Plan: 1. Continue 1013. 2. Continue Zoloft 50 mg PO daily for depression and Melatonin 5 mg PO HS for sleep. Discussed possible suicidality/medication induced pravin with the patient reference Zoloft, he verbalized understanding. Monitor patient for alcohol withdrawals. Disposition: The patient will be referred to inpatient psychiatric services once medically clear. Staffed with Dr. Babatunde Angulo.
[2018-09-16] MEDS: ZOFRAN IV PRN ×2 (13:02→19:41)
[2018-09-16] MEDS: SODIUM CHLORIDE FLUSH SYRINGE 10 ML IV SCH ×2 (14:23→21:33)
--- NOTE | 2018-09-16 14:27 | Progress Note ---
Assessment and Plan Assessment and plan: Patient is a 57 yo man with a history of HTN, DM, ETOH Dependence, Depression, Psychosis, Prostate Cancer, Asthma, COPD and tobacco Dependence who presented to [facility] with chest pains, sob, abdominal pains and Suicidal attempt by drinking 2.5 gallons of vodka over the past 2 days in an effort to end his life. He was placed on a 1013. He was diagnosis with atypical chest pain as well as Diastolic CHF, and ETOH Withdrawal. Pt admitted to telemetry and treated with supportive care. Pt initiated on CIWA protocol for ETOH Dependence with ETOH withdrawal. Mental health consulted and patient placed on 1013 and placed on 1:1 sitter. He developed intractable nausea and vomiting; therefore, he was evaluated by GI. Small bowel follow through was unremarkable as well as Exercise Stress test. Intractable nausea and Vomiting: advance diet, Continue Zofran, GI following Acute on chronic Diastolic CHF, resolved, not on diuretics MDD-Severe with Suicidal ideation and attempt: psych is following, on 1013 ETOH USE/DEPENDANCE with Alcohol Withdrawal: treated with CIWA protocol Hyponatremia, hypovolemia: monitor closely Atypical chest pain secondary to Costochondritis and GERD related syndrome: treat with PPI NSAID abuse: stop and counseling done Nicotine Dependance: nicotine patch Obesity: counseled on lifestyle modifications Diabetes Mellitus: ssi, ada diet HX OF Prostate Cancer Acute Toxic Metabolic Encephalopathy, poa Rib Fracture-Chronic Insomnia HTN: low salt diet Recurrent chest pains, order stress test and Gi consult History Interval history: Patient was seen and examined. Follow-up on current diagnosis N/V. No overnight events reported to me. Patient denies any shortness breath, or severe headaches. Imaging, nursing note, chart, labs and old chart reviewed. Discussed with patient. He is having burning chest pains with eating only, denies SI Hospitalist Physical - Physical exam Narrative exam: Gen: WDWN, NAD, Awake, Alert, Orientated HEENT: NCAT, EOMI, PERRL, OP Clear Neck: supple, no adenopathy, no thyromegaly, no JVD CVS/Heart: RRR, normal S1S2, pulses present bilaterally Chest/Lungs: CTA B, Symmetrical chest expansion, good air entry bilaterally GI/Abdomen: soft, NTND, good bowel sounds, no guarding or rebound /Bladder: no suprapubic tenderness, no CVA or paraspinal tenderness Extermity/Skin: no c/c/e, no obvious rash MSK: FROM x 4 Neuro: CN 2-12 grossly intact, no new focal deficits Psych: calm - Constitutional Vitals: Temp Pulse Resp BP Pulse Ox 98.6 F 99 H 19 118/73 94 09/16/18 11:05 09/16/18 13:33 09/16/18 13:33 09/16/18 11:10 09/16/18 11:05 General appearance: Present: obese. Absent: mild distress Results - Labs CBC & Chem 7: 09/12/18 04:43 09/12/18 04:43 Labs: Laboratory Last Values WBC 4.3 K/mm3 (4.5-11.0) L 09/12/18 04:43 RBC 3.75 M/mm3 (3.65-5.03) 09/12/18 04:43 Hgb 12.0 gm/dl (11.8-15.2) 09/12/18 04:43 Hct 33.3 % (35.5-45.6) L 09/12/18 04:43 MCV 89 fl (84-94) 09/12/18 04:43 MCH 32 pg (28-32) 09/12/18 04:43 MCHC 36 % (32-34) H 09/12/18 04:43 RDW 13.8 % (13.2-15.2) 09/12/18 04:43 Plt Count 130 K/mm3 (140-440) L 09/12/18 04:43 Lymph % (Auto) 26.2 % (13.4-35.0) 09/12/18 04:43 [place] % (Auto) 10.5 % (0.0-7.3) H 09/12/18 04:43 Eos % (Auto) 1.3 % (0.0-4.3) 09/12/18 04:43 Baso % (Auto) 1.0 % (0.0-1.8) 09/12/18 04:43 Lymph # 1.1 K/mm3 (1.2-5.4) L 09/12/18 04:43 [place] # 0.5 K/mm3 (0.0-0.8) 09/12/18 04:43 Eos # 0.1 K/mm3 (0.0-0.4) 09/12/18 04:43 Baso # 0.0 K/mm3 (0.0-0.1) 09/12/18 04:43 Seg Neutrophils % 61.0 % (40.0-70.0) 09/12/18 04:43 Seg Neutrophils # 2.6 K/mm3 (1.8-7.7) 09/12/18 04:43 196.97 ng/mlDDU (0-234) 09/11/18 14:51 Sodium 134 mmol/L (137-145) L 09/12/18 04:43 Potassium 3.6 mmol/L (3.6-5.0) 09/12/18 04:43 Chloride 99.1 mmol/L (98-107) 09/12/18 04:43 Carbon Dioxide 24 mmol/L (22-30) D 09/12/18 04:43 15 mmol/L 09/12/18 04:43 BUN 14 mg/dL (9-20) 09/12/18 04:43 0.6 mg/dL (0.8-1.5) L 09/12/18 04:43 Estimated GFR > 60 ml/min 09/12/18 04:43 23 % 09/12/18 04:43 Glucose 164 mg/dL (75-100) H 09/12/18 04:43 POC Glucose 167 (70-105) H 09/16/18 11:35 Calcium 7.3 mg/dL (8.4-10.2) L 09/12/18 04:43 Magnesium 1.90 mg/dL (1.7-2.3) 09/11/18 11:51 0.30 mg/dL (0.1-1.2) 09/12/18 04:43 0.4 mg/dL (0-0.2) H 09/11/18 11:51 -0.2 mg/dL 09/11/18 11:51 AST 25 units/L (5-40) 09/12/18 04:43 ALT 34 units/L (7-56) 09/12/18 04:43 145 units/L (35-129) H 09/12/18 04:43 < 0.010 ng/mL (0.00-0.029) 09/11/18 19:45 6.1 g/dL (6.3-8.2) L 09/12/18 04:43 3.4 g/dL (3.9-5) L 09/12/18 04:43 1.3 % 09/12/18 04:43 Triglycerides 1018 mg/dL (2-149) H 09/11/18 11:51 Cholesterol 398 mg/dL (50-199) H 09/11/18 11:51 70 mg/dL (50-130) 09/11/18 11:51 24 mg/dL (40-59) L 09/11/18 11:51 16.58 % 09/11/18 11:51 22 units/L (13-60) 09/11/18 11:51 Yellow (Yellow) 09/11/18 11:43 Clear (Clear) 09/11/18 11:43 6.0 (5.0-7.0) 09/11/18 11:43 Ur Specific [place] 1.023 (1.003-1.030) 09/11/18 11:43 100 mg/dl mg/dL (Negative) 09/11/18 11:43 Neg mg/dL (Negative) 09/11/18 11:43 80 mg/dL (Negative) 09/11/18 11:43 Sm (Negative) 09/11/18 11:43 Neg (Negative) 09/11/18 11:43 Neg (Negative) 09/11/18 11:43 < 2.0 mg/dL (<2.0) 09/11/18 11:43 Ur Leukocyte Esterase Neg (Negative) 09/11/18 11:43 < 1.0 /HPF (0.0-6.0) 09/11/18 11:43 < 1.0 /HPF (0.0-6.0) 09/11/18 11:43 U Epithel Cells (Auto) 1.0 /HPF (0-13.0) 09/11/18 11:43 Few /HPF 09/11/18 11:43 Salicylates < 0.3 mg/dL (2.8-20.0) L 09/11/18 11:51 Presumptive negative 09/11/18 11:43 Presumptive negative 09/11/18 11:43 Acetaminophen < 5.0 ug/mL (10.0-30.0) L 09/11/18 11:51 Ur Barbiturates Screen Presumptive negative 09/11/18 11:43 Phenytoin 2.6 ug/mL (10.0-20.0) L 09/11/18 11:51 Valproic Acid < 2.8 ug/mL (50-100) L 09/11/18 11:51 Ur Phencyclidine Scrn Presumptive negative 09/11/18 11:43 Ur Amphetamines Screen Presumptive negative 09/11/18 11:43 U Benzodiazepines Scrn Presumptive negative 09/11/18 11:43 Presumptive negative 09/11/18 11:43 U Marijuana (THC) Screen Presumptive negative 09/11/18 11:43 Disclamer 09/11/18 11:43 Plasma/Serum Alcohol 0.06 % (0-0.07) 09/11/18 11:51 Active Medications - Current Medications Current Medications: Generic Name Dose Route Start Last Admin Trade Name Freq PRN Reason Stop Dose Admin Acetaminophen 650 mg 09/11/18 13:31 Tylenol PO Q4H PRN Pain MILD(1-3)/Fever >100.5/METZ Albuterol 2.5 mg 09/14/18 16:31 Proventil IH Q4HRT PRN Shortness Of Breath Albuterol/Ipratropium 1 ampul 09/14/18 20:00 09/16/18 13:22 Duoneb *Not For Prn Use* IH 1 ampul Q6HRT ELVIA Administration Arformoterol Tartrate 15 mcg 09/14/18 20:00 09/16/18 08:27 Brovana Nebu IH 15 mcg Q12HRT ELVIA Administration Atorvastatin Calcium 40 mg 09/11/18 22:00 09/15/18 21:37 Lipitor PO 40 mg QHS ELVIA Administration Budesonide 0.5 mg 09/14/18 20:00 09/16/18 08:27 Pulmicort IH 0.5 mg Q12HRT ELVIA Administration Calcium Carbonate/Glycine 1,250 mg 09/12/18 10:00 09/16/18 11:10 Oscal PO 1,250 mg DAILY ELVIA Administration Dextrose 50 ml 09/11/18 15:01 D50w (25gm) Syringe IV PRN PRN Hypoglycemia Divalproex Sodium 500 mg 09/11/18 14:00 09/16/18 11:[address] PO 500 mg TID ELVIA Administration Docusate Sodium 100 mg 09/12/18 10:00 09/15/18 09:15 Colace PO 100 mg DAILY ELVIA Administration Enoxaparin Sodium 40 mg 09/11/18 22:00 09/15/18 21:37 Lovenox SUB-Q 40 mg QDAY@2200 ELVIA Administration Finasteride 5 mg 09/12/18 10:00 09/16/18 11:16 Proscar PO 5 mg DAILY ELVIA Administration Folic Acid 1 mg 09/12/18 10:00 09/16/18 11:10 Folvite PO 1 mg QDAY ELVIA Administration Insulin Human Lispro 0 unit 09/11/18 16:30 09/16/18 08:00 Humalog SUB-Q Not Given [facility] Protocol Lisinopril 2.5 mg 09/12/18 10:00 09/16/18 11:10 Zestril PO 2.5 mg QDAY ELVIA Administration Loperamide HCl 2 mg 09/12/18 11:00 09/16/18 11:26 Imodium PO 2 mg Q2H PRN Administration Diarrhea Lorazepam 2 mg 09/11/18 21:26 09/13/18 23:07 Ativan IV 2 mg Q1HR PRN Administration CIWA-Ar 8-15 Lorazepam 4 mg 09/11/18 21:26 Ativan IV Q1HR PRN CIWA-Ar 16-25 Melatonin 5 mg 09/12/18 22:00 09/15/18 21:37 Melatonin PO 5 mg QHS ELVIA Administration Morphine Sulfate 2 mg 09/13/18 21:45 09/16/18 13:02 Morphine IV 2 mg Q4H PRN Administration Pain, Moderate (4-6) Nicotine 21 mg 09/12/18 10:00 09/16/18 11:09 Habitrol TD 21 mg DAILY ELVIA Administration Nitroglycerin 0.4 mg 09/11/18 13:31 Nitrostat SL Q5M PRN Chest Pain Ondansetron HCl 4 mg 09/11/18 13:31 09/16/18 13:02 Zofran IV 4 mg Q8H PRN Administration Nausea And Vomiting Pantoprazole Sodium 40 mg 09/17/18 10:00 Protonix PO DAILY ELVIA Polyethylene Glycol 17 gm 09/12/18 10:00 09/15/18 09:15 Miralax 3350 PO 17 gm QDAY ELVIA Administration Senna/Docusate Sodium 1 tab 09/12/18 10:00 09/15/18 09:15 Senokot S PO 1 tab DAILY ELVIA Administration Sertraline HCl 50 mg 09/11/18 18:00 09/16/18 11:10 Zoloft PO 50 mg QDAY ELVIA Administration Sodium Chloride 10 ml 09/11/18 22:00 09/15/18 21:37 Sodium Chloride Flush Syringe 10 Ml IV 10 ml BID ELVIA Administration Sodium Chloride 10 ml 09/11/18 13:31 09/12/18 21:00 Sodium Chloride Flush Syringe 10 Ml IV 10 ml PRN PRN Administration LINE FLUSH Sodium Chloride 10 ml 09/11/18 13:31 Sodium Chloride Flush Syringe 10 Ml IV PRN PRN LINE FLUSH Tamsulosin HCl 0.4 mg 09/12/18 10:00 09/16/18 11:10 Flomax PO 0.4 mg QDAY ELVIA Administration Tizanidine HCl 4 mg 09/11/18 15:00 09/16/18 11:10 Zanaflex PO 4 mg Q6HR ELVIA Administration
[2018-09-16] MEDS: MIRALAX 3350 PO SCH (15:14)
[2018-09-16] MEDS: COLACE PO SCH (16:33)
--- NOTE | 2018-09-16 18:00 | XRay Report ---
ABDOMEN 2 VIEW(S) INDICATION / CLINICAL INFORMATION: abdominal pain, distended abdomen. COMPARISON: Small bowel series 09/14/2018 FINDINGS: TUBES / LINES: None. BOWEL GAS PATTERN: Moderate residual barium is seen throughout the colon. The bowel gas pattern is no nobstructive and no residual barium is seen within the small bowel. FREE AIR / EXTRALUMINAL GAS: None seen. ADDITIONAL FINDINGS: No significant additional findings. IMPRESSION: 1. No significant abnormality. 2. Moderate amount of retained colonic barium from small bowel series 2 days ago Signer Name: Arsh Barnett MD Signed: 09/16/2018 5:55 PM Workstation Name: [id number]
[2018-09-16] MEDS: LOVENOX SUB-Q SCH (21:32)
[2018-09-16] MEDS: MELATONIN PO SCH (21:33)
[2018-09-17] MEDS: ZANAFLEX PO SCH ×4 (00:54→17:34)
[2018-09-17] MEDS: MORPHINE IV PRN ×4 (01:59→21:55)
[2018-09-17] MEDS: ZOFRAN IV PRN ×3 (02:06→17:35)
[2018-09-17] MEDS: DUONEB *Not for PRN Use IH SCH ×4 (02:22→21:23)
[2018-09-17 06:15] LABS: Hematocrit 33.3 % (35.5-45.6); Hemoglobin 11.6 gm/dl (11.8-15.2); Mean Corpuscular HGB Conc 35 % (32-34); Mean Corpuscular Volume 90 fl (84-94); Platelet Count 109 K/mm3 (140-440); Red Cell Distribution Width 14.1 % (13.2-15.2)
[2018-09-17 06:26] LABS: BUN/Creatinine Ratio 9; Blood Urea Nitrogen 6 mg/dL (9-20); Calcium 8.3 mg/dL (8.4-10.2); Hemolysis Index 5
[2018-09-17] MEDS ORDERED: K-DUR PO NR ×2 (06:53→12:00)
[2018-09-17] MEDS: HumaLOG SUB-Q SCH ×4 (08:13→22:07)
[2018-09-17] MEDS: PULMICORT IH SCH ×2 (08:19→21:23)
[2018-09-17] MEDS: BROVANA NEBU IH SCH ×2 (08:19→21:23)
[2018-09-17] MEDS: COLACE PO SCH (09:14)
[2018-09-17] MEDS: HABITROL TD SCH (09:14)
[2018-09-17] MEDS: FLOMAX PO SCH (09:14)
[2018-09-17] MEDS: PROTONIX PO SCH (09:15)
[2018-09-17] MEDS: FOLVITE PO SCH (09:15)
[2018-09-17] MEDS: OSCAL PO SCH (09:15)
[2018-09-17] MEDS: ZOLOFT PO SCH (09:15)
[2018-09-17] MEDS: PROSCAR PO SCH (09:16)
[2018-09-17] MEDS: SODIUM CHLORIDE FLUSH SYRINGE 10 ML IV SCH ×2 (09:17→21:54)
[2018-09-17] MEDS: ZESTRIL PO SCH (09:17)
--- NOTE | 2018-09-17 12:01 | Progress Note ---
Subjective - Reason for Consult Consult date: 09/17/18 Reason for consult: Psychiatry Follow-up - Chief Complaint Chief complaint: "Hopefully social media specialist can help me out" Patient is a 57 y.o. male who presented to the ER for suicide attempt by consuming a large quantity of Vodka per the patient. Today the patient is calm and cooperative during the assessment. He stated that he worries about getting resources when discharged. He stated he isn't suicidal anymore. He stated that he look forward to being able to eat most of his meals. He denies SI/HI's and AVH's. He denies any side effects of his medication. Mental Status Exam - Vital signs Last Vital Signs Temp 98.4 F 09/17/18 07:57 Pulse 68 09/17/18 08:35 Resp 17 09/17/18 08:35 BP 118/77 09/17/18 07:57 Pulse Ox 94 09/17/18 08:22 - Exam Narrative exam: MSE: Appearance: calm, cooperative Behavior: regular eye contact Speech: regular rate and tone Mood: "okay" Affect: appropriate Thought Process: linear Thought Content: denies SI/HI's and AVH's Motor Activity: ambulatory Cognition: A/O x3 Insight: fair Judgment: fair Assessment and Plan Impression: MDD, Severe type. Alcohol Use DO. Insomnia. Today the patient was calm and cooperative during the assessment. The patient is no threat to self. No acute withdrawals noted (etoh). tph0. DDx: Alcohol Induced Mood DO Recommendation/Plan: Rescind 1013, continue Zoloft 50 mg PO daily for dep ression, and Melatonin 5 mg PO HS for sleep. Discussed possible suicidality/medication induced pravin with the patient reference Zoloft, he verbalized understanding. Dispo: The patient can follow up at [facility] for outpatient psy services. Staffed with Dr. Babatunde Angulo.
--- NOTE | 2018-09-17 13:06 | Progress Note ---
Assessment and Plan Assessment and plan: Patient is a 57 yo man with a history of HTN, DM, ETOH Dependence, Depression, Psychosis, Prostate Cancer, Asthma, COPD and tobacco Dependence who presented to [facility] ED with chest pains, sob, abdominal pains and Suicidal attempt by drinking 2.5 gallons of vodka over the past 2 days in an effort to end his life. He was placed on a 1013. He was diagnosis with atypical chest pain as well as Diastolic CHF, and ETOH Withdrawal. Pt admitted to telemetry and treated with supportive care. Pt initiated on CIWA protocol for ETOH Dependence with ETOH withdrawal. Mental health consulted and patient placed on 1013 and placed on 1:1 sitter. He developed intractable nausea and vomiting; therefore, he was evaluated by GI. Small bowel follow through was unremarkable as well as Exercise Stress test. Intractable nausea and Vomiting: advance diet, Continue Zofran, GI following Acute on chronic Diastolic CHF, resolved, not on diuretics MDD-Severe with Suicidal ideation and attempt: psych is following, on 1013 ETOH USE/DEPENDANCE with Alcohol Withdrawal: treated with CIWA protocol Hyponatremia, hypovolemia: monitor closely Atypical chest pain secondary to Costochondritis and GERD related syndrome: treat with PPI NSAID abuse: stop and counseling done Nicotine Dependance: nicotine patch Obesity: counseled on lifestyle modifications Diabetes Mellitus: ssi, ada diet H/o Prostate Cancer Acute Toxic Metabolic Encephalopathy, poa, resolved Rib Fracture-Chronic: pain control Insomnia HTN: low salt diet SOB and cough with Chest pains with deep breathing: suspect Atelectasis, get 2v CXR and D-dimer and treat with Incentive spirometry Hypokalemia, severe: replete and recheck am Psych has rescinded the 1013 Disposition: continue inpatient care, once potassium level stablilzes, if d- dimer normal then d/c tomorrow History Interval history: Patient was seen and examined. Follow-up on current diagnosis N/V, resolved. No overnight events reported to me. Patient denies any shortness breath, or severe headaches. Imaging, nursing note, chart, labs and old chart reviewed. Discussed with patient. He c/o cough, SOB and chest pains when he takes a deep breath. Hospitalist Physical - Physical exam Narrative exam: Gen: WDWN, NAD, Awake, Alert, Orientated, off O2 HEENT: NCAT, EOMI, PERRL, OP Clear Neck: supple, no adenopathy, no thyromegaly, no JVD CVS/Heart: RRR, normal S1S2, pulses present bilaterally Chest/Lungs: inspiratory crackles partial clears with deep inspiration, Symmetrical chest expansion, good air entry bilaterally GI/Abdomen: soft, NTND, good bowel sounds, no guarding or rebound /Bladder: no suprapubic tenderness, no CVA or paraspinal tenderness Extermity/Skin: no c/c/e, no obvious rash MSK: FROM x 4 Neuro: CN 2-12 grossly intact, no new focal deficits Psych: calm, denies SI, - Constitutional Vitals: Temp Pulse Resp BP Pulse Ox 99.0 F 68 20 119/81 94 09/17/18 12:33 09/17/18 12:33 09/17/18 12:33 09/17/18 12:33 09/17/18 12:33 General appearance: Present: obese. Absent: mild distress Results - Labs CBC & Chem 7: 09/17/18 05:29 09/17/18 05:29 Labs: Laboratory Last Values WBC 4.4 K/mm3 (4.5-11.0) L 09/17/18 05:29 RBC 3.70 M/mm3 (3.65-5.03) 09/17/18 05:29 Hgb 11.6 gm/dl (11.8-15.2) L 09/17/18 05:29 Hct 33.3 % (35.5-45.6) L 09/17/18 05:29 MCV 90 fl (84-94) 09/17/18 05:29 MCH 31 pg (28-32) 09/17/18 05:29 MCHC 35 % (32-34) H 09/17/18 05:29 RDW 14.1 % (13.2-15.2) 09/17/18 05:29 Plt Count 109 K/mm3 (140-440) L 09/17/18 05:29 Lymph % (Auto) 26.2 % (13.4-35.0) 09/12/18 04:43 [place] % (Auto) 10.5 % (0.0-7.3) H 09/12/18 04:43 Eos % (Auto) 1.3 % (0.0-4.3) 09/12/18 04:43 Baso % (Auto) 1.0 % (0.0-1.8) 09/12/18 04:43 Lymph # 1.1 K/mm3 (1.2-5.4) L 09/12/18 04:43 [place] # 0.5 K/mm3 (0.0-0.8) 09/12/18 04:43 Eos # 0.1 K/mm3 (0.0-0.4) 09/12/18 04:43 Baso # 0.0 K/mm3 (0.0-0.1) 09/12/18 04:43 Seg Neutrophils % 61.0 % (40.0-70.0) 09/12/18 04:43 Seg Neutrophils # 2.6 K/mm3 (1.8-7.7) 09/12/18 04:43 196.97 ng/mlDDU (0-234) 09/11/18 14:51 Sodium 142 mmol/L (137-145) 09/17/18 05:29 Potassium 2.7 mmol/L (3.6-5.0) L* 09/17/18 05:29 Chloride 103.2 mmol/L (98-107) 09/17/18 05:29 Carbon Dioxide 27 mmol/L (22-30) 09/17/18 05:29 15 mmol/L 09/17/18 05:29 BUN 6 mg/dL (9-20) L 09/17/18 05:29 0.7 mg/dL (0.8-1.5) L 09/17/18 05:29 Estimated GFR > 60 ml/min 09/17/18 05:29 9 % 09/17/18 05:29 Glucose 143 mg/dL (75-100) H 09/17/18 05:29 POC Glucose 121 (70-105) H 09/17/18 11:31 Calcium 8.3 mg/dL (8.4-10.2) L 09/17/18 05:29 Magnesium 1.90 mg/dL (1.7-2.3) 09/17/18 05:29 0.30 mg/dL (0.1-1.2) 09/12/18 04:43 0.4 mg/dL (0-0.2) H 09/11/18 11:51 -0.2 mg/dL 09/11/18 11:51 AST 25 units/L (5-40) 09/12/18 04:43 ALT 34 units/L (7-56) 09/12/18 04:43 145 units/L (35-129) H 09/12/18 04:43 < 0.010 ng/mL (0.00-0.029) 09/11/18 19:45 6.1 g/dL (6.3-8.2) L 09/12/18 04:43 3.4 g/dL (3.9-5) L 09/12/18 04:43 1.3 % 09/12/18 04:43 Triglycerides 1018 mg/dL (2-149) H 09/11/18 11:51 Cholesterol 398 mg/dL (50-199) H 09/11/18 11:51 70 mg/dL (50-130) 09/11/18 11:51 24 mg/dL (40-59) L 09/11/18 11:51 16.58 % 09/11/18 11:51 22 units/L (13-60) 09/11/18 11:51 Yellow (Yellow) 09/11/18 11:43 Clear (Clear) 09/11/18 11:43 6.0 (5.0-7.0) 09/11/18 11:43 Ur Specific [place] 1.023 (1.003-1.030) 09/11/18 11:43 100 mg/dl mg/dL (Negative) 09/11/18 11:43 Neg mg/dL (Negative) 09/11/18 11:43 80 mg/dL (Negative) 09/11/18 11:43 Sm (Negative) 09/11/18 11:43 Neg (Negative) 09/11/18 11:43 Neg (Negative) 09/11/18 11:43 < 2.0 mg/dL (<2.0) 09/11/18 11:43 Ur Leukocyte Esterase Neg (Negative) 09/11/18 11:43 < 1.0 /HPF (0.0-6.0) 09/11/18 11:43 < 1.0 /HPF (0.0-6.0) 09/11/18 11:43 U Epithel Cells (Auto) 1.0 /HPF (0-13.0) 09/11/18 11:43 Few /HPF 09/11/18 11:43 Salicylates < 0.3 mg/dL (2.8-20.0) L 09/11/18 11:51 Presumptive negative 09/11/18 11:43 Presumptive negative 09/11/18 11:43 Acetaminophen < 5.0 ug/mL (10.0-30.0) L 09/11/18 11:51 Ur Barbiturates Screen Presumptive negative 09/11/18 11:43 Phenytoin 2.6 ug/mL (10.0-20.0) L 09/11/18 11:51 Valproic Acid < 2.8 ug/mL (50-100) L 09/11/18 11:51 Ur Phencyclidine Scrn Presumptive negative 09/11/18 11:43 Ur Amphetamines Screen Presumptive negative 09/11/18 11:43 U Benzodiazepines Scrn Presumptive negative 09/11/18 11:43 Presumptive negative 09/11/18 11:43 U Marijuana (THC) Screen Presumptive negative 09/11/18 11:43 Disclamer 09/11/18 11:43 Plasma/Serum Alcohol 0.06 % (0-0.07) 09/11/18 11:51 Active Medications - Current Medications Current Medications: Generic Name Dose Route Start Last Admin Trade Name Freq PRN Reason Stop Dose Admin Acetaminophen 650 mg 09/11/18 13:31 09/17/18 11:14 Tylenol PO 650 mg Q4H PRN Administration Pain MILD(1-3)/Fever >100.5/METZ Albuterol 2.5 mg 09/14/18 16:31 Proventil IH Q4HRT PRN Shortness Of Breath Albuterol/Ipratropium 1 ampul 09/14/18 20:00 09/17/18 08:20 Duoneb *Not For Prn Use* IH Not Given Q6HRT ELVIA Arformoterol Tartrate 15 mcg 09/14/18 20:00 09/17/18 08:19 Brovana Nebu IH 15 mcg Q12HRT ELVIA Administration Atorvastatin Calcium 40 mg 09/11/18 22:00 09/16/18 21:32 Lipitor PO 40 mg QHS ELVIA Administration Budesonide 0.5 mg 09/14/18 20:00 09/17/18 08:19 Pulmicort IH 0.5 mg Q12HRT ELVIA Administration Calcium Carbonate/Glycine 1,250 mg 09/12/18 10:00 09/17/18 09:15 Oscal PO 1,250 mg DAILY ELVIA Administration Dextrose 50 ml 09/11/18 15:01 D50w (25gm) Syringe IV PRN PRN Hypoglycemia Divalproex Sodium 500 mg 09/11/18 14:00 09/17/18 09:[address] PO 500 mg TID ELVIA Administration Docusate Sodium 100 mg 09/12/18 10:00 09/17/18 09:14 Colace PO 100 mg DAILY ELVIA Administration Enoxaparin Sodium 40 mg 09/11/18 22:00 09/16/18 21:32 Lovenox SUB-Q 40 mg QDAY@2200 ELVIA Administration Finasteride 5 mg 09/12/18 10:00 09/17/18 09:16 Proscar PO 5 mg DAILY ELVIA Administration Folic Acid 1 mg 09/12/18 10:00 09/17/18 09:15 Folvite PO 1 mg QDAY ELVIA Administration Insulin Human Lispro 0 unit 09/11/18 16:30 09/17/18 08:13 Humalog SUB-Q Not Given ACHS [facility] Protocol Lisinopril 2.5 mg 09/12/18 10:00 09/17/18 09:17 Zestril PO 2.5 mg QDAY ELVIA Administration Loperamide HCl 2 mg 09/12/18 11:00 09/16/18 11:26 Imodium PO 2 mg Q2H PRN Administration Diarrhea Lorazepam 2 mg 09/11/18 21:26 09/13/18 23:07 Ativan IV 2 mg Q1HR PRN Administration CIWA-Ar 8-15 Lorazepam 4 mg 09/11/18 21:26 Ativan IV Q1HR PRN CIWA-Ar 16-25 Melatonin 5 mg 09/12/18 22:00 09/16/18 21:33 Melatonin PO 5 mg QHS ELVIA Administration Morphine Sulfate 2 mg 09/13/18 21:45 09/17/18 08:59 Morphine IV 2 mg Q4H PRN Administration Pain, Moderate (4-6) Nicotine 21 mg 09/12/18 10:00 09/17/18 09:14 Habitrol TD 21 mg DAILY ELVIA Administration Nitroglycerin 0.4 mg 09/11/18 13:31 Nitrostat SL Q5M PRN Chest Pain Ondansetron HCl 4 mg 09/11/18 13:31 09/17/18 09:16 Zofran IV 4 mg Q8H PRN Administration Nausea And Vomiting Pantoprazole Sodium 40 mg 09/17/18 10:00 09/17/18 09:15 Protonix PO 40 mg DAILY ELVIA Administration Potassium Chloride 40 meq 09/17/18 12:00 K-Dur PO 09/17/18 14:00 ONCE NR Sertraline HCl 50 mg 09/11/18 18:00 09/17/18 09:15 Zoloft PO 50 mg QDAY ELVIA Administration Sodium Chloride 10 ml 09/11/18 22:00 09/17/18 09:17 Sodium Chloride Flush Syringe 10 Ml IV 10 ml BID ELVIA Administration Sodium Chloride 10 ml 09/11/18 13:31 09/12/18 21:00 Sodium Chloride Flush Syringe 10 Ml IV 10 ml PRN PRN Administration LINE FLUSH Sodium Chloride 10 ml 09/11/18 13:31 Sodium Chloride Flush Syringe 10 Ml IV PRN PRN LINE FLUSH Tamsulosin HCl 0.4 mg 09/12/18 10:00 09/17/18 09:14 Flomax PO 0.4 mg QDAY ELVIA Administration Tizanidine HCl 4 mg 09/11/18 15:00 09/17/18 06:58 Zanaflex PO 4 mg Q6HR ELVIA Administration
--- NOTE | 2018-09-17 14:40 | XRay Report ---
CHEST 2 VIEWS INDICATION / CLINICAL INFORMATION: Shortness of breath and cough. COMPARISON: 09/11/2018. FINDINGS: SUPPORT DEVICES: None. HEART / MEDIASTINUM: The heart size and pulmonary vasculature are normal. LUNGS / PLEURA: No significant pulmonary or pleural abnormality. No pneumothorax. ADDITIONAL FINDINGS: There are surgical clips in the left upper quadrant. IMPRESSION: No acute abnormality or significant change. Signer Name: Ismael Lynn MD Signed: 09/17/2018 2:36 PM Workstation Name: [id number]
[2018-09-17] MEDS: MELATONIN PO SCH (21:54)
[2018-09-17] MEDS: LOVENOX SUB-Q SCH (21:54)
[2018-09-18] MEDS: DUONEB *Not for PRN Use IH SCH ×5 (03:54→20:00)
[2018-09-18] MEDS: MORPHINE IV PRN ×3 (04:06→18:13)
[2018-09-18] MEDS: ZANAFLEX PO SCH (04:06)
[2018-09-18] MEDS: ZOFRAN IV PRN ×2 (04:07→13:51)
[2018-09-18] MEDS: PULMICORT IH SCH ×2 (07:56→19:59)
[2018-09-18] MEDS: BROVANA NEBU IH SCH ×2 (07:56→19:59)
[2018-09-18] MEDS: HumaLOG SUB-Q SCH ×4 (08:30→22:01)
[2018-09-18] MEDS: ROBITUSSIN AC PO PRN ×3 (10:07→19:16)
[2018-09-18] MEDS: FLOMAX PO SCH (10:08)
[2018-09-18] MEDS: TESSALON PERLES PO SCH ×3 (10:09→21:52)
[2018-09-18] MEDS: PROSCAR PO SCH (10:09)
[2018-09-18] MEDS: HABITROL TD SCH (10:09)
[2018-09-18] MEDS: PROTONIX PO SCH (10:09)
[2018-09-18] MEDS: SODIUM CHLORIDE FLUSH SYRINGE 10 ML IV PRN ×2 (10:09→22:00)
[2018-09-18] MEDS: OSCAL PO SCH (10:09)
[2018-09-18] MEDS: FOLVITE PO SCH (10:09)
[2018-09-18] MEDS: COLACE PO SCH (10:09)
[2018-09-18] MEDS: ZESTRIL PO SCH (10:10)
[2018-09-18] MEDS: ZOLOFT PO SCH (11:28)
--- NOTE | 2018-09-18 14:38 | Progress Note ---
Assessment and Plan Assessment and plan: Patient is a 57 yo man with a history of HTN, DM, ETOH Dependence, Depression, Psychosis, Prostate Cancer, Asthma, COPD and tobacco Dependence who presented to [facility] ED with chest pains, sob, abdominal pains and Suicidal attempt by drinking 2.5 gallons of vodka over the past 2 days in an effort to end his life. He was placed on a 1013. He was diagnosis with atypical chest pain as well as Diastolic CHF, and ETOH Withdrawal. Pt admitted to telemetry and treated with supportive care. Pt initiated on CIWA protocol for ETOH Dependence with ETOH withdrawal. Mental health consulted and patient placed on 1013 and placed on 1:1 sitter. He developed intractable nausea and vomiting; therefore, he was evaluated by GI. Small bowel follow through was unremarkable as well as Exercise Stress test. Intractable nausea and Vomiting: advance diet, Continue Zofran, GI following Acute on chronic Diastolic CHF, resolved, not on diuretics MDD-Severe with Suicidal ideation and attempt: psych is following, on 3 ETOH USE/DEPENDANCE with Alcohol Withdrawal: treated with CIWA protocol Hyponatremia, hypovolemia: monitor closely Atypical chest pain secondary to Costochondritis and GERD related syndrome: treat with PPI NSAID abuse: stop and counseling done Nicotine Dependance: nicotine patch Obesity: counseled on lifestyle modifications Diabetes Mellitus: ssi, ada diet H/o Prostate Cancer Acute Toxic Metabolic Encephalopathy, poa, resolved Rib Fracture-Chronic: pain control Insomnia HTN: low salt diet SOB and cough with Chest pains with deep breathing: suspect Atelectasis, 2v CXR and D-dimer unremarkable and treat with Incentive spirometry, added anti- tussives Hypokalemia, severe: replete and monitor closely Psych has rescinded the 1012September 17 Disposition: continue inpatient care, pt to be discharged today but he was unable to ambulate without 2 person max assist, consulted Physical therapy for possible placement History Interval history: Patient was seen and examined. Follow-up on current diagnosis N/V, resolved. No overnight events reported to me. Patient denies any shortness breath, or severe headaches. Imaging, nursing note, chart, labs and old chart reviewed. Discussed with patient. He c/o cough, SOB and chest pains when he takes a deep breath. Hospitalist Physical - Physical exam Narrative exam: Gen: WDWN, NAD, Awake, Alert, Orientated, off O2 HEENT: NCAT, EOMI, PERRL, OP Clear Neck: supple, no adenopathy, no thyromegaly, no JVD CVS/Heart: RRR, normal S1S2, pulses present bilaterally Chest/Lungs: inspiratory crackles partial clears with deep inspiration, Symmetrical chest expansion, good air entry bilaterally GI/Abdomen: soft, NTND, good bowel sounds, no guarding or rebound /Bladder: no suprapubic tenderness, no CVA or paraspinal tenderness Extermity/Skin: no c/c/e, no obvious rash MSK: FROM x 4 Neuro: CN 2-12 grossly intact, no new focal deficits Psych: calm, denies SI, - Constitutional Vitals: Temp Pulse Resp BP Pulse Ox 99.0 F 76 20 128/59 95 09/18/18 10:55 09/18/18 12:57 09/18/18 12:57 09/18/18 10:55 09/18/18 12:47 General appearance: Present: obese. Absent: mild distress Results - Labs CBC & Chem 7: 09/17/18 05:29 09/17/18 05:29 Labs: Laboratory Last Values WBC 4.4 K/mm3 (4.5-11.0) L 09/17/18 05:29 RBC 3.70 M/mm3 (3.65-5.03) 09/17/18 05:29 Hgb 11.6 gm/dl (11.8-15.2) L 09/17/18 05:29 Hct 33.3 % (35.5-45.6) L 09/17/18 05:29 MCV 90 fl (84-94) 09/17/18 05:29 MCH 31 pg (28-32) 09/17/18 05:29 MCHC 35 % (32-34) H 09/17/18 05:29 RDW 14.1 % (13.2-15.2) 09/17/18 05:29 Plt Count 109 K/mm3 (140-440) L 09/17/18 05:29 Lymph % (Auto) 26.2 % (13.4-35.0) 09/12/18 04:43 [place] % (Auto) 10.5 % (0.0-7.3) H 09/12/18 04:43 Eos % (Auto) 1.3 % (0.0-4.3) 09/12/18 04:43 Baso % (Auto) 1.0 % (0.0-1.8) 09/12/18 04:43 Lymph # 1.1 K/mm3 (1.2-5.4) L 09/12/18 04:43 [place] # 0.5 K/mm3 (0.0-0.8) 09/12/18 04:43 Eos # 0.1 K/mm3 (0.0-0.4) 09/12/18 04:43 Baso # 0.0 K/mm3 (0.0-0.1) 09/12/18 04:43 Seg Neutrophils % 61.0 % (40.0-70.0) 09/12/18 04:43 Seg Neutrophils # 2.6 K/mm3 (1.8-7.7) 09/12/18 04:43 234.50 ng/mlDDU (0-234) H 09/17/18 14:07 Sodium 142 mmol/L (137-145) 09/17/18 05:29 Potassium 2.7 mmol/L (3.6-5.0) L* 09/17/18 05:29 Chloride 103.2 mmol/L (98-107) 09/17/18 05:29 Carbon Dioxide 27 mmol/L (22-30) 09/17/18 05:29 15 mmol/L 09/17/18 05:29 BUN 6 mg/dL (9-20) L 09/17/18 05:29 0.7 mg/dL (0.8-1.5) L 09/17/18 05:29 Estimated GFR > 60 ml/min 09/17/18 05:29 9 % 09/17/18 05:29 Glucose 143 mg/dL (75-100) H 09/17/18 05:29 POC Glucose 157 (70-105) H 09/18/18 12:40 Calcium 8.3 mg/dL (8.4-10.2) L 09/17/18 05:29 Magnesium 1.90 mg/dL (1.7-2.3) 09/17/18 05:29 0.30 mg/dL (0.1-1.2) 09/12/18 04:43 0.4 mg/dL (0-0.2) H 09/11/18 11:51 -0.2 mg/dL 09/11/18 11:51 AST 25 units/L (5-40) 09/12/18 04:43 ALT 34 units/L (7-56) 09/12/18 04:43 145 units/L (35-129) H 09/12/18 04:43 < 0.010 ng/mL (0.00-0.029) 09/11/18 19:45 6.1 g/dL (6.3-8.2) L 09/12/18 04:43 3.4 g/dL (3.9-5) L 09/12/18 04:43 1.3 % 09/12/18 04:43 Triglycerides 1018 mg/dL (2-149) H 09/11/18 11:51 Cholesterol 398 mg/dL (50-199) H 09/11/18 11:51 70 mg/dL (50-130) 09/11/18 11:51 24 mg/dL (40-59) L 09/11/18 11:51 16.58 % 09/11/18 11:51 22 units/L (13-60) 09/11/18 11:51 Yellow (Yellow) 09/11/18 11:43 Clear (Clear) 09/11/18 11:43 6.0 (5.0-7.0) 09/11/18 11:43 Ur Specific [place] 1.023 (1.003-1.030) 09/11/18 11:43 100 mg/dl mg/dL (Negative) 09/11/18 11:43 Neg mg/dL (Negative) 09/11/18 11:43 80 mg/dL (Negative) 09/11/18 11:43 Sm (Negative) 09/11/18 11:43 Neg (Negative) 09/11/18 11:43 Neg (Negative) 09/11/18 11:43 < 2.0 mg/dL (<2.0) 09/11/18 11:43 Ur Leukocyte Esterase Neg (Negative) 09/11/18 11:43 < 1.0 /HPF (0.0-6.0) 09/11/18 11:43 < 1.0 /HPF (0.0-6.0) 09/11/18 11:43 U Epithel Cells (Auto) 1.0 /HPF (0-13.0) 09/11/18 11:43 Few /HPF 09/11/18 11:43 Salicylates < 0.3 mg/dL (2.8-20.0) L 09/11/18 11:51 Presumptive negative 09/11/18 11:43 Presumptive negative 09/11/18 11:43 Acetaminophen < 5.0 ug/mL (10.0-30.0) L 09/11/18 11:51 Ur Barbiturates Screen Presumptive negative 09/11/18 11:43 Phenytoin 2.6 ug/mL (10.0-20.0) L 09/11/18 11:51 Valproic Acid < 2.8 ug/mL (50-100) L 09/11/18 11:51 Ur Phencyclidine Scrn Presumptive negative 09/11/18 11:43 Ur Amphetamines Screen Presumptive negative 09/11/18 11:43 U Benzodiazepines Scrn Presumptive negative 09/11/18 11:43 Presumptive negative 09/11/18 11:43 U Marijuana (THC) Screen Presumptive negative 09/11/18 11:43 Disclamer 09/11/18 11:43 Plasma/Serum Alcohol 0.06 % (0-0.07) 09/11/18 11:51 Active Medications - Current Medications Current Medications: Generic Name Dose Route Start Last Admin Trade Name Freq PRN Reason Stop Dose Admin Acetaminophen 650 mg 09/11/18 13:31 09/17/18 11:14 Tylenol PO 650 mg Q4H PRN Administration Pain MILD(1-3)/Fever >100.5/METZ Albuterol 2.5 mg 09/14/18 16:31 Proventil IH Q4HRT PRN Shortness Of Breath Albuterol/Ipratropium 1 ampul 09/14/18 20:00 09/18/18 13:02 Duoneb *Not For Prn Use* IH Not Given Q6HRT ELVIA Arformoterol Tartrate 15 mcg 09/14/18 20:00 09/18/18 07:56 Brovana Nebu IH 15 mcg Q12HRT ELVIA Administration Atorvastatin Calcium 40 mg 09/11/18 22:00 09/17/18 21:54 Lipitor PO 40 mg QHS ELVIA Administration Benzonatate 100 mg 09/18/18 09:00 09/18/18 13:54 Tessalon Perles PO Not Given Q8HR ELVIA Budesonide 0.5 mg 09/14/18 20:00 09/18/18 07:56 Pulmicort IH 0.5 mg Q12HRT ELVIA Administration Calcium Carbonate/Glycine 1,250 mg 09/12/18 10:00 09/18/18 10:09 Oscal PO 1,250 mg DAILY ELVIA Administration Dextrose 50 ml 09/11/18 15:01 D50w (25gm) Syringe IV PRN PRN Hypoglycemia Divalproex Sodium 500 mg 09/11/18 14:00 09/18/18 13:[address] PO 500 mg TID ELVIA Administration Docusate Sodium 100 mg 09/12/18 10:00 09/18/18 10:09 Colace PO 100 mg DAILY ELVIA Administration Enoxaparin Sodium 40 mg 09/11/18 22:00 09/17/18 21:54 Lovenox SUB-Q 40 mg QDAY@2200 ELVIA Administration Finasteride 5 mg 09/12/18 10:00 09/18/18 10:09 Proscar PO 5 mg DAILY ELVIA Administration Folic Acid 1 mg 09/12/18 10:00 09/18/18 10:09 Folvite PO 1 mg QDAY ELVIA Administration Insulin Human Lispro 0 unit 09/11/18 16:30 09/18/18 12:30 Humalog SUB-Q 2 unit ACHS ELVIA Administration Protocol Lisinopril 2.5 mg 09/12/18 10:00 09/18/18 10:10 Zestril PO 2.5 mg QDAY ELVIA Administration Loperamide HCl 2 mg 09/12/18 11:00 09/16/18 11:26 Imodium PO 2 mg Q2H PRN Administration Diarrhea Lorazepam 2 mg 09/11/18 21:26 09/13/18 23:07 Ativan IV 2 mg Q1HR PRN Administration CIWA-Ar 8-15 Lorazepam 4 mg 09/11/18 21:26 Ativan IV Q1HR PRN CIWA-Ar 16-25 Melatonin 5 mg 09/12/18 22:00 09/17/18 21:54 Melatonin PO 5 mg QHS ELVIA Administration Morphine Sulfate 2 mg 09/13/18 21:45 09/18/18 12:03 Morphine IV 2 mg Q4H PRN Administration Pain, Moderate (4-6) Nicotine 21 mg 09/12/18 10:00 09/18/18 10:09 Habitrol TD 21 mg DAILY ELVIA Administration Nitroglycerin 0.4 mg 09/11/18 13:31 Nitrostat SL Q5M PRN Chest Pain Ondansetron HCl 4 mg 09/11/18 13:31 09/18/18 13:51 Zofran IV 4 mg Q8H PRN Administration Nausea And Vomiting Pantoprazole Sodium 40 mg 09/17/18 10:00 09/18/18 10:09 Protonix PO 40 mg DAILY ELVIA Administration Pseudoephedrine/Acetam/Chlorphenir 20 ml 09/18/18 10:00 09/18/18 13:57 Robitussin Ac PO 20 ml Q4H PRN Administration Cough Sertraline HCl 50 mg 09/11/18 18:00 09/18/18 11:28 Zoloft PO 50 mg QDAY ELVIA Administration Sodium Chloride 10 ml 09/11/18 13:31 09/18/18 10:09 Sodium Chloride Flush Syringe 10 Ml IV 10 ml PRN PRN Administration LINE FLUSH Tamsulosin HCl 0.4 mg 09/12/18 10:00 09/18/18 10:08 Flomax PO 0.4 mg QDAY ELVIA Administration
[2018-09-18 15:35] LABS: BUN/Creatinine Ratio 12; Blood Urea Nitrogen 7 mg/dL (9-20); Hemolysis Index 4
[2018-09-18] MEDS: MELATONIN PO SCH (21:52)
[2018-09-18] MEDS: LOVENOX SUB-Q SCH (21:52)
[2018-09-19] MEDS: DUONEB *Not for PRN Use IH SCH ×4 (02:50→21:36)
[2018-09-19] MEDS: MORPHINE IV PRN ×2 (03:23→10:52)
[2018-09-19 05:54] LABS: Mean Corpuscular HGB Conc 34 % (32-34); Mean Corpuscular Volume 92 fl (84-94); Platelet Count 105 K/mm3 (140-440); Red Blood Count 3.82 M/mm3 (3.65-5.03); Red Cell Distribution Width 14.3 % (13.2-15.2)
[2018-09-19 06:16] LABS: BUN/Creatinine Ratio 10; Blood Urea Nitrogen 7 mg/dL (9-20); Calcium 8.5 mg/dL (8.4-10.2); Hemolysis Index 16
[2018-09-19] MEDS: TESSALON PERLES PO SCH ×3 (06:45→22:58)
[2018-09-19] MEDS: PULMICORT IH SCH ×2 (08:57→21:35)
[2018-09-19] MEDS: BROVANA NEBU IH SCH ×2 (08:57→21:35)
[2018-09-19] MEDS: HumaLOG SUB-Q SCH ×4 (09:26→22:58)
[2018-09-19] MEDS: FOLVITE PO SCH (10:36)
[2018-09-19] MEDS: ZESTRIL PO SCH (10:36)
[2018-09-19] MEDS: HABITROL TD SCH (10:36)
[2018-09-19] MEDS: COLACE PO SCH (10:36)
[2018-09-19] MEDS: ZOLOFT PO SCH (10:36)
[2018-09-19] MEDS: FLOMAX PO SCH (10:36)
[2018-09-19] MEDS: PROTONIX PO SCH (10:36)
[2018-09-19] MEDS: PROSCAR PO SCH (10:37)
[2018-09-19] MEDS: OSCAL PO SCH (10:37)
[2018-09-19] MEDS: ROBITUSSIN AC PO PRN (10:55)
--- NOTE | 2018-09-19 15:14 | Progress Note ---
Assessment and Plan Assessment and plan: Patient is a 57 yo man with a history of HTN, DM, ETOH Dependence, Depression, Psychosis, Prostate Cancer, Asthma, COPD, OA (walks with a cane) and tobacco Dependence who presented to [facility] with chest pains, sob, abdominal pains and Suicidal attempt by drinking 2.5 gallons of vodka over the past 2 days in an effort to end his life. He was placed on a 1013. He was diagnosis with atypical chest pain as well as Diastolic CHF, and ETOH Withdrawal. Pt admitted to telemetry and treated with supportive care. Pt initiated on CIWA protocol for ETOH Dependence with ETOH withdrawal. Mental health consulted and patient placed on 1013 and placed on 1:1 sitter. He developed intractable nausea and vomiting; therefore, he was evaluated by GI. Small bowel follow through was unremarkable as well as Exercise Stress test. Intractable nausea and Vomiting: advance diet, Continue Zofran, GI following Acute on chronic Diastolic CHF, resolved, not on diuretics MDD-Severe with Suicidal ideation and attempt: psych is following, on 1013 ETOH USE/DEPENDANCE with Alcohol Withdrawal: treated with CIWA protocol Hyponatremia, hypovolemia: monitor closely Atypical chest pain secondary to Costochondritis and GERD related syndrome: treat with PPI NSAID abuse: stop and counseling done Nicotine Dependance: nicotine patch Obesity: counseled on lifestyle modifications Diabetes Mellitus: ssi, ada diet H/o Prostate Cancer Acute Toxic Metabolic Encephalopathy, poa, resolved Rib Fracture-Chronic: pain control Insomnia HTN: low salt diet SOB and cough with Chest pains with deep breathing: suspect Atelectasis, 2v CXR and D-dimer unremarkable and treat with Incentive spirometry, added anti-tus sives Hypokalemia, severe: replete and monitor closely Psych has rescinded the 1012September 17 Disposition: continue inpatient care, awaiting SNF placement History Interval history: Patient was seen and examined. Follow-up on current diagnosis N/V, resolved. No overnight events reported to me. Patient denies any shortness breath, or severe headaches. Imaging, nursing note, chart, labs and old chart reviewed. Discussed with patient. He c/o cough, SOB and chest pains when he takes a deep breath. Hospitalist Physical - Physical exam Narrative exam: Gen: WDWN, NAD, Awake, Alert, Orientated, off O2 HEENT: NCAT, EOMI, PERRL, OP Clear Neck: supple, no adenopathy, no thyromegaly, no JVD CVS/Heart: RRR, normal S1S2, pulses present bilaterally Chest/Lungs: inspiratory crackles partial clears with deep inspiration, Symmetrical chest expansion, good air entry bilaterally GI/Abdomen: soft, NTND, good bowel sounds, no guarding or rebound /Bladder: no suprapubic tenderness, no CVA or paraspinal tenderness Extermity/Skin: no c/c/e, no obvious rash MSK: FROM x 4 Neuro: CN 2-12 grossly intact, no new focal deficits Psych: calm, denies SI, - Constitutional Vitals: Temp Pulse Resp BP Pulse Ox 97.9 F 64 20 120/71 93 09/19/18 12:20 09/19/18 14:14 09/19/18 14:14 09/19/18 12:20 09/19/18 12:20 General appearance: Present: obese. Absent: mild distress Results - Labs CBC & Chem 7: 09/19/18 05:10 09/19/18 05:10 Labs: Laboratory Last Values WBC 4.0 K/mm3 (4.5-11.0) L 09/19/18 05:10 RBC 3.82 M/mm3 (3.65-5.03) 09/19/18 05:10 Hgb 12.0 gm/dl (11.8-15.2) 09/19/18 05:10 Hct 35.0 % (35.5-45.6) L 09/19/18 05:10 MCV 92 fl (84-94) 09/19/18 05:10 MCH 31 pg (28-32) 09/19/18 05:10 MCHC 34 % (32-34) 09/19/18 05:10 RDW 14.3 % (13.2-15.2) 09/19/18 05:10 Plt Count 105 K/mm3 (140-440) L 09/19/18 05:10 Lymph % (Auto) 26.2 % (13.4-35.0) 09/12/18 04:43 [place] % (Auto) 10.5 % (0.0-7.3) H 09/12/18 04:43 Eos % (Auto) 1.3 % (0.0-4.3) 09/12/18 04:43 Baso % (Auto) 1.0 % (0.0-1.8) 09/12/18 04:43 Lymph # 1.1 K/mm3 (1.2-5.4) L 09/12/18 04:43 [place] # 0.5 K/mm3 (0.0-0.8) 09/12/18 04:43 Eos # 0.1 K/mm3 (0.0-0.4) 09/12/18 04:43 Baso # 0.0 K/mm3 (0.0-0.1) 09/12/18 04:43 Seg Neutrophils % 61.0 % (40.0-70.0) 09/12/18 04:43 Seg Neutrophils # 2.6 K/mm3 (1.8-7.7) 09/12/18 04:43 234.50 ng/mlDDU (0-234) H 09/17/18 14:07 Sodium 142 mmol/L (137-145) 09/19/18 05:10 Potassium 3.3 mmol/L (3.6-5.0) L 09/19/18 05:10 Chloride 104.9 mmol/L (98-107) 09/19/18 05:10 Carbon Dioxide 28 mmol/L (22-30) 09/19/18 05:10 12 mmol/L 09/19/18 05:10 BUN 7 mg/dL (9-20) L 09/19/18 05:10 0.7 mg/dL (0.8-1.5) L 09/19/18 05:10 Estimated GFR > 60 ml/min 09/19/18 05:10 10 % 09/19/18 05:10 Glucose 136 mg/dL (75-100) H 09/19/18 05:10 POC Glucose 145 (70-105) H 09/19/18 11:37 Calcium 8.5 mg/dL (8.4-10.2) 09/19/18 05:10 Magnesium 1.90 mg/dL (1.7-2.3) 09/19/18 05:10 0.30 mg/dL (0.1-1.2) 09/12/18 04:43 0.4 mg/dL (0-0.2) H 09/11/18 11:51 -0.2 mg/dL 09/11/18 11:51 AST 25 units/L (5-40) 09/12/18 04:43 ALT 34 units/L (7-56) 09/12/18 04:43 145 units/L (35-129) H 09/12/18 04:43 < 0.010 ng/mL (0.00-0.029) 09/11/18 19:45 6.1 g/dL (6.3-8.2) L 09/12/18 04:43 3.4 g/dL (3.9-5) L 09/12/18 04:43 1.3 % 09/12/18 04:43 Triglycerides 1018 mg/dL (2-149) H 09/11/18 11:51 Cholesterol 398 mg/dL (50-199) H 09/11/18 11:51 70 mg/dL (50-130) 09/11/18 11:51 24 mg/dL (40-59) L 09/11/18 11:51 16.58 % 09/11/18 11:51 22 units/L (13-60) 09/11/18 11:51 Yellow (Yellow) 09/11/18 11:43 Clear (Clear) 09/11/18 11:43 6.0 (5.0-7.0) 09/11/18 11:43 Ur Specific [place] 1.023 (1.003-1.030) 09/11/18 11:43 100 mg/dl mg/dL (Negative) 09/11/18 11:43 Neg mg/dL (Negative) 09/11/18 11:43 80 mg/dL (Negative) 09/11/18 11:43 Sm (Negative) 09/11/18 11:43 Neg (Negative) 09/11/18 11:43 Neg (Negative) 09/11/18 11:43 < 2.0 mg/dL (<2.0) 09/11/18 11:43 Ur Leukocyte Esterase Neg (Negative) 09/11/18 11:43 < 1.0 /HPF (0.0-6.0) 09/11/18 11:43 < 1.0 /HPF (0.0-6.0) 09/11/18 11:43 U Epithel Cells (Auto) 1.0 /HPF (0-13.0) 09/11/18 11:43 Few /HPF 09/11/18 11:43 Salicylates < 0.3 mg/dL (2.8-20.0) L 09/11/18 11:51 Presumptive negative 09/11/18 11:43 Presumptive negative 09/11/18 11:43 Acetaminophen < 5.0 ug/mL (10.0-30.0) L 09/11/18 11:51 Ur Barbiturates Screen Presumptive negative 09/11/18 11:43 Phenytoin 2.6 ug/mL (10.0-20.0) L 09/11/18 11:51 Valproic Acid < 2.8 ug/mL (50-100) L 09/11/18 11:51 Ur Phencyclidine Scrn Presumptive negative 09/11/18 11:43 Ur Amphetamines Screen Presumptive negative 09/11/18 11:43 U Benzodiazepines Scrn Presumptive negative 09/11/18 11:43 Presumptive negative 09/11/18 11:43 U Marijuana (THC) Screen Presumptive negative 09/11/18 11:43 Disclamer 09/11/18 11:43 Plasma/Serum Alcohol 0.06 % (0-0.07) 09/11/18 11:51 Active Medications - Current Medications Current Medications: Generic Name Dose Route Start Last Admin Trade Name Freq PRN Reason Stop Dose Admin Acetaminophen 650 mg 09/11/18 13:31 09/17/18 11:14 Tylenol PO 650 mg Q4H PRN Administration Pain MILD(1-3)/Fever >100.5/METZ Acetaminophen/Hydrocodone Bitart 1 each 09/19/18 11:24 [place] 5/325 PO Q4H PRN Pain, Moderate (4-6) Albuterol 2.5 mg 09/14/18 16:31 Proventil IH Q4HRT PRN Shortness Of Breath Albuterol/Ipratropium 1 ampul 09/14/18 20:00 09/19/18 14:03 Duoneb *Not For Prn Use* IH 1 ampul Q6HRT ELVIA Administration Arformoterol Tartrate 15 mcg 09/14/18 20:00 09/19/18 08:57 Brovana Nebu IH 15 mcg Q12HRT ELVIA Administration Atorvastatin Calcium 40 mg 09/11/18 22:00 09/18/18 21:52 Lipitor PO 40 mg QHS ELVIA Administration Benzonatate 100 mg 09/18/18 09:00 09/19/18 14:31 Tessalon Perles PO 100 mg Q8HR ELVIA Administration Budesonide 0.5 mg 09/14/18 20:00 09/19/18 08:57 Pulmicort IH 0.5 mg Q12HRT ELVIA Administration Calcium Carbonate/Glycine 1,250 mg 09/12/18 10:00 09/19/18 10:37 Oscal PO 1,250 mg DAILY ELVIA Administration Dextrose 50 ml 09/11/18 15:01 D50w (25gm) Syringe IV PRN PRN Hypoglycemia Divalproex Sodium 500 mg 09/11/18 14:00 09/19/18 14:[address] PO 500 mg TID ELVIA Administration Docusate Sodium 100 mg 09/12/18 10:00 09/19/18 10:36 Colace PO 100 mg DAILY ELVIA Administration Enoxaparin Sodium 40 mg 09/11/18 22:00 09/18/18 21:52 Lovenox SUB-Q 40 mg QDAY@2200 ELVIA Administration Finasteride 5 mg 09/12/18 10:00 09/19/18 10:37 Proscar PO 5 mg DAILY ELVIA Administration Folic Acid 1 mg 09/12/18 10:00 09/19/18 10:36 Folvite PO 1 mg QDAY ELVIA Administration Insulin Human Lispro 0 unit 09/11/18 16:30 09/19/18 13:46 Humalog SUB-Q Not Given [facility] Protocol Lisinopril 2.5 mg 09/12/18 10:00 09/19/18 10:36 Zestril PO 2.5 mg QDAY ELVIA Administration Loperamide HCl 2 mg 09/12/18 11:00 09/16/18 11:26 Imodium PO 2 mg Q2H PRN Administration Diarrhea Lorazepam 2 mg 09/11/18 21:26 09/13/18 23:07 Ativan IV 2 mg Q1HR PRN Administration CIWA-Ar 8-15 Lorazepam 4 mg 09/11/18 21:26 Ativan IV Q1HR PRN CIWA-Ar 16-25 Melatonin 5 mg 09/12/18 22:00 09/18/18 21:52 Melatonin PO 5 mg QHS ELVIA Administration Morphine Sulfate 2 mg 09/13/18 21:45 09/19/18 10:52 Morphine IV 2 mg Q4H PRN Administration Pain, Moderate (4-6) Nicotine 21 mg 09/12/18 10:00 09/19/18 10:36 Habitrol TD 21 mg DAILY ELVIA Administration Nitroglycerin 0.4 mg 09/11/18 13:31 Nitrostat SL Q5M PRN Chest Pain Ondansetron HCl 4 mg 09/11/18 13:31 09/18/18 13:51 Zofran IV 4 mg Q8H PRN Administration Nausea And Vomiting Pantoprazole Sodium 40 mg 09/17/18 10:00 09/19/18 10:36 Protonix PO 40 mg DAILY ELVIA Administration Pseudoephedrine/Acetam/Chlorphenir 20 ml 09/18/18 10:00 09/19/18 10:55 Robitussin Ac PO 20 ml Q4H PRN Administration Cough Sertraline HCl 50 mg 09/11/18 18:00 09/19/18 10:36 Zoloft PO 50 mg QDAY ELVIA Administration Sodium Chloride 10 ml 09/11/18 13:31 09/18/18 22:00 Sodium Chloride Flush Syringe 10 Ml IV 10 ml PRN PRN Administration LINE FLUSH Tamsulosin HCl 0.4 mg 09/12/18 10:00 09/19/18 10:36 Flomax PO 0.4 mg QDAY ELVIA Administration Nutrition/Malnutrition Assess - Dietary Evaluation Nutrition/Malnutrition Findings: Nutrition Notes Start: 09/18/18 18:46 Freq: Status: Active Protocol: Document 09/18/18 18:46 RM (Rec: 09/18/18 18:52 RM [id number]) Nutrition Notes Need for Assessment generated from: LOS Initial or Follow up Assessment Current Diagnosis Diabetes,Heart Failure Other Pertinent Diagnosis N/V, ETOH dependence w/ withdrawal, Hx prostate CA, suicidal ideation Current Diet GI soft Labs/Tests Reviewed Pertinent Medications Reviewed Height 5 ft 5 in Weight 90.1 kg [place] Body Weight (kg) 61.81 BMI 33.0 Subjective/Other Information Screened for LOS. Pt stated that his appetite is okay but that he hasnt been able to keep any food down. Stated that has been able to keep down liquids. Trauma Absent #1 Nutrition Diagnosis Inadequate oral intake Etiology vomiting As Evidenced by Signs and Symptoms pt statement that he has not been able to keep any food down Is patient on ventilator? No Is Patient Ambulatory and/or Out of Bed Yes REE-([place] [facility]-ambulatory/OOB) [ 2155.244 NUTR.MSJOOB] Kcal/Kg value to use for calculation 18 Approximate Energy Requirements Using 1622 kcal/Kg Calculation Used for Recommendations Kcal/kg Additional Notes Protein Needs: 61-76g (0.8-1g/ kg 76g adjBW) Fluid Needs: 1 ml/kcal Nutrition Intervention Change Diet Order: GI soft, Consistent CHo Add Supplement/Snack (indicate name/kcal Glucerna [place] BID /protein ) Provides kCal: 440 Provides Protein (gm) 20 Goal #1 PO tolerance Goal #2 Meet at least 75% of calorie and protein needs via PO and ONS intakes Anticipated Discharge Needs: Unable to determine at this time Follow-Up By: 09/21/18 Additional Comments Follow for PO and ONS intakes
[2018-09-19] MEDS: NORCO 5/325 PO PRN ×2 (16:06→20:10)
[2018-09-19] MEDS: LOVENOX SUB-Q SCH (22:58)
[2018-09-19] MEDS: MELATONIN PO SCH (22:58)
[2018-09-20] MEDS: NORCO 5/325 PO PRN ×6 (02:37→22:21)
[2018-09-20] MEDS: DUONEB *Not for PRN Use IH SCH ×4 (03:55→21:23)
[2018-09-20] MEDS: TESSALON PERLES PO SCH ×3 (06:36→22:21)
[2018-09-20] MEDS: PULMICORT IH SCH ×2 (07:50→21:23)
[2018-09-20] MEDS: BROVANA NEBU IH SCH ×2 (07:50→21:24)
[2018-09-20] MEDS: HumaLOG SUB-Q SCH ×4 (08:48→22:21)
[2018-09-20] MEDS: OSCAL PO SCH (10:10)
[2018-09-20] MEDS: COLACE PO SCH (10:10)
[2018-09-20] MEDS: ZOLOFT PO SCH (10:11)
[2018-09-20] MEDS: PROTONIX PO SCH (10:11)
[2018-09-20] MEDS: FLOMAX PO SCH (10:11)
[2018-09-20] MEDS: ZESTRIL PO SCH (10:11)
[2018-09-20] MEDS: HABITROL TD SCH (10:11)
[2018-09-20] MEDS: FOLVITE PO SCH (10:11)
[2018-09-20] MEDS: SODIUM CHLORIDE FLUSH SYRINGE 10 ML IV PRN (10:12)
[2018-09-20] MEDS: PROSCAR PO SCH (10:12)
--- NOTE | 2018-09-20 15:32 | Progress Note ---
Assessment and Plan Assessment and plan: Patient is a 57 yo man with a history of HTN, DM, ETOH Dependence, Depression, Psychosis, Prostate Cancer, Asthma, COPD, OA (walks with a cane) and tobacco Dependence who presented to [facility] with chest pains, sob, abdominal pains and Suicidal attempt by drinking 2.5 gallons of vodka over the past 2 days in an effort to end his life. He was placed on a 1013. He was diagnosis with atypical chest pain as well as Diastolic CHF, and ETOH Withdrawal. Pt admitted to telemetry and treated with supportive care. Pt initiated on CIWA protocol for ETOH Dependence with ETOH withdrawal. Mental health consulted and patient placed on 1013 and placed on 1:1 sitter. He developed intractable nausea and vomiting; therefore, he was evaluated by GI. Small bowel follow through was unremarkable as well as Exercise Stress test. Intractable nausea and Vomiting: advance diet, Continue Zofran, GI following Acute on chronic Diastolic CHF, resolved, not on diuretics MDD-Severe with Suicidal ideation and attempt: psych is following, on 1013 ETOH USE/DEPENDANCE with Alcohol Withdrawal: treated with CIWA protocol Hyponatremia, hypovolemia: monitor closely Atypical chest pain secondary to Costochondritis and GERD related syndrome: treat with PPI NSAID abuse: stop and counseling done Nicotine Dependance: nicotine patch Obesity: counseled on lifestyle modifications Diabetes Mellitus: ssi, ada diet H/o Prostate Cancer Acute Toxic Metabolic Encephalopathy, poa, resolved Rib Fracture-Chronic: pain control Insomnia HTN: low salt diet SOB and cough with Chest pains with deep breathing: suspect Atelectasis, 2v CXR and D-dimer unremarkable and treat with Incentive spirometry, added anti-tus sives Hypokalemia, severe: replete and monitor closely Psych has rescinded the 1012September 17 Disposition: continue inpatient care, awaiting SNF placement History Interval history: Patient was seen and examined. Follow-up on current diagnosis N/V, resolved. No overnight events reported to me. Patient denies any shortness breath, or severe headaches. Imaging, nursing note, chart, labs and old chart reviewed. Discussed with patient. He c/o cough, SOB and chest pains when he takes a deep breath. Hospitalist Physical - Physical exam Narrative exam: Gen: WDWN, NAD, Awake, Alert, Orientated, off O2 HEENT: NCAT, EOMI, PERRL, OP Clear Neck: supple, no adenopathy, no thyromegaly, no JVD CVS/Heart: RRR, normal S1S2, pulses present bilaterally Chest/Lungs: inspiratory crackles partial clears with deep inspiration, Symmetrical chest expansion, good air entry bilaterally GI/Abdomen: soft, NTND, good bowel sounds, no guarding or rebound /Bladder: no suprapubic tenderness, no CVA or paraspinal tenderness Extermity/Skin: no c/c/e, no obvious rash MSK: FROM x 4 Neuro: CN 2-12 grossly intact, no new focal deficits Psych: calm, denies SI, - Constitutional Vitals: Temp Pulse Resp BP Pulse Ox 97.7 F 59 L 20 116/66 96 09/20/18 04:54 09/20/18 13:07 09/20/18 13:07 09/20/18 10:11 09/20/18 07:50 General appearance: Present: obese. Absent: mild distress Results - Labs CBC & Chem 7: 09/19/18 05:10 09/19/18 05:10 Labs: Laboratory Last Values WBC 4.0 K/mm3 (4.5-11.0) L 09/19/18 05:10 RBC 3.82 M/mm3 (3.65-5.03) 09/19/18 05:10 Hgb 12.0 gm/dl (11.8-15.2) 09/19/18 05:10 Hct 35.0 % (35.5-45.6) L 09/19/18 05:10 MCV 92 fl (84-94) 09/19/18 05:10 MCH 31 pg (28-32) 09/19/18 05:10 MCHC 34 % (32-34) 09/19/18 05:10 RDW 14.3 % (13.2-15.2) 09/19/18 05:10 Plt Count 105 K/mm3 (140-440) L 09/19/18 05:10 Lymph % (Auto) 26.2 % (13.4-35.0) 09/12/18 04:43 [place] % (Auto) 10.5 % (0.0-7.3) H 09/12/18 04:43 Eos % (Auto) 1.3 % (0.0-4.3) 09/12/18 04:43 Baso % (Auto) 1.0 % (0.0-1.8) 09/12/18 04:43 Lymph # 1.1 K/mm3 (1.2-5.4) L 09/12/18 04:43 [place] # 0.5 K/mm3 (0.0-0.8) 09/12/18 04:43 Eos # 0.1 K/mm3 (0.0-0.4) 09/12/18 04:43 Baso # 0.0 K/mm3 (0.0-0.1) 09/12/18 04:43 Seg Neutrophils % 61.0 % (40.0-70.0) 09/12/18 04:43 Seg Neutrophils # 2.6 K/mm3 (1.8-7.7) 09/12/18 04:43 234.50 ng/mlDDU (0-234) H 09/17/18 14:07 Sodium 142 mmol/L (137-145) 09/19/18 05:10 Potassium 3.3 mmol/L (3.6-5.0) L 09/19/18 05:10 Chloride 104.9 mmol/L (98-107) 09/19/18 05:10 Carbon Dioxide 28 mmol/L (22-30) 09/19/18 05:10 12 mmol/L 09/19/18 05:10 BUN 7 mg/dL (9-20) L 09/19/18 05:10 0.7 mg/dL (0.8-1.5) L 09/19/18 05:10 Estimated GFR > 60 ml/min 09/19/18 05:10 10 % 09/19/18 05:10 Glucose 136 mg/dL (75-100) H 09/19/18 05:10 POC Glucose 123 (70-105) H 09/20/18 11:22 Calcium 8.5 mg/dL (8.4-10.2) 09/19/18 05:10 Magnesium 1.90 mg/dL (1.7-2.3) 09/19/18 05:10 0.30 mg/dL (0.1-1.2) 09/12/18 04:43 0.4 mg/dL (0-0.2) H 09/11/18 11:51 -0.2 mg/dL 09/11/18 11:51 AST 25 units/L (5-40) 09/12/18 04:43 ALT 34 units/L (7-56) 09/12/18 04:43 145 units/L (35-129) H 09/12/18 04:43 < 0.010 ng/mL (0.00-0.029) 09/11/18 19:45 6.1 g/dL (6.3-8.2) L 09/12/18 04:43 3.4 g/dL (3.9-5) L 09/12/18 04:43 1.3 % 09/12/18 04:43 Triglycerides 1018 mg/dL (2-149) H 09/11/18 11:51 Cholesterol 398 mg/dL (50-199) H 09/11/18 11:51 70 mg/dL (50-130) 09/11/18 11:51 24 mg/dL (40-59) L 09/11/18 11:51 16.58 % 09/11/18 11:51 22 units/L (13-60) 09/11/18 11:51 Yellow (Yellow) 09/11/18 11:43 Clear (Clear) 09/11/18 11:43 6.0 (5.0-7.0) 09/11/18 11:43 Ur Specific [place] 1.023 (1.003-1.030) 09/11/18 11:43 100 mg/dl mg/dL (Negative) 09/11/18 11:43 Neg mg/dL (Negative) 09/11/18 11:43 80 mg/dL (Negative) 09/11/18 11:43 Sm (Negative) 09/11/18 11:43 Neg (Negative) 09/11/18 11:43 Neg (Negative) 09/11/18 11:43 < 2.0 mg/dL (<2.0) 09/11/18 11:43 Ur Leukocyte Esterase Neg (Negative) 09/11/18 11:43 < 1.0 /HPF (0.0-6.0) 09/11/18 11:43 < 1.0 /HPF (0.0-6.0) 09/11/18 11:43 U Epithel Cells (Auto) 1.0 /HPF (0-13.0) 09/11/18 11:43 Few /HPF 09/11/18 11:43 Salicylates < 0.3 mg/dL (2.8-20.0) L 09/11/18 11:51 Presumptive negative 09/11/18 11:43 Presumptive negative 09/11/18 11:43 Acetaminophen < 5.0 ug/mL (10.0-30.0) L 09/11/18 11:51 Ur Barbiturates Screen Presumptive negative 09/11/18 11:43 Phenytoin 2.6 ug/mL (10.0-20.0) L 09/11/18 11:51 Valproic Acid < 2.8 ug/mL (50-100) L 09/11/18 11:51 Ur Phencyclidine Scrn Presumptive negative 09/11/18 11:43 Ur Amphetamines Screen Presumptive negative 09/11/18 11:43 U Benzodiazepines Scrn Presumptive negative 09/11/18 11:43 Presumptive negative 09/11/18 11:43 U Marijuana (THC) Screen Presumptive negative 09/11/18 11:43 Disclamer 09/11/18 11:43 Plasma/Serum Alcohol 0.06 % (0-0.07) 09/11/18 11:51 Active Medications - Current Medications Current Medications: Generic Name Dose Route Start Last Admin Trade Name Freq PRN Reason Stop Dose Admin Acetaminophen 650 mg 09/11/18 13:31 09/17/18 11:14 Tylenol PO 650 mg Q4H PRN Administration Pain MILD(1-3)/Fever >100.5/METZ Acetaminophen/Hydrocodone Bitart 1 each 09/19/18 11:24 09/20/18 13:57 [place] 5/325 PO 1 each Q4H PRN Administration Pain, Moderate (4-6) Albuterol 2.5 mg 09/14/18 16:31 Proventil IH Q4HRT PRN Shortness Of Breath Albuterol/Ipratropium 1 ampul 09/14/18 20:00 09/20/18 13:07 Duoneb *Not For Prn Use* IH 1 ampul Q6HRT ELVIA Administration Arformoterol Tartrate 15 mcg 09/14/18 20:00 09/20/18 07:50 Brovana Nebu IH 15 mcg Q12HRT ELVIA Administration Atorvastatin Calcium 40 mg 09/11/18 22:00 09/19/18 22:58 Lipitor PO 40 mg QHS ELVIA Administration Benzonatate 100 mg 09/18/18 09:00 09/20/18 13:57 Tessalon Perles PO 100 mg Q8HR ELVIA Administration Budesonide 0.5 mg 09/14/18 20:00 09/20/18 07:50 Pulmicort IH 0.5 mg Q12HRT ELVIA Administration Calcium Carbonate/Glycine 1,250 mg 09/12/18 10:00 09/20/18 10:10 Oscal PO 1,250 mg DAILY ELVIA Administration Dextrose 50 ml 09/11/18 15:01 D50w (25gm) Syringe IV PRN PRN Hypoglycemia Divalproex Sodium 500 mg 09/11/18 14:00 09/20/18 13:[address] PO 500 mg TID ELVIA Administration Docusate Sodium 100 mg 09/12/18 10:00 09/20/18 10:10 Colace PO 100 mg DAILY ELVIA Administration Enoxaparin Sodium 40 mg 09/11/18 22:00 09/19/18 22:58 Lovenox SUB-Q 40 mg QDAY@2200 ELVIA Administration Finasteride 5 mg 09/12/18 10:00 09/20/18 10:12 Proscar PO 5 mg DAILY ELVIA Administration Folic Acid 1 mg 09/12/18 10:00 09/20/18 10:11 Folvite PO 1 mg QDAY ELVIA Administration Insulin Human Lispro 0 unit 09/11/18 16:30 09/20/18 12:06 Humalog SUB-Q Not Given [facility] Protocol Lisinopril 2.5 mg 09/12/18 10:00 09/20/18 10:11 Zestril PO 2.5 mg QDAY ELVIA Administration Loperamide HCl 2 mg 09/12/18 11:00 09/16/18 11:26 Imodium PO 2 mg Q2H PRN Administration Diarrhea Lorazepam 2 mg 09/11/18 21:26 09/13/18 23:07 Ativan IV 2 mg Q1HR PRN Administration CIWA-Ar 8-15 Lorazepam 4 mg 09/11/18 21:26 Ativan IV Q1HR PRN CIWA-Ar 16-25 Melatonin 5 mg 09/12/18 22:00 09/19/18 22:58 Melatonin PO 5 mg QHS ELVIA Administration Morphine Sulfate 2 mg 09/13/18 21:45 09/19/18 10:52 Morphine IV 2 mg Q4H PRN Administration Pain, Moderate (4-6) Nicotine 21 mg 09/12/18 10:00 09/20/18 10:11 Habitrol TD 21 mg DAILY ELVIA Administration Nitroglycerin 0.4 mg 09/11/18 13:31 Nitrostat SL Q5M PRN Chest Pain Ondansetron HCl 4 mg 09/11/18 13:31 09/18/18 13:51 Zofran IV 4 mg Q8H PRN Administration Nausea And Vomiting Pantoprazole Sodium 40 mg 09/17/18 10:00 09/20/18 10:11 Protonix PO 40 mg DAILY ELVIA Administration Pseudoephedrine/Acetam/Chlorphenir 20 ml 09/18/18 10:00 09/19/18 10:55 Robitussin Ac PO 20 ml Q4H PRN Administration Cough Sertraline HCl 50 mg 09/11/18 18:00 09/20/18 10:11 Zoloft PO 50 mg QDAY ELVIA Administration Sodium Chloride 10 ml 09/11/18 13:31 09/20/18 10:12 Sodium Chloride Flush Syringe 10 Ml IV 10 ml PRN PRN Administration LINE FLUSH Tamsulosin HCl 0.4 mg 09/12/18 10:00 09/20/18 10:11 Flomax PO 0.4 mg QDAY ELVIA Administration Nutrition/Malnutrition Assess - Dietary Evaluation Nutrition/Malnutrition Findings: Nutrition Notes Start: 09/18/18 18:46 Freq: Status: Active Protocol: Document 09/18/18 18:46 RM (Rec: 09/18/18 18:52 RM [email or web address]) Nutrition Notes Need for Assessment generated from: LOS Initial or Follow up Assessment Current Diagnosis Diabetes,Heart Failure Other Pertinent Diagnosis N/V, ETOH dependence w/ withdrawal, Hx prostate CA, suicidal ideation Current Diet GI soft Labs/Tests Reviewed Pertinent Medications Reviewed Height 5 ft 5 in Weight 90.1 kg [place] Body Weight (kg) 61.81 BMI 33.0 Subjective/Other Information Screened for LOS. Pt stated that his appetite is okay but that he hasnt been able to keep any food down. Stated that has been able to keep down liquids. Trauma Absent #1 Nutrition Diagnosis Inadequate oral intake Etiology vomiting As Evidenced by Signs and Symptoms pt statement that he has not been able to keep any food down Is patient on ventilator? No Is Patient Ambulatory and/or Out of Bed Yes REE-([facility]-ambulatory/OOB) [ 2155.244 NUTR.MSJOOB] Kcal/Kg value to use for calculation 18 Approximate Energy Requirements Using 1622 kcal/Kg Calculation Used for Recommendations Kcal/kg Additional Notes Protein Needs: 61-76g (0.8-1g/ kg 76g adjBW) Fluid Needs: 1 ml/kcal Nutrition Intervention Change Diet Order: GI soft, Consistent CHo Add Supplement/Snack (indicate name/kcal Glucerna [place] BID /protein ) Provides kCal: 440 Provides Protein (gm) 20 Goal #1 PO tolerance Goal #2 Meet at least 75% of calorie and protein needs via PO and ONS intakes Anticipated Discharge Needs: Unable to determine at this time Follow-Up By: 09/21/18 Additional Comments Follow for PO and ONS intakes
[2018-09-20] MEDS: MELATONIN PO SCH (22:21)
[2018-09-20] MEDS: LOVENOX SUB-Q SCH (22:21)
[2018-09-21] MEDS: DUONEB *Not for PRN Use IH SCH ×4 (02:40→21:09)
[2018-09-21] MEDS: TESSALON PERLES PO SCH ×3 (06:40→21:00)
[2018-09-21] MEDS: NORCO 5/325 PO PRN ×5 (06:40→23:19)
[2018-09-21] MEDS: HumaLOG SUB-Q SCH ×4 (08:32→23:19)
[2018-09-21] MEDS: PULMICORT IH SCH ×2 (09:05→21:06)
[2018-09-21] MEDS: BROVANA NEBU IH SCH ×2 (09:05→21:06)
[2018-09-21] MEDS: HABITROL TD SCH (09:10)
[2018-09-21] MEDS: FLOMAX PO SCH (09:10)
[2018-09-21] MEDS: PROTONIX PO SCH (09:10)
[2018-09-21] MEDS: ZOLOFT PO SCH (09:11)
[2018-09-21] MEDS: FOLVITE PO SCH (09:11)
[2018-09-21] MEDS: OSCAL PO SCH (09:11)
[2018-09-21] MEDS: PROSCAR PO SCH (09:11)
[2018-09-21] MEDS: COLACE PO SCH (09:12)
--- NOTE | 2018-09-21 12:29 | Progress Note ---
Assessment and Plan Assessment and plan: Patient is a 57 yo man with a history of HTN, DM, ETOH Dependence, Depression, Psychosis, Prostate Cancer, Asthma, COPD, OA (walks with a cane) and tobacco Dependence who presented to [facility] with chest pains, sob, abdominal pains and Suicidal attempt by drinking 2.5 gallons of vodka over the past 2 days in an effort to end his life. He was placed on a 1013. He was diagnosis with atypical chest pain as well as Diastolic CHF, and ETOH Withdrawal. Pt admitted to telemetry and treated with supportive care. Pt initiated on CIWA protocol for ETOH Dependence with ETOH withdrawal. Mental health consulted and patient placed on 1013 and placed on 1:1 sitter. He developed intractable nausea and vomiting; therefore, he was evaluated by GI. Small bowel follow through was unremarkable as well as Exercise Stress test. Intractable nausea and Vomiting: advance diet, Continue Zofran, GI following Acute on chronic Diastolic CHF, resolved, not on diuretics MDD-Severe with Suicidal ideation and attempt: psych is following, on 1013 ETOH USE/DEPENDANCE with Alcohol Withdrawal: treated with CIWA protocol Hyponatremia, hypovolemia: monitor closely Atypical chest pain secondary to Costochondritis and GERD related syndrome: treat with PPI NSAID abuse: stop and counseling done Nicotine Dependance: nicotine patch Obesity: counseled on lifestyle modifications Diabetes Mellitus: ssi, ada diet H/o Prostate Cancer Acute Toxic Metabolic Encephalopathy, poa, resolved Rib Fracture-Chronic: pain control Insomnia HTN: low salt diet SOB and cough with Chest pains with deep breathing: suspect Atelectasis, 2v CXR and D-dimer unremarkable and treat with Incentive spirometry, added anti-tus sives Hypokalemia, severe: replete and monitor closely Psych has rescinded the 1012September 17 Disposition: continue inpatient care, awaiting SNF placement, triggered a Level 2 today History Interval history: Patient was seen and examined. Follow-up on current diagnosis N/V, resolved. No overnight events reported to me. Patient denies any shortness breath, or severe headaches. Imaging, nursing note, chart, labs and old chart reviewed. Discussed with patient. He c/o cough, SOB and chest pains when he takes a deep breath. Hospitalist Physical - Physical exam Narrative exam: Gen: WDWN, NAD, Awake, Alert, Orientated, off O2 HEENT: NCAT, EOMI, PERRL, OP Clear Neck: supple, no adenopathy, no thyromegaly, no JVD CVS/Heart: RRR, normal S1S2, pulses present bilaterally Chest/Lungs: inspiratory crackles partial clears with deep inspiration, Symmetrical chest expansion, good air entry bilaterally GI/Abdomen: soft, NTND, good bowel sounds, no guarding or rebound /Bladder: no suprapubic tenderness, no CVA or paraspinal tenderness Extermity/Skin: no c/c/e, no obvious rash MSK: FROM x 4 Neuro: CN 2-12 grossly intact, no new focal deficits Psych: calm, denies SI, - Constitutional Vitals: Temp Pulse Resp BP Pulse Ox 97.4 F L 64 20 106/59 95 09/21/18 05:30 09/21/18 09:19 09/21/18 09:19 09/21/18 05:30 09/21/18 09:24 General appearance: Present: obese. Absent: mild distress Results - Labs CBC & Chem 7: 09/19/18 05:10 09/19/18 05:10 Labs: Laboratory Last Values WBC 4.0 K/mm3 (4.5-11.0) L 09/19/18 05:10 RBC 3.82 M/mm3 (3.65-5.03) 09/19/18 05:10 Hgb 12.0 gm/dl (11.8-15.2) 09/19/18 05:10 Hct 35.0 % (35.5-45.6) L 09/19/18 05:10 MCV 92 fl (84-94) 09/19/18 05:10 MCH 31 pg (28-32) 09/19/18 05:10 MCHC 34 % (32-34) 09/19/18 05:10 RDW 14.3 % (13.2-15.2) 09/19/18 05:10 Plt Count 105 K/mm3 (140-440) L 09/19/18 05:10 Lymph % (Auto) 26.2 % (13.4-35.0) 09/12/18 04:43 [place] % (Auto) 10.5 % (0.0-7.3) H 09/12/18 04:43 Eos % (Auto) 1.3 % (0.0-4.3) 09/12/18 04:43 Baso % (Auto) 1.0 % (0.0-1.8) 09/12/18 04:43 Lymph # 1.1 K/mm3 (1.2-5.4) L 09/12/18 04:43 [place] # 0.5 K/mm3 (0.0-0.8) 09/12/18 04:43 Eos # 0.1 K/mm3 (0.0-0.4) 09/12/18 04:43 Baso # 0.0 K/mm3 (0.0-0.1) 09/12/18 04:43 Seg Neutrophils % 61.0 % (40.0-70.0) 09/12/18 04:43 Seg Neutrophils # 2.6 K/mm3 (1.8-7.7) 09/12/18 04:43 234.50 ng/mlDDU (0-234) H 09/17/18 14:07 Sodium 142 mmol/L (137-145) 09/19/18 05:10 Potassium 3.3 mmol/L (3.6-5.0) L 09/19/18 05:10 Chloride 104.9 mmol/L (98-107) 09/19/18 05:10 Carbon Dioxide 28 mmol/L (22-30) 09/19/18 05:10 12 mmol/L 09/19/18 05:10 BUN 7 mg/dL (9-20) L 09/19/18 05:10 0.7 mg/dL (0.8-1.5) L 09/19/18 05:10 Estimated GFR > 60 ml/min 09/19/18 05:10 10 % 09/19/18 05:10 Glucose 136 mg/dL (75-100) H 09/19/18 05:10 POC Glucose 135 (70-105) H 09/21/18 08:17 Calcium 8.5 mg/dL (8.4-10.2) 09/19/18 05:10 Magnesium 1.90 mg/dL (1.7-2.3) 09/19/18 05:10 0.30 mg/dL (0.1-1.2) 09/12/18 04:43 0.4 mg/dL (0-0.2) H 09/11/18 11:51 -0.2 mg/dL 09/11/18 11:51 AST 25 units/L (5-40) 09/12/18 04:43 ALT 34 units/L (7-56) 09/12/18 04:43 145 units/L (35-129) H 09/12/18 04:43 < 0.010 ng/mL (0.00-0.029) 09/11/18 19:45 6.1 g/dL (6.3-8.2) L 09/12/18 04:43 3.4 g/dL (3.9-5) L 09/12/18 04:43 1.3 % 09/12/18 04:43 Triglycerides 1018 mg/dL (2-149) H 09/11/18 11:51 Cholesterol 398 mg/dL (50-199) H 09/11/18 11:51 70 mg/dL (50-130) 09/11/18 11:51 24 mg/dL (40-59) L 09/11/18 11:51 16.58 % 09/11/18 11:51 22 units/L (13-60) 09/11/18 11:51 Yellow (Yellow) 09/11/18 11:43 Clear (Clear) 09/11/18 11:43 6.0 (5.0-7.0) 09/11/18 11:43 Ur Specific [place] 1.023 (1.003-1.030) 09/11/18 11:43 100 mg/dl mg/dL (Negative) 09/11/18 11:43 Neg mg/dL (Negative) 09/11/18 11:43 80 mg/dL (Negative) 09/11/18 11:43 Sm (Negative) 09/11/18 11:43 Neg (Negative) 09/11/18 11:43 Neg (Negative) 09/11/18 11:43 < 2.0 mg/dL (<2.0) 09/11/18 11:43 Ur Leukocyte Esterase Neg (Negative) 09/11/18 11:43 < 1.0 /HPF (0.0-6.0) 09/11/18 11:43 < 1.0 /HPF (0.0-6.0) 09/11/18 11:43 U Epithel Cells (Auto) 1.0 /HPF (0-13.0) 09/11/18 11:43 Few /HPF 09/11/18 11:43 Salicylates < 0.3 mg/dL (2.8-20.0) L 09/11/18 11:51 Presumptive negative 09/11/18 11:43 Presumptive negative 09/11/18 11:43 Acetaminophen < 5.0 ug/mL (10.0-30.0) L 09/11/18 11:51 Ur Barbiturates Screen Presumptive negative 09/11/18 11:43 Phenytoin 2.6 ug/mL (10.0-20.0) L 09/11/18 11:51 Valproic Acid < 2.8 ug/mL (50-100) L 09/11/18 11:51 Ur Phencyclidine Scrn Presumptive negative 09/11/18 11:43 Ur Amphetamines Screen Presumptive negative 09/11/18 11:43 U Benzodiazepines Scrn Presumptive negative 09/11/18 11:43 Presumptive negative 09/11/18 11:43 U Marijuana (THC) Screen Presumptive negative 09/11/18 11:43 Disclamer 09/11/18 11:43 Plasma/Serum Alcohol 0.06 % (0-0.07) 09/11/18 11:51 Active Medications - Current Medications Current Medications: Generic Name Dose Route Start Last Admin Trade Name Freq PRN Reason Stop Dose Admin Acetaminophen 650 mg 09/11/18 13:31 09/17/18 11:14 Tylenol PO 650 mg Q4H PRN Administration Pain MILD(1-3)/Fever >100.5/METZ Acetaminophen/Hydrocodone Bitart 1 each 09/19/18 11:24 09/21/18 10:23 [place] 5/325 PO 1 each Q4H PRN Administration Pain, Moderate (4-6) Albuterol 2.5 mg 09/14/18 16:31 Proventil IH Q4HRT PRN Shortness Of Breath Albuterol/Ipratropium 1 ampul 09/14/18 20:00 09/21/18 09:04 Duoneb *Not For Prn Use* IH 1 ampul Q6HRT ELVIA Administration Arformoterol Tartrate 15 mcg 09/14/18 20:00 09/21/18 09:05 Brovana Nebu IH 15 mcg Q12HRT ELVIA Administration Atorvastatin Calcium 40 mg 09/11/18 22:00 09/20/18 22:21 Lipitor PO 40 mg QHS ELVIA Administration Benzonatate 100 mg 09/18/18 09:00 09/21/18 06:40 Tessalon Perles PO 100 mg Q8HR ELVIA Administration Budesonide 0.5 mg 09/14/18 20:00 09/21/18 09:05 Pulmicort IH 0.5 mg Q12HRT ELVIA Administration Calcium Carbonate/Glycine 1,250 mg 09/12/18 10:00 09/21/18 09:11 Oscal PO 1,250 mg DAILY ELVIA Administration Dextrose 50 ml 09/11/18 15:01 D50w (25gm) Syringe IV PRN PRN Hypoglycemia Divalproex Sodium 500 mg 09/11/18 14:00 09/21/18 09:[address] PO 500 mg TID ELVIA Administration Docusate Sodium 100 mg 09/12/18 10:00 09/21/18 09:12 Colace PO 100 mg DAILY ELVIA Administration Enoxaparin Sodium 40 mg 09/11/18 22:00 09/20/18 22:21 Lovenox SUB-Q 40 mg QDAY@2200 [facility] Administration Finasteride 5 mg 09/12/18 10:00 09/21/18 09:11 Proscar PO 5 mg DAILY ELVIA Administration Folic Acid 1 mg 09/12/18 10:00 09/21/18 09:11 Folvite PO 1 mg QDAY ELVIA Administration Insulin Human Lispro 0 unit 09/11/18 16:30 09/21/18 08:32 Humalog SUB-Q Not Given [facility] Protocol Lisinopril 2.5 mg 09/12/18 10:00 09/20/18 10:11 Zestril PO 2.5 mg QDAY ELVIA Administration Loperamide HCl 2 mg 09/12/18 11:00 09/16/18 11:26 Imodium PO 2 mg Q2H PRN Administration Diarrhea Lorazepam 2 mg 09/11/18 21:26 09/13/18 23:07 Ativan IV 2 mg Q1HR PRN Administration CIWA-Ar 8-15 Lorazepam 4 mg 09/11/18 21:26 Ativan IV Q1HR PRN CIWA-Ar 16-25 Melatonin 5 mg 09/12/18 22:00 09/20/18 22:21 Melatonin PO 5 mg QHS ELVIA Administration Morphine Sulfate 2 mg 09/13/18 21:45 09/19/18 10:52 Morphine IV 2 mg Q4H PRN Administration Pain, Moderate (4-6) Nicotine 21 mg 09/12/18 10:00 09/21/18 09:10 Habitrol TD 21 mg DAILY ELVIA Administration Nitroglycerin 0.4 mg 09/11/18 13:31 Nitrostat SL Q5M PRN Chest Pain Ondansetron HCl 4 mg 09/11/18 13:31 09/18/18 13:51 Zofran IV 4 mg Q8H PRN Administration Nausea And Vomiting Pantoprazole Sodium 40 mg 09/17/18 10:00 09/21/18 09:10 Protonix PO 40 mg DAILY ELVIA Administration Pseudoephedrine/Acetam/Chlorphenir 20 ml 09/18/18 10:00 09/19/18 10:55 Robitussin Ac PO 20 ml Q4H PRN Administration Cough Sertraline HCl 50 mg 09/11/18 18:00 09/21/18 09:11 Zoloft PO 50 mg QDAY ELVIA Administration Sodium Chloride 10 ml 09/11/18 13:31 09/20/18 10:12 Sodium Chloride Flush Syringe 10 Ml IV 10 ml PRN PRN Administration LINE FLUSH Tamsulosin HCl 0.4 mg 09/12/18 10:00 09/21/18 09:10 Flomax PO 0.4 mg QDAY ELVIA Administration Nutrition/Malnutrition Assess - Dietary Evaluation Nutrition/Malnutrition Findings: Nutrition Notes Start: 09/18/18 18:46 Freq: Status: Active Protocol: Document 09/18/18 18:46 RM (Rec: 09/18/18 18:52 RM [id number]) Nutrition Notes Need for Assessment generated from: LOS Initial or Follow up Assessment Current Diagnosis Diabetes,Heart Failure Other Pertinent Diagnosis N/V, ETOH dependence w/ withdrawal, Hx prostate CA, suicidal ideation Current Diet GI soft Labs/Tests Reviewed Pertinent Medications Reviewed Height 5 ft 5 in Weight 90.1 kg [place] Body Weight (kg) 61.81 BMI 33.0 Subjective/Other Information Screened for LOS. Pt stated that his appetite is okay but that he hasnt been able to keep any food down. Stated that has been able to keep down liquids. Trauma Absent #1 Nutrition Diagnosis Inadequate oral intake Etiology vomiting As Evidenced by Signs and Symptoms pt statement that he has not been able to keep any food down Is patient on ventilator? No Is Patient Ambulatory and/or Out of Bed Yes REE-([facility]-ambulatory/OOB) [ 2155.244 NUTR.MSJOOB] Kcal/Kg value to use for calculation 18 Approximate Energy Requirements Using 1622 kcal/Kg Calculation Used for Recommendations Kcal/kg Additional Notes Protein Needs: 61-76g (0.8-1g/ kg 76g adjBW) Fluid Needs: 1 ml/kcal Nutrition Intervention Change Diet Order: GI soft, Consistent CHo Add Supplement/Snack (indicate name/kcal Glucerna [place] BID /protein ) Provides kCal: 440 Provides Protein (gm) 20 Goal #1 PO tolerance Goal #2 Meet at least 75% of calorie and protein needs via PO and ONS intakes Anticipated Discharge Needs: Unable to determine at this time Follow-Up By: 09/21/18 Additional Comments Follow for PO and ONS intakes
[2018-09-21] MEDS: ZESTRIL PO SCH (13:48)
[2018-09-21] MEDS: LOVENOX SUB-Q SCH (21:00)
[2018-09-21] MEDS: MELATONIN PO SCH (21:01)
[2018-09-22] MEDS: DUONEB *Not for PRN Use IH SCH ×3 (02:02→13:09)
[2018-09-22] MEDS: TESSALON PERLES PO SCH ×2 (06:58→16:02)
[2018-09-22] MEDS: PULMICORT IH SCH (07:37)
[2018-09-22] MEDS: BROVANA NEBU IH SCH (07:37)
[2018-09-22] MEDS: HumaLOG SUB-Q SCH ×2 (08:33→12:22)
[2018-09-22 08:45] LABS: Hematocrit 36.3 % (35.5-45.6); Hemoglobin 12.4 gm/dl (11.8-15.2); Mean Corpuscular HGB Conc 34 % (32-34); Mean Corpuscular Volume 90 fl (84-94); Platelet Count 109 K/mm3 (140-440); Red Blood Count 4.03 M/mm3 (3.65-5.03); Red Cell Distribution Width 14.2 % (13.2-15.2)
[2018-09-22 09:10] LABS: BUN/Creatinine Ratio 17; Blood Urea Nitrogen 10 mg/dL (9-20); Calcium 8.6 mg/dL (8.4-10.2); Hemolysis Index 7
[2018-09-22] MEDS: HABITROL TD SCH (10:25)
[2018-09-22] MEDS: COLACE PO SCH (10:35)
[2018-09-22] MEDS: PROSCAR PO SCH (10:35)
[2018-09-22] MEDS: ZOLOFT PO SCH (10:35)
[2018-09-22] MEDS: FLOMAX PO SCH (10:35)
[2018-09-22] MEDS: PROTONIX PO SCH (10:35)
[2018-09-22] MEDS: FOLVITE PO SCH (10:35)
[2018-09-22] MEDS: OSCAL PO SCH (10:35)
[2018-09-22] MEDS: ZOFRAN IV PRN (12:05)
[2018-09-22] MEDS: NORCO 5/325 PO PRN ×2 (12:05→16:01)
[2018-09-22] MEDS: ZESTRIL PO SCH (12:07)
--- NOTE | 2018-09-22 12:38 | Discharge Summary ---
Providers - Providers Date of Admission: 09/11/18 13:31 Date of discharge: 09/22/18 Attending physician: JESUS SOUZA 09/11/18 Consult to Cardiac Rehabilitation [CONS] Routine Reason For Exam: Phase I 09/11/18 13:40 Consult to Mental Health [CONS] Routine Reason For Exam: suicide ideation Place consult to:: psych Notified:: - Comment:: mental health is aware of consultation 09/13/18 09:13 Consult to Physician [CONS] Routine Comment: Consulting Provider: JONNY KEANE Physician Instructions: Reason For Exam: INTERACTABLE NAUSEA AND VOMITING 09/18/18 11:11 Physical Therapy Evaluation and Treat [CONS] Routine Comment: Reason For Exam: Weak Gait 09/18/18 14:39 Consult to Case Management [CONS] Routine Services Needed at Discharge: Rn Radiology Notified:: COPY LEFT FOR CM Additional Physician Instructions: SNF Placement as per family request: Please send out Vipul. Primary care physician: ZORAIDA LION Hospitalization Condition: Fair Hospital course: Patient is a 57 yo man with a history of HTN, DM, ETOH Dependence, Depression, Psychosis, Prostate Cancer, Asthma, COPD, OA (walks with a cane) and tobacco Dependence who presented to [facility] with chest pains, sob, abdominal pains and Suicidal attempt by drinking 2.5 gallons of vodka over the past 2 days in an effort to end his life. He was placed on a 1013. He was diagnosis with atypical chest pain as well as Diastolic CHF, and ETOH Withdrawal. Pt admitted to telemetry and treated with supportive care. Pt initiated on CIWA protocol for ET OH Dependence with ETOH withdrawal. Mental health consulted and patient placed on 1013 and placed on 1:1 sitter. He developed intractable nausea and vomiting; therefore, he was evaluated by GI. Small bowel follow through was unremarkable as well as Exercise Stress test. Initially planned to d/c SNF/[facility] but then cleared by PT to d/c home with . He was then discharged home with in stable condition. Discharge diagnosis: Intractable nausea and Vomiting: advance diet, Continue Zofran, GI following Acute on chronic Diastolic CHF, resolved, not on diuretics MDD-Severe with Suicidal ideation and attempt: psych was following, s/p 1013 ETOH USE/DEPENDANCE with Alcohol Withdrawal: treated with CIWA protocol Hyponatremia, hypovolemia: monitor closely Atypical chest pain secondary to Costochondritis and GERD related syndrome: treat with PPI NSAID abuse: stopped and counseling done Nicotine Dependance: nicotine patch Obesity: counseled on lifestyle modifications Diabetes Mellitus: ssi, ada diet H/o Prostate Cancer Acute Toxic Metabolic Encephalopathy, poa, resolved Rib Fracture-Chronic: pain control Insomnia HTN: low salt diet SOB and cough with Chest pains with deep breathing: suspect Atelectasis, 2v CXR and D-dimer unremarkable and treat with Incentive spirometry, added anti- tussives Hypokalemia, severe: replete and monitor closely Psych has rescinded the 1012September 17 Disposition: Home with Hospitalist Physical Gen: WDWN, NAD, Awake, Alert, Orientated, off O2 HEENT: NCAT, EOMI, PERRL, OP Clear Neck: supple, no adenopathy, no thyromegaly, no JVD CVS/Heart: RRR, normal S1S2, pulses present bilaterally Chest/Lungs: inspiratory crackles partial clears with deep inspiration, Symmetrical chest expansion, good air entry bilaterally GI/Abdomen: soft, NTND, good bowel sounds, no guarding or rebound /Bladder: no suprapubic tenderness, no CVA or paraspinal tenderness Extermity/Skin: no c/c/e, no obvious rash MSK: FROM x 4 Neuro: CN 2-12 grossly intact, no new focal deficits Psych: calm, denies SI, Disposition: /- HOME UNDER HOME [facility] Time spent for discharge: 34 minutes Core Measure Documentation - Palliative Care Palliative Care/ Comfort Measures: Not Applicable - Core Measures Any of the following diagnoses?: none Exam - Constitutional Vitals: Temp Pulse Resp BP Pulse Ox 97.6 F 65 22 117/65 91 09/22/18 11:37 09/22/18 12:07 09/22/18 11:37 09/22/18 12:07 09/22/18 11:37 Plan Activity: fall precautions Weight Bearing Status: Non-Weight Bearing Diet: low fat, low salt Durable Medical Equipment Needed Upon Discharge: Walker-Rolling Follow up with: ZORAIDA LION MD [Primary Care Provider] - 3-5 Days RASHMI FRANCISCO MD [Staff Physician] - 7 Days Prescriptions: Folic Acid [Folvite] 1 mg PO QDAY #30 tablet oxyCODONE /ACETAMINOPHEN [Percocet 5/325 mg] 1 tab PO Q6H PRN #10 tablet PRN Reason: Pain, Moderate (4-6) Sertraline [Zoloft] 50 mg PO QDAY #14 tablet
[2018-09-22 17:23] VITALS: BP 142/83
== END 2018-09-22 18:35 | disposition home health service (06) | DRG 91 ==
LOC: ED 10:29 → EEVIPCON 13:31 → 4A 13:31 → 3A 09-13 15:17
PROVIDERS: ADMIT Internal Medicine; ATTEND Internal Medicine
DX: G92 Toxic encephalopathy (principal); I50.33 Acute on chronic diastolic (congestive) heart failure; R45.851 Suicidal ideations; E87.2 Acidosis; E87.1 Hypo-osmolality and hyponatremia; F10.239 Alcohol dependence with withdrawal, unspecified; M84.48XA Pathological fracture, other site, initial encounter for fracture; J98.11 Atelectasis; F17.213 Nicotine dependence, cigarettes, with withdrawal; M94.0 Chondrocostal junction syndrome [Tietze]; I11.0 Hypertensive heart disease with heart failure; K21.9 Gastro-esophageal reflux disease without esophagitis; I20.9 Angina pectoris, unspecified; E66.9 Obesity, unspecified; E11.9 Type 2 diabetes mellitus without complications; F32.9 Major depressive disorder, single episode, unspecified; J44.9 Chronic obstructive pulmonary disease, unspecified; M19.90 Unspecified osteoarthritis, unspecified site; E86.1 Hypovolemia; G47.00 Insomnia, unspecified; E87.6 Hypokalemia; Z86.73 Personal history of transient ischemic attack (TIA), and cerebral infarction without residual deficits; Z85.46 Personal history of malignant neoplasm of prostate; Z68.35 Body mass index [BMI] 35.0-35.9, adult; Z71.3 Dietary counseling and surveillance; Z82.49 Family history of ischemic heart disease and other diseases of the circulatory system; Z79.899 Other long term (current) drug therapy; Z71.41 Alcohol abuse counseling and surveillance of alcoholic
CPT/HCPCS: 36415; 71045; 71046; 74018; 74176; 74250; 78452; 80048; 80053; 80061; 80076; 80164; 80185; 80307; 80320; 81001; 82962; 83690; 83735; 84484; 85025; 85027; 85379; 87116; 93005; 93010; 93017; 93306; 94640; 94760; 96365; 96375; 99406; G0378; A9270-GY; A9502; C9113; G0480; J1650; J1815; J2060; J2270; J2405; J2785; J3010; J3411; J7030; Q0162

== ENCOUNTER 2020-05-29 15:10 | Emergency (ER) | payer MEDICARE ==
[2020-05-29 15:22] VITALS: BP 143/99
--- NOTE | 2020-05-29 15:44 | Emergency Department Report ---
ED General Adult HPI - General Chief complaint: Neuro Symptoms/Deficit Stated complaint: POSS STROKE Time Seen by Provider: 05/29/20 15:36 Source: patient Mode of arrival: Ambulatory Limitations: No Limitations - History of Present Illness Initial comments: Patient is 59 years old male with history of hypertension, diabetes, CVA and schizophrenia. Patient presented to the ER stating that he has been having generalized weakness and diffuse body pain and he think that he had a stroke. Patient denying any focal weakness, numbness or tingling sensation. No difficulty speaking or ataxia. Stroke scale is 0. -: Sudden, This morning - Related Data Home Medications Medication Instructions Recorded Confirmed Last Taken Calcium Carbonate [Syen-Bgf-470] 500 mg PO DAILY 06/24/17 09/11/18 07/24/18 Ipratropium [Atrovent NEB] 0.5 mg IH Q4HR 06/24/17 09/11/18 07/24/18 Lisinopril [Zestril TAB] 2.5 mg PO QDAY 06/24/17 09/11/18 07/24/18 Sennosides/Docusate Sodium [Dok 1 each PO DAILY 06/24/17 09/11/18 07/24/18 Plus Tablet] Tamsulosin [Flomax] 0.4 mg PO QDAY 06/24/17 09/11/18 07/24/18 polyethylene glycoL 3350 [Miralax 17 gm PO QDAY 06/24/17 09/11/18 07/24/18 3350] ALPRAZolam [Xanax] 2 mg PO BID PRN 07/25/18 09/11/18 07/24/18 Omeprazole Magnesium [PriLOSEC Otc] 20 mg PO BID 07/25/18 09/11/18 07/24/18 QUEtiapine [SEROquel] 100 mg PO DAILY 07/25/18 09/11/18 07/24/18 Quetiapine Fumarate [SEROquel] 400 mg PO QHS 07/25/18 09/11/18 07/24/18 hydrOXYzine PAMOATE [Vistaril] 50 mg PO BID 07/25/18 09/11/18 07/24/18 Previous Rx's Medication Instructions Recorded Last Taken Type Divalproex [Willy Vazquez] 500 mg PO TID #90 tablet 06/24/16 07/24/18 Rx Phenytoin Sodium Extended (Nf) 30 mg PO Q8H #90 capsule 05/08/17 07/24/18 Rx [Dilantin (Nf)] tiZANidine [Zanaflex 4mg TAB] 4 mg PO Q6H #20 tablet 04/10/18 07/24/18 Rx Docusate Sodium [Colace CAP] 100 mg PO DAILY capsule 09/12/18 Unknown Rx Finasteride [Proscar] 5 mg PO DAILY tablet 09/12/18 Unknown Rx Folic Acid [Folvite] 1 mg PO QDAY #30 tablet 09/12/18 Unknown Rx Ibuprofen [Motrin 800 MG tab] 800 mg PO Q8HR PRN tablet 09/12/18 Unknown Rx Nicotine [Habitrol] 21 mg TD DAILY patch 09/12/18 Unknown Rx Sertraline [Zoloft] 50 mg PO QDAY #14 tablet 09/12/18 Unknown Rx oxyCODONE /ACETAMINOPHEN [Percocet 1 tab PO Q6H PRN #10 tablet 09/12/18 Unknown Rx 5/325 mg] Allergies Allergy/AdvReac Type Severity Reaction Status Date / Time No Known Allergies Allergy Verified 04/09/18 11:23 ED Review of Systems ROS: Stated complaint: POSS STROKE Other details as noted in HPI Comment: All other systems reviewed and negative Constitutional: denies: chills, fever Respiratory: denies: cough, shortness of breath, SOB with exertion, SOB at rest Cardiovascular: denies: chest pain Gastrointestinal: denies: abdominal pain, nausea, vomiting Musculoskeletal: denies: back pain Neurological: denies: headache, weakness, numbness, paresthesias, confusion Psychiatric: denies: anxiety, depression, auditory hallucinations, visual hallucinations, homicidal thoughts, suicidal thoughts ED Past Medical Hx - Past Medical History Previous Medical History?: Yes Hx Hypertension: Yes Hx CVA: Yes (x 2) Hx Heart Attack/AMI: No Hx Congestive Heart Failure: No Hx Diabetes: Yes Hx Deep Vein Thrombosis: No Hx Pulmonary Embolism: No Hx GERD: Yes Hx Sickle Cell Disease: No Hx Seizures: Yes Hx Psychiatric Treatment: Yes (SI recurrent/psychosis,major depression,alcohol abuse) Hx Asthma: Yes Hx COPD: Yes Hx Tuberculosis: No Hx Dementia: No Hx HIV: No Additional medical history: STOMACH, poor coping skills. Rectal bleeding due to internal hemorrhoid. Chronic thrombocytopenia - Surgical History Past Surgical History?: Yes Hx Coronary Stent: No Hx Open Heart Surgery: No Hx Pacemaker: No Hx Internal Defibrillator: No Hx Cholecystectomy: No Hx Appendectomy: No Hx Breast Surgery: No Additional Surgical History: cancerous hital hernia removed of abd-multiple times - Social History Smoking Status: Current Every Day Smoker Substance Use Type: None - Medications Home Medications: Home Medications Medication Instructions Recorded Confirmed Last Taken Type Divalproex Dr [Depakote Dr] 500 mg PO TID #90 tablet 06/24/16 09/11/18 07/24/18 Rx Phenytoin Sodium Extended (Nf) 30 mg PO Q8H #90 capsule 05/08/17 09/11/18 07/24/18 Rx [Dilantin (Nf)] Calcium Carbonate [[id number]] 500 mg PO DAILY 06/24/17 09/11/18 07/24/18 History Ipratropium [Atrovent NEB] 0.5 mg IH Q4HR 06/24/17 09/11/18 07/24/18 History Lisinopril [Zestril TAB] 2.5 mg PO QDAY 06/24/17 09/11/18 07/24/18 History Sennosides/Docusate Sodium [Dok 1 each PO DAILY 06/24/17 09/11/18 07/24/18 History Plus Tablet] Tamsulosin [Flomax] 0.4 mg PO QDAY 06/24/17 09/11/18 07/24/18 History polyethylene glycoL 3350 [Miralax 17 gm PO QDAY 06/24/17 09/11/18 07/24/18 History 3350] tiZANidine [Zanaflex 4mg TAB] 4 mg PO Q6H #20 tablet 04/10/18 09/11/18 07/24/18 Rx ALPRAZolam [Xanax] 2 mg PO BID PRN 07/25/18 09/11/18 07/24/18 History Omeprazole Magnesium [PriLOSEC Otc] 20 mg PO BID 07/25/18 09/11/18 07/24/18 History QUEtiapine [SEROquel] 100 mg PO DAILY 07/25/18 09/11/18 07/24/18 History Quetiapine Fumarate [SEROquel] 400 mg PO QHS 07/25/18 09/11/18 07/24/18 History hydrOXYzine PAMOATE [Vistaril] 50 mg PO BID 07/25/18 09/11/18 07/24/18 History Docusate Sodium [Colace CAP] 100 mg PO DAILY capsule 09/12/18 Unknown Rx Finasteride [Proscar] 5 mg PO DAILY tablet 09/12/18 Unknown Rx Folic Acid [Folvite] 1 mg PO QDAY #30 tablet 09/12/18 Unknown Rx Ibuprofen [Motrin 800 MG tab] 800 mg PO Q8HR PRN tablet 09/12/18 Unknown Rx Nicotine [Habitrol] 21 mg TD DAILY patch 09/12/18 Unknown Rx Sertraline [Zoloft] 50 mg PO QDAY #14 tablet 09/12/18 Unknown Rx oxyCODONE /ACETAMINOPHEN [Percocet 1 tab PO Q6H PRN #10 tablet 09/12/18 Unknown Rx 5/325 mg] ED Physical Exam - General Limitations: No Limitations General appearance: alert, in no apparent distress - Head Head exam: Present: atraumatic, normocephalic, normal inspection - Eye Eye exam: Present: normal appearance - ENT ENT exam: Present: normal exam, normal orophraynx, mucous membranes moist - Neck Neck exam: Present: normal inspection, full ROM. Absent: tenderness, meningismus - Respiratory Respiratory exam: Present: normal lung sounds bilaterally - Cardiovascular Cardiovascular Exam: Present: regular rate, normal rhythm, normal heart sounds - GI/Abdominal GI/Abdominal exam: Present: soft, normal bowel sounds. Absent: distended, tenderness, guarding, rebound, rigid, organomegaly, mass, bruit, pulsatile mass, hernia - Extremities Exam Extremities exam: Present: normal inspection, full ROM, normal capillary refill. Absent: tenderness - Back Exam Back exam: Present: normal inspection, full ROM. Absent: CVA tenderness (R), CVA tenderness (L) - Neurological Exam Neurological exam: Present: alert, oriented X3, CN II-XII intact, normal gait, reflexes normal. Absent: motor sensory deficit - Psychiatric Psychiatric exam: Present: normal mood. Absent: agitated, anxious, flat affect, manic, homicidal ideation, suicidal ideation - Skin Skin exam: Present: warm, intact, normal color ED Course Vital Signs 05/29/20 05/29/20 15:15 16:16 Temperature 98.3 F Pulse Rate 114 H 89 Respiratory 18 12 Rate Blood Pressure 143/99 O2 Sat by Pulse 98 97 Oximetry ED Medical Decision Making - Lab Data Result diagrams: 05/29/20 16:32 05/29/20 16:36 - EKG Data -: EKG Interpreted by Me EKG shows normal: sinus rhythm Rate: normal - Radiology Data Radiology results: report reviewed Critical care attestation.: If time is entered above; I have spent that time in minutes in the direct care of this critically ill patient, excluding procedure time. ED Disposition Clinical Impression: Weakness Disposition: Z-07 ELOPED Is pt being admited?: No Condition: Stable
--- NOTE | 2020-05-29 16:20 | Cat Scan Report ---
CT BRAIN: 05/29/2020 INDICATION / CLINICAL INFORMATION: Trauma. COMPARISON: None available. FINDINGS: BRAIN/INTRACRANIAL STRUCTURES: Unenhanced CT images of the brain demonstrate no evidence of acute int racranial abnormality. Ventricles and sulci are prominent in size, consistent with diffuse cerebral atrophy, more than is ty pically seen in a patient of this age. There is no evidence of acute large vessel territory ischemic injury, hemorrhage, or mass. There are no abnormal extra-axial fluid collections. EXTRACRANIAL STRUCTURES: Unremarkable. IMPRESSION: No acute abnormality. All CT scans at this location are performed using dose reduction to ALARA by means of automated expos ure control. Signer Name: Artem Garcia MD Signed: 05/29/2020 4:16 PM Workstation Name: [id number]
[2020-05-29 16:46] LABS: Basophils # (Auto) 0.1 K/mm3 (0.0-0.1); Basophils % (Auto) 1.2 % (0.0-1.8); Eosinophils # (Auto) 0.1 K/mm3 (0.0-0.4); Eosinophils % (Auto) 1.8 % (0.0-4.3); Hematocrit 40.9 % (35.5-45.6); Lymphocytes # (Auto) 1.9 K/mm3 (1.2-5.4); Lymphocytes % (Auto) 27.7 % (13.4-35.0); Mean Corpuscular HGB Conc 34 % (32-34); Mean Corpuscular Volume 91 fl (84-94); Monocytes # (Auto) 0.5 K/mm3 (0.0-0.8); Monocytes % (Auto) 7.5 % (0.0-7.3); Platelet Count 153 K/mm3 (140-440); Red Cell Distribution Width 14.5 % (13.2-15.2)
[2020-05-29 17:09] LABS: Alanine Aminotransferase 10 units/L (7-56); Albumin 3.8 g/dL (3.9-5); BUN/Creatinine Ratio 13; Blood Urea Nitrogen 12 mg/dL (9-20); Calcium 8.6 mg/dL (8.4-10.2); Hemolysis Index 5
== END 2020-05-29 17:18 | disposition left against medical advice (07) ==
LOC: ED 15:10
DX: R53.1 Weakness (principal); M79.10 Myalgia, unspecified site; I10 Essential (primary) hypertension; E11.9 Type 2 diabetes mellitus without complications; K21.9 Gastro-esophageal reflux disease without esophagitis; R56.9 Unspecified convulsions; J44.9 Chronic obstructive pulmonary disease, unspecified; F17.200 Nicotine dependence, unspecified, uncomplicated; Z86.73 Personal history of transient ischemic attack (TIA), and cerebral infarction without residual deficits; Z98.890 Other specified postprocedural states; Z79.1 Long term (current) use of non-steroidal anti-inflammatories (NSAID); Z79.899 Other long term (current) drug therapy
CPT/HCPCS: 36415; 70450; 80053; 82962; 83690; 84484; 85025; 93005